=== PATIENT | female | born 1950 | race Caucasian/White ===

== ENCOUNTER 2019-02-16 17:50 | Inpatient (IN) | payer MEDICARE, OTHER, SELFPAY ==
[2019-02-16] VITALS (8 sets, daily range): BP systolic 108–154; BP diastolic 64–75; PULSE 72–105; RESP 12–18; TEMP 36.6–37.1; O2SAT 97–99; BMI 31.6; BMI 32.3; BMI 32.4
--- NOTE | 2019-02-16 18:13 | CT_ITS ---
STUDY: CT BRAIN WITHOUT CONTRAST REASON FOR EXAM: Female, 68 years old. Weakness. Fall. RADIATION DOSAGE (If Supplied By Facility): CTDIvol = ( 44.99 ) mGy, DLP = ( 745.49 ) mGycm TECHNIQUE: Transaxial CT imaging of the brain was performed without administration of intravenous contrast material. Individualized dose optimization techniques were used for this CT. COMPARISON: No relevant priors. FINDINGS: Normal soft tissue structures. There is hyperostosis frontalis internus. Normal size ventricles and extra-axial spaces for the patient''s age. Normal white matter tracts of the cerebral hemispheres. Normal basal ganglia and thalami. Normal brainstem. Normal cerebellum. There is no intracranial hemorrhage. There are no findings of an acute ischemic infarction. Normal visualized paranasal sinuses. CT/Brain/Head without Contrast IMPRESSION: Normal unenhanced CT scan of the brain. Electronically Signed: Víctor Hughes MD at 18:53 EST , Service support ,
--- NOTE | 2019-02-16 18:13 | EKG12_ITS ---
Test Reason : DYSRHYTHMIA Blood Pressure : / mmHG Vent. Rate : 097 BPM Atrial Rate : 097 BPM P-R Int : 152 ms QRS Dur : 076 ms QT Int : 338 ms P-R-T Axes : 037 029 009 degrees QTc Int : 429 ms Normal sinus rhythm Inferior-posterior infarct , age undetermined Abnormal ECG Confirmed by OSBALDO BENITEZ, JULIA ([id number]), newspaper managing editor JASWINDER ABRAHAM ([id number]) on 02/17/2019 11:05:42 AM Referred By: Jose Antonio Napier Confirmed By:JULIA ROBLERO MD
--- NOTE | 2019-02-16 18:18 | RAD_ITS ---
STUDY: X-RAY CHEST REASON FOR EXAM: Female, 68 years old. Weakness. TECHNIQUE: Single AP portable view of the chest. COMPARISON: None. FINDINGS: The lungs are clear and expanded. There is no demonstrated pleural abnormality. Normal size heart. Normal mediastinum and christian. Normal visualized pulmonary arteries. Normal visualized aortic arch and descending thoracic aorta. Normal visualized thoracic spine. Normal visualized ribs, clavicles, and shoulders. There is no demonstrated abnormality of the visualized soft tissue structures of the upper abdomen. RAD/Chest 1 View (Portable) IMPRESSION: Normal x-ray examination of the chest. Electronically Signed: Víctor Hughes MD at 18:34 EST , Service support ,
[2019-02-16 18:37] LABS: Absolute Lymphocyte Count 1.41 X10^3/uL (0.83-4.51); Absolute Neutrophil Count 7.3 X10^3/uL (2.0-7.7); Basophil# 0.02 X10^3/uL; Basophil% 0.2 % (0-1); Eosinophil# 0.02 X10^3/uL; Eosinophils% 0.2 % (0-5); Hematocrit 46.9 % (37-47); Hemoglobin 15.5 g/dL (12.0-15.0); Lymphocyte # 1.41 X10^3/ul (4.0); Lymphocyte % 15.2 % (19-41); Mean Corpuscular Hgb 29.3 pg (27.0-32.0); Mean Corpuscular Volume 88.7 fL (81-99); Mean Platelet Vol. 7.8 fl (6.2-12.0); Monocyte% 5.4 % (0-10); NRBC Flagged by Analyzer 0 % (0-5); Neutrophil # 7.28 X10^3/uL (2.7-7.7); Neutrophil % 78.7 % (47-70); Platelet Count 222 K/mm3 (150-450); RBC Distribution Width CV 12.7 % (11.6-14.6); RBC Distribution Width SD 41.2 fl (35.1-43.9); Red Blood Count 5.29 M/mm3 (4.2-5.4); White Blood Count 9.3 K/mm3 (4.4-11.0)
--- NOTE | 2019-02-16 18:47 | ED.DCSUM_ITS ---
History of Present Illness Chief Complaint: Fall Narrative: Patient presenting for evaluation secondary to generalized weakness. Patient reports that she felt fine yesterday, but today as she went throughout the course of the day she had some pain under her left axilla. She reports a progressively she felt as if she was having difficulty ambulating, and as she was walking to the mailbox this afternoon she suffered a fall. Patient states that her legs basically gave out from underneath her, and she was unable to ambulate. She reports that she fell on her bottom, did not hit her head or lose consciousness. Patient states that she had to crawl back up to the house, and her cat helped her. Patient denies illness recently such as fever, cough, nausea, vomiting. She reports that she intermittently has issues with constipation and diarrhea and that is not unusual for her. Patient states that her legs are generally weak, but left feels somewhat worse than right. Patient also states that they were dealing with things with her neighbors in terms of the rescue squad being there and the neighbor being put on hospice care. Patient denies any visual changes or upper extremity numbness or weakness. No speech difficulty. Past Medical History - Allergies and Home Meds Allergies/Adverse Reactions: Allergies No Known Allergies Allergy (Verified 02/16/19 18:00) Primary Care Physician: Imtiaz Lee DO [Primary Care Provider] - 3-5 Days Past Medical History: - - Depression Smoking Status: Never smoker Review of Systems All systems negative except as indicated General: Denies: Chills, Fever, Sweats Eyes: Denies: Visual changes - bilaterally, Diplopia ENT: Denies: Rhinorrhea, Sore throat Cardiovascular: Denies: Chest pain, Palpitations Respiratory: Denies: Dyspnea, Cough, Dyspnea on exertion Gastrointestinal: Reports: Diarrhea, Constipation Genitourinary: Denies: Dysuria, Hematuria, Frequency Musculoskeletal: Denies: Back pain, Extremity Pain Skin: Denies: Rash, Wounds Neurological: Reports: Weakness Psych: Reports: Depression Endocrine: Denies: Polydipsia Hematologic: Denies: Easy bleeding Allergy: Denies: Swelling of the mouth Physical Exam Vital Signs/Narrative: Vital Signs Temp Pulse Resp BP Pulse Ox 02/16/19 18:09 97 02/16/19 17:51 97.8 F 105 H 16 108/64 97 Inital Vital Signs reviewed: Yes General: Well nourished, Well developed, No Acute Distress Head: Normocephalic, Atraumatic Eyes: Perrl, EOMI ENT: Moist mucous membranes, No rhinorrhea Neck: Supple, Nontender Cardiovascular: Regular rate, Regular rhythm, No murmurs Respiratory: No distress, CTA bilaterally, Chest nontender Abdomen: Soft, Nontender, Nondistended, Normal bowel sounds Back: Nontender, Normal Inspection Extremities: Nontender, No edema Skin: Normal color, No rash Neurological: Alert, Oriented x3, Cranial nerves II-XII grossly intact, Normal Sensation, - - Lower extremity exam shows normal sensation over all dermatomes. Patient has 4 out of 5 strength on the left for hip flexion and knee flexion, 5 out of 5 strength knee extension dorsiflexion and plantar flexion. Normal strength on the right. No evidence of decreased reflexes. Psychological: Normal affect, Normal Mood Diagnostic/Tx/Re-eval - EKG Initial EKG Interpretation: - - Sinus rhythm [address] segments normal T waves inferior Q waves that are old and noted on a prior EKG in October 2013. - Medical Decision Making Patient presented secondary to generalized weakness. Patient did seem to have some mild weakness of knee flexion and hip flexion, but no other documentable weakness in has no back pain, and has no abnormal reflexes I do not believe that this is spinal cord pathology. Work-up was obtained. Chest x-ray by my personal interpretation as well as radiology is found to be negative. CT brain was found to be negative. CBC chemistry troponin and urinalysis were all found to be unremarkable, EKG demonstrates no signs of ischemia. Patient at this point has basically some generalized weakness and a fall with an otherwise negative work-up. I attempted to ambulate the patient in the emergency department, and she was unable to walk even with the assistance of a nurse and a walker. At this time she seems to be complaining more so of the left-sided weakness. Repeat evaluation of the patient shows her to have some left leg weakness that predominantly seems to be associated with hip flexion and knee flexion, but technically her NIH stroke scale measures as a 2. Due to her unilateral weakness and inability to ambulate the patient will be admitted at this point. ED Disposition - Plan for ED Patient: Disposition: Acute Care Hospital [facility] Diagnosis: Left leg weakness
[2019-02-16 19:02] LABS: Anion Gap 6 (5-15); BUN 17 mg/dL (7-18); BUN/Creat Ratio 12.7 RATIO (10-20); Calcium,Total 9.9 mg/dL (8.5-10.1); Chloride 111 mmol/L (98-107); Creatinine, Serum 1.34 mg/dL (0.55-1.02); EST Glomerular Filtration Rate 42 mL/min (>60); Est Glom Filt Rate - Afr Amer 51 mL/min (>60); Estimated Creatinine Clearance 37.16 ml/min; Glucose 109 mg/dL (74-106); Potassium 4.1 mmol/L (3.5-5.1); Sodium Level 142 mmol/L (136-145)
[2019-02-16 19:08] LABS: Bacteria 0 SEEN /hpf (None Seen); Red Blood Cells-Urine 0 SEEN /hpf (0-5); Squamous Epithelial Cells - UA 0 SEEN /hpf (5-10)
[2019-02-16 19:10] LABS: Color, Urine Yellow (Yellow); Glucose, Dipstick Normal (Normal); Ketone-Dipstick Negative (Negative); Leukocyte Esterase-Dipstick Negative /ul (Negative); Nitrite-Dipstick Negative (Negative); Occult Blood-Urine 10 /ul (Negative); Protein-Dipstick Negative (Negative); Urine Bilirubin Dipstick Negative (Negative); Urine Clarity Cloudy (Clear); Urine Urobilinogen Normal (Normal)
[2019-02-16 19:18] LABS: Mucous, Urine 2+ /hpf (<or=2+); White Blood Cells 0-5 SEEN /hpf (0-5)
--- NOTE | 2019-02-16 20:03 | ED.RN ---
PT did not pass ambulation protocol with walker. She had trouble putting underwear and pants on by herself. PT states she never had any problems with self care until today. Left leg seems weaker and she drags it behind. Also states this is new. PT admits to depression, she is in a depressed mood currently. PT did give very good effort in walking with walker but nearly pitched forward or backward 4 times. If RN was not at side, she would have surly fallen either backward or forward.
--- NOTE | 2019-02-16 20:06 | HP.PCM_ITS ---
Problem List (1) Stroke-like symptoms Status: Acute (2) Left leg weakness Status: Acute History of Present Illness Date of Admission: 02/16/19 Chief Complaint: left sided weakness The patient is a 68 year old F with a significant history of hypertension; rosacea; borderline diabetes; depression and anxiety who presented to emergency department with left-sided weakness that started several hours before presenta tion. She has weakness in the left upper extremity and in her left lower extremity. Because of the weakness she fell. She denies any speech changes. She reports a gradual vision changes which is not new. Past Medical History Medical History: Medical History (Last Reviewed 02/17/19 @ 04:59 by Jose Antonio Napier MD) HTN (hypertension) I10 Allergies No Known Allergies Allergy (Verified 02/16/19 18:00) Home Medications: Ambulatory Orders Medication Instructions Recorded Lorazepam [Ativan] 0.5 - 1 mg PO BID PRN PRN 10/16/13 Fluvoxamine Maleate 100 mg PO QHS 02/16/19 Metformin HCl 500 mg PO DAILY 02/16/19 Mirtazapine 30 mg PO QHS 02/16/19 Rosuvastatin Calcium [Crestor] 10 mg PO DAILY 02/16/19 Surgical History: - - Surgery to remove lesion in her armpit; ; surgery for ingrown toenail. Smoking Status: Never smoker Alcohol: None - *Family History Maternal History Items: Heart Disease Paternal History Items: Heart Disease, - - Arthritis Review of Systems Constitutional: Denies: Chills, Fever, Weight Change HEENT: Denies: Head Aches, Sinus Congestion, Sinus Drainage Cardiovascular: Denies: Chest Pain, Palpitations Respiratory: Denies: Cough, Shortness of breath at rest, Sputum production Gastrointestinal: Denies: Abdominal Pain, Nausea, Vomiting Genitourinary: Denies: Dysuria Musculoskeletal: Denies: Joint Pain, Joint Tenderness Skin: Denies: Rash, Wounds Neurological: Reports: Focal weakness. Denies: Numbness, Tingling Psychiatric: Reports: Anxiety, Depression. Denies: Homicidal Ideations, Suicidal Ideations Hematologic/ Lymphatic: Denies: Easy Bruising, Easy Bleeding VTE Information - Inpt Only VTE Present on Admission: No VTE Mechan Device Prophylaxis: None VTE Pharm Prophylaxis ordered?: Yes Patient Problems: Active and Suspected Problems (Last Updated 02/17/19 @ 00:41 by Jose Antonio Napier MD) Left leg weakness (Acute) Stroke-like symptoms (Acute) - Physical Exam Vitals/I&O's: Vital Signs Temp Pulse Resp BP Pulse Ox 97.8 F 72 18 149/69 H 99 02/16/19 17:51 02/16/19 20:03 02/16/19 20:03 02/16/19 20:03 02/16/19 20:03 Oxygen Delivery Method Room Air Weight: 86.183 kg Body Mass Index (BMI) 31.6 General: Alert, Oriented x3, Cooperative HEENT: Atraumatic, PERRLA, EOMI, Normocephalic Neck: Supple, No JVD, Negative Carotid Bruits Lungs: Clear to auscultation, Normal air movement Cardiovascular: Regular rate, Normal S1, Normal S2, No murmurs Abdomen: Bowel Sounds Present, Soft, Non Tender Extremities: No edema, Capillary Refill Less than 3 Seconds Skin: No rashes, No breakdown Musculoskeletal: No Tenderness to Palpation of Joints or Extremities Neurological: Cranial nerves II-XII grossly intact, Deep Tendon Reflexes 2+/4 and Symmetrical, Muscle tone normal, - - Left upper extremity strength 4 out of 5. Left lower extremity strength 2 out of 5. Right upper and right lower extremity strength 5 out of 5. Psych/Mental Status: Normal Affect, Appropriate Laboratory Results 02/16/19 18:29: WBC 9.3, RBC 5.29, Hgb 15.5 H, Hct 46.9, MCV 88.7, MCH 29.3, MCHC 33.0, RDW Std Deviation 41.2, RDW Coeff of Kristal 12.7, Plt Count 222, MPV 7.8, Immature Gran % (Auto) 0.300, Neut % (Auto) 78.7 H, Lymph % (Auto) 15.2 L, [place] % (Auto) 5.4, Eos % (Auto) 0.2, Baso % (Auto) 0.2, Absolute Neuts (auto) 7.3, Absolute Lymphs (auto) 1.41, Nucleated RBC % 0 02/16/19 18:29: Sodium 142, Potassium 4.1, Chloride 111 H, Carbon Dioxide 25.0, Anion Gap 6, BUN 17, Creatinine 1.34 H, Estim Creat Clear Calc 37.16, Est GFR (MDRD) Af Amer 51 L, Est GFR (MDRD) Non-Af 42 L, BUN/Creatinine Ratio 12.7, Glucose 109 H, Calcium 9.9, Troponin I < 0.015 02/16/19 19:05: Urine Color Yellow, Urine Clarity Cloudy, Urine pH 5.0, Ur Specific [place] 1.030, Urine Protein Negative, Urine Glucose (UA) Normal, Urine Ketones Negative, Urine Occult Blood 10 H, Urine Nitrite Negative, Urine Bilirubin Negative, Urine Urobilinogen Normal, Ur Leukocyte Esterase Negative, Urine RBC 0 SEEN, Urine WBC 0-5 SEEN, Ur Squamous Epith Cells 0 SEEN, Urine Bacteria 0 SEEN, Urine Mucus 2+ Assessment/Plan All Active Problems (Last Updated 02/17/19 @ 00:41 by Jose Antonio Napier MD) Left leg weakness (Acute) Stroke-like symptoms (Acute) The patient is a 68 year old F with a significant history of hypertension; rosacea; borderline diabetes; depression and anxiety who presented to emergency department with left-sided weakness that started several hours before presentation consistent with likely strokelike symptoms. Strokelike symptoms CT of the head was unremarkable -Check Hba1c, Lipid level Physical therapy, occupational therapy and speech therapy to work with patient. N.p.o. until bedside swallow eval. Daily aspirin ordered.. Patient is on home rosuvastatin 10 mg daily. Will escalate to high intensity statin Lipid profile and A1c ordered. Permissive hypertension. Control blood pressure with labetalol for systolic blood pressure of more than 220 or diastolic blood pressure of more than 120. -Permissive HTN for 24 hrs, fci goal BP < 120/80 mmHg and goal Hba1c < 7% MRI/MRA of head; brain; and neck. Echocardiogram ordered. Prediabetes On presentation her blood glucose was within goal. Hold home metformin. Accu-Chek q. ACH is. On high restriction of 1800 kcal/day. Depression and anxiety Remeron and fluvoxamine continued. Ativan as needed continued. DVT prophylaxis Subcutaneous Lovenox. Code Visit OBSV E&M: 04080 Initial observation care L3
--- NOTE | 2019-02-16 21:18 | ECHOCS_ITS ---
Reason For Study: TIA/CVA Procedure This was a 2D Doppler, Color Flow transthoracic echocardiogram. The study was technically difficult. Contrast injection was performed. Exam performed in department. Left Ventricle Normal LV size. Mild concentric left ventricular hypertrophy. The estimated ejection fraction is 65 %. Stage 1 diastolic dysfunction. No regional wall motion abnormalities noted. Right Ventricle Normal size and thickness. Normal systolic function. Atria Normal left atrium. Normal right atrium. Normal atrial septum. Mitral Valve The mitral valve is structurally normal. No prolapse or stenosis seen. Tricuspid Valve Normal tricuspid valve. Trivial tricuspid valve insufficiency. Right ventricular systolic pressure estimated to be 25 mmHg. Aortic Valve Normal aortic valve. Trisinus/trileaflet aortic valve. Pulmonic Valve Normal pulmonic valve. Great Vessels Normal aortic root. Normal arch. Normal inferior vena cava. Inferior vena cava collapse with sniff. Pericardium/Pleural No pericardial effusion. Medication Diluted definity 2.0ml given slow IV push to enhance endocardial definition. Performed a rapid injection of agitated mix of 9 cc saline and 1cc air to assess for atrial septal defect. MMode/2D Measurements & Calculations LVIDd: 3.4 cm IVSd: 1.2 cm Ao root diam: 2.8 cm LVIDs: 2.5 cm LVPWd: 0.93 cm RVDd: 3.2 cm FS: 27.8 % LAV(MOD-bp): 30.1 ml LA A4 area: 12.3 cm2 LA dimension(2D): 2.7 cm LAV(MOD-bp) Indexed: 15.4 ml/m2 LAV(MOD-sp2): 25.7 ml LAV(MOD-sp4): 30.4 ml RA A4 area: 12.0 cm2 Time Measurements MV dec time: 0.23 sec Doppler Measurements & Calculations MV E max wilmar: 54.7 cm/sec Ao V2 max: 100.4 cm/sec LV V1 max: 86.9 cm/sec MV A max wilmar: 63.6 cm/sec Ao max P.0 mmHg LV V1 max P.0 mmHg MV E/A: 0.86 PA V2 max: 87.3 cm/sec TR max wilmar: 223.2 cm/sec TR max P.9 mmHg Interpretation Summary Mild concentric left ventricular hypertrophy. The estimated ejection fraction is 65 %. Stage 1 diastolic dysfunction. Trivial tricuspid valve insufficiency. Right ventricular systolic pressure estimated to be 25 mmHg. The study was technically difficult. Contrast injection was performed. There is no comparison study available. Ordering Physician: Jose Antonio Napier Referring Physician: Imtiaz Weiss Performed By: Luiza Coyne RDCS, RVT
[2019-02-16] MEDS: 0.45% Normal Saline 1,000 ML 75 ML IV (21:37)
[2019-02-16] MEDS: 0.9% Saline Lock 10 ML Syringe IV (21:37)
[2019-02-16] MEDS: Mirtazapine 30 MG Tablet PO (22:23)
[2019-02-16] MEDS: Atorvastatin Calcium 40 MG Tablet PO (22:23)
[2019-02-17] VITALS (11 sets, daily range): BP systolic 123–151; BP diastolic 56–88; PULSE 74–96; RESP 12–20; TEMP 36.6–37; O2SAT 93–100; BMI 32.3
[2019-02-17 03:16] LABS: Bedside Glucose 91 mg/dL (70-110)
[2019-02-17] MEDS: Acetaminophen 325 MG Tablet 650 MG PO (05:10)
[2019-02-17 06:36] LABS: Bedside Glucose 113 mg/dL (70-110)
[2019-02-17 08:06] LABS: Anion Gap 8 (5-15); BUN 16 mg/dL (7-18); BUN/Creat Ratio 13.6 RATIO (10-20); Calcium,Total 8.7 mg/dL (8.5-10.1); Chloride 107 mmol/L (98-107); Cholesterol 113 mg/dL (200); Creatinine, Serum 1.18 mg/dL (0.55-1.02); EST Glomerular Filtration Rate 49 mL/min (>60); Est Glom Filt Rate - Afr Amer 59 mL/min (>60); Glucose 118 mg/dL (74-106); High Density Lipoprotein 41 mg/dL; Potassium 3.6 mmol/L (3.5-5.1); Sodium Level 142 mmol/L (136-145); Triglycerides 125 mg/dL; Very Low Density Lipoprotein 25 mg/dL (5-40)
[2019-02-17] MEDS: Enoxaparin 40 MG/0.4 ML Syringe SC (08:31)
[2019-02-17] MEDS: Aspirin 81 MG TAB.CHEW PO (08:38)
--- NOTE | 2019-02-17 09:00 | MRI_ITS ---
STUDY: MRI BRAIN WITHOUT CONTRAST REASON FOR EXAM: Female, 68 years old. Stroke, leg weakness, vision loss TECHNIQUE: Standardized multiplanar fat and water weighted pulse sequences were obtained. COMPARISON: CT 02/16/2019 FINDINGS: Normal size of the ventricles and extra-axial spaces for the patient''s age. Normal white matter tracts of the supratentorial brain. There is no evidence for recent intracranial ischemia or other cause of cytotoxic edema on diffusion weighted imaging (DWI). Normal T2* images of the brain without demonstrated susceptibility artifact. There is no demonstrated hemosiderin stain. Normal bilateral basal ganglia. Normal thalami. There is no extra-axial fluid accumulation. Normal flow voids within the major intracranial circulation suggesting patency by spin echo criteria. Normal sella turcica, pituitary gland, infundibular stalk, optic chiasm and hypothalamus. Normal tectal plate and pineal gland. Normal midbrain, wanda and medulla. Normal cerebellum. Normal basal cisterns. Normal bilateral temporal bones. Normal bilateral internal auditory canals. No demonstrated orbital abnormality, within the constraints of a routine brain study. Normal visualized paranasal sinuses. Hyperostosis frontalis interna. Normal visualized soft tissue structures. Normal visualized upper cervical spine. MRI/Brain without Contrast IMPRESSION: Normal unenhanced MRI of the brain. Electronically Signed: Terrell Chang MD at 14:35 EST Tel , Service support ,
--- NOTE | 2019-02-17 09:00 | MRI_ITS ---
STUDY: MRA NECK WITH AND WITHOUT CONTRAST REASON FOR EXAM: Female, 68 years old. Stroke, leg weakness, vision loss TECHNIQUE: 3-D [id number] (TOF) imaging was performed in an 1.5 T MRI scanner. dotarem 18ml iv was administered for the contrast enhanced images. COMPARISON: None. FINDINGS: RIGHT CAROTID ARTERIES: Normal right common carotid artery (CCA). Normal right common carotid bulb. Normal origin of the right internal carotid (ICA) artery without a hemodynamically significant stenosis. Normal visualized cervical portion of the right internal carotid artery. Normal origin of the right external carotid artery (ECA). LEFT CAROTID ARTERIES: Normal left common carotid artery (CCA). Normal left common carotid bulb. Normal origin of the left internal carotid (ICA) artery without a hemodynamically significant stenosis. Normal visualized cervical portion of the left internal carotid artery. Normal origin of the left external carotid artery (ECA). VERTEBRAL ARTERIES: Normal antegrade flow within the bilateral vertebral artery without a hemodynamically significant stenosis. MRI/MRA Neck WITH and W/O Contrast IMPRESSION: Normal bilateral cervical carotid and vertebral arteries. Electronically Signed: Terrell Chang MD at 14:38 EST Tel , Service support ,
--- NOTE | 2019-02-17 09:00 | MRI_ITS ---
STUDY: MRA OF THE HEAD WITHOUT CONTRAST REASON FOR EXAM: Female, 68 years old. Stroke, leg weakness, vision loss TECHNIQUE: 3-D dsvv-pv-wehufm (TOF) imaging was performed with MIPs. The study was performed unenhanced. COMPARISON: None. FINDINGS: Normal bilateral petrous carotid arteries. Normal right cavernous carotid artery with a normal supraclinoid bifurcation. Normal left cavernous carotid artery with a normal supraclinoid bifurcation. Normal right A1 segments of the anterior cerebral artery. Normal left A1 segments of the anterior cerebral artery. Normal intact anterior communicating artery (ACOM). Normal bilateral A2 segments of the anterior cerebral arteries. Normal right M1 and M2 segments of the middle cerebral arteries, with a normal M1 bifurcation. Normal left M1 and M2 segments of the middle cerebral arteries, with a normal M1 bifurcation. Normal right posterior communicating artery (PCOM). Normal left posterior communicating artery (PCOM). Normal bilateral vertebral arteries. Normal basilar artery with a normal basilar bifurcation. The visualized bilateral superior cerebellar (SCA) arteries are normal. Normal bilateral P1, P2 and visualized P3 segments of the posterior cerebral arteries. There is no demonstrated aneurysm of the [place]. There is no major vessel occlusion or hemodynamically significant stenosis. There is no demonstrated abnormality of the visualized brain. MRI/MRA Head ONLY without Contrast IMPRESSION: Normal MRA of the head Electronically Signed: Terrell Chang MD at 14:39 EST Tel , Service support ,
[2019-02-17] MEDS: LORazepam 0.5 MG Tablet PO ×2 (10:49→18:28)
[2019-02-17] MEDS: Insulin Lispro 100 UNIT/ML INSULN.PEN SC (10:56)
[2019-02-17 11:21] LABS: Bedside Glucose 163 mg/dL (70-110)
--- NOTE | 2019-02-17 13:24 | PCM.PROGNOTE ---
<Yris Rodriguez - Last Filed: 02/17/19 13:41> Patient Problems: Active and Suspected Problems (Last Reviewed 02/17/19 @ 04:59 by Jose Antonio Napier MD) Left leg weakness (Acute) Stroke-like symptoms (Acute) Subjective: Patient seen and examined. at bedside. frequently talking over patient. reports patient has had significant depression over the past 5 years, sleeps a lot during the day. continues with conversation unrelated to presenting symptoms. Patient reports fall while getting mail and upon getting up noticed left-sided weakness. She now states she has weakness in both lower extremities, left greater than right. No slurred speech, facial droop, upper extremity weakness or other focal deficits. Patient reports left eye vision changes which are not new, she has been following as outpatient for this. - Physical Exam Vitals/I&O's: Vital Signs Temp Pulse Resp BP Pulse Ox 98.2 F 74 16 140/82 H 95 02/17/19 08:30 02/17/19 08:30 02/17/19 08:30 02/17/19 08:30 02/17/19 08:50 Oxygen Delivery Method Room Air Weight: 194 lb 7.163 oz Body Mass Index (BMI) 32.3 Intake and Output for Last 24 Hours 02/15/19 02/16/19 02/17/19 23:59 23:59 23:59 Intake Total 369.5 / 369.5 1342.5 / 1342.5 Output Total 0 / 0 150 / 150 Balance 369.5 / 369.5 1192.5 / 1192.5 General: Alert, Oriented x3, Cooperative HEENT: Atraumatic, PERRLA, EOMI, Normocephalic Neck: Supple, No JVD, Negative Carotid Bruits Lungs: Clear to auscultation, Normal air movement Cardiovascular: Regular rate, Regular Rhythm, Normal S1, Normal S2, No murmurs Abdomen: Bowel Sounds Present, Soft, Non Tender, Non-Distended Extremities: No clubbing, No cyanosis, No edema, Capillary Refill Less than 3 Seconds Skin: No rashes, No breakdown Musculoskeletal: No Tenderness to Palpation of Joints or Extremities Neurological: Cranial nerves II-XII grossly intact, - - LLE 1/5, RLE 3/5 weakness. Psych/Mental Status: Flat Affect Laboratory Results 02/16/19 18:29: WBC 9.3, RBC 5.29, Hgb 15.5 H, Hct 46.9, MCV 88.7, MCH 29.3, MCHC 33.0, RDW Std Deviation 41.2, RDW Coeff of Kristal 12.7, Plt Count 222, MPV 7.8, Immature Gran % (Auto) 0.300, Neut % (Auto) 78.7 H, Lymph % (Auto) 15.2 L, [place] % (Auto) 5.4, Eos % (Auto) 0.2, Baso % (Auto) 0.2, Absolute Neuts (auto) 7.3, Absolute Lymphs (auto) 1.41, Nucleated RBC % 0 02/16/19 18:29: Sodium 142, Potassium 4.1, Chloride 111 H, Carbon Dioxide 25.0, Anion Gap 6, BUN 17, Creatinine 1.34 H, Estim Creat Clear Calc 37.16, Est GFR (MDRD) Af Amer 51 L, Est GFR (MDRD) Non-Af 42 L, BUN/Creatinine Ratio 12.7, Glucose 109 H, Calcium 9.9, Troponin I < 0.015 02/16/19 19:05: Urine Color Yellow, Urine Clarity Cloudy, Urine pH 5.0, Ur Specific [place] 1.030, Urine Protein Negative, Urine Glucose (UA) Normal, Urine Ketones Negative, Urine Occult Blood 10 H, Urine Nitrite Negative, Urine Bilirubin Negative, Urine Urobilinogen Normal, Ur Leukocyte Esterase Negative, Urine RBC 0 SEEN, Urine WBC 0-5 SEEN, Ur Squamous Epith Cells 0 SEEN, Urine Bacteria 0 SEEN, Urine Mucus 2+ 02/16/19 21:45: POC Glucose 91 02/17/19 06:29: POC Glucose 113 H 02/17/19 06:45: Sodium Cancelled, Potassium Cancelled, Chloride Cancelled, Carbon Dioxide Cancelled, Anion Gap Cancelled, BUN Cancelled, Creatinine Cancelled, Estim Creat Clear Calc Cancelled, Est GFR (MDRD) Af Amer Cancelled, Est GFR (MDRD) Non-Af Cancelled, BUN/Creatinine Ratio Cancelled, Glucose Cancelled, Calcium Cancelled, Triglycerides Cancelled, Cholesterol Cancelled, LDL Cholesterol Cancelled, VLDL Cholesterol Cancelled, HDL Cholesterol Cancelled 02/17/19 06:45: Hemoglobin A1c 6.0 02/17/19 07:26: Sodium 142, Potassium 3.6, Chloride 107, Carbon Dioxide 27.0, Anion Gap 8, BUN 16, Creatinine 1.18 H, Estim Creat Clear Calc 42.20, Est GFR (MDRD) Af Amer 59 L, Est GFR (MDRD) Non-Af 49 L, BUN/Creatinine Ratio 13.6, Glucose 118 H, Calcium 8.7, Triglycerides 125, Cholesterol 113, LDL Cholesterol 47, VLDL Cholesterol 25, HDL Cholesterol 41 02/17/19 10:53: POC Glucose 163 H Current Medications Acetaminophen (Tylenol) 650 mg PO Q6H PRN PRN PRN Reason: Pain Score 1-3/Temp > 100.7 F Last Admin: 02/17/19 05:10 Dose: 650 mg Documented by: Aspirin (Aspirin, Baby) 81 mg PO DAILY@0800 [facility] Last Admin: 02/17/19 08:38 Dose: 81 mg Documented by: Atorvastatin Calcium (Lipitor) 40 mg PO QHS [facility] Last Admin: 02/16/19 22:23 Dose: 40 mg Documented by: Enoxaparin Sodium (Lovenox) 40 mg SC DAILY [facility] Last Admin: 02/17/19 08:31 Dose: 40 mg Documented by: Fluvoxamine Maleate (Luvox) 100 mg PO QHS [facility] Glucagon () 1 mg IM .X1 PRN PRN Reason: Hypoglycemia Sodium Chloride () 250 mls @ 15 mls/hr IV .[id number] PRN PRN Reason: Saline Flush Dextrose (Dextrose 10%-Water) 250 mls @ 999 mls/hr IV X1 PRN; Protocol PRN Reason: HYPOGLYCEMIA Insulin Human Lispro (Humalog Kwikpen (Bkc)) [facility]; Protocol Last Admin: 02/17/19 10:56 Dose: 1 units Documented by: Labetalol HCl (Trandate) 10 mg IV Q10M PRN PRN Reason: MAINTAIN BP < 220/120 Stop: 02/17/19 21:19 Lorazepam (Ativan) 0.5 mg PO BID PRN PRN PRN Reason: ANXIETY Last Admin: 02/17/19 10:49 Dose: 0.5 mg Documented by: Mirtazapine (Remeron) 30 mg PO QHS [facility] Last Admin: 12/10/19 22:23 Dose: 30 mg Documented by: Ondansetron HCl (Zofran) 4 mg IV Q8H PRN PRN PRN Reason: NAUSEA/VOMITING Sodium Chloride () 10 - 40 ml IV UD PRN PRN Reason: SALINE FLUSH Last Admin: 02/16/19 21:37 Dose: 10 ml Documented by: Medical Necessity - Tobacco Use Smoking Status: Never smoker Assessment/Plan All Active Problems (Last Reviewed 02/17/19 @ 04:59 by Jose Antonio Napier MD) Left leg weakness (Acute) Stroke-like symptoms (Acute) 1. R/O stroke-BL lower extremity weakness, L>R. Brain CT on admission unremarkable. MRI of brain, MRA of head and neck pending. Continue aspirin, statin. PT/OT/ST. Possible neuro consult pending further imaging. 2. Type 2 diabetes mellitus-hold metformin. HA1C 6%. 3. Depression/Anxiety-continue fluvoxamine, PRN ativan, mirtazapine. reports depression poorly controlled. 4. Hyperlipidemia- continue statin. 5. Chronic kidney disease stage III- DVT prophylaxis- lovenox sc This patient was seen by ROD Mcnair under the supervision of Dr. Salvador. <Ez Salvador - Last Filed: 02/17/19 15:57> - Physical Exam Vitals/I&O's: Vital Signs Temp Pulse Resp BP Pulse Ox 36.6 C 81 14 139/88 H 97 02/17/19 13:30 02/17/19 15:00 02/17/19 13:30 02/17/19 13:30 02/17/19 13:30 Oxygen Delivery Method Room Air Weight: 88.2 kg Body Mass Index (BMI) 32.3 Intake and Output for Last 24 Hours 02/15/19 02/16/19 02/17/19 23:59 23:59 23:59 Intake Total 369.5 / 369.5 1342.5 / 1342.5 Output Total 0 / 0 150 / 150 Balance 369.5 / 369.5 1192.5 / 1192.5 General: Alert, Cooperative HEENT: Atraumatic, Normocephalic Neck: No Nodes, Trachea Midline Lungs: Clear to auscultation, Normal air movement Cardiovascular: Regular rate, Regular Rhythm, Normal S1, Normal S2 Abdomen: Bowel Sounds Present, Soft, Non Tender, Non-Distended Extremities: No edema, No Calf Tenderness Skin: No rashes, Ulcer/ Wound Musculoskeletal: No Tenderness to Palpation of Joints or Extremities, No Muscle Wasting Neurological: Cranial nerves II-XII grossly intact, - - LLE 1/5, RLE 3/5 weakness. Poor effort Psych/Mental Status: Flat Affect Laboratory Results 02/16/19 18:29: WBC 9.3, RBC 5.29, Hgb 15.5 H, Hct 46.9, MCV 88.7, MCH 29.3, MCHC 33.0, RDW Std Deviation 41.2, RDW Coeff of Kristal 12.7, Plt Count 222, MPV 7.8, Immature Gran % (Auto) 0.300, Neut % (Auto) 78.7 H, Lymph % (Auto) 15.2 L, [place] % (Auto) 5.4, Eos % (Auto) 0.2, Baso % (Auto) 0.2, Absolute Neuts (auto) 7.3, Absolute Lymphs (auto) 1.41, Nucleated RBC % 0 02/16/19 18:29: Sodium 142, Potassium 4.1, Chloride 111 H, Carbon Dioxide 25.0, Anion Gap 6, BUN 17, Creatinine 1.34 H, Estim Creat Clear Calc 37.16, Est GFR (MDRD) Af Amer 51 L, Est GFR (MDRD) Non-Af 42 L, BUN/Creatinine Ratio 12.7, Glucose 109 H, Calcium 9.9, Troponin I < 0.015 02/16/19 19:05: Urine Color Yellow, Urine Clarity Cloudy, Urine pH 5.0, Ur Specific [place] 1.030, Urine Protein Negative, Urine Glucose (UA) Normal, Urine Ketones Negative, Urine Occult Blood 10 H, Urine Nitrite Negative, Urine Bilirubin Negative, Urine Urobilinogen Normal, Ur Leukocyte Esterase Negative, Urine RBC 0 SEEN, Urine WBC 0-5 SEEN, Ur Squamous Epith Cells 0 SEEN, Urine Bacteria 0 SEEN, Urine Mucus 2+ 02/16/19 21:45: POC Glucose 91 02/17/19 06:29: POC Glucose 113 H 02/17/19 06:45: Sodium Cancelled, Potassium Cancelled, Chloride Cancelled, Carbon Dioxide Cancelled, Anion Gap Cancelled, BUN Cancelled, Creatinine Cancelled, Estim Creat Clear Calc Cancelled, Est GFR (MDRD) Af Amer Cancelled, Est GFR (MDRD) Non-Af Cancelled, BUN/Creatinine Ratio Cancelled, Glucose Cancelled, Calcium Cancelled, Triglycerides Cancelled, Cholesterol Cancelled, LDL Cholesterol Cancelled, VLDL Cholesterol Cancelled, HDL Cholesterol Cancelled 02/17/19 06:45: Hemoglobin A1c 6.0 02/17/19 07:26: Sodium 142, Potassium 3.6, Chloride 107, Carbon Dioxide 27.0, Anion Gap 8, BUN 16, Creatinine 1.18 H, Estim Creat Clear Calc 42.20, Est GFR (MDRD) Af Amer 59 L, Est GFR (MDRD) Non-Af 49 L, BUN/Creatinine Ratio 13.6, Glucose 118 H, Calcium 8.7, Triglycerides 125, Cholesterol 113, LDL Cholesterol 47, VLDL Cholesterol 25, HDL Cholesterol 41 02/17/19 10:53: POC Glucose 163 H Current Medications Acetaminophen (Tylenol) 650 mg PO Q6H PRN PRN PRN Reason: Pain Score 1-3/Temp > 100.7 F Last Admin: 02/17/19 05:10 Dose: 650 mg Documented by: Aspirin (Aspirin, Baby) 81 mg PO DAILY@0800 [facility] Last Admin: 02/17/19 08:38 Dose: 81 mg Documented by: Atorvastatin Calcium (Lipitor) 40 mg PO QHS [facility] Last Admin: 02/16/19 22:23 Dose: 40 mg Documented by: Enoxaparin Sodium (Lovenox) 40 mg SC DAILY [facility] Last Admin: 02/17/19 08:31 Dose: 40 mg Documented by: Fluvoxamine Maleate (Luvox) 100 mg PO QHS [facility] Glucagon () 1 mg IM .X1 PRN PRN Reason: Hypoglycemia Sodium Chloride () 250 mls @ 15 mls/hr IV .[id number] PRN PRN Reason: Saline Flush Dextrose (Dextrose 10%-Water) 250 mls @ 999 mls/hr IV X1 PRN; Protocol PRN Reason: HYPOGLYCEMIA Insulin Human Lispro (Humalog Kwikpen (Bkc)) 0 unit SC [facility]; Protocol Last Admin: 02/17/19 10:56 Dose: 1 units Documented by: Labetalol HCl (Trandate) 10 mg IV Q10M PRN PRN Reason: MAINTAIN BP < 220/120 Stop: 02/17/19 21:19 Lorazepam (Ativan) 0.5 mg PO BID PRN PRN PRN Reason: ANXIETY Last Admin: 02/17/19 10:49 Dose: 0.5 mg Documented by: Mirtazapine (Remeron) 30 mg PO QHS [facility] Last Admin: 02/16/19 22:23 Dose: 30 mg Documented by: Nystatin (Mycostatin Powder) 1 applic TOPICAL BID [facility]; Protocol Ondansetron HCl (Zofran) 4 mg IV Q8H PRN PRN PRN Reason: NAUSEA/VOMITING Sodium Chloride () 10 - 40 ml IV UD PRN PRN Reason: SALINE FLUSH Last Admin: 02/16/19 21:37 Dose: 10 ml Documented by: Assessment/Plan Patient seen and examined independently. Data reviewed. I agree with the above note by the nurse practitioner. Patient with left-sided weakness. MRI of the brain was unremarkable for stroke. Patient still has left-sided weakness. Concerned that this could be a lumbar lesion versus conversion disorder versus malingering. Patient will undergo an MRI of the lumbar spine. Therapy is recommended additional therapy if necessary. Concern, given the patient's depression, that there may be some conversion or that may be contributing to this but will need to rule out any kind of a lumbar pathology. Patient demonstrates some inconsistency with therapy. Patient patient's story in and of itself, is not consistent as patient just felt weak all over in her lower extremities but was able to walk through its to the point where she was unable to do so. Code Visit Inpatient E&M: 51717 Subs Hosp L3
--- NOTE | 2019-02-17 13:37 | NURSING ---
NIH and VS late d/t pt being at MRI
--- NOTE | 2019-02-17 14:42 | MRI_ITS ---
STUDY: MRI LUMBAR SPINE WITHOUT CONTRAST REASON FOR EXAM: Female, 68 years old. Left leg weakness TECHNIQUE: Standardized fat and water weighted pulse sequences were obtained in the sagittal and axial planes. COMPARISON: None FINDINGS: T12-L1: Normal endplates. Normal disc height, hydration and morphology. Normal bilateral facet joints. Normal central canal and bilateral lateral recesses. Normal bilateral intervertebral neural foramina. Normal lumbar lordosis. There is mild to moderate levo scoliosis. Normal conus medullaris that terminates at T12-L1 L1-2: Normal endplates. Normal disc height, hydration and morphology. Normal bilateral facet joints. Normal central canal and bilateral lateral recesses. Normal bilateral intervertebral neural foramina. L2-3: Normal endplates. Normal disc height, hydration and morphology. Normal bilateral facet joints. Normal central canal and bilateral lateral recesses. Normal bilateral intervertebral neural foramina. L3-4: Normal endplates. Normal disc height, desiccation and minimal annular bulge.. Facet arthropathy and thickening of ligamenta flava slightly greater on the right. Normal central canal and bilateral lateral recesses. Minor bilateral neural foraminal encroachment. L4-5: Grade 1 spondylolisthesis. Narrowed disc space with desiccation of the disc and mild bulging disc osteophyte complex. Bilateral facet arthropathy and thickening of ligamenta flava.. Mild narrowing of the central canal. Severe bilateral lateral recess and neural foraminal stenosis exaggerated by shortened pedicles. L5-S1: Normal endplates. Normal disc height, desiccation and tiny central disc protrusion. Bilateral facet arthropathy.. Normal central canal and bilateral lateral recesses. Mild bilateral neural foraminal encroachment. Normal visualized sacral ala. Normal visualized paraspinous soft tissue structures. MRI/Spine Lumbar (Routine) IMPRESSION: Scoliosis and degenerative change Minor spinal stenosis at L3-4 and L5-S1 secondary to disc disease and bony hypertrophy. Severe spinal stenosis at L4-5 secondary to disc disease and bony hypertrophy exaggerated by shortened pedicles Findings as above Electronically Signed: Osmany Sharpe MD at 20:10 EST , Service support ,
[2019-02-17 16:40] LABS: Bedside Glucose 101 mg/dL (70-110)
[2019-02-17] MEDS: Nystatin Powder 15gm Bottle 1 APPLIC TOPICAL ×2 (18:28→21:29)
[2019-02-17] MEDS: Atorvastatin Calcium 40 MG Tablet PO (21:29)
[2019-02-17] MEDS: fluvoxaMINE Maleate 50 MG Tablet 100 MG PO (21:29)
[2019-02-17] MEDS: Mirtazapine 30 MG Tablet PO (21:30)
[2019-02-17 21:40] LABS: Bedside Glucose 100 mg/dL (70-110)
[2019-02-18 02:54] VITALS: BP 126/62; PULSE 90; RESP 16; TEMP 36.9; O2SAT 98
[2019-02-18 02:59] VITALS: PULSE 87
[2019-02-18 06:55] LABS: Bedside Glucose 128 mg/dL (70-110)
[2019-02-18 07:00] VITALS: PULSE 88
[2019-02-18 08:14] VITALS: O2SAT 96
[2019-02-18] MEDS: Nystatin Powder 15gm Bottle 1 APPLIC TOPICAL (08:40)
[2019-02-18] MEDS: Aspirin 81 MG TAB.CHEW PO (08:40)
[2019-02-18] MEDS: Enoxaparin 40 MG/0.4 ML Syringe SC (08:40)
[2019-02-18] MEDS: LORazepam 0.5 MG Tablet PO (08:45)
[2019-02-18 09:04] VITALS: BP 134/92; PULSE 104; RESP 14; TEMP 36.8; O2SAT 97
--- NOTE | 2019-02-18 09:40 | CASEMGMT ---
SW met with patient, introduced self and role at [facility]. SW completed PHQ 9 with patient as she is very Depressed per chart. Patient scored a 15 which indicates moderately severe Depression. She indicates she has had depression for a couple years. SW asked if something had happened. She said she said something to someone and that person misunderstood. She feels bad and has apologized. She feels this person just tolerates her now. It was her daughter in law. Her son still supports patient and hasn't treated her differently. She is active with a counselor at [facility], July Paiz. She saw her about a month ago. She has another appointment since then, but just talked with her on the phone due to the weather. Patient denies suicidal thoughts and she has no plan. She has never attempted suicide in the past. She said, I just don't care anymore. She is frustrated that her legs don't work. SW provided active and supportive listening. SW asked patient if she feels she will need to go to a intermediate at d/c for rehab. She said she does not want to and she would be open to home health. SW asked how she would get in her house and she feels she could. SW told her we will see how she does with therapy today. Brianne NICHOLE
[2019-02-18 11:20] LABS: Bedside Glucose 107 mg/dL (70-110)
--- NOTE | 2019-02-18 11:50 | CASEMGMT ---
SW spoke with patient, her sister, and . Explained that physician does not feel it is medically necessary to keep her in the hospital to obtain the 3 midnights she would need to have Medicare cover her half-way stay. SW explained it has to be medically necessary to keep her in the hospital and she does not meet medical necessity. They asked for prices for four different facilities. SW obtained pricing and let family know. Patient was indecisive, but agreed to allow SW to make a referral to [facility] and [facility]. SW called [facility] and left a message as well as faxed referral. SW also called [facility] with referral and also faxed information. Brianne ALEXANDER [employer]
--- NOTE | 2019-02-18 14:22 | CASEMGMT ---
Addendum entered by Brianne Lynch 02/18/19 15:13: SW called Marly at [facility] and let her know patient is very depressed and this has a lot to do with her current condition. SW told her that patient is going to need some mental health support to help her work through this. She thanked SW for the information. Brianne NICHOLE Original Note: SW heard from both [facility] and [facility] and they both can accept patient. However, [facility] needs 2 weeks up front. [facility] does not need money up front. SW also heard from Marci in the rehab unit and patient's family was asking why TCU or inpatient rehab were not offered. SW spoke with patient, her , and sister. SW let them know about [facility] and [facility] accepting her and that [facility] wants 2 weeks up front. SW also told them that SW did not tell them about TCU as it is $660 per day. KODY explained the 4th floor rehab is looking at her therapy to see if she would be able to do 3 hours of therapy. KODY explained this would be covered by Medicare. KODY spoke with Marci in rehab and they do not feel patient would be able to do 3 hours of therapy so they are not going to accept her. SW let patient and her know this information. They are going to choose [facility]. KODY called [facility] and let Marly know this information. She was going to call patient's . SW called [facility] and canceled referral. Await orders to set up transport. Plan: [facility] under intermediate level of care. Brianne NICHOLE
[2019-02-18 15:00] VITALS: BP 120/63; PULSE 70; PULSE 98; RESP 14; TEMP 37.2; O2SAT 98
--- NOTE | 2019-02-18 15:07 | PCM.EXTCARCO ---
- Diet 02/16/19 21:19 Diet: Cardiac/Low Cholesterol Food consistency:: Regular Liquid Consistency:: Regular/Thin Is pt able to select menu?: Yes Diet Comments: 1800 kcal restriction - Routine Orders/Code Status Suppository Type: Dulcolax 10mg Suppository Frequency: Daily PRN Routine Lab Work: CBC - 1 week, BMP - 1 week - Wound(s) Face Wound Type: Scattered Abrasions Left Lower Arm Wound Type: Scab - Therapies Physical Therapy: Eval and Treat Occupational Therapy: Eval and Treat - Problem/Diagnosis (1) Debility, unspecified Status: Chronic Current Visit: Yes (2) Depression Status: Chronic Current Visit: Yes (3) Diabetes Status: Chronic Current Visit: Yes (4) HLD (hyperlipidemia) Status: Chronic Current Visit: Yes (5) Chronic kidney disease Status: Chronic Current Visit: Yes - Allergies/Procedures Done in Hospital Allergies/Adverse Reactions: Allergies No Known Allergies Allergy (Verified 02/16/19 18:00) - Type of Care/Length of Stay Estimated LOS: Convalescent Care Less Than 30 days Type of Care Needed: Skilled Rehab Potential: Fair Prognosis: Fair - Additional Orders/Day of Discharge Day of Discharge: 02/18/19 - Dietary and Speech Recommendations Dietitian Recommendations/Changes: Rec continue Cardiac/Low cholesterol: 1800 Calorie Controlled. - Follow Up Care Primary Care Physician: Imtiaz Lee DO [Primary Care Provider] - Please follow up with your Primary Care Physician in: 1-2 weeks Please Follow Up With: Psychiatry - Source 1 When: 1-2 weeks
--- NOTE | 2019-02-18 15:11 | PCM.DC.SUM ---
<Jose Elias Salinas - Last Filed: 02/18/19 15:11> Discharge Date and Diagnosis - Problem List Patient Problems: Active and Suspected Problems (Last Reviewed 02/17/19 @ 04:59 by Jose Antonio Napier MD) Left leg weakness (Acute) Stroke-like symptoms (Acute) Date of Admission: 02/16/19 Date of Discharge: 02/18/19 - Primary Discharge Diagnosis Active and Suspected Problems (Last Reviewed 02/17/19 @ 04:59 by Jose Antonio Napier MD) Generalized debility stroke ruled out Depression/Anxiety HLD Suspect CKDIII - Secondary Discharge Diagnosis Chronic Problems (Last Reviewed 02/17/19 @ 04:59 by Jose Antonio Napier MD) Debility, unspecified (Chronic) Depression (Chronic) Diabetes (Chronic) HLD (hyperlipidemia) (Chronic) Chronic kidney disease (Chronic) Hospital Course and Treatment Imaging Results: IMAGING: CT/Brain/Head without Contrast IMPRESSION: Normal unenhanced CT scan of the brain. RAD/Chest 1 View (Portable) IMPRESSION: Normal x-ray examination of the chest. Echo: Interpretation Summary Mild concentric left ventricular hypertrophy. The estimated ejection fraction is 65 %. Stage 1 diastolic dysfunction. Trivial tricuspid valve insufficiency. Right ventricular systolic pressure estimated to be 25 mmHg. The study was technically difficult. Contrast injection was performed. There is no comparison study available. MRI/Brain without Contrast IMPRESSION: Normal unenhanced MRI of the brain. MRI/MRA Head ONLY without Contrast IMPRESSION: Normal MRA of the head MRI/MRA Neck WITH and W/O Contrast IMPRESSION: Normal bilateral cervical carotid and vertebral arteries. MRI/Spine Lumbar (Routine) IMPRESSION: Scoliosis and degenerative change Minor spinal stenosis at L3-4 and L5-S1 secondary to disc disease and bony hypertrophy. Severe spinal stenosis at L4-5 secondary to disc disease and bony hypertrophy exaggerated by shortened pedicles Findings as above Operations: None Procedures: 2-D Echocardiogram Summary of Care Provided: Hospital Course: The patient is a 68 year old F with past medical history of depression and anxiety, retention, hyperlipidemia, diabetes, possible underlying CKD 3, who presented to the emergency room with complaints of left-sided weakness in the left upper and left lower extremity started several hours prior to presentation. She also had associated fall at home due to weakness. She had no speech changes. She had a CT of the brain that was negative. She was admitted to the PCU on telemetry for stroke work-up. She underwent an MRI of the brain, MRA of the head and neck, and echocardiogram which did not demonstrate any acute processes. Imaging results as above. She also underwent an MRI of the lumbar spine which showed scoliosis, degenerative changes, mild spinal stenosis L3-4, L5-S1, severe spinal stenosis L4-L5. Patient had inconsistent symptoms during her stay when working with PT and OT. She continued to have severe difficulty ambulating and PT and OT recommended senior care. Family was agreeable if she lives with a who is unable to lift her by himself. Debility was felt to be due to underlying deconditioning, generalized debility, also possibly related to her underlying depression and anxiety given a very flat and depressed affect throughout her stay. Recommended she follow-up with her PCP in 1 to 2 weeks, follow-up with her therapist and psychiatrist at [place] [id number] in 1 to 2 weeks. She was discharged to senior care in stable condition. This patient was seen by Jose Elias Salinas PA-C under the supervision of Doctor Madeleine. [] Patient Problems: Active and Suspected Problems (Last Reviewed 02/17/19 @ 04:59 by Jose Antonio Napier MD) Left leg weakness (Acute) Stroke-like symptoms (Acute) - Physical Exam Vitals/I&O's: Vital Signs Temp Pulse Resp BP Pulse Ox 98.9 F 70 14 120/63 98 02/18/19 15:00 02/18/19 15:00 02/18/19 15:00 02/18/19 15:00 02/18/19 15:00 Oxygen Delivery Method Room Air Weight: 194 lb 7.163 oz Body Mass Index (BMI) 32.3 Intake and Output for Last 24 Hours 02/16/19 02/17/19 02/18/19 23:59 23:59 23:59 Intake Total 369.5 / 369.5 1842.5 / 2082.5 830 / 830 Output Total 0 / 0 300 / 800 500 / 500 Balance 369.5 / 369.5 1542.5 / 1282.5 330 / 330 General: Alert, Oriented x3, Cooperative HEENT: Atraumatic, PERRLA, EOMI, Normocephalic Neck: Supple, No JVD, Negative Carotid Bruits Lungs: Clear to auscultation, Normal air movement Cardiovascular: Regular rate, No murmurs Abdomen: Bowel Sounds Present, Soft, Non Tender Extremities: No edema, Capillary Refill Less than 3 Seconds Skin: No rashes, No breakdown Musculoskeletal: No Tenderness to Palpation of Joints or Extremities Neurological: Cranial nerves II-XII grossly intact Psych/Mental Status: Normal Affect, Appropriate, Alert and oriented to time, place, person, mood and affect Laboratory Results 02/17/19 16:25: POC Glucose 101 02/17/19 21:27: POC Glucose 100 02/18/19 06:46: POC Glucose 128 H 02/18/19 11:04: POC Glucose 107 Current Medications Acetaminophen (Tylenol) 650 mg PO Q6H PRN PRN PRN Reason: Pain Score 1-3/Temp > 100.7 F Last Admin: 02/17/19 05:10 Dose: 650 mg Documented by: Aspirin (Aspirin, Baby) 81 mg PO DAILY@0800 [facility] Last Admin: 02/18/19 08:40 Dose: 81 mg Documented by: Atorvastatin Calcium (Lipitor) 40 mg PO QHS [facility] Last Admin: 02/17/19 21:29 Dose: 40 mg Documented by: Enoxaparin Sodium (Lovenox) 40 mg SC DAILY [facility] Last Admin: 02/18/19 08:40 Dose: 40 mg Documented by: Fluvoxamine Maleate (Luvox) 100 mg PO QHS [facility] Last Admin: 02/17/19 21:29 Dose: 100 mg Documented by: Glucagon () 1 mg IM .X1 PRN PRN Reason: Hypoglycemia Sodium Chloride () 250 mls @ 15 mls/hr IV .[id number] PRN PRN Reason: Saline Flush Dextrose (Dextrose 10%-Water) 250 mls @ 999 mls/hr IV X1 PRN; Protocol PRN Reason: HYPOGLYCEMIA Insulin Human Lispro (Humalog Kwikpen (Bkc)) 0 unit SC [facility]; Protocol Last Admin: 02/18/19 11:27 Dose: Not Given Documented by: Lorazepam (Ativan) 0.5 mg PO BID PRN PRN PRN Reason: ANXIETY Last Admin: 02/18/19 08:45 Dose: 0.5 mg Documented by: Mirtazapine (Remeron) 30 mg PO QHS [facility] Last Admin: 02/17/19 21:30 Dose: 30 mg Documented by: Nystatin (Mycostatin Powder) 1 applic TOPICAL BID [facility]; Protocol Last Admin: 02/18/19 08:40 Dose: 1 applicatio Documented by: Ondansetron HCl (Zofran) 4 mg IV Q8H PRN PRN PRN Reason: NAUSEA/VOMITING Sodium Chloride () 10 - 40 ml IV UD PRN PRN Reason: SALINE FLUSH Last Admin: 02/16/19 21:37 Dose: 10 ml Documented by: Discharge Diet: Low fat/ Low Cholesterol, 1800 Calorie Control Diet, 2000 mg Sodium Diet Discharge Activity: Return to Normal Activity Home Medications: Medications to take at Discharge Lorazepam [Ativan] 0.5 - 1 mg PO BID PRN PRN 10/16/13 Fluvoxamine Maleate 100 mg PO QHS 02/16/19 Metformin HCl 500 mg PO DAILY 02/16/19 Mirtazapine 30 mg PO QHS 02/16/19 Rosuvastatin Calcium [Crestor] 10 mg PO DAILY 02/16/19 Acetaminophen [Tylenol Tablet] 650 mg PO Q6H PRN PRN tab 02/18/19 Primary Care Physician: Imtiaz Lee DO [Primary Care Provider] - Please follow up with your Primary Care Physician in: 1-2 weeks Please Follow Up With: Psychiatry - Source 1 When: 1-2 weeks Disposition: Retirement facility Minutes spent on discharge:: 35 Patient Condition:: Stable Medical Necessity - Tobacco Use Smoking Status: Never smoker Meaningful Use Info Meaningful Use Diagnoses (Choose all that apply): None applicable <Ez Salvador - Last Filed: 02/18/19 16:03> Discharge Date and Diagnosis - Primary Discharge Diagnosis Active and Suspected Problems (Last Reviewed 02/17/19 @ 04:59 by Jose Antonio Napier MD) Left leg weakness (Acute) Stroke-like symptoms (Acute) - Secondary Discharge Diagnosis Chronic Problems (Last Reviewed 02/17/19 @ 04:59 by Jose Antonio Napier MD) Debility, unspecified (Chronic) Depression (Chronic) Diabetes (Chronic) HLD (hyperlipidemia) (Chronic) Chronic kidney disease (Chronic) Hospital Course and Treatment Operations: None Procedures: 2-D Echocardiogram Summary of Care Provided: Patient seen and examined independently. Data reviewed. I agree with the above note by the physician assistant sales manager. The patient is a 68 year old F presents with weakness. Patient underwent work-up including MRI of the brain, MRI of the lumbar spine all which was negative. Patient has severe underlying depression and is felt that this was a conversion disorder. Patient was seen by therapy and just very weak and unable to care for herself at home. Advised the patient go to a senior care facility for further therapy to increase her strength. Patient will need follow-up psychiatry as well for further management of her underlying psychiatric issues. Case discussed with the patient's sister and at bedside. [] - Physical Exam Vitals/I&O's: Vital Signs Temp Pulse Resp BP Pulse Ox 37.2 C 70 14 120/63 98 02/18/19 15:00 02/18/19 15:00 02/18/19 15:00 02/18/19 15:00 02/18/19 15:00 Oxygen Delivery Method Room Air Weight: 88.2 kg Body Mass Index (BMI) 32.3 Intake and Output for Last 24 Hours 02/16/19 02/17/19 02/18/19 23:59 23:59 23:59 Intake Total 369.5 / 369.5 1842.5 / 2082.5 830 / 830 Output Total 0 / 0 300 / 800 500 / 500 Balance 369.5 / 369.5 1542.5 / 1282.5 330 / 330 General: Alert, Cooperative HEENT: Atraumatic, Normocephalic Neurological: - - Muscle strength 5-5 in the right lower extremity and 0-5 in the left lower extremity but was able to get some muscle strength with distraction. Laboratory Results 02/17/19 16:25: POC Glucose 101 02/17/19 21:27: POC Glucose 100 02/18/19 06:46: POC Glucose 128 H 02/18/19 11:04: POC Glucose 107 Current Medications Acetaminophen (Tylenol) 650 mg PO Q6H PRN PRN PRN Reason: Pain Score 1-3/Temp > 100.7 F Last Admin: 02/17/19 05:10 Dose: 650 mg Documented by: Aspirin (Aspirin, Baby) 81 mg PO DAILY@0800 [facility] Last Admin: 02/18/19 08:40 Dose: 81 mg Documented by: Atorvastatin Calcium (Lipitor) 40 mg PO QHS [facility] Last Admin: 02/17/19 21:29 Dose: 40 mg Documented by: Enoxaparin Sodium (Lovenox) 40 mg SC DAILY [facility] Last Admin: 02/18/19 08:40 Dose: 40 mg Documented by: Fluvoxamine Maleate (Luvox) 100 mg PO QHS [facility] Last Admin: 02/17/19 21:29 Dose: 100 mg Documented by: Glucagon () 1 mg IM .X1 PRN PRN Reason: Hypoglycemia Sodium Chloride () 250 mls @ 15 mls/hr IV .[id number] PRN PRN Reason: Saline Flush Dextrose (Dextrose 10%-Water) 250 mls @ 999 mls/hr IV X1 PRN; Protocol PRN Reason: HYPOGLYCEMIA Insulin Human Lispro (Humalog Kwikpen (Bkc)) 0 unit SC [facility]; Protocol Last Admin: 02/18/19 11:27 Dose: Not Given Documented by: Lorazepam (Ativan) 0.5 mg PO BID PRN PRN PRN Reason: ANXIETY Last Admin: 02/18/19 08:45 Dose: 0.5 mg Documented by: Mirtazapine (Remeron) 30 mg PO QHS [facility] Last Admin: 02/17/19 21:30 Dose: 30 mg Documented by: Nystatin (Mycostatin Powder) 1 applic TOPICAL BID [facility]; Protocol Last Admin: 02/18/19 08:40 Dose: 1 applicatio Documented by: Ondansetron HCl (Zofran) 4 mg IV Q8H PRN PRN PRN Reason: NAUSEA/VOMITING Sodium Chloride () 10 - 40 ml IV UD PRN PRN Reason: SALINE FLUSH Last Admin: 02/16/19 21:37 Dose: 10 ml Documented by: Discharge Diet: Low fat/ Low Cholesterol, 1800 Calorie Control Diet, 2000 mg Sodium Diet Discharge Activity: Return to Normal Activity Disposition: Retirement facility Minutes spent on discharge:: 35 Patient Condition:: Stable Medical Necessity - Tobacco Use Smoking Status: Never smoker Meaningful Use Info Meaningful Use Diagnoses (Choose all that apply): None applicable Code Visit Inpatient E&M: 65989 Disch Hosp
[2019-02-18 16:10] LABS: Bedside Glucose 138 mg/dL (70-110)
--- NOTE | 2019-02-18 16:10 | NURSING ---
report called to Marck SCHMITT at [facility]
--- NOTE | 2019-03-09 13:47 | CASEMGMT ---
RECEIVED PHONE CALL FROM HEMALATHA NURSE AT [facility]. PER HEMALATHA, THE [facility] PHYSICIAN IS WANTING TO REVIEW MRI/CT RESULTS FROM ADMISSION. PT IDENTIFIED BY NAME AND . HEMALATHA REQUESTED THAT BRAIN CT, BRAIN MRI, AND MRI LUMBAR SPINE BE FAXED TO [phone]. SAME DONE, FAX CONFIRMATION RECEIVED.
== END 2019-02-18 16:52 | DRG 948 ==
LOC: ED 20:16 → PCU 21:26
PROVIDERS: Admitting Provider Hospitalist; Emergency Provider Emergency Medicine; Family Provider Student in an Organized Health Care Education/Training Program; PCP Student in an Organized Health Care Education/Training Program; Referring Provider Hospitalist
DX: R53.81 Other malaise (principal); N18.3 Chronic kidney disease, stage 3 (moderate); E11.22 Type 2 diabetes mellitus with diabetic chronic kidney disease; I12.9 Hypertensive chronic kidney disease with stage 1 through stage 4 chronic kidney disease, or unspecified chronic kidney disease; E78.5 Hyperlipidemia, unspecified; F32.9 Major depressive disorder, single episode, unspecified; Z79.84 Long term (current) use of oral hypoglycemic drugs; F41.9 Anxiety disorder, unspecified; W19.XXXA Unspecified fall, initial encounter; Y92.009 Unspecified place in unspecified non-institutional (private) residence as the place of occurrence of the external cause; R53.1 Weakness; M41.86 Other forms of scoliosis, lumbar region; M48.061 Spinal stenosis, lumbar region without neurogenic claudication
CPT/HCPCS: 36415; 70450; 70544; 70549; 70551; 71045; 72148; 80048; 80061; 81001; 82962; 83036; 84484; 85025; 92610; 93005; 93306; 97162; 97166; 97530; 99285; A9575; Q9957; A4216; C8929

== ENCOUNTER → 2019-02-25 05:00 | Outpatient (REF) | payer MEDICARE, OTHER, SELFPAY ==
[2019-02-17 00:37] VITALS: BMI 32.3
[2019-02-25 08:28] LABS: Hematocrit 40.7 % (37-47); Hemoglobin 13.4 g/dL (12.0-15.0); Mean Corp Hgb Conc 32.9 g/dL (32-36); Mean Corpuscular Hgb 29.3 pg (27.0-32.0); Mean Corpuscular Volume 89.1 fL (81-99); Mean Platelet Vol. 8.5 fl (6.2-12.0); Platelet Count 226 K/mm3 (150-450); RBC Distribution Width CV 12.9 % (11.6-14.6); RBC Distribution Width SD 41.7 fl (35.1-43.9); Red Blood Count 4.57 M/mm3 (4.2-5.4); White Blood Count 8.9 K/mm3 (4.4-11.0)
[2019-02-25 08:37] LABS: Anion Gap 7 (5-15); BUN 27 mg/dL (7-18); BUN/Creat Ratio 27.5 RATIO (10-20); Calcium,Total 8.5 mg/dL (8.5-10.1); Chloride 107 mmol/L (98-107); Creatinine, Serum 0.98 mg/dL (0.55-1.02); EST Glomerular Filtration Rate 60 mL/min (>60); Est Glom Filt Rate - Afr Amer 73 mL/min (>60); Glucose 113 mg/dL (74-106); Potassium 3.8 mmol/L (3.5-5.1); Sodium Level 139 mmol/L (136-145)
== END ==
LOC: OLS.WCC 05:00
PROVIDERS: Family Provider Student in an Organized Health Care Education/Training Program; PCP Student in an Organized Health Care Education/Training Program; Visit Provider Family Medicine
DX: E11.9 Type 2 diabetes mellitus without complications (principal); N18.9 Chronic kidney disease, unspecified; R53.81 Other malaise
CPT/HCPCS: 36415; 80048; 85027

== ENCOUNTER → 2019-03-16 06:24 | Outpatient (CLI) | payer MEDICARE, OTHER, SELFPAY ==
[2019-02-17 00:37] VITALS: BMI 32.3
--- NOTE | 2019-03-16 06:31 | MRI_ITS ---
We are attempting to reach an attending provider to discuss findings. An addendum with communication details will be sent when the communication is complete. STUDY: MRI CERVICAL SPINE WITHOUT CONTRAST REASON FOR EXAM: Female, 68 years old. lower extremity weakness, r/o cervical myelopathy TECHNIQUE: Standardized fat and water weighted pulse sequences were obtained in the sagittal and axial planes. COMPARISON: None FINDINGS: Normal foramen magnum and brainstem-cervical cord junction. Normal cervical lordosis. C2-3: There is minimal disc space narrowing and endplates spondylosis. Uncovertebral and facet arthropathy with moderate left foraminal stenosis. No significant central canal or right foraminal stenosis. C3-4: There is mild disc space narrowing and endplates spondylosis. Mild disc osteophyte complex with mild central canal stenosis. Uncovertebral and facet arthropathy with minimal right and moderate left foraminal stenosis. C4-5: Normal endplates. Normal disc height, signal and morphology. Normal central canal and intervertebral neural foramina. C5-6: There is severe disc space narrowing and endplates spondylosis. Disc osteophyte complex with moderate central canal stenosis. Uncovertebral arthropathy with moderate right and severe left foraminal stenosis. C6-7: There is moderate disc space narrowing and endplates spondylosis. Mild disc osteophyte complex with mild central canal stenosis. Uncovertebral and facet arthropathy with mild right and moderate left foraminal stenosis. C7-T1: There is mild disc space narrowing and endplates spondylosis. There is minimal anterolisthesis with mild central canal stenosis. There is moderate right and moderate left foraminal stenosis. T2/T3: There is facet arthropathy with anterolisthesis and disc bulging with severe central canal stenosis. There is increased cord signal MRI/Spine Cervical (Routine) IMPRESSION: T2/T3: Severe central canal stenosis with cord compression. Moderate/severe multilevel degenerative changes. Electronically Signed: Mark Mendoza MD at 10:10 EST Tel , Service support ,
== END ==
PROVIDERS: Family Provider Student in an Organized Health Care Education/Training Program; PCP Student in an Organized Health Care Education/Training Program; Referring Provider Family Medicine; Visit Provider Family Medicine
DX: R29.898 Other symptoms and signs involving the musculoskeletal system (principal)
CPT/HCPCS: 72141

== ENCOUNTER → 2019-03-29 05:00 | Outpatient (REF) | payer MEDICARE, OTHER, SELFPAY ==
[2019-02-17 00:37] VITALS: BMI 32.3
[2019-03-29 09:13] LABS: Hematocrit 37.2 % (37-47); Hemoglobin 11.5 g/dL (12.0-15.0); Mean Corp Hgb Conc 30.9 g/dL (32-36); Mean Corpuscular Hgb 28.3 pg (27.0-32.0); Mean Corpuscular Volume 91.6 fL (81-99); Mean Platelet Vol. 8.3 fl (6.2-12.0); Platelet Count 335 K/mm3 (150-450); Red Blood Count 4.06 M/mm3 (4.2-5.4); White Blood Count 8.6 K/mm3 (4.4-11.0)
[2019-03-29 09:28] LABS: Anion Gap 5 (5-15); BUN 12 mg/dL (7-18); BUN/Creat Ratio 14.4 RATIO (10-20); Calcium,Total 9.6 mg/dL (8.5-10.1); Chloride 107 mmol/L (98-107); Creatinine, Serum 0.84 mg/dL (0.55-1.02); EST Glomerular Filtration Rate 73 mL/min (>60); Est Glom Filt Rate - Afr Amer 88 mL/min (>60); Glucose 98 mg/dL (74-106); Potassium 4.3 mmol/L (3.5-5.1); Sodium Level 140 mmol/L (136-145)
== END ==
LOC: OLS.WCC 05:00
PROVIDERS: PCP Student in an Organized Health Care Education/Training Program; Visit Provider Family Medicine
DX: E11.9 Type 2 diabetes mellitus without complications (principal); I10 Essential (primary) hypertension
CPT/HCPCS: 36415; 80048; 85027

== ENCOUNTER → 2019-04-29 05:00 | Outpatient (REF) | payer MEDICARE, OTHER, SELFPAY ==
[2019-02-17 00:37] VITALS: BMI 32.3
[2019-04-29 07:52] LABS: Hematocrit 37.5 % (37-47); Hemoglobin 12.3 g/dL (12.0-15.0); Mean Corp Hgb Conc 32.8 g/dL (32-36); Mean Corpuscular Hgb 28.5 pg (27.0-32.0); Mean Platelet Vol. 8.3 fl (6.2-12.0); Platelet Count 239 K/mm3 (150-450); RBC Distribution Width CV 14.2 % (11.6-14.6); Red Blood Count 4.31 M/mm3 (4.2-5.4); White Blood Count 4.5 K/mm3 (4.4-11.0)
[2019-04-29 08:10] LABS: Anion Gap 8 (5-15); BUN 10 mg/dL (7-18); BUN/Creat Ratio 15.2 RATIO (10-20); Calcium,Total 9.2 mg/dL (8.5-10.1); Chloride 104 mmol/L (98-107); Creatinine, Serum 0.66 mg/dL (0.55-1.02); EST Glomerular Filtration Rate 95 mL/min (>60); Est Glom Filt Rate - Afr Amer 115 mL/min (>60); Glucose 95 mg/dL (74-106); Potassium 3.6 mmol/L (3.5-5.1); Sodium Level 137 mmol/L (136-145)
== END ==
LOC: OLS.WCC 05:00
PROVIDERS: PCP Student in an Organized Health Care Education/Training Program; Visit Provider Family Medicine
DX: E11.9 Type 2 diabetes mellitus without complications (principal); I10 Essential (primary) hypertension
CPT/HCPCS: 36415; 80048; 85027

== ENCOUNTER 2019-05-07 10:00 | Inpatient (IN) | payer MEDICARE, OTHER, SELFPAY ==
[2019-02-17 00:37] VITALS: BMI 32.3
[2019-05-07] VITALS (20 sets, daily range): BP systolic 95–149; BP diastolic 61–85; PULSE 89–116; RESP 20–33; TEMP 36.8–38.1; O2SAT 35–96; BMI 33.7; BMI 29.6
--- NOTE | 2019-05-07 10:05 | RAD_ITS ---
STUDY: X-RAY CHEST REASON FOR EXAM: Female, 68 years old. RALES BILAT, FEVER, COUGH, HYPOXIA TECHNIQUE: Single AP portable view of the chest. COMPARISON: 02/16/2019 FINDINGS: The lungs are clear and expanded. There is no demonstrated pleural abnormality. Normal size heart. Normal mediastinum and christian. Normal visualized pulmonary arteries. Normal visualized aortic arch and descending thoracic aorta. Normal visualized thoracic spine. Normal visualized ribs, clavicles, and shoulders. There is no demonstrated abnormality of the visualized soft tissue structures of the upper abdomen. RAD/Chest 1 View (Portable) IMPRESSION: Normal x-ray examination of the chest. Electronically Signed: Terrell Chang MD at 11:14 EST Tel , Service support ,
--- NOTE | 2019-05-07 10:05 | EKG12_ITS ---
Test Reason : SOB Blood Pressure : / mmHG Vent. Rate : 105 BPM Atrial Rate : 105 BPM P-R Int : 148 ms QRS Dur : 078 ms QT Int : 344 ms P-R-T Axes : 051 028 012 degrees QTc Int : 454 ms Sinus tachycardia Inferior-posterior infarct , age undetermined, cannot be excluded Abnormal ECG Confirmed by JOANNE BENITEZ, MELLISA ([id number]), image editor BELKYS SEWELL ([id number]) on 05/10/2019 9:59:11 AM Referred By: KELLY Confirmed By:MELLISA RUBIO MD
--- NOTE | 2019-05-07 10:08 | ED.VIS.GEN ---
History of Present Illness Chief Complaint: Shortness of Breath Detail of Chief Complaint: Fever, hypoxia and bilateral pneumonia Informant: Patient, [employer], SNF, PCP Onset: Days Context: Sudden Onset Timing: Continuous Quality: Dyspnea Location: Nursing facility Current Severity: Mild Maximum Severity: Moderate Worsened by: Activity Relieved by: Improved with oxygen Associated Symptoms: Subjective fever with chills and cough Narrative: Patient is a elderly woman who presents from nursing facility because of bilateral pneumonia noted on chest x-ray. Patient was noted to be hypoxic with a pulse ox of 85% on room air at the nursing facility. She was placed on oxygen. She complains of not feeling well. She denies ocular, visual auditory symptoms. She denies rhinorrhea, congestion or postnasal drainage. She does report shortness of breath and cough. She denies nausea, vomiting diarrhea. Denies black or maroon stool. She states she is had incontinence since fall over a month ago. She denies dysuria, frequency, urgency or hematuria. She is not a good informant. According [facility] she was started on Zosyn. Prior similar symptoms: No Recent Illness/Hospitalization: Yes - Past Medical History (1) Stroke-like symptoms Status: Acute (2) Chronic kidney disease Status: Chronic (3) Debility, unspecified Status: Chronic (4) Depression Status: Chronic (5) Diabetes Status: Chronic (6) HLD (hyperlipidemia) Status: Chronic Past Medical History - Allergies and Home Meds Allergies/Adverse Reactions: Allergies No Known Allergies Allergy (Verified 05/07/19 10:08) Primary Care Physician: Imtiaz Lee DO [Primary Care Provider] - Prior records reviewed: Yes Surgical History: - - Surgery to remove lesion in her armpit; ; surgery for ingrown toenail. Lives: Alone, [facility] Smoking Status: Never smoker Alcohol: None Drugs: None - Family History Maternal Family History: Reports: Heart Disease Paternal Family History: Reports: Heart Disease, - - Arthritis Review of Systems ROS: Unable to Obtain - Patient is not a good informant. She is disoriented to day of the week and day of the month. General: Reports: Chills, Fever, Malaise, Sweats. Denies: Subjective, Weight loss Eyes: Denies: Visual changes - bilaterally, Blurred Vision - bilaterally ENT: Denies: Bilateral ear pain, Rhinorrhea, Sore throat Cardiovascular: Denies: Chest pain, Palpitations, Heart racing Respiratory: Reports: Dyspnea, Cough, Dyspnea on exertion. Denies: Orthopnea, Paroxysmal nocturnal dyspnea Gastrointestinal: Reports: Abdominal pain. Denies: Nausea, Vomiting, Diarrhea, Melena, Hematochezia Genitourinary: Reports: - - Patient admits to incontinence. Denies: Dysuria, Hematuria, Frequency Musculoskeletal: Denies: Myalgias, Arthralgias, Neck pain, Back pain, Extremity Pain Skin: Denies: Rash, Wounds Neurological: Reports: Weakness. Denies: Headache Endocrine: Denies: Polyuria, Polydipsia Hematologic: Denies: Easy bruising, Easy bleeding Allergy: Denies: Uticaria, Swelling of the mouth Physical Exam Vital Signs/Narrative: Vital Signs Temp Pulse Resp BP Pulse Ox 05/07/19 10:04 99.7 F H 116 H 33 H 95/76 83 Inital Vital Signs reviewed: Yes General: Well nourished, Well developed, Obese, - - And appears ill. Head: Normocephalic, Atraumatic Eyes: Perrl, EOMI. Negative for: Pale conjunctiva, Scleral icterus ENT: No rhinorrhea, TM's clear, Dry mucous membranes Neck: Supple, Nontender, No lymphadenopathy, No JVD Cardiovascular: Regular rhythm, No murmurs, Normal S1, Normal S2, Tachycardia Respiratory: Rales - Rales bilaterally, Decreased Air Movement. Negative for: No distress, CTA bilaterally Abdomen: Soft, Nontender, Nondistended, Normal bowel sounds, No masses Back: Nontender, Normal Inspection. Negative for: CVA tenderness Extremities: Nontender, Edema Skin: No rash, No Trauma, Pallor. Negative for: Cyanosis, Diaphoresis, Jaundice Neurological: Cranial nerves II-XII grossly intact, Normal Sensation. Negative for: Alert, Oriented x3, Normal Strength - There is slight decreased strength on the left compared to the right Psychological: Depressed Diagnostic/Tx/Re-eval Chest X-Ray - ED: 1 View, Read by ED Physician, Normal, Heart, Bony Structures, - - Jameel view portable x-ray reveals bilateral interstitial fluffiness. There is suggestion of a right upper lobe infiltrate. There is also increased interstitial markings left side. X-ray was interpreted by me at 1057 BG reveals a significant AA gradient. pH of 7.458, PCO2 31.2 PaO2 74 base excess -2 bicarb 22.1 with a 96% saturation on a 50% Venturi mask. Urinalysis reveals bacteriuria without pyuria. The urine specimen was obtained when the temperature catheter was placed. Impressions Chest X-Ray 05/07/19 10:05 IMPRESSION: Normal x-ray examination of the chest. Electronically Signed: Terrell Chang MD at 11:14 EST Tel , Service support , 05/07/19 10:05 Chest 1 View (Portable) [RAD] Stat Laboratory Results 05/07/19 05/07/19 05/07/19 10:30 11:03 11:13 WBC 20.1 H RBC 3.88 L Hgb 11.3 L Hct 33.3 L MCV 85.8 MCH 29.1 MCHC 33.9 RDW Std Deviation 43.9 RDW Coeff of Kristal 14.0 Plt Count 407 MPV 8.8 Immature Gran % (Auto) 1.200 H Neut % (Auto) 92.0 H Lymph % (Auto) 3.7 L Pender % (Auto) 2.5 Eos % (Auto) 0.4 Baso % (Auto) 0.2 Absolute Neuts (auto) 18.5 H Absolute Lymphs (auto) 0.75 L Nucleated RBC % 0 Differential Comment SCANNED PT INR APTT Specimen Type ART Sample Site R Radial pH 7.46 H Bicarbonate Actual 22.1 POC Total CO2 23 Base Excess -2 O2 Saturation 96 O2 % 50 ABG pCO2 31.2 L ABG pO2 74 L Obdulio Test NA O2 Delivery Device Vent Mask Blood Gas Notified Whom ED Blood Gas Notified Time 1102 Sodium Potassium Chloride Carbon Dioxide Anion Gap BUN Creatinine Estim Creat Clear Calc Est GFR (MDRD) Af Amer Est GFR (MDRD) Non-Af BUN/Creatinine Ratio Glucose Lactic Acid Calcium Total Bilirubin AST ALT Alkaline Phosphatase Total Protein Albumin Globulin Albumin/Globulin Ratio Urine Color Yellow Urine Clarity Cloudy Urine pH 5.0 Ur Specific [place] 1.020 Urine Protein 100 H Urine Glucose (UA) Normal Urine Ketones 15 H Urine Occult Blood 250 H Urine Nitrite Negative Urine Bilirubin Negative Urine Urobilinogen 4 H Ur Leukocyte Esterase 25 H Urine RBC 10-25 SEEN Urine WBC 0 SEEN Ur Squamous Epith Cells 0-5 SEEN Calcium Oxalate Crystal RARE Urine Bacteria 2+ Urine Mucus RARE 05/07/19 05/07/19 05/07/19 11:13 11:13 11:13 WBC RBC Hgb Hct MCV MCH MCHC RDW Std Deviation RDW Coeff of Kristal Plt Count MPV Immature Gran % (Auto) Neut % (Auto) Lymph % (Auto) Pender % (Auto) Eos % (Auto) Baso % (Auto) Absolute Neuts (auto) Absolute Lymphs (auto) Nucleated RBC % Differential Comment PT Cancelled INR Cancelled APTT Cancelled Specimen Type Sample Site pH Bicarbonate Actual POC Total CO2 Base Excess O2 Saturation O2 % ABG pCO2 ABG pO2 Obdulio Test O2 Delivery Device Blood Gas Notified Whom Blood Gas Notified Time Sodium Cancelled Potassium Cancelled Chloride Cancelled Carbon Dioxide Cancelled Anion Gap Cancelled BUN Cancelled Creatinine Cancelled Estim Creat Clear Calc Cancelled Est GFR (MDRD) Af Amer Cancelled Est GFR (MDRD) Non-Af Cancelled BUN/Creatinine Ratio Cancelled Glucose Cancelled Lactic Acid 1.5 Calcium Cancelled Total Bilirubin Cancelled AST Cancelled ALT Cancelled Alkaline Phosphatase Cancelled Total Protein Cancelled Albumin Cancelled Globulin Cancelled Albumin/Globulin Ratio Cancelled Urine Color Urine Clarity Urine pH Ur Specific [place] Urine Protein Urine Glucose (UA) Urine Ketones Urine Occult Blood Urine Nitrite Urine Bilirubin Urine Urobilinogen Ur Leukocyte Esterase Urine RBC Urine WBC Ur Squamous Epith Cells Calcium Oxalate Crystal Urine Bacteria Urine Mucus 05/07/19 05/07/19 12:13 12:13 WBC RBC Hgb Hct MCV MCH MCHC RDW Std Deviation RDW Coeff of Kristal Plt Count MPV Immature Gran % (Auto) Neut % (Auto) Lymph % (Auto) Pender % (Auto) Eos % (Auto) Baso % (Auto) Absolute Neuts (auto) Absolute Lymphs (auto) Nucleated RBC % Differential Comment PT 23.1 H INR 2.1 APTT 26.4 Specimen Type Sample Site pH Bicarbonate Actual POC Total CO2 Base Excess O2 Saturation O2 % ABG pCO2 ABG pO2 Obdulio Test O2 Delivery Device Blood Gas Notified Whom Blood Gas Notified Time Sodium 139 Potassium 3.0 L Chloride 108 H Carbon Dioxide 22.0 Anion Gap 9 BUN 12 Creatinine 0.68 Estim Creat Clear Calc 43.77 Est GFR (MDRD) Af Amer 111 Est GFR (MDRD) Non-Af 92 BUN/Creatinine Ratio 17.7 Glucose 132 H Lactic Acid Calcium 8.3 L Total Bilirubin 0.30 AST 42 H ALT 23 Alkaline Phosphatase 96 Total Protein 5.9 L Albumin 1.8 L Globulin 4.1 Albumin/Globulin Ratio 0.4 L Urine Color Urine Clarity Urine pH Ur Specific [place] Urine Protein Urine Glucose (UA) Urine Ketones Urine Occult Blood Urine Nitrite Urine Bilirubin Urine Urobilinogen Ur Leukocyte Esterase Urine RBC Urine WBC Ur Squamous Epith Cells Calcium Oxalate Crystal Urine Bacteria Urine Mucus I am in disagreement with the radiology read. Lactate is normal. White count is elevated with shift. Patient was reassessed at 1240. She appears slightly somnolent. Pulse ox is 90% on 50% Venturi mask. Patient has sepsis. Will discuss placement of patient with hospitalist. Since patient is marginally oxygenating on 50% Venturi mask recommend PCU stepdown for intensity of nursing services. - Rhythm Strip Rhythm Strip: Sinus Rhythm Rate: 122 Ectopy: None - EKG Initial EKG Interpretation: Sinus Tachycardia - This tachycardia with a ventricular rate of 105. KS interval 148 ms. QRS duration 78 ms. QT duration 344 ms. There is motion artifact. There is also inferior ST-T wave changes noted. - Medical Decision Making With history of hypoxia, outpatient chest x-ray reveals infiltrate with tachycardia, tachypnea and hypoxia patient has sepsis. Will obtain appropriate blood work to determine severity. Since she is from a nursing facility she received dose of Zosyn. Patient is on Eliquis. This would make PE less likely. - Critical Care Time Critical care time (excluding procedures): 30-74 minutes - Peripheral care time 33 minutes, Discussing w/Patient &/or Family/[employer], Discussing w/Consultants, Arranging Admission or Transfer ED Disposition - Plan for ED Patient: Disposition: Acute Care Hospital [facility] Diagnosis: Respiratory failure with hypoxia, Bilateral pneumonia, Sepsis due to pneumonia, Infectious encephalopathy Referrals: Imtiaz Lee DO [Primary Care Provider] -
[2019-05-07 10:40] LABS: White Blood Cells 0 SEEN /hpf (0-5)
[2019-05-07 10:48] LABS: Color, Urine Yellow (Yellow); Glucose, Dipstick Normal (Normal); Ketone-Dipstick 15 mg/dl (Negative); Leukocyte Esterase-Dipstick 25 /ul (Negative); Nitrite-Dipstick Negative (Negative); Occult Blood-Urine 250 /ul (Negative); Protein-Dipstick 100 mg/dl (Negative); Urine Bilirubin Dipstick Negative (Negative); Urine Clarity Cloudy (Clear); Urine Urobilinogen 4 mg/dl (Normal)
[2019-05-07 10:55] LABS: Bacteria 2+ /hpf (None Seen); Calcium Oxalate Crystals Ur RARE /hpf (<or=2+); Mucous, Urine RARE /hpf (<or=2+); Red Blood Cells-Urine 10-25 SEEN /hpf (0-5); Squamous Epithelial Cells - UA 0-5 SEEN /hpf (5-10)
[2019-05-07 11:05] LABS: Base Excess -2 mmol/L (-2 to +2); Bicarbonate 22.1 mmol/L (22-26); Blood Gas Specimen Type ART; FI02 50; PO2 74 mmHG (75-100); SITE R Radial; SO2 96 % (95-99); Time Given 1102; Total Carbon Dioxide 23 mmol/L; pCO2 31.2 mmHg (35-45); pH 7.46 (7.35-7.45)
[2019-05-07 11:31] LABS: Absolute Lymphocyte Count 0.75 X10^3/uL (0.83-4.51); Absolute Neutrophil Count 18.5 X10^3/uL (2.0-7.7); Basophil# 0.05 X10^3/uL; Basophil% 0.2 % (0-1); Eosinophil# 0.08 X10^3/uL; Eosinophils% 0.4 % (0-5); Hematocrit 33.3 % (37-47); Hemoglobin 11.3 g/dL (12.0-15.0); Lymphocyte # 0.75 X10^3/ul (4.0); Lymphocyte % 3.7 % (19-41); Mean Corp Hgb Conc 33.9 g/dL (32-36); Mean Corpuscular Hgb 29.1 pg (27.0-32.0); Mean Corpuscular Volume 85.8 fL (81-99); Mean Platelet Vol. 8.8 fl (6.2-12.0); Monocyte% 2.5 % (0-10); NRBC Flagged by Analyzer 0 % (0-5); Neutrophil # 18.52 X10^3/uL (2.7-7.7); POSITIVE MORPHOLOGY YES; Platelet Count 407 K/mm3 (150-450); RBC Distribution Width SD 43.9 fl (35.1-43.9); Red Blood Count 3.88 M/mm3 (4.2-5.4); White Blood Count 20.1 K/mm3 (4.4-11.0)
[2019-05-07] MEDS: 0.9% Normal Saline 1,000 ML 999 ML IV (11:31)
[2019-05-07 11:35] LABS: Differential Indicated SCAN CRITERIA MET
[2019-05-07 11:55] LABS: Lactic Acid 1.5 mmol/L (0.4-1.9)
[2019-05-07 12:13] LABS: Differential Comment SCANNED
[2019-05-07 12:32] LABS: International Normalized Ratio 2.1; Prothrombin Time (Protime)PT. 23.1 SECONDS (11.7-14.9)
[2019-05-07 12:33] LABS: Partial Thromboplast Time 26.4 Seconds (24.1-36.2)
[2019-05-07 12:39] LABS: ALB/GLOB Ratio 0.4 RATIO (0.9-2.4); AST(SGOT) 42 U/L (15-37); Alanine Aminotransfer ALT/SGPT 23 U/L (13-56); Albumin, Serum 1.8 g/dL (3.2-5.0); Alkaline Phosphatase 96 U/L (45-117); Anion Gap 9 (5-15); BUN 12 mg/dL (7-18); BUN/Creat Ratio 17.7 RATIO (10-20); Calcium,Total 8.3 mg/dL (8.5-10.1); Chloride 108 mmol/L (98-107); Creatinine, Serum 0.68 mg/dL (0.55-1.02); EST Glomerular Filtration Rate 92 mL/min (>60); Est Glom Filt Rate - Afr Amer 111 mL/min (>60); Estimated Creatinine Clearance 43.77 ml/min; Globulin 4.1 g/dL (2.2-4.2); Glucose 132 mg/dL (74-106); Protein, Total 5.9 g/dL (6.4-8.2); Sodium Level 139 mmol/L (136-145)
--- NOTE | 2019-05-07 13:07 | PCM.HP.STD ---
Problem List (1) Bilateral pneumonia Status: Acute (2) Infectious encephalopathy Status: Acute (3) Sepsis due to pneumonia Status: Acute (4) Left leg weakness Status: Chronic (5) Stroke-like symptoms Status: Chronic (6) Debility, unspecified Status: Chronic (7) Depression Status: Chronic (8) Diabetes Status: Chronic (9) HLD (hyperlipidemia) Status: Chronic (10) Chronic kidney disease Status: Chronic (11) Respiratory failure with hypoxia Status: Acute History of Present Illness Date of Admission: 05/07/19 Chief Complaint: Shortness of breath and cough The patient is a 68 year old F currently residing at an extended care facility as a result of significant debility from 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 Patient has apparently been experiencing cough or shortness of breath for couple of days. Chest x-ray obtained in the emergency department was questionable for bilateral pneumonia. Patient was started on Zosyn. Patient condition however did not improve and was subsequently sent to the ED. Patient was found to be febrile in the ED with leukocytosis. An assessment of sepsis secondary to suspected pneumonia with multidrug-resistant organisms made admitted to a monitored bed for further management Past Medical History Past Medical History (Chronic Problems): Chronic Problems (Last Reviewed 02/17/19 @ 04:[address] Jose Antonio Napier MD) Left leg weakness (Chronic) Stroke-like symptoms (Chronic) Debility, unspecified (Chronic) Depression (Chronic) Diabetes (Chronic) HLD (hyperlipidemia) (Chronic) Chronic kidney disease (Chronic) Medical History: Medical History (Last Reviewed 05/07/19 @ 13:[address] Doni Mccray MD) HTN (hypertension) I10 Allergies No Known Allergies Allergy (Verified 05/07/19 10:08) Home Medications: Ambulatory Orders Medication Instructions Recorded Metformin HCl 500 mg PO DAILY 02/16/19 Acetaminophen [Tylenol Tablet] 650 mg PO Q6H PRN PRN tab 02/18/19 Albuterol Sulfate 2.5 mg IH TID 05/07/19 Apixaban [Eliquis] 5 mg PO BID 05/07/19 Ascorbic Acid [Vitamin C] 500 mg PO DAILY@0800 05/07/19 Aspirin 81 mg PO DAILY 05/07/19 Atorvastatin Calcium [Lipitor] 20 mg PO DAILY 05/07/19 Bisacodyl 10 mg RECTALLY PRN PRN 05/07/19 Bupropion HCl [Wellbutrin Xl] 150 mg PO DAILY 05/07/19 Lorazepam [Ativan] 0.5 mg PO BID PRN PRN 05/07/19 Piperacillin Sodium/Tazobactam 3.375 gm IV [id number] 05/07/19 [Piperacil-Tazobact 3.375 gm Vl] Sennosides/Docusate Sodium [Senna 2 ea PO DAILY 05/07/19 Plus 8.6-50 mg Tablet] Zinc Sulfate 220 mg PO DAILY 05/07/19 Surgical History: - - Surgery to remove lesion in her armpit; ; surgery for ingrown toenail. Lives: Alone, Alf Smoking Status: Never smoker Alcohol: None Drugs: None - *Family History Maternal History Items: Heart Disease Paternal History Items: Heart Disease, - - Arthritis Review of Systems Unable to obtain accurate/complete ROS d/t: With patient being encephalopathic VTE Information - Inpt Only VTE Present on Admission: No VTE Mechan Device Prophylaxis: None VTE Pharm Prophylaxis ordered?: Yes Patient Problems: Active and Suspected Problems (Last Reviewed 02/17/19 @ 04:[address] Jose Antonio Napier MD) Respiratory failure with hypoxia (Acute) Bilateral pneumonia (Acute) Sepsis due to pneumonia (Acute) Infectious encephalopathy (Acute) Objective: GENERAL: Somewhat lethargic HEENT: Atraumatic; EYES; Anicteric, Normal Conjunctiva NECK; supple, normal thyroid, RESPIRATORY: Diminished to auscultation CARDIOVASCULAR: Regular S1 S2, GI: soft, normoactive bowel sounds, : No Renal angle tenderness; EXTREMITIES: No edema, no clubbing, MUSCULOSKELETAL: no muscle waisting NEURO: Lethargic but arousable with bilateral lower extremity weakness SKIN: No Rash PSYCH; Flat affect - Physical Exam Vitals/I&O's: Vital Signs Temp Pulse Resp BP Pulse Ox 100.6 F H 108 H 29 H 136/74 H 90 05/07/19 12:03 05/07/19 12:03 05/07/19 12:03 05/07/19 12:03 05/07/19 12:23 Oxygen Flow Rate (L/min) 12 Oxygen Delivery Method Venturi Mask Weight: 83.6 kg Body Mass Index (BMI) 33.7 Intake and Output for Last 24 Hours 05/05/19 05/06/19 05/07/19 23:59 23:59 23:59 Intake Total 1100 / 1100 Balance 1100 / 1100 Laboratory Results 05/07/19 10:30: Urine Color Yellow, Urine Clarity Cloudy, Urine pH 5.0, Ur Specific [place] 1.020, Urine Protein 100 H, Urine Glucose (UA) Normal, Urine Ketones 15 H, Urine Occult Blood 250 H, Urine Nitrite Negative, Urine Bilirubin Negative, Urine Urobilinogen 4 H, Ur Leukocyte Esterase 25 H, Urine RBC 10-25 SEEN, Urine WBC 0 SEEN, Ur Squamous Epith Cells 0-5 SEEN, Calcium Oxalate Crystal RARE, Urine Bacteria 2+, Urine Mucus RARE 05/07/19 11:03: Specimen Type ART, Sample Site R Radial, pH 7.46 H, Bicarbonate Actual 22.1, POC Total CO2 23, Base Excess -2, O2 Saturation 96, O2 % 50, ABG pCO2 31.2 L, ABG pO2 74 L, Obdulio Test NA, O2 Delivery Device Vent Mask, Blood Gas Notified Whom ED MD, Blood Gas Notified Time 1102 05/07/19 11:13: WBC 20.1 H, RBC 3.88 L, Hgb 11.3 L, Hct 33.3 L, MCV 85.8, MCH 29.1, MCHC 33.9, RDW Std Deviation 43.9, RDW Coeff of Kristal 14.0, Plt Count 407, MPV 8.8, Immature Gran % (Auto) 1.200 H, Neut % (Auto) 92.0 H, Lymph % (Auto) 3.7 L, [place] % (Auto) 2.5, Eos % (Auto) 0.4, Baso % (Auto) 0.2, Absolute Neuts (auto) 18.5 H, Absolute Lymphs (auto) 0.75 L, Nucleated RBC % 0, Differential Comment SCANNED 05/07/19 11:13: PT Cancelled, INR Cancelled, APTT Cancelled 05/07/19 11:13: Sodium Cancelled, Potassium Cancelled, Chloride Cancelled, Carbon Dioxide Cancelled, Anion Gap Cancelled, BUN Cancelled, Creatinine Cancelled, Estim Creat Clear Calc Cancelled, Est GFR (MDRD) Af Amer Cancelled, Est GFR (MDRD) Non-Af Cancelled, BUN/Creatinine Ratio Cancelled, Glucose Cancelled, Calcium Cancelled, Total Bilirubin Cancelled, AST Cancelled, ALT Cancelled, Alkaline Phosphatase Cancelled, Total Protein Cancelled, Albumin Cancelled, Globulin Cancelled, Albumin/Globulin Ratio Cancelled 05/07/19 11:13: Lactic Acid 1.5 05/07/19 12:13: PT 23.1 H, INR 2.1, APTT 26.4 05/07/19 12:13: Sodium 139, Potassium 3.0 L, Chloride 108 H, Carbon Dioxide 22.0, Anion Gap 9, BUN 12, Creatinine 0.68, Estim Creat Clear Calc 43.77, Est GFR (MDRD) Af Amer 111, Est GFR (MDRD) Non-Af 92, BUN/Creatinine Ratio 17.7, Glucose 132 H, Calcium 8.3 L, Total Bilirubin 0.30, AST 42 H, ALT 23, Alkaline Phosphatase 96, Total Protein 5.9 L, Albumin 1.8 L, Globulin 4.1, Albumin/Globulin Ratio 0.4 L Current Medications Vancomycin HCl 2,000 mg/ (Sodium Chloride) 540 mls @ 250 mls/hr IV X1 ONE Stop: 05/07/19 13:09 Last Admin: 05/07/19 11:55 Dose: 250 mls/hr Documented by: Assessment/Plan All Active Problems (Last Reviewed 02/17/19 @ 04:[address] Jose Antonio Napier MD) Respiratory failure with hypoxia (Acute) Bilateral pneumonia (Acute) Sepsis due to pneumonia (Acute) Infectious encephalopathy (Acute) Patient is a 68-year-old lady residing at an extended care facility presenting with cough shortness of breath and fever 1. Sepsis ?Secondary to suspected pneumonia with multidrug-resistant organisms. Admitted to monitored bed patient started on broad-spectrum antibiotic therapy again (cefepime, Levaquin, and vancomycin) after cultures have been obtained. Also did obtain MRSA nasal screen with plans to discontinue vancomycin if cultures come back negative 2. Acute hypoxic respiratory failure ?Secondary to suspected pneumonia with multidrug-resistant organism. Patient was placed on supplemental oxygen via Ventimask treated to keep oxygen saturation greater than 90 3. Diabetes mellitus type II ~Uncontrolled with hyperglycemia patient's oral hypoglycemics held. Placed on long acting insulin, Accu-Cheks a.c. and at bedtime and covered with sliding scale insulin 4. Bilateral lower extremity weakness ?Secondary to DJD involving the lumbar spine patient was undergoing therapy at extended care facility 5. Systemic use of anticoagulation ?Patient is on therapeutic dose of Eliquis rationale was not clear from the chart however did continue do suspect this is being used for DVT prophylaxis or recent diagnosis of DVT 6. Dyslipidemia ~patient is on statin therapy, continued at home dose 7. Obesity with BMI of 33.7 ?Weight loss advised 8. DVT prophylaxis ?Patient is on Eliquis did continue Code Visit Inpatient E&M: 23470 Init Hosp L3
[2019-05-07] MEDS: 0.9% Saline Lock 10 ML Syringe IV ×2 (15:32→23:20)
--- NOTE | 2019-05-07 16:02 | PCM.RX.CS ---
Consult Pharmacy has been consulted to manage selected antiobiotic: Vancomycin Type of Consult: New start Suspected Infection: Pneumonia Prior Doses of Antibiotics Received/Current Regimen: VANCOMYCIN 2000MG IV X1 IN ED 05/07/19 @1155 Labs: Sodium 139 mmol/L (136-145) 05/07/19 12:13 Potassium 3.0 mmol/L (3.5-5.1) L 05/07/19 12:13 Chloride 108 mmol/L (98-107) H 05/07/19 12:13 Carbon Dioxide 22.0 mmol/L (21.0-32.0) 05/07/19 12:13 Anion Gap 9 (5-15) 05/07/19 12:13 BUN 12 mg/dL (7-18) 05/07/19 12:13 Creatinine 0.68 mg/dL (0.55-1.02) 05/07/19 12:13 Est GFR (MDRD) Af Amer 111 mL/min (>60) 05/07/19 12:13 Est GFR (MDRD) Non-Af 92 mL/min (>60) 05/07/19 12:13 BUN/Creatinine Ratio 17.7 RATIO (10-20) 05/07/19 12:13 Glucose 132 mg/dL (74-106) H 05/07/19 12:13 Microbiology: Microbiology 05/07/19 10:30 Urine Catheter - Yung Streptococcus pneumoniae Antigen (M - Final 05/07/19 10:30 Urine Catheter - Yung Legionella Antigen - Final Goal Trough: 15-20 mcg/mL Pharmacy Plan for Drug Dosing: PLAN/RECOMMENDATIONS 1. Vancomycin 500mg IV q12hrs to start 05/08/2019 @0000 2. Trough scheduled prior to 4th total dose per protocol 05/08/2019 @2330 3. Pharmacy Service will continue to monitor and adjust dosing as required.
[2019-05-07 16:55] LABS: Bedside Glucose 125 mg/dL (70-110)
[2019-05-07 17:02] LABS: M R Staph aureus DNA By PCR Negative (Negative); Probe Check PASS; Specimen Processing Control PASS
[2019-05-07] MEDS: Glucerna Shake 120 ML LIQUID PO (17:50)
[2019-05-07] MEDS: Atorvastatin Calcium 20 MG Tablet PO (21:09)
[2019-05-07] MEDS: APIXABAN 5 MG TABLET PO (21:09)
[2019-05-07] MEDS: LORazepam 0.5 MG Tablet PO (21:09)
[2019-05-07 21:26] LABS: Bedside Glucose 110 mg/dL (70-110)
[2019-05-07] MEDS: Vancomycin IV 500 MG/100 ML BAG 100 MG IV (23:20)
[2019-05-08] VITALS (35 sets, daily range): BP systolic 104–150; BP diastolic 48–92; PULSE 78–126; RESP 12–42; TEMP 36.4–38.5; O2SAT 82–100
[2019-05-08] MEDS: Albuterol 2.5 MG/3 ML VIAL.NEB. INHALATION (04:30)
--- NOTE | 2019-05-08 05:35 | RAD_ITS ---
HISTORY: PNEUMONIA ADDITIONAL HISTORY: None provided. COMPARISON: 05/07/2019 TECHNIQUE: Frontal and lateral chest radiographs. Number of images including paperwork: 2 FINDINGS: LUNGS AND PLEURA: Increase in bilateral interstitial infiltrates. No dense consolidation or sizable pleural effusion. CARDIAC SILHOUETTE: Stable. MEDIASTINUM AND JAD: Stable. UPPER ABDOMEN: Unremarkable. SKELETON AND SOFT TISSUES: No acute findings. Degenerative changes. OTHER DEVICES AND HARDWARE: None. RAD/Chest PA and Lateral IMPRESSION: Increase in bilateral interstitial infiltrates, possibly edema, infection or other cause of interstitial infiltrate. at 0610 Reported and signed by: Freida Pringle MD Electronically Signed: Freida Pringle MD at 6:10 EST Tel , Service support ,
[2019-05-08 06:43] LABS: Absolute Lymphocyte Count 0.81 X10^3/uL (0.83-4.51); Absolute Neutrophil Count 16.7 X10^3/uL (2.0-7.7); Basophil# 0.03 X10^3/uL; Basophil% 0.2 % (0-1); Eosinophil# 0.09 X10^3/uL; Eosinophils% 0.5 % (0-5); Hematocrit 32.9 % (37-47); Hemoglobin 10.6 g/dL (12.0-15.0); Lymphocyte # 0.81 X10^3/ul (4.0); Lymphocyte % 4.4 % (19-41); Mean Corp Hgb Conc 32.2 g/dL (32-36); Mean Corpuscular Hgb 28.3 pg (27.0-32.0); Mean Corpuscular Volume 87.7 fL (81-99); Monocyte# 0.41 X10^3/uL; Monocyte% 2.3 % (0-10); NRBC Flagged by Analyzer 0 % (0-5); Neutrophil # 16.65 X10^3/uL (2.7-7.7); Neutrophil % 91.3 % (47-70); POSITIVE MORPHOLOGY YES; Platelet Count 373 K/mm3 (150-450); RBC Distribution Width CV 14.4 % (11.6-14.6); RBC Distribution Width SD 46.5 fl (35.1-43.9); Red Blood Count 3.75 M/mm3 (4.2-5.4); White Blood Count 18.2 K/mm3 (4.4-11.0)
[2019-05-08 06:47] LABS: Differential Indicated SCAN CRITERIA MET
[2019-05-08 07:04] LABS: Differential Comment SCANNED
[2019-05-08 07:11] LABS: Bedside Glucose 86 mg/dL (70-110)
[2019-05-08 07:11] LABS: Anion Gap 10 (5-15); BUN 18 mg/dL (7-18); BUN/Creat Ratio 13.8 RATIO (10-20); Calcium,Total 8.7 mg/dL (8.5-10.1); Chloride 111 mmol/L (98-107); EST Glomerular Filtration Rate 44 mL/min (>60); Est Glom Filt Rate - Afr Amer 53 mL/min (>60); Glucose 95 mg/dL (74-106); Potassium 3.2 mmol/L (3.5-5.1); Sodium Level 140 mmol/L (136-145)
[2019-05-08] MEDS: Glucerna Shake 120 ML LIQUID PO (08:57)
[2019-05-08] MEDS: APIXABAN 5 MG TABLET PO (08:58)
[2019-05-08] MEDS: Aspirin 81 MG TAB.CHEW PO (08:58)
[2019-05-08] MEDS: Senna/Docusate Sodium 1 Tablet 2 TABLET PO (08:58)
[2019-05-08] MEDS: Ascorbic Acid 500 MG Tablet PO (08:58)
[2019-05-08] MEDS: buPROPion (XL) 150 MG TABLET.XL PO (08:58)
[2019-05-08] MEDS: Furosemide 40 MG/4 ML Vial IV (10:22)
[2019-05-08] MEDS: 0.9% Saline Lock 10 ML Syringe IV (10:24)
[2019-05-08] MEDS: Ipratropium/Albuterol Sulfate 3 ML AMPUL.NEB INHALATION ×4 (11:00→23:03)
[2019-05-08 12:11] LABS: Bedside Glucose 127 mg/dL (70-110)
--- NOTE | 2019-05-08 13:01 | PCM.PROGNOTE ---
<Yris Rodriguez - Last Filed: 05/08/19 13:26> Patient Problems: Active and Suspected Problems (Last Reviewed 05/07/19 @ 13:[address] Doni Mccray MD) Respiratory failure with hypoxia (Acute) Bilateral pneumonia (Acute) Sepsis due to pneumonia (Acute) Infectious encephalopathy (Acute) Subjective: Patient seen and examined. Reports worsening breathing overnight with increased oxygen requirements. Intermittent cough, nonproductive. Continues to have intermittent fever as well. - Physical Exam Vitals/I&O's: Vital Signs Temp Pulse Resp BP Pulse Ox 98.7 F 114 H 24 H 142/66 H 91 05/08/19 11:58 05/08/19 11:58 05/08/19 11:58 05/08/19 11:58 05/08/19 11:58 Oxygen Flow Rate (L/min) 40 Oxygen Delivery Method Nasal Cannula Weight: 178 lb 2.136 oz Body Mass Index (BMI) 29.6 Intake and Output for Last 24 Hours 05/06/19 05/07/19 05/08/19 23:59 23:59 23:59 Intake Total 3243.33 / 3303.33 1486.67 / 1486.67 Output Total 250 / 400 550 / 550 Balance 2993.33 / 2903.33 936.67 / 936.67 General: Alert, Oriented x3, - - Moderate respiratory distress HEENT: Atraumatic, PERRLA, EOMI, Normocephalic Oral: Dry Mucosa Neck: Supple, No JVD, Negative Carotid Bruits Lungs: Diminished, Rhonchi, Wheezes Cardiovascular: Regular Rhythm, Normal S1, Normal S2, No murmurs, Tachycardic Abdomen: Bowel Sounds Present, Soft, Non Tender Extremities: No clubbing, No cyanosis, No edema, Capillary Refill Less than 3 Seconds Skin: No rashes, No breakdown Musculoskeletal: No Tenderness to Palpation of Joints or Extremities Neurological: Cranial nerves II-XII grossly intact, Neuro grossly intact Psych/Mental Status: Normal Affect, Appropriate Microbiology Past 72 Hours 05/07/19 16:10 Mucosa - Nasopharyngeal Respiratory Panel (PCR) - Final 05/07/19 10:30 Urine Catheter - Yung Streptococcus pneumoniae Antigen (M - Final 05/07/19 10:30 Urine Catheter - Yung Legionella Antigen - Final Laboratory Results 05/07/19 15:10: MRSA (PCR) Negative 05/07/19 16:36: Lactic Acid 1.0 05/07/19 16:44: POC Glucose 125 H 05/07/19 21:07: POC Glucose 110 05/08/19 06:28: WBC 18.2 H, RBC 3.75 L, Hgb 10.6 L, Hct 32.9 L, MCV 87.7, MCH 28.3, MCHC 32.2 D, RDW Std Deviation 46.5 H, RDW Coeff of Kristal 14.4, Plt Count 373, MPV 8.0, Immature Gran % (Auto) 1.300 H, Neut % (Auto) 91.3 H, Lymph % (Auto) 4.4 L, [place] % (Auto) 2.3, Eos % (Auto) 0.5, Baso % (Auto) 0.2, Absolute Neuts (auto) 16.7 H, Absolute Lymphs (auto) 0.81 L, Nucleated RBC % 0, Differential Comment SCANNED 05/08/19 06:28: Sodium 140, Potassium 3.2 L, Chloride 111 H, Carbon Dioxide 19.0 L, Anion Gap 10, BUN 18, Creatinine 1.30 H, Estim Creat Clear Calc 38.30, Est GFR (MDRD) Af Amer 53 L, Est GFR (MDRD) Non-Af 44 L, BUN/Creatinine Ratio 13.8, Glucose 95, Calcium 8.7 05/08/19 06:28: B-Natriuretic Peptide 131.0 H 05/08/19 06:54: POC Glucose 86 05/08/19 11:58: POC Glucose 127 H Current Medications Acetaminophen (Tylenol) 650 mg PO Q6H PRN PRN PRN Reason: Pain Score 1-3/Temp > 100.7 F Al Hydroxide/Mg Hydroxide (Mylanta Ii) 30 ml PO Q6H PRN PRN PRN Reason: Gastric Burning Albuterol Sulfate (Ventolin Aerosols) 2.5 mg INHALATION Q2H PRN PRN PRN Reason: Shortness of Breath/Wheezing Last Admin: 05/08/19 04:30 Dose: 2.5 mg Documented by: Albuterol/Ipratropium (Duoneb) 3 ml INHALATION Q4HWA.RT [facility] Last Admin: 05/08/19 11:00 Dose: 3 ml Documented by: Apixaban (Eliquis) 5 mg PO BID [facility] Last Admin: 05/08/19 08:58 Dose: 5 mg Documented by: Ascorbic Acid (Vitamin C) 500 mg PO DAILY@0800 [facility] Last Admin: 05/08/19 08:58 Dose: 500 mg Documented by: Aspirin (Aspirin, Baby) 81 mg PO DAILYCM [facility] Last Admin: 05/08/19 08:58 Dose: 81 mg Documented by: Atorvastatin Calcium (Lipitor) 20 mg PO QHS [facility] Last Admin: 05/07/19 21:09 Dose: 20 mg Documented by: Bupropion HCl (Wellbutrin Xl) 150 mg PO DAILY [facility] Last Admin: 05/08/19 08:58 Dose: 150 mg Documented by: Glucagon () 1 mg IM .X1 PRN PRN Reason: Hypoglycemia Guaifenesin (Robitussin) 20 ml PO Q4H PRN PRN PRN Reason: COUGH Cefepime HCl 2 gm/ Sodium (Chloride) 100 mls @ 200 mls/hr IV Q12 [facility] Last Infusion: 05/08/19 10:59 Dose: Infused Documented by: Dextrose (Dextrose 10%-Water) 250 mls @ 999 mls/hr IV .Q16M PRN; Protocol PRN Reason: HYPOGLYCEMIA Insulin Human Lispro (Humalog Kwikpen (Bkc)) 0 unit SC [facility]; Protocol Last Admin: 05/08/19 12:08 Dose: Not Given Documented by: Lorazepam (Ativan) 0.5 mg PO BID PRN PRN PRN Reason: ANXIETY Last Admin: 05/07/19 21:09 Dose: 0.5 mg Documented by: Magnesium Hydroxide (Milk Of Magnesia) 30 ml PO DAILY PRN PRN PRN Reason: Constipation Melatonin (Melatonin) 3 mg PO QHS PRN PRN PRN Reason: INSOMNIA Nitroglycerin (Nitrostat) 0.4 mg SUBLINGUAL Q5M PRN PRN Reason: CARDIAC/CHEST PAIN Nutritional Formula (Lactose Free) (Glucerna Shake) 120 ml PO 4X/DAY [facility] Last Admin: 05/08/19 08:57 Dose: 120 ml Documented by: Ondansetron HCl (Zofran) 4 mg IV Q8H PRN PRN PRN Reason: NAUSEA/VOMITING Oxycodone HCl (Oxyir) 5 mg PO Q4H PRN PRN PRN Reason: Pain Score 4-10/10 Prochlorperazine Edisylate (Compazine Iv) 5 mg IV Q4H PRN PRN PRN Reason: Breakthrough nausea/vomiting Senna/Docusate Sodium (Senokot-S, Corrie-Colace) 2 tablet PO DAILY [facility] Last Admin: 05/08/19 08:58 Dose: 2 tablet Documented by: Sodium Chloride () 10 - 40 ml IV UD PRN PRN Reason: SALINE FLUSH Last Admin: 05/08/19 10:24 Dose: 10 ml Documented by: Zinc Sulfate (Zinc Sulfate) 220 mg PO DAILY [facility] Last Admin: 05/08/19 08:58 Dose: 220 mg Documented by: Medical Necessity - Tobacco Use Smoking Status: Never smoker Tobacco Use: Non-smoker Assessment/Plan All Active Problems (Last Reviewed 05/07/19 @ 13:[address] Doni Mccray MD) Respiratory failure with hypoxia (Acute) Bilateral pneumonia (Acute) Sepsis due to pneumonia (Acute) Infectious encephalopathy (Acute) 1. Sepsis secondary to pneumonia with suspected multidrug-resistant organism with associated acute hypoxic respiratory failure-chest x-ray on admission demonstrated bilateral infiltrates. MRSA PCR negative. Vancomycin discontinued. Urine for strep and Legionella negative. Respiratory panel negative. Blood and urine cultures pending. Obtain sputum culture. On IV cefepime. Albuterol and DuoNeb aerosols. Continue supplement oxygen to maintain O2 at or above 90%. If patient continues to worsen, will consider pulmonary consult. 2. Acute infectious/metabolic encephalopathy-secondary to #1. Treatment per above. 3. Recent diagnosis DVT-on anticoagulation with Eliquis. Patient is to undergo IVC filter as outpatient. 4. 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 Undergoing outpatient surgical evaluation. Currently at SNF for therapy. PT/OT. 5. Chronic diastolic dysfunction-echocardiogram February 2019 demonstrated an EF of 65%, stage I diastolic dysfunction. 6. Depression with anxiety-continue bupropion, lorazepam. 7. Type 2 diabetes [id number] with sliding scale insulin. 8. CKD stage III-stable, trend BMP. 9. Hyperlipidemia-continue statin. 10. Obesity-encouraged diet and lifestyle modifications. DVT prophylaxis-Eliquis This patient was seen by ROD Mcnair under the supervision of Dr. Mccray. <Doni Mccray - Last Filed: 05/08/19 14:26> - Physical Exam Vitals/I&O's: Vital Signs Temp Pulse Resp BP Pulse Ox 98.6 F 114 H 26 H 143/71 H 94 05/08/19 13:34 05/08/19 13:34 05/08/19 13:34 05/08/19 13:34 05/08/19 13:34 Oxygen Flow Rate (L/min) 55 Oxygen Delivery Method Nasal Cannula Weight: 80.8 kg Body Mass Index (BMI) 29.6 Intake and Output for Last 24 Hours 05/06/19 05/07/19 05/08/19 23:59 23:59 23:59 Intake Total 3243.33 / 3303.33 1486.67 / 1486.67 Output Total 250 / 400 550 / 550 Balance 2993.33 / 2903.33 936.67 / 936.67 Microbiology Past 72 Hours 05/07/19 10:30 Urine Catheter - Yung Urine Culture - Preliminary Culture exhibits no growth. 05/07/19 16:10 Mucosa - Nasopharyngeal Respiratory Panel (PCR) - Final 05/07/19 10:30 Urine Catheter - Yung Streptococcus pneumoniae Antigen (M - Final 05/07/19 10:30 Urine Catheter - Yung Legionella Antigen - Final Laboratory Results 05/07/19 15:10: MRSA (PCR) Negative 05/07/19 16:36: Lactic Acid 1.0 05/07/19 16:44: POC Glucose 125 H 05/07/19 21:07: POC Glucose 110 05/08/19 06:28: WBC 18.2 H, RBC 3.75 L, Hgb 10.6 L, Hct 32.9 L, MCV 87.7, MCH 28.3, MCHC 32.2 D, RDW Std Deviation 46.5 H, RDW Coeff of Kristal 14.4, Plt Count 373, MPV 8.0, Immature Gran % (Auto) 1.300 H, Neut % (Auto) 91.3 H, Lymph % (Auto) 4.4 L, [place] % (Auto) 2.3, Eos % (Auto) 0.5, Baso % (Auto) 0.2, Absolute Neuts (auto) 16.7 H, Absolute Lymphs (auto) 0.81 L, Nucleated RBC % 0, Differential Comment SCANNED 05/08/19 06:28: Sodium 140, Potassium 3.2 L, Chloride 111 H, Carbon Dioxide 19.0 L, Anion Gap 10, BUN 18, Creatinine 1.30 H, Estim Creat Clear Calc 38.30, Est GFR (MDRD) Af Amer 53 L, Est GFR (MDRD) Non-Af 44 L, BUN/Creatinine Ratio 13.8, Glucose 95, Calcium 8.7 05/08/19 06:28: B-Natriuretic Peptide 131.0 H 05/08/19 06:54: POC Glucose 86 05/08/19 11:58: POC Glucose 127 H 05/08/19 14:12: Specimen Type ART, Sample Site R Radial, pH 7.46 H, Bicarbonate Actual 17.7 L, POC Total CO2 18, Base Excess -6 L, O2 Saturation 94 L, O2 % 70, ABG pCO2 24.9 L, ABG pO2 63 L, Obdulio Test POS, O2 Delivery Device Bi / C PAP, Blood Gas Notified Whom HOSP MD, Blood Gas Notified Time 1430 Current Medications Acetaminophen (Tylenol) 650 mg PO Q6H PRN PRN PRN Reason: Pain Score 1-3/Temp > 100.7 F Al Hydroxide/Mg Hydroxide (Mylanta Ii) 30 ml PO Q6H PRN PRN PRN Reason: Gastric Burning Albuterol Sulfate (Ventolin Aerosols) 2.5 mg INHALATION Q2H PRN PRN PRN Reason: Shortness of Breath/Wheezing Last Admin: 05/08/19 04:30 Dose: 2.5 mg Documented by: Albuterol/Ipratropium (Duoneb) 3 ml INHALATION Q4HWA.RT [facility] Last Admin: 05/08/19 11:00 Dose: 3 ml Documented by: Apixaban (Eliquis) 5 mg PO BID [facility] Last Admin: 05/08/19 08:58 Dose: 5 mg Documented by: Ascorbic Acid (Vitamin C) 500 mg PO DAILY@0800 [facility] Last Admin: 05/08/19 08:58 Dose: 500 mg Documented by: Aspirin (Aspirin, Baby) 81 mg PO DAILYCM [facility] Last Admin: 05/08/19 08:58 Dose: 81 mg Documented by: Atorvastatin Calcium (Lipitor) 20 mg PO QHS [facility] Last Admin: 05/07/19 21:09 Dose: 20 mg Documented by: Bupropion HCl (Wellbutrin Xl) 150 mg PO DAILY [facility] Last Admin: 05/08/19 08:58 Dose: 150 mg Documented by: Glucagon () 1 mg IM .X1 PRN PRN Reason: Hypoglycemia Guaifenesin (Robitussin) 20 ml PO Q4H PRN PRN PRN Reason: COUGH Cefepime HCl 2 gm/ Sodium (Chloride) 100 mls @ 200 mls/hr IV Q12 [facility] Last Infusion: 05/08/19 10:59 Dose: Infused Documented by: Dextrose (Dextrose 10%-Water) 250 mls @ 999 mls/hr IV .Q16M PRN; Protocol PRN Reason: HYPOGLYCEMIA Insulin Human Lispro (Humalog Kwikpen (Bkc)) 0 unit SC ACHS [facility]; Protocol Last Admin: 05/08/19 12:08 Dose: Not Given Documented by: Lorazepam (Ativan) 0.5 mg PO BID PRN PRN PRN Reason: ANXIETY Last Admin: 05/07/19 21:09 Dose: 0.5 mg Documented by: Magnesium Hydroxide (Milk Of Magnesia) 30 ml PO DAILY PRN PRN PRN Reason: Constipation Melatonin (Melatonin) 3 mg PO QHS PRN PRN PRN Reason: INSOMNIA Nitroglycerin (Nitrostat) 0.4 mg SUBLINGUAL Q5M PRN PRN Reason: CARDIAC/CHEST PAIN Nutritional Formula (Lactose Free) (Glucerna Shake) 120 ml PO 4X/DAY [facility] Last Admin: 05/08/19 08:57 Dose: 120 ml Documented by: Ondansetron HCl (Zofran) 4 mg IV Q8H PRN PRN PRN Reason: NAUSEA/VOMITING Oxycodone HCl (Oxyir) 5 mg PO Q4H PRN PRN PRN Reason: Pain Score 4-10/10 Prochlorperazine Edisylate (Compazine Iv) 5 mg IV Q4H PRN PRN PRN Reason: Breakthrough nausea/vomiting Senna/Docusate Sodium (Senokot-S, Corrie-Colace) 2 tablet PO DAILY [facility] Last Admin: 05/08/19 08:58 Dose: 2 tablet Documented by: Sodium Chloride () 10 - 40 ml IV UD PRN PRN Reason: SALINE FLUSH Last Admin: 05/08/19 10:24 Dose: 10 ml Documented by: Zinc Sulfate (Zinc Sulfate) 220 mg PO DAILY [facility] Last Admin: 05/08/19 08:58 Dose: 220 mg Documented by: Assessment/Plan This patient was seen in conjunction with ROD Mcnair . I have independently interviewed and examined the patient and reviewed pertinent historical, laboratory, and other data. Please refer to ROD Mcnair note for details of this patient's presentation, findings, and recommendations. I have reviewed ROD Mcnair note and concur with documented findings. In brief, Patient is a 68-year-old lady residing at an extended care facility presenting with cough shortness of breath and fever Physical Examination: GENERAL: Somewhat lethargic HEENT: Atraumatic; EYES; Anicteric, Normal Conjunctiva NECK; supple, normal thyroid, RESPIRATORY: Diminished to auscultation CARDIOVASCULAR: Regular S1 S2, GI: soft, normoactive bowel sounds, : No Renal angle tenderness; EXTREMITIES: No edema, no clubbing, MUSCULOSKELETAL: no muscle waisting NEURO: Lethargic SKIN: No Rash PSYCH; Flat affect Assessment: 1. Sepsis?Secondary to suspected pneumonia with multidrug-resistant organisms. 2. Acute hypoxic respiratory failure 3. Diabetes mellitus type II 4. Bilateral lower extremity weakness 5. Systemic use of anticoagulation 6. Dyslipidemia 7. Obesity with BMI of 33.7 8. DVT prophylaxis Recommendations: 1. I have discussed the results of my overview and impressions with the patient 2. Options for management were reviewed Code Visit Inpatient E&M: 97790 Subs Hosp L3
[2019-05-08 14:16] LABS: Allen Test POS; Base Excess -6 mmol/L (-2 to +2); Bicarbonate 17.7 mmol/L (22-26); Blood Gas Specimen Type ART; FI02 70; PO2 63 mmHG (75-100); SITE R Radial; SO2 94 % (95-99); Time Given 1430; Total Carbon Dioxide 18 mmol/L; pCO2 24.9 mmHg (35-45); pH 7.46 (7.35-7.45)
--- NOTE | 2019-05-08 15:57 | CCHN_ITS ---
Hospitalist Note Discussed patient with Yris Rodriguez, her Hospitalist TEMPLATE INSPECTOR secondary to respiratory ongoing concerns, evaluation of patient with ongoing AVAPS, increased work of breathing and tachycardia, pulmonary examination diminished, coarse, mild rales bases. Will attempt lasix 40 mg x 1 again, although weight decreased since admission but resuscitation >3.5L since admission, no longer febrile, WBC still elevated but trending down, respiratory panel negative, on cefepime. Will transition to the ICU for more close care, consult Dr. Russell and update him on her presentation. CODE status: Given worsening status, discussed care options again. Previously had intimated nervously of possible intubation amenability. Patient does not have HCPOA nor living will. Discussed plan of care with planned ICU transition and concerns with patient. She notes currently that she does not want to intubated. She status she understands risks but would prefer less invasive methods. Discussed CODE status at length including difference between FULL code, DNR-CCA and DNR-CC status. Following discussions about the differences in these status. Per patient preference will transition from DNR-CCA, intubation to DNR- CCA, no intubation status. Advanced Care Planning Face to Face Time: 16 minutes. Code Visit Procedures: 11406 Advncd Care Plan 30 Min
[2019-05-08 17:45] LABS: Bedside Glucose 134 mg/dL (70-110)
[2019-05-08] MEDS: Acetaminophen 325 MG Tablet 650 MG PO (17:46)
[2019-05-08 17:59] LABS: Lactic Acid 1.1 mmol/L (0.4-1.9)
[2019-05-08] MEDS: 0.9% Normal Saline 1,000 ML 125 ML IV (18:01)
--- NOTE | 2019-05-08 20:05 | NURSING ---
Pt's spouse, Fidencio Joseph, called in for updates; educated on ICU rounds; provided emotional support.
[2019-05-08 21:56] LABS: Bedside Glucose 130 mg/dL (70-110)
[2019-05-09] VITALS (40 sets, daily range): BP systolic 105–148; BP diastolic 47–72; PULSE 79–120; RESP 12–44; TEMP 36.3–37.5; O2SAT 92–107
[2019-05-09] MEDS: Ipratropium/Albuterol Sulfate 3 ML AMPUL.NEB INHALATION ×6 (03:03→22:16)
--- NOTE | 2019-05-09 06:24 | PCM.CON.CC ---
Reason for Consult Date of Consultation: 05/09/19 Reason for Consultation: Severe sepsis/respiratory failure History of Present Illness: The patient is a 68-year-old female, with a history as outlined below, who initially presented to the emergency department on May 07 with complaints of shortness of breath and fever. The patient does currently reside at a long term facility. The patient was also recently diagnosed with a DVT and is currently anticoagulated on Eliquis. She has a great deal of baseline generalized weakness due to degenerative disease involving the lumbar spine. On presentation to the emergency department, the patient was noted to be febrile, tachycardic and tachypneic. She was also noted to be hypoxemic, saturating 83% on room air. Initial laboratory evaluation revealed an elevated white blood cell count to 20,000. Chemistry profile was notable for a potassium of 3.0. Albumin was low at 1.8. MRSA screen was negative. Initial plain film chest x-ray revealed no focal infiltrate or consolidation. The patient was started on antimicrobials and supplemental fluids. She was then admitted to the progressive care unit for further management. During the patient's course in the progressive care unit, she was noted to have increasing oxygen requirements. A repeat chest x-ray obtained on April revealed bilateral interstitial infiltrates. The patient eventually required BiPAP therapy due to persistent hypoxemia and increased work of breathing. CODE STATUS was discussed with the patient prior to her transfer to the ICU, at which time, she reported a desire to be DNR CCA without plans for intubation. Overnight, the patient has remained on BiPAP therapy, but still remains significantly tachypneic this morning. Past Medical History Past Medical History (Chronic Problems): Chronic Problems (Last Reviewed 05/07/19 @ 13:[address] Doni Mccray MD) Left leg weakness (Chronic) Stroke-like symptoms (Chronic) Debility, unspecified (Chronic) Depression (Chronic) Diabetes (Chronic) HLD (hyperlipidemia) (Chronic) Chronic kidney disease (Chronic) Medical History: Medical History (Last Reviewed 05/07/19 @ 13:[address] Doni Mccray MD) HTN (hypertension) I10 Allergies No Known Allergies Allergy (Verified 05/07/19 10:08) Home Medications: Ambulatory Orders Medication Instructions Recorded Metformin HCl 500 mg PO DAILY 02/16/19 Acetaminophen [Tylenol Tablet] 650 mg PO Q6H PRN PRN tab 02/18/19 Albuterol Sulfate 2.5 mg IH TID 05/07/19 Apixaban [Eliquis] 5 mg PO BID 05/07/19 Ascorbic Acid [Vitamin C] 500 mg PO DAILY@0800 05/07/19 Aspirin 81 mg PO DAILY 05/07/19 Atorvastatin Calcium [Lipitor] 20 mg PO DAILY 05/07/19 Bupropion HCl [Wellbutrin Xl] 150 mg PO DAILY 05/07/19 Fluvoxamine Maleate [Luvox] 100 mg PO QHS 05/07/19 Lactobacillus Acidophilus 1 cap PO BID 05/07/19 [Acidophilus] Lorazepam [Ativan] 0.5 mg PO BID PRN PRN 05/07/19 Piperacillin Sodium/Tazobactam 3.375 gm IV [id number] 05/07/19 [Piperacil-Tazobact 3.375 gm Vl] Sennosides/Docusate Sodium [Senna 2 ea PO DAILY 05/07/19 Plus 8.6-50 mg Tablet] Zinc Sulfate 220 mg PO DAILY 05/07/19 Surgical History: - - Surgery to remove lesion in her armpit; ; surgery for ingrown toenail. Lives: Alone, Custodial Smoking Status: Never smoker Tobacco Use: Non-smoker Alcohol: None Drugs: None - *Family History Maternal History Items: Heart Disease Paternal History Items: Heart Disease, - - Arthritis Review of Systems Constitutional: Reports: Chills, Fever, Weakness, Fatigue Eyes: Denies: Blurred vision, Double vision HEENT: Denies: Head Aches, Sinus Congestion, Sinus Drainage Cardiovascular: Denies: Chest Pain, Palpitations Respiratory: Reports: Shortness of Breath Gastrointestinal: Denies: Abdominal Pain, Nausea, Vomiting Genitourinary: Denies: Dysuria Musculoskeletal: Denies: Joint Pain, Joint Tenderness Skin: Denies: Rash, Wounds Neurological: Denies: Numbness, Tingling, Focal weakness Psychiatric: Denies: Anxiety, Depression, Homicidal Ideations, Suicidal Ideations Hematologic/ Lymphatic: Reports: Anemia Patient Problems: Active and Suspected Problems (Last Reviewed 05/07/19 @ 13:[address] Doni Mccray MD) Respiratory failure with hypoxia (Acute) Bilateral pneumonia (Acute) Sepsis due to pneumonia (Acute) Infectious encephalopathy (Acute) Objective: The patient's most recent lab work, culture data and imaging studies have all been personally reviewed. Strep and urine Legionella antigens were negative. Respiratory viral panel was negative. Blood and urine cultures have shown no growth to date. - Physical Exam Vitals/I&O's: Vital Signs Temp Pulse Resp BP Pulse Ox 98.2 F 90 34 H 121/55 H 94 05/09/19 05:00 05/09/19 05:19 05/09/19 05:19 05/09/19 05:00 05/09/19 05:19 Oxygen Flow Rate (L/min) 55 Oxygen Delivery Method Bi-pap Weight: 178 lb 2.136 oz Body Mass Index (BMI) 29.6 Intake and Output for Last 24 Hours 05/07/19 05/08/19 05/09/19 23:59 23:59 23:59 Intake Total 3243.33 / 3303.33 2527.09 / 2527.09 75 / 75 Output Total 250 / 400 2300 / 2300 Balance 2993.33 / 2903.33 227.09 / 227.09 75 / 75 General: Alert, - - Appears uncomfortable and restless with BiPAP in place. HEENT: Atraumatic, PERRLA, Normocephalic Oral: Dry Mucosa Neck: Supple, No Nodes, Trachea Midline Lungs: - - The patient is still quite tachypneic on BiPAP with preserved air movement across the anterior lung miles and diminished air movement in the posterior lung bases. Cardiovascular: Regular rate, Regular Rhythm, Normal S1, Normal S2, No murmurs Abdomen: Bowel Sounds Present, Soft, Non Tender, Obese Extremities: No clubbing, No cyanosis, Edema Skin: No breakdown Musculoskeletal: No Tenderness to Palpation of Joints or Extremities Lymphatic: No Cervical, Supraclavicular, or Inguinal Adenopathy Neurological: Neuro grossly intact Psych/Mental Status: Anxious Labs (Last 48 Hours) 05/07/19 05/07/19 05/07/19 10:30 11:03 11:13 WBC 20.1 H RBC 3.88 L Hgb 11.3 L Hct 33.3 L MCV 85.8 MCH 29.1 MCHC 33.9 RDW Std Deviation 43.9 RDW Coeff of Kristal 14.0 Plt Count 407 MPV 8.8 Immature Gran % (Auto) 1.200 H Neut % (Auto) 92.0 H Lymph % (Auto) 3.7 L [place] % (Auto) 2.5 Eos % (Auto) 0.4 Baso % (Auto) 0.2 Absolute Neuts (auto) 18.5 H Absolute Lymphs (auto) 0.75 L Nucleated RBC % 0 Differential Comment SCANNED PT INR APTT Specimen Type ART Sample Site R Radial pH 7.46 H Bicarbonate Actual 22.1 POC Total CO2 23 Base Excess -2 O2 Saturation 96 O2 % 50 ABG pCO2 31.2 L ABG pO2 74 L Obdulio Test NA O2 Delivery Device Vent Mask Blood Gas Notified Whom ED Blood Gas Notified Time 1102 Sodium Potassium Chloride Carbon Dioxide Anion Gap BUN Creatinine Estim Creat Clear Calc Est GFR (MDRD) Af Amer Est GFR (MDRD) Non-Af BUN/Creatinine Ratio Glucose Lactic Acid Calcium Total Bilirubin AST ALT Alkaline Phosphatase B-Natriuretic Peptide Total Protein Albumin Globulin Albumin/Globulin Ratio Urine Color Yellow Urine Clarity Cloudy Urine pH 5.0 Ur Specific [place] 1.020 Urine Protein 100 H Urine Glucose (UA) Normal Urine Ketones 15 H Urine Occult Blood 250 H Urine Nitrite Negative Urine Bilirubin Negative Urine Urobilinogen 4 H Ur Leukocyte Esterase 25 H Urine RBC 10-25 SEEN Urine WBC 0 SEEN Ur Squamous Epith Cells 0-5 SEEN Calcium Oxalate Crystal RARE Urine Bacteria 2+ Urine Mucus RARE MRSA (PCR) POC Glucose 05/07/19 05/07/19 05/07/19 11:13 11:13 11:13 WBC RBC Hgb Hct MCV MCH MCHC RDW Std Deviation RDW Coeff of Kristal Plt Count MPV Immature Gran % (Auto) Neut % (Auto) Lymph % (Auto) [place] % (Auto) Eos % (Auto) Baso % (Auto) Absolute Neuts (auto) Absolute Lymphs (auto) Nucleated RBC % Differential Comment PT Cancelled INR Cancelled APTT Cancelled Specimen Type Sample Site pH Bicarbonate Actual POC Total CO2 Base Excess O2 Saturation O2 % ABG pCO2 ABG pO2 Obdulio Test O2 Delivery Device Blood Gas Notified Whom Blood Gas Notified Time Sodium Cancelled Potassium Cancelled Chloride Cancelled Carbon Dioxide Cancelled Anion Gap Cancelled BUN Cancelled Creatinine Cancelled Estim Creat Clear Calc Cancelled Est GFR (MDRD) Af Amer Cancelled Est GFR (MDRD) Non-Af Cancelled BUN/Creatinine Ratio Cancelled Glucose Cancelled Lactic Acid 1.5 Calcium Cancelled Total Bilirubin Cancelled AST Cancelled ALT Cancelled Alkaline Phosphatase Cancelled B-Natriuretic Peptide Total Protein Cancelled Albumin Cancelled Globulin Cancelled Albumin/Globulin Ratio Cancelled Urine Color Urine Clarity Urine pH Ur Specific [place] Urine Protein Urine Glucose (UA) Urine Ketones Urine Occult Blood Urine Nitrite Urine Bilirubin Urine Urobilinogen Ur Leukocyte Esterase Urine RBC Urine WBC Ur Squamous Epith Cells Calcium Oxalate Crystal Urine Bacteria Urine Mucus MRSA (PCR) POC Glucose 05/07/19 05/07/19 05/07/19 12:13 12:13 15:10 WBC RBC Hgb Hct MCV MCH MCHC RDW Std Deviation RDW Coeff of Kristal Plt Count MPV Immature Gran % (Auto) Neut % (Auto) Lymph % (Auto) [place] % (Auto) Eos % (Auto) Baso % (Auto) Absolute Neuts (auto) Absolute Lymphs (auto) Nucleated RBC % Differential Comment PT 23.1 H INR 2.1 APTT 26.4 Specimen Type Sample Site pH Bicarbonate Actual POC Total CO2 Base Excess O2 Saturation O2 % ABG pCO2 ABG pO2 Obdulio Test O2 Delivery Device Blood Gas Notified Whom Blood Gas Notified Time Sodium 139 Potassium 3.0 L Chloride 108 H Carbon Dioxide 22.0 Anion Gap 9 BUN 12 Creatinine 0.68 Estim Creat Clear Calc 43.77 Est GFR (MDRD) Af Amer 111 Est GFR (MDRD) Non-Af 92 BUN/Creatinine Ratio 17.7 Glucose 132 H Lactic Acid Calcium 8.3 L Total Bilirubin 0.30 AST 42 H ALT 23 Alkaline Phosphatase 96 B-Natriuretic Peptide Total Protein 5.9 L Albumin 1.8 L Globulin 4.1 Albumin/Globulin Ratio 0.4 L Urine Color Urine Clarity Urine pH Ur Specific [place] Urine Protein Urine Glucose (UA) Urine Ketones Urine Occult Blood Urine Nitrite Urine Bilirubin Urine Urobilinogen Ur Leukocyte Esterase Urine RBC Urine WBC Ur Squamous Epith Cells Calcium Oxalate Crystal Urine Bacteria Urine Mucus MRSA (PCR) Negative POC Glucose 05/07/19 05/07/19 05/07/19 16:36 16:44 21:07 WBC RBC Hgb Hct MCV MCH MCHC RDW Std Deviation RDW Coeff of Kristal Plt Count MPV Immature Gran % (Auto) Neut % (Auto) Lymph % (Auto) [place] % (Auto) Eos % (Auto) Baso % (Auto) Absolute Neuts (auto) Absolute Lymphs (auto) Nucleated RBC % Differential Comment PT INR APTT Specimen Type Sample Site pH Bicarbonate Actual POC Total CO2 Base Excess O2 Saturation O2 % ABG pCO2 ABG pO2 Obdulio Test O2 Delivery Device Blood Gas Notified Whom Blood Gas Notified Time Sodium Potassium Chloride Carbon Dioxide Anion Gap BUN Creatinine Estim Creat Clear Calc Est GFR (MDRD) Af Amer Est GFR (MDRD) Non-Af BUN/Creatinine Ratio Glucose Lactic Acid 1.0 Calcium Total Bilirubin AST ALT Alkaline Phosphatase B-Natriuretic Peptide Total Protein Albumin Globulin Albumin/Globulin Ratio Urine Color Urine Clarity Urine pH Ur Specific [place] Urine Protein Urine Glucose (UA) Urine Ketones Urine Occult Blood Urine Nitrite Urine Bilirubin Urine Urobilinogen Ur Leukocyte Esterase Urine RBC Urine WBC Ur Squamous Epith Cells Calcium Oxalate Crystal Urine Bacteria Urine Mucus MRSA (PCR) POC Glucose 125 H 110 05/08/19 05/08/19 05/08/19 06:28 06:28 06:28 WBC 18.2 H RBC 3.75 L Hgb 10.6 L Hct 32.9 L MCV 87.7 MCH 28.3 MCHC 32.2 D RDW Std Deviation 46.5 H RDW Coeff of Kristal 14.4 Plt Count 373 MPV 8.0 Immature Gran % (Auto) 1.300 H Neut % (Auto) 91.3 H Lymph % (Auto) 4.4 L [place] % (Auto) 2.3 Eos % (Auto) 0.5 Baso % (Auto) 0.2 Absolute Neuts (auto) 16.7 H Absolute Lymphs (auto) 0.81 L Nucleated RBC % 0 Differential Comment SCANNED PT INR APTT Specimen Type Sample Site pH Bicarbonate Actual POC Total CO2 Base Excess O2 Saturation O2 % ABG pCO2 ABG pO2 Obdulio Test O2 Delivery Device Blood Gas Notified Whom Blood Gas Notified Time Sodium 140 Potassium 3.2 L Chloride 111 H Carbon Dioxide 19.0 L Anion Gap 10 BUN 18 Creatinine 1.30 H Estim Creat Clear Calc 38.30 Est GFR (MDRD) Af Amer 53 L Est GFR (MDRD) Non-Af 44 L BUN/Creatinine Ratio 13.8 Glucose 95 Lactic Acid Calcium 8.7 Total Bilirubin AST ALT Alkaline Phosphatase B-Natriuretic Peptide 131.0 H Total Protein Albumin Globulin Albumin/Globulin Ratio Urine Color Urine Clarity Urine pH Ur Specific [place] Urine Protein Urine Glucose (UA) Urine Ketones Urine Occult Blood Urine Nitrite Urine Bilirubin Urine Urobilinogen Ur Leukocyte Esterase Urine RBC Urine WBC Ur Squamous Epith Cells Calcium Oxalate Crystal Urine Bacteria Urine Mucus MRSA (PCR) POC Glucose 05/08/19 05/08/19 05/08/19 06:54 11:58 14:12 WBC RBC Hgb Hct MCV MCH MCHC RDW Std Deviation RDW Coeff of Kristal Plt Count MPV Immature Gran % (Auto) Neut % (Auto) Lymph % (Auto) [place] % (Auto) Eos % (Auto) Baso % (Auto) Absolute Neuts (auto) Absolute Lymphs (auto) Nucleated RBC % Differential Comment PT INR APTT Specimen Type ART Sample Site R Radial pH 7.46 H Bicarbonate Actual 17.7 L POC Total CO2 18 Base Excess -6 L O2 Saturation 94 L O2 % 70 ABG pCO2 24.9 L ABG pO2 63 L Obdulio Test POS O2 Delivery Device Bi / C PAP Blood Gas Notified Whom [facility] Blood Gas Notified Time 1430 Sodium Potassium Chloride Carbon Dioxide Anion Gap BUN Creatinine Estim Creat Clear Calc Est GFR (MDRD) Af Amer Est GFR (MDRD) Non-Af BUN/Creatinine Ratio Glucose Lactic Acid Calcium Total Bilirubin AST ALT Alkaline Phosphatase B-Natriuretic Peptide Total Protein Albumin Globulin Albumin/Globulin Ratio Urine Color Urine Clarity Urine pH Ur Specific [place] Urine Protein Urine Glucose (UA) Urine Ketones Urine Occult Blood Urine Nitrite Urine Bilirubin Urine Urobilinogen Ur Leukocyte Esterase Urine RBC Urine WBC Ur Squamous Epith Cells Calcium Oxalate Crystal Urine Bacteria Urine Mucus MRSA (PCR) POC Glucose 86 127 H 05/08/19 05/08/19 05/08/19 17:20 17:41 21:48 WBC RBC Hgb Hct MCV MCH MCHC RDW Std Deviation RDW Coeff of Kristal Plt Count MPV Immature Gran % (Auto) Neut % (Auto) Lymph % (Auto) [place] % (Auto) Eos % (Auto) Baso % (Auto) Absolute Neuts (auto) Absolute Lymphs (auto) Nucleated RBC % Differential Comment PT INR APTT Specimen Type Sample Site pH Bicarbonate Actual POC Total CO2 Base Excess O2 Saturation O2 % ABG pCO2 ABG pO2 Obdulio Test O2 Delivery Device Blood Gas Notified Whom Blood Gas Notified Time Sodium Potassium Chloride Carbon Dioxide Anion Gap BUN Creatinine Estim Creat Clear Calc Est GFR (MDRD) Af Amer Est GFR (MDRD) Non-Af BUN/Creatinine Ratio Glucose Lactic Acid 1.1 Calcium Total Bilirubin AST ALT Alkaline Phosphatase B-Natriuretic Peptide Total Protein Albumin Globulin Albumin/Globulin Ratio Urine Color Urine Clarity Urine pH Ur Specific [place] Urine Protein Urine Glucose (UA) Urine Ketones Urine Occult Blood Urine Nitrite Urine Bilirubin Urine Urobilinogen Ur Leukocyte Esterase Urine RBC Urine WBC Ur Squamous Epith Cells Calcium Oxalate Crystal Urine Bacteria Urine Mucus MRSA (PCR) POC Glucose 134 H 130 H 05/09/19 05:38 WBC RBC Hgb Hct MCV MCH MCHC RDW Std Deviation RDW Coeff of Kristal Plt Count MPV Immature Gran % (Auto) Neut % (Auto) Lymph % (Auto) [place] % (Auto) Eos % (Auto) Baso % (Auto) Absolute Neuts (auto) Absolute Lymphs (auto) Nucleated RBC % Differential Comment PT INR APTT Specimen Type Sample Site pH Bicarbonate Actual POC Total CO2 Base Excess O2 Saturation O2 % ABG pCO2 ABG pO2 Obdulio Test O2 Delivery Device Blood Gas Notified Whom Blood Gas Notified Time Sodium Pending Potassium Pending Chloride Pending Carbon Dioxide Pending Anion Gap Pending BUN Pending Creatinine Pending Estim Creat Clear Calc Est GFR (MDRD) Af Amer Pending Est GFR (MDRD) Non-Af Pending BUN/Creatinine Ratio Pending Glucose Pending Lactic Acid Calcium Pending Total Bilirubin AST ALT Alkaline Phosphatase B-Natriuretic Peptide Total Protein Albumin Globulin Albumin/Globulin Ratio Urine Color Urine Clarity Urine pH Ur Specific [place] Urine Protein Urine Glucose (UA) Urine Ketones Urine Occult Blood Urine Nitrite Urine Bilirubin Urine Urobilinogen Ur Leukocyte Esterase Urine RBC Urine WBC Ur Squamous Epith Cells Calcium Oxalate Crystal Urine Bacteria Urine Mucus MRSA (PCR) POC Glucose Microbiology 05/07/19 10:30 Urine Catheter - Yung Urine Culture - Preliminary Culture exhibits no growth. 05/07/19 16:10 Mucosa - Nasopharyngeal Respiratory Panel (PCR) - Final 05/07/19 10:30 Urine Catheter - Yung Streptococcus pneumoniae Antigen (M - Final 05/07/19 10:30 Urine Catheter - Yung Legionella Antigen - Final Clinical Impression(s) from Imaging Studies Chest X-Ray 05/07/19 10:05 IMPRESSION: Normal x-ray examination of the chest. Electronically Signed: Terrell Chang MD at 11:14 EST Tel , Service support , Chest X-Ray 05/08/19 05:35 IMPRESSION: Increase in bilateral interstitial infiltrates, possibly edema, infection or other cause of interstitial infiltrate. at 0610 Reported and signed by: Freida Pringle MD Electronically Signed: Freida Pringle MD at 6:10 EST Tel , Service support , Current Medications Acetaminophen (Tylenol) 650 mg PO Q6H PRN PRN PRN Reason: Pain Score 1-3/Temp > 100.7 F Last Admin: 05/08/19 17:46 Dose: 650 mg Documented by: Al Hydroxide/Mg Hydroxide (Mylanta Ii) 30 ml PO Q6H PRN PRN PRN Reason: Gastric Burning Albuterol Sulfate (Ventolin Aerosols) 2.5 mg INHALATION Q2H PRN PRN PRN Reason: Shortness of Breath/Wheezing Last Admin: 05/08/19 04:30 Dose: 2.5 mg Documented by: Albuterol/Ipratropium (Duoneb) 3 ml INHALATION Q4HWA.RT [facility] Last Admin: 05/09/19 03:03 Dose: 3 ml Documented by: Apixaban (Eliquis) 5 mg PO BID [facility] Last Admin: 05/08/19 21:43 Dose: Not Given Documented by: Ascorbic Acid (Vitamin C) 500 mg PO DAILY@0800 [facility] Last Admin: 05/08/19 08:58 Dose: 500 mg Documented by: Aspirin (Aspirin, Baby) 81 mg PO DAILYCM [facility] Last Admin: 05/08/19 08:58 Dose: 81 mg Documented by: Atorvastatin Calcium (Lipitor) 20 mg PO QHS [facility] Last Admin: 05/08/19 21:43 Dose: Not Given Documented by: Bupropion HCl (Wellbutrin Xl) 150 mg PO DAILY [facility] Last Admin: 05/08/19 08:58 Dose: 150 mg Documented by: Glucagon () 1 mg IM .X1 PRN PRN Reason: Hypoglycemia Guaifenesin (Robitussin) 20 ml PO Q4H PRN PRN PRN Reason: COUGH Cefepime HCl 2 gm/ Sodium (Chloride) 100 mls @ 200 mls/hr IV Q12 [facility] Last Infusion: 05/08/19 22:15 Dose: Infused Documented by: Dextrose (Dextrose 10%-Water) 250 mls @ 999 mls/hr IV .Q16M PRN; Protocol PRN Reason: HYPOGLYCEMIA Sodium Chloride () 1,000 mls @ 125 mls/hr IV .Q8H [facility] Last Infusion: 05/08/19 22:15 Dose: 125 mls/hr Documented by: Insulin Human Lispro (Humalog Kwikpen (Bkc)) 0 unit SC ACHS [facility]; Protocol Last Admin: 05/08/19 21:49 Dose: Not Given Documented by: Lorazepam (Ativan) 0.5 mg PO BID PRN PRN PRN Reason: ANXIETY Last Admin: 05/07/19 21:09 Dose: 0.5 mg Documented by: Magnesium Hydroxide (Milk Of Magnesia) 30 ml PO DAILY PRN PRN PRN Reason: Constipation Melatonin (Melatonin) 3 mg PO QHS PRN PRN PRN Reason: INSOMNIA Nitroglycerin (Nitrostat) 0.4 mg SUBLINGUAL Q5M PRN PRN Reason: CARDIAC/CHEST PAIN Nutritional Formula (Lactose Free) (Glucerna Shake) 120 ml PO 4X/DAY [facility] Last Admin: 05/08/19 21:43 Dose: Not Given Documented by: Ondansetron HCl (Zofran) 4 mg IV Q8H PRN PRN PRN Reason: NAUSEA/VOMITING Oxycodone HCl (Oxyir) 5 mg PO Q4H PRN PRN PRN Reason: Pain Score 4-10/10 Prochlorperazine Edisylate (Compazine Iv) 5 mg IV Q4H PRN PRN PRN Reason: Breakthrough nausea/vomiting Senna/Docusate Sodium (Senokot-S, Corrie-Colace) 2 tablet PO DAILY [facility] Last Admin: 05/08/19 08:58 Dose: 2 tablet Documented by: Sodium Chloride () 10 - 40 ml IV UD PRN PRN Reason: SALINE FLUSH Last Admin: 05/08/19 10:24 Dose: 10 ml Documented by: Zinc Sulfate (Zinc Sulfate) 220 mg PO DAILY [facility] Last Admin: 05/08/19 08:58 Dose: 220 mg Documented by: Assessment/Plan Active and Suspected Problems (Last Reviewed 05/07/19 @ 13:[address] Doni Mccray MD) Respiratory failure with hypoxia (Acute) Bilateral pneumonia (Acute) Sepsis due to pneumonia (Acute) Infectious encephalopathy (Acute) RECOMMENDATIONS: 1. Continue BiPAP support and wean as tolerated. 2. Wean FiO2 to maintain oxygen saturations at or above 90%. 3. Continue empiric antimicrobials, pending finalized infectious work-up. 4. Discontinue Eliquis and start weight based heparin drip, given NPO status. 5. Continue appropriate ICU prophylaxis. IMPRESSIONS: 1. Acute hypoxemic respiratory failure Differential would include healthcare associated pneumonia versus pulmonary edema. The patient's creatinine has increased after having been given Lasix yesterday. Agree with continuing current supportive measures, including noninvasive positive pressure ventilatory support and broad-spectrum antimicrobial coverage. CODE STATUS was discussed and the patient is currently a DNR CCA without intubation. Continue to wean FiO2 to maintain oxygen saturations at or above 90%. Breaks from BiPAP can be given as tolerated by the patient. 2. Severe sepsis Appears to be secondary to underlying pulmonary infectious process. MRSA screen was negative. The patient remains on empiric antimicrobials, pending finalized infectious work-up. She remains hemodynamically stable. 3. Chronic heart failure with preserved ejection fraction Appears euvolemic at this time. The patient's elevated creatinine would preclude the use of Lasix at the present time. 4. Acute kidney injury Potentially prerenal in etiology. Agree with holding Lasix for now. Avoid nephrotoxic medications. 5. Hypokalemia Electrolyte repletion as needed. Recheck levels in the morning. 6. History of DVT on Eliquis/diabetes mellitus/hyperlipidemia/obesity Complicates care, management, recovery and prognosis. Hold Eliquis and start weight based heparin drip. This note was generated with [employer] dictation software. It may contain incorrect words, spelling, and punctuation that were not noted in checking the note before signing. Code Visit Inpatient E&M: 44639 Init Hosp L3
[2019-05-09 07:07] LABS: Anion Gap 8 (5-15); BUN 24 mg/dL (7-18); BUN/Creat Ratio 12.7 RATIO (10-20); Chloride 114 mmol/L (98-107); Creatinine, Serum 1.89 mg/dL (0.55-1.02); EST Glomerular Filtration Rate 28 mL/min (>60); Est Glom Filt Rate - Afr Amer 34 mL/min (>60); Estimated Creatinine Clearance 26.35 ml/min; Glucose 106 mg/dL (74-106); Potassium 3.3 mmol/L (3.5-5.1); Sodium Level 141 mmol/L (136-145)
--- NOTE | 2019-05-09 07:11 | PCM.PN.HOSP ---
Patient Problems: Active and Suspected Problems (Last Reviewed 05/07/19 @ 13:[address] Doni Mccray MD) Respiratory failure with hypoxia (Acute) Bilateral pneumonia (Acute) Sepsis due to pneumonia (Acute) Infectious encephalopathy (Acute) Reason for Visit: Follow-up sepsis Subjective: Patient is a 68-year-old lady residing at an extended care facility presenting with cough shortness of breath and fever. An assessment of Sepsis Secondary to suspected pneumonia with multidrug-resistant organisms. She was started on broad-spectrum antibiotic therapy admitted to monitored bed patient was transferred to the intensive care unit in view of worsening clinical condition placed on noninvasive ventilation. Patient changed her CODE STATUS from DNR CCA with intubation to DNR CCA no intubation Objective: GENERAL: Appears ill looking on BiPAP HEENT: Atraumatic; EYES; Anicteric, Normal Conjunctiva NECK; supple, normal thyroid, RESPIRATORY: Diminished to auscultation CARDIOVASCULAR: Regular S1 S2, GI: soft, normoactive bowel sounds, : No Renal angle tenderness; EXTREMITIES: No edema, no clubbing, MUSCULOSKELETAL: no muscle waisting NEURO: Lethargic but arousable SKIN: No Rash PSYCH; Flat affect Vitals/I&O's: Vital Signs Temp Pulse Resp BP Pulse Ox 98.7 F 93 35 H 128/62 H 96 05/09/19 06:00 05/09/19 06:00 05/09/19 06:00 05/09/19 06:00 05/09/19 06:00 Oxygen Flow Rate (L/min) 55 Oxygen Delivery Method Bi-pap Weight: 82.8 kg Body Mass Index (BMI) 29.6 Intake and Output for Last 24 Hours 05/07/19 05/08/19 05/09/19 23:59 23:59 23:59 Intake Total 3243.33 / 3303.33 2527.09 / 2527.09 75 / 75 Output Total 250 / 400 2300 / 2300 190 / 190 Balance 2993.33 / 2903.33 227.09 / 227.09 -115 / -115 Microbiology Past 72 Hours 05/07/19 10:30 Urine Catheter - Yung Urine Culture - Preliminary Culture exhibits no growth. 05/07/19 16:10 Mucosa - Nasopharyngeal Respiratory Panel (PCR) - Final 05/07/19 10:30 Urine Catheter - Yung Streptococcus pneumoniae Antigen (M - Final 05/07/19 10:30 Urine Catheter - Yung Legionella Antigen - Final Laboratory Results 05/08/19 06:28: Sodium 140, Potassium 3.2 L, Chloride 111 H, Carbon Dioxide 19.0 L, Anion Gap 10, BUN 18, Creatinine 1.30 H, Estim Creat Clear Calc 38.30, Est GFR (MDRD) Af Amer 53 L, Est GFR (MDRD) Non-Af 44 L, BUN/Creatinine Ratio 13.8, Glucose 95, Calcium 8.7 05/08/19 06:28: B-Natriuretic Peptide 131.0 H 05/08/19 06:54: POC Glucose 86 05/08/19 11:58: POC Glucose 127 H 05/08/19 14:12: Specimen Type ART, Sample Site R Radial, pH 7.46 H, Bicarbonate Actual 17.7 L, POC Total CO2 18, Base Excess -6 L, O2 Saturation 94 L, O2 % 70, ABG pCO2 24.9 L, ABG pO2 63 L, Obdulio Test POS, O2 Delivery Device Bi / C PAP, Blood Gas Notified Whom [facility] , Blood Gas Notified Time 1430 05/08/19 17:20: Lactic Acid 1.1 05/08/19 17:41: POC Glucose 134 H 05/08/19 21:48: POC Glucose 130 H 05/09/19 05:38: Sodium 141, Potassium 3.3 L, Chloride 114 H, Carbon Dioxide 19.0 L, Anion Gap 8, BUN 24 H, Creatinine 1.89 H, Estim Creat Clear Calc 26.35, Est GFR (MDRD) Af Amer 34 L, Est GFR (MDRD) Non-Af 28 L, BUN/Creatinine Ratio 12.7, Glucose 106, Calcium 9.0 Current Medications Acetaminophen (Tylenol) 650 mg PO Q6H PRN PRN PRN Reason: Pain Score 1-3/Temp > 100.7 F Last Admin: 05/08/19 17:46 Dose: 650 mg Documented by: Al Hydroxide/Mg Hydroxide (Mylanta Ii) 30 ml PO Q6H PRN PRN PRN Reason: Gastric Burning Albuterol Sulfate (Ventolin Aerosols) 2.5 mg INHALATION Q2H PRN PRN PRN Reason: Shortness of Breath/Wheezing Last Admin: 05/08/19 04:30 Dose: 2.5 mg Documented by: Albuterol/Ipratropium (Duoneb) 3 ml INHALATION Q4HWA.RT [facility] Last Admin: 05/09/19 03:03 Dose: 3 ml Documented by: Apixaban (Eliquis) 5 mg PO BID [facility] Last Admin: 05/08/19 21:43 Dose: Not Given Documented by: Ascorbic Acid (Vitamin C) 500 mg PO DAILY@0800 [facility] Last Admin: 05/08/19 08:58 Dose: 500 mg Documented by: Aspirin (Aspirin, Baby) 81 mg PO DAILYCM [facility] Last Admin: 05/08/19 08:58 Dose: 81 mg Documented by: Atorvastatin Calcium (Lipitor) 20 mg PO QHS [facility] Last Admin: 05/08/19 21:43 Dose: Not Given Documented by: Bupropion HCl (Wellbutrin Xl) 150 mg PO DAILY [facility] Last Admin: 05/08/19 08:58 Dose: 150 mg Documented by: Glucagon () 1 mg IM .X1 PRN PRN Reason: Hypoglycemia Guaifenesin (Robitussin) 20 ml PO Q4H PRN PRN PRN Reason: COUGH Cefepime HCl 2 gm/ Sodium (Chloride) 100 mls @ 200 mls/hr IV Q12 [facility] Last Infusion: 05/08/19 22:15 Dose: Infused Documented by: Dextrose (Dextrose 10%-Water) 250 mls @ 999 mls/hr IV .Q16M PRN; Protocol PRN Reason: HYPOGLYCEMIA Sodium Chloride () 1,000 mls @ 125 mls/hr IV .Q8H [facility] Last Infusion: 05/08/19 22:15 Dose: 125 mls/hr Documented by: Insulin Human Lispro (Humalog Kwikpen (Bkc)) 0 unit SC ACHS [facility]; Protocol Last Admin: 05/08/19 21:49 Dose: Not Given Documented by: Lorazepam (Ativan) 0.5 mg PO BID PRN PRN PRN Reason: ANXIETY Last Admin: 05/07/19 21:09 Dose: 0.5 mg Documented by: Magnesium Hydroxide (Milk Of Magnesia) 30 ml PO DAILY PRN PRN PRN Reason: Constipation Melatonin (Melatonin) 3 mg PO QHS PRN PRN PRN Reason: INSOMNIA Nitroglycerin (Nitrostat) 0.4 mg SUBLINGUAL Q5M PRN PRN Reason: CARDIAC/CHEST PAIN Nutritional Formula (Lactose Free) (Glucerna Shake) 120 ml PO 4X/DAY [facility] Last Admin: 05/08/19 21:43 Dose: Not Given Documented by: Ondansetron HCl (Zofran) 4 mg IV Q8H PRN PRN PRN Reason: NAUSEA/VOMITING Oxycodone HCl (Oxyir) 5 mg PO Q4H PRN PRN PRN Reason: Pain Score 4-10/10 Prochlorperazine Edisylate (Compazine Iv) 5 mg IV Q4H PRN PRN PRN Reason: Breakthrough nausea/vomiting Senna/Docusate Sodium (Senokot-S, Corrie-Colace) 2 tablet PO DAILY [facility] Last Admin: 05/08/19 08:58 Dose: 2 tablet Documented by: Sodium Chloride () 10 - 40 ml IV UD PRN PRN Reason: SALINE FLUSH Last Admin: 05/08/19 10:24 Dose: 10 ml Documented by: Zinc Sulfate (Zinc Sulfate) 220 mg PO DAILY [facility] Last Admin: 05/08/19 08:58 Dose: 220 mg Documented by: STROKE Vital Signs/Narrative: Vital Signs Temp Pulse Resp BP Pulse Ox 05/09/19 06:00 98.7 F 93 35 H 128/62 H 96 05/09/19 05:19 90 34 H 94 05/09/19 05:00 98.2 F 97 38 H 121/55 H 99 05/09/19 04:00 97.9 F 88 36 H 121/55 H 100 Medical Necessity - Tobacco Use Smoking Status: Never smoker Tobacco Use: Non-smoker Assessment/Plan All Active Problems (Last Reviewed 05/07/19 @ 13:[address] Doni Mccray MD) Respiratory failure with hypoxia (Acute) Bilateral pneumonia (Acute) Sepsis due to pneumonia (Acute) Infectious encephalopathy (Acute) Patient is a 68-year-old lady residing at an extended care facility presenting with cough shortness of breath and fever 1. Sepsis ?Secondary to suspected pneumonia with multidrug-resistant organisms. Admitted to monitored bed patient started on broad-spectrum antibiotic therapy again (cefepime, Levaquin, and vancomycin) after cultures have been obtained. Also did obtain MRSA nasal screen with plans to discontinue vancomycin if cultures come back negative -05/09/2019; patient was transferred to the intensive care unit in view of worsening clinical condition placed on noninvasive ventilation. Patient changed her CODE STATUS from DNR CCA with intubation to DNR CCA no intubation 2. Acute hypoxic respiratory failure ?Secondary to suspected pneumonia with multidrug-resistant organism. Patient was placed on supplemental oxygen via Ventimask treated to keep oxygen saturation greater than 90 -05/09/2019: Patient was transferred to the intensive care unit started on noninvasive ventilation BiPAP. She still maintains that she does not want to be intubated. 3. Diabetes mellitus type II ~Uncontrolled with hyperglycemia patient's oral hypoglycemics held. Placed on long acting insulin, Accu-Cheks a.c. and at bedtime and covered with sliding scale insulin 4. Bilateral lower extremity weakness ?Secondary to DJD involving the lumbar spine patient was undergoing therapy at extended care facility 5. Systemic use of anticoagulation ?Patient is on therapeutic dose of Eliquis rationale was not clear from the chart however did continue do suspect this is being used for DVT prophylaxis or recent diagnosis of DVT 6. Dyslipidemia ~patient is on statin therapy, continued at home dose 7. Obesity with BMI of 33.7 ?Weight loss advised 8. DVT prophylaxis ?Patient is on Eliquis did continue Code Visit Inpatient E&M: 02011 Subs Hosp L3
[2019-05-09 07:43] LABS: Absolute Lymphocyte Count 0.76 X10^3/uL (0.83-4.51); Absolute Neutrophil Count 14.9 X10^3/uL (2.0-7.7); Basophil# 0.03 X10^3/uL; Basophil% 0.2 % (0-1); Eosinophil# 0.07 X10^3/uL; Eosinophils% 0.4 % (0-5); Hematocrit 31.6 % (37-47); Hemoglobin 10.2 g/dL (12.0-15.0); Lymphocyte # 0.76 X10^3/ul (4.0); Lymphocyte % 4.7 % (19-41); Mean Corp Hgb Conc 32.3 g/dL (32-36); Mean Corpuscular Hgb 28.7 pg (27.0-32.0); Mean Platelet Vol. 8.5 fl (6.2-12.0); Monocyte# 0.28 X10^3/uL; Monocyte% 1.7 % (0-10); NRBC Flagged by Analyzer 0 % (0-5); Neutrophil # 14.88 X10^3/uL (2.7-7.7); Neutrophil % 91.5 % (47-70); Platelet Count 319 K/mm3 (150-450); RBC Distribution Width CV 14.7 % (11.6-14.6); Red Blood Count 3.55 M/mm3 (4.2-5.4); White Blood Count 16.3 K/mm3 (4.4-11.0)
[2019-05-09] MEDS: 0.9% Normal Saline 1,000 ML 125 ML IV ×2 (10:33→18:06)
[2019-05-09 12:00] LABS: Bedside Glucose 100 mg/dL (70-110)
[2019-05-09 13:11] LABS: BNP,B-Type NATRIURETIC PEPTIDE 45.6 pg/mL (0-100)
[2019-05-09] MEDS: Enoxaparin 30 MG/0.3 ML Syringe SC (15:35)
[2019-05-09] MEDS: Potassium Chloride 10mEq/100mL 10 MEQ/100 ML IV.SOLN. 100 MEQ IV BOLUS ×4 (15:35→19:20)
[2019-05-09 17:21] LABS: Bedside Glucose 107 mg/dL (70-110)
[2019-05-09] MEDS: Menthol/Lanolin/Calamine/Znox 113 GM Tube 1 APPLIC TOPICAL (21:16)
[2019-05-09] MEDS: Atorvastatin Calcium 20 MG Tablet PO (21:18)
[2019-05-09] MEDS: Glucerna Shake 120 ML LIQUID PO (21:24)
[2019-05-09 21:31] LABS: Bedside Glucose 72 mg/dL (70-110)
[2019-05-09] MEDS: HEPARIN/D5w 25,000 UNITS 25,000 UNITS/250 ML IV.SOLN. 10 UNITS IV (21:46)
[2019-05-09 22:28] LABS: Absolute Lymphocyte Count 0.69 X10^3/uL (0.83-4.51); Absolute Neutrophil Count 11.2 X10^3/uL (2.0-7.7); Basophil# 0.01 X10^3/uL; Basophil% 0.1 % (0-1); Hematocrit 24.1 % (37-47); Hemoglobin 7.6 g/dL (12.0-15.0); Lymphocyte # 0.69 X10^3/ul (4.0); Lymphocyte % 5.6 % (19-41); Mean Corp Hgb Conc 31.5 g/dL (32-36); Mean Corpuscular Hgb 28.6 pg (27.0-32.0); Mean Corpuscular Volume 90.6 fL (81-99); Mean Platelet Vol. 8.5 fl (6.2-12.0); Monocyte% 1.6 % (0-10); NRBC Flagged by Analyzer 0 % (0-5); Neutrophil # 11.21 X10^3/uL (2.7-7.7); Neutrophil % 91.5 % (47-70); POSITIVE MORPHOLOGY YES; Platelet Count 258 K/mm3 (150-450); RBC Distribution Width CV 15.1 % (11.6-14.6); Red Blood Count 2.66 M/mm3 (4.2-5.4); White Blood Count 12.3 K/mm3 (4.4-11.0)
[2019-05-09 22:31] LABS: Differential Indicated SCAN CRITERIA MET
[2019-05-09 22:32] LABS: International Normalized Ratio 2.5; Partial Thromboplast Time 31.1 Seconds (24.1-36.2); Prothrombin Time (Protime)PT. 27.3 SECONDS (11.7-14.9)
[2019-05-09 23:00] LABS: Anisocytosis RARE; Macrocytosis RARE; Platelet Estimate ADEQUATE (ADEQ); Red Cell Morphology N CHROM NORMAL (NORM C&C)
[2019-05-10] VITALS (40 sets, daily range): BP systolic 105–145; BP diastolic 48–89; PULSE 72–105; RESP 12–52; TEMP 36.1–36.9; O2SAT 90–100
[2019-05-10] MEDS: guaiFENesin 10 ML UDC (200MG/10ML) 20 ML PO (00:11)
[2019-05-10] MEDS: 0.9% Normal Saline 1,000 ML 125 ML IV (02:40)
[2019-05-10 04:30] LABS: Absolute Lymphocyte Count 0.91 X10^3/uL (0.83-4.51); Absolute Neutrophil Count 12.9 X10^3/uL (2.0-7.7); Basophil# 0.03 X10^3/uL; Basophil% 0.2 % (0-1); Eosinophil# 0.02 X10^3/uL; Eosinophils% 0.1 % (0-5); Hematocrit 32.9 % (37-47); Hemoglobin 10.5 g/dL (12.0-15.0); Lymphocyte # 0.91 X10^3/ul (4.0); Lymphocyte % 6.4 % (19-41); Mean Corp Hgb Conc 31.9 g/dL (32-36); Mean Corpuscular Hgb 28.5 pg (27.0-32.0); Mean Corpuscular Volume 89.4 fL (81-99); Mean Platelet Vol. 8.3 fl (6.2-12.0); Monocyte# 0.24 X10^3/uL; Monocyte% 1.7 % (0-10); NRBC Flagged by Analyzer 0 % (0-5); Neutrophil # 12.87 X10^3/uL (2.7-7.7); Neutrophil % 90.3 % (47-70); Platelet Count 364 K/mm3 (150-450); RBC Distribution Width CV 15.1 % (11.6-14.6); RBC Distribution Width SD 49.2 fl (35.1-43.9); Red Blood Count 3.68 M/mm3 (4.2-5.4); White Blood Count 14.3 K/mm3 (4.4-11.0)
[2019-05-10 04:35] LABS: Partial Thromboplast Time 46.7 Seconds (24.1-36.2)
[2019-05-10 04:37] LABS: Anion Gap 10 (5-15); BUN 25 mg/dL (7-18); BUN/Creat Ratio 13.7 RATIO (10-20); Chloride 117 mmol/L (98-107); Creatinine, Serum 1.83 mg/dL (0.55-1.02); EST Glomerular Filtration Rate 29 mL/min (>60); Est Glom Filt Rate - Afr Amer 35 mL/min (>60); Estimated Creatinine Clearance 27.21 ml/min; Glucose 86 mg/dL (74-106); Potassium 3.7 mmol/L (3.5-5.1); Sodium Level 143 mmol/L (136-145)
[2019-05-10] MEDS: Ipratropium/Albuterol Sulfate 3 ML AMPUL.NEB INHALATION ×4 (06:43→18:53)
[2019-05-10 07:31] LABS: Allen Test POS; Base Excess -11 mmol/L (-2 to +2); Bicarbonate 14.6 mmol/L (22-26); Blood Gas Specimen Type ART; EPAP 8; FI02 30; IPAP 14; PO2 79 mmHG (75-100); RR 12; SITE L Radial; SO2 95 % (95-99); Time Given 724; Total Carbon Dioxide 15 mmol/L; pCO2 28.4 mmHg (35-45); pH 7.32 (7.35-7.45)
[2019-05-10] MEDS: Glucerna Shake 120 ML LIQUID PO ×3 (08:59→19:50)
[2019-05-10] MEDS: Aspirin 81 MG TAB.CHEW PO (09:00)
[2019-05-10] MEDS: Ascorbic Acid 500 MG Tablet PO (09:00)
[2019-05-10] MEDS: buPROPion (XL) 150 MG TABLET.XL PO (09:00)
[2019-05-10 09:06] LABS: Bedside Glucose 80 mg/dL (70-110)
[2019-05-10] MEDS: Menthol/Lanolin/Calamine/Znox 113 GM Tube 1 APPLIC TOPICAL ×2 (09:47→21:15)
--- NOTE | 2019-05-10 10:10 | PN_ITS ---
Subjective: Patient did okay overnight. Patient has remained tachypneic despite BiPAP or Airvo. Patient reports little subjective change in overall condition this morning. No hemodynamic instability was reported overnight. Patient was initiated on a heparin drip secondary to n.p.o. status. Objective: Chest x-ray was personally reviewed and does show some worsening infiltrates. General: Alert, Cooperative, - - Moderate respiratory distress, but no paradoxical respiratory muscle movement noted HEENT: Atraumatic, PERRLA, EOMI, Normocephalic, - - Slight scleral injection without icterus Oral: No Gingival or Mucosal Lesions/ Ulcerations, Dry Mucosa Neck: Supple, No JVD, No Nodes, Trachea Midline Lungs: No rhonchi, No wheeze, No rales, Diminished Cardiovascular: Regular rate, Regular Rhythm, Normal S1, Normal S2, No murmurs, No rub noted, No Gallop Abdomen: Bowel Sounds Present, Soft, Non Tender, Non-Distended, Obese Extremities: No clubbing, No cyanosis, Edema Skin: No rashes, No breakdown Musculoskeletal: No Tenderness to Palpation of Joints or Extremities Lymphatic: No Cervical, Supraclavicular, or Inguinal Adenopathy Neurological: Cranial nerves II-XII grossly intact, Neuro grossly intact, Motor Exam 5/5 strength throughout Psych/Mental Status: Anxious Vital Signs Temp Pulse Resp BP Pulse Ox 36.5 C L 99 30 H 132/67 H 96 05/10/19 08:00 05/10/19 08:00 05/10/19 08:00 05/10/19 08:00 05/10/19 08:00 Oxygen Flow Rate (L/min) 55 Oxygen Delivery Method Bi-pap Weight: 82.6 kg Body Mass Index (BMI) 29.6 Intake and Output for Last 24 Hours 05/08/19 05/09/19 05/10/19 23:59 23:59 23:59 Intake Total 2527.09 / 2527.09 2222.08 / 2252.08 2396.91 / 2396.91 Output Total 2300 / 2300 1615 / 1615 800 / 800 Balance 227.09 / 227.09 607.08 / 637.08 1596.91 / 1596.91 Labs (Last 48 Hours) 05/08/19 05/08/19 05/08/19 11:58 14:12 17:20 WBC RBC Hgb Hct MCV MCH MCHC RDW Std Deviation RDW Coeff of Kristal Plt Count MPV Immature Gran % (Auto) Neut % (Auto) Lymph % (Auto) [place] % (Auto) Eos % (Auto) Baso % (Auto) Absolute Neuts (auto) Absolute Lymphs (auto) Nucleated RBC % Platelet Estimate RBC Morphology Anisocytosis Macrocytosis PT INR APTT Specimen Type ART Sample Site R Radial pH 7.46 H Bicarbonate Actual 17.7 L POC Total CO2 18 Base Excess -6 L O2 Saturation 94 L O2 % 70 ABG pCO2 24.9 L ABG pO2 63 L Obdulio Test POS Respiration Rate O2 Delivery Device Bi / C PAP EPAP IPAP Blood Gas Notified Whom [facility] Blood Gas Notified Time 1430 Sodium Potassium Chloride Carbon Dioxide Anion Gap BUN Creatinine Estim Creat Clear Calc Est GFR (MDRD) Af Amer Est GFR (MDRD) Non-Af BUN/Creatinine Ratio Glucose Lactic Acid 1.1 Calcium Troponin I B-Natriuretic Peptide POC Glucose 127 H 05/08/19 05/08/19 05/09/19 17:41 21:48 05:38 WBC RBC Hgb Hct MCV MCH MCHC RDW Std Deviation RDW Coeff of Kristal Plt Count MPV Immature Gran % (Auto) Neut % (Auto) Lymph % (Auto) [place] % (Auto) Eos % (Auto) Baso % (Auto) Absolute Neuts (auto) Absolute Lymphs (auto) Nucleated RBC % Platelet Estimate RBC Morphology Anisocytosis Macrocytosis PT INR APTT Specimen Type Sample Site pH Bicarbonate Actual POC Total CO2 Base Excess O2 Saturation O2 % ABG pCO2 ABG pO2 Obdulio Test Respiration Rate O2 Delivery Device EPAP IPAP Blood Gas Notified Whom Blood Gas Notified Time Sodium 141 Potassium 3.3 L Chloride 114 H Carbon Dioxide 19.0 L Anion Gap 8 BUN 24 H Creatinine 1.89 H Estim Creat Clear Calc 26.35 Est GFR (MDRD) Af Amer 34 L Est GFR (MDRD) Non-Af 28 L BUN/Creatinine Ratio 12.7 Glucose 106 Lactic Acid Calcium 9.0 Troponin I B-Natriuretic Peptide POC Glucose 134 H 130 H 05/09/19 05/09/19 05/09/19 05:38 07:18 07:18 WBC 16.3 H RBC 3.55 L Hgb 10.2 L Hct 31.6 L MCV 89.0 MCH 28.7 MCHC 32.3 RDW Std Deviation 48.0 H RDW Coeff of Kristal 14.7 H Plt Count 319 MPV 8.5 Immature Gran % (Auto) 1.500 H Neut % (Auto) 91.5 H Lymph % (Auto) 4.7 L [place] % (Auto) 1.7 Eos % (Auto) 0.4 Baso % (Auto) 0.2 Absolute Neuts (auto) 14.9 H Absolute Lymphs (auto) 0.76 L Nucleated RBC % 0 Platelet Estimate RBC Morphology Anisocytosis Macrocytosis PT INR APTT Specimen Type Sample Site pH Bicarbonate Actual POC Total CO2 Base Excess O2 Saturation O2 % ABG pCO2 ABG pO2 Obdulio Test Respiration Rate O2 Delivery Device EPAP IPAP Blood Gas Notified Whom Blood Gas Notified Time Sodium Potassium Chloride Carbon Dioxide Anion Gap BUN Creatinine Estim Creat Clear Calc Est GFR (MDRD) Af Amer Est GFR (MDRD) Non-Af BUN/Creatinine Ratio Glucose Lactic Acid Calcium Troponin I < 0.015 B-Natriuretic Peptide 45.6 POC Glucose 05/09/19 05/09/19 05/09/19 11:58 16:58 21:23 WBC RBC Hgb Hct MCV MCH MCHC RDW Std Deviation RDW Coeff of Kristal Plt Count MPV Immature Gran % (Auto) Neut % (Auto) Lymph % (Auto) [place] % (Auto) Eos % (Auto) Baso % (Auto) Absolute Neuts (auto) Absolute Lymphs (auto) Nucleated RBC % Platelet Estimate RBC Morphology Anisocytosis Macrocytosis PT INR APTT Specimen Type Sample Site pH Bicarbonate Actual POC Total CO2 Base Excess O2 Saturation O2 % ABG pCO2 ABG pO2 Obdulio Test Respiration Rate O2 Delivery Device EPAP IPAP Blood Gas Notified Whom Blood Gas Notified Time Sodium Potassium Chloride Carbon Dioxide Anion Gap BUN Creatinine Estim Creat Clear Calc Est GFR (MDRD) Af Amer Est GFR (MDRD) Non-Af BUN/Creatinine Ratio Glucose Lactic Acid Calcium Troponin I B-Natriuretic Peptide POC Glucose 100 107 72 05/09/19 05/09/19 05/10/19 21:45 21:45 04:00 WBC 12.3 H 14.3 H RBC 2.66 L 3.68 L Hgb 7.6 L 10.5 L Hct 24.1 L 32.9 L MCV 90.6 89.4 MCH 28.6 28.5 MCHC 31.5 L 31.9 L RDW Std Deviation 50.0 H 49.2 H RDW Coeff of Kristal 15.1 H 15.1 H Plt Count 258 364 MPV 8.5 8.3 Immature Gran % (Auto) 1.200 H 1.300 H Neut % (Auto) 91.5 H 90.3 H Lymph % (Auto) 5.6 L 6.4 L [place] % (Auto) 1.6 1.7 Eos % (Auto) 0.0 0.1 Baso % (Auto) 0.1 0.2 Absolute Neuts (auto) 11.2 H 12.9 H Absolute Lymphs (auto) 0.69 L 0.91 Nucleated RBC % 0 0 Platelet Estimate ADEQUATE RBC Morphology N CHROM Anisocytosis RARE Macrocytosis RARE PT 27.3 H INR 2.5 APTT 31.1 Specimen Type Sample Site pH Bicarbonate Actual POC Total CO2 Base Excess O2 Saturation O2 % ABG pCO2 ABG pO2 Obdulio Test Respiration Rate O2 Delivery Device EPAP IPAP Blood Gas Notified Whom Blood Gas Notified Time Sodium Potassium Chloride Carbon Dioxide Anion Gap BUN Creatinine Estim Creat Clear Calc Est GFR (MDRD) Af Amer Est GFR (MDRD) Non-Af BUN/Creatinine Ratio Glucose Lactic Acid Calcium Troponin I B-Natriuretic Peptide POC Glucose 05/10/19 05/10/19 05/10/19 04:00 04:00 07:25 WBC RBC Hgb Hct MCV MCH MCHC RDW Std Deviation RDW Coeff of Kristal Plt Count MPV Immature Gran % (Auto) Neut % (Auto) Lymph % (Auto) [place] % (Auto) Eos % (Auto) Baso % (Auto) Absolute Neuts (auto) Absolute Lymphs (auto) Nucleated RBC % Platelet Estimate RBC Morphology Anisocytosis Macrocytosis PT INR APTT 46.7 H Specimen Type ART Sample Site L Radial pH 7.32 L Bicarbonate Actual 14.6 L POC Total CO2 15 Base Excess -11 L O2 Saturation 95 O2 % 30 ABG pCO2 28.4 L ABG pO2 79 Obdulio Test POS Respiration Rate 12 O2 Delivery Device Bi / C PAP EPAP 8 IPAP 14 Blood Gas Notified Whom ICU MD Blood Gas Notified Time 724 Sodium 143 Potassium 3.7 Chloride 117 H Carbon Dioxide 16.0 L Anion Gap 10 BUN 25 H Creatinine 1.83 H Estim Creat Clear Calc 27.21 Est GFR (MDRD) Af Amer 35 L Est GFR (MDRD) Non-Af 29 L BUN/Creatinine Ratio 13.7 Glucose 86 Lactic Acid Calcium 9.0 Troponin I B-Natriuretic Peptide POC Glucose 05/10/19 08:57 WBC RBC Hgb Hct MCV MCH MCHC RDW Std Deviation RDW Coeff of Kristal Plt Count MPV Immature Gran % (Auto) Neut % (Auto) Lymph % (Auto) [place] % (Auto) Eos % (Auto) Baso % (Auto) Absolute Neuts (auto) Absolute Lymphs (auto) Nucleated RBC % Platelet Estimate RBC Morphology Anisocytosis Macrocytosis PT INR APTT Specimen Type Sample Site pH Bicarbonate Actual POC Total CO2 Base Excess O2 Saturation O2 % ABG pCO2 ABG pO2 Obdulio Test Respiration Rate O2 Delivery Device EPAP IPAP Blood Gas Notified Whom Blood Gas Notified Time Sodium Potassium Chloride Carbon Dioxide Anion Gap BUN Creatinine Estim Creat Clear Calc Est GFR (MDRD) Af Amer Est GFR (MDRD) Non-Af BUN/Creatinine Ratio Glucose Lactic Acid Calcium Troponin I B-Natriuretic Peptide POC Glucose 80 Microbiology 05/07/19 11:13 Blood Culture (Wb) - Right Hand Blood Culture - Preliminary No growth in 48 hours. 05/07/19 11:15 Blood Culture (Wb) - Left Wrist Blood Culture - Preliminary No growth in 48 hours. 05/07/19 10:30 Urine Catheter - Yung Urine Culture - Final Culture exhibits no growth. 05/07/19 16:10 Mucosa - Nasopharyngeal Respiratory Panel (PCR) - Final Medical Necessity - Tobacco Use Smoking Status: Never smoker Tobacco Use: Non-smoker Assessment/Plan All Active Problems (Last Reviewed 05/07/19 @ 13:[address] Doni Mccray MD) Respiratory failure with hypoxia (Acute) Bilateral pneumonia (Acute) Sepsis due to pneumonia (Acute) Infectious encephalopathy (Acute) RECOMMENDATIONS: 1. Continue BiPAP support and wean as tolerated. 2. Wean FiO2 to maintain oxygen saturations at or above 90%. 3. Continue empiric antimicrobials, pending finalized infectious work-up. 4. Continue weight based heparin drip, given NPO status. 5. Initiate bicarb drip x1 L. IMPRESSIONS: 1. Acute hypoxemic respiratory failure Differential would include healthcare associated pneumonia versus pulmonary edema. The patient's creatinine has increased after having been given Lasix. Agree with continuing current supportive measures, including noninvasive positive pressure ventilatory support and broad-spectrum antimicrobial coverage. CODE STATUS was discussed and the patient is currently a DNR CCA without intubation. Continue to wean FiO2 to maintain oxygen saturations at or above 90%. Breaks from BiPAP can be given as tolerated by the patient. ABG is suggestive of partial compensation of metabolic acidosis. Patient does not have a gap, so renal dysfunction versus bicarbonate losses from the kidney would be suspected. Will attempt to replace bicarbonate to see if respiratory status improves. Patient is not showing any signs or symptoms of paradoxical movement at this time. 2. Severe sepsis Appears to be secondary to underlying pulmonary infectious process. MRSA screen was negative. The patient remains on empiric antimicrobials, pending finalized infectious work-up. She remains hemodynamically stable. 3. Chronic heart failure with preserved ejection fraction Appears euvolemic at this time. We will hold on additional doses of Lasix therapy given patient's renal function. 4. Acute kidney injury Potentially prerenal in etiology. Agree with holding Lasix for now. Avoid nephrotoxic medications. 5. Hypokalemia Electrolyte repletion as needed. Recheck levels in the morning. 6. History of DVT on Eliquis/diabetes mellitus/hyperlipidemia/obesity Complicates care, management, recovery and prognosis. Hold Eliquis and continue weight based heparin drip. Code Visit Inpatient E&M: [id number] [place] [id number]
--- NOTE | 2019-05-10 10:14 | CASEMGMT ---
Social Work SW met with pt in room and introduced self and role to SW. Pt is currently residing at [facility] and SW inquired if pt plans to return there and pt states she would prefer to go home but thinks she will need to go back to the SNF. Pt requested SW call pt to confirm. Phone call to pt Fidencio, who confirms pt will return to [facility] at time of d/c. Per pt , pt fell in February and has not been able to ambulate since that time. Pt was scheduled for surgery with [facility] this week but will now be rescheduled after she has recovered from present illness. Fidencio brought in copy of [employer] POA which names Fidencio but did not bring in Living Will. Fidencio states he will try to find the living will and bring it in as well. Phone call to Marly at [facility] and they confirm pt is able to return when medically ready. Clinical update faxed to [facility]. Plan: Return to [facility] when medically ready NIEVES Cox
--- NOTE | 2019-05-10 10:40 | NURSING ---
SPO2 dropped into 60's, pt extremely sob and tachypnic at rest, bipap reapplied.
--- NOTE | 2019-05-10 10:41 | CASEMGMT ---
Pt spouse brought HCPOA to [facility] and placed on chart. Phone call to spouse and requested Living will be brought in as well. Spouse agreeable. NIEVES Cox
[2019-05-10 11:31] LABS: Bedside Glucose 160 mg/dL (70-110)
[2019-05-10] MEDS: Insulin Lispro 100 UNIT/ML INSULN.PEN SC ×2 (11:34→21:15)
[2019-05-10 11:48] LABS: Partial Thromboplast Time 115.8 Seconds (24.1-36.2)
--- NOTE | 2019-05-10 13:12 | CPS ---
Patient unable to tolerate Airvo 60L 95%. SpO2 <85%. Pt placed back on bipap.
--- NOTE | 2019-05-10 15:15 | PN_ITS ---
Patient Problems: Active and Suspected Problems (Last Reviewed 05/07/19 @ 13:[address] Doni Mccray MD) Respiratory failure with hypoxia (Acute) Bilateral pneumonia (Acute) Sepsis due to pneumonia (Acute) Infectious encephalopathy (Acute) Reason for Visit: sepsis Subjective: On BipAP. Still short of breath. Vitals/I&O's: Vital Signs Temp Pulse Resp BP Pulse Ox 36.1 C L 96 48 H 133/64 H 97 05/10/19 12:00 05/10/19 14:31 05/10/19 14:31 05/10/19 12:00 05/10/19 14:31 Oxygen Flow Rate (L/min) 55 Oxygen Delivery Method Bi-pap Weight: 82.6 kg Body Mass Index (BMI) 29.6 Intake and Output for Last 24 Hours 05/08/19 05/09/19 05/10/19 23:59 23:59 23:59 Intake Total 2527.09 / 2527.09 2222.08 / 2252.08 2736.08 / 2736.08 Output Total 2300 / 2300 1615 / 1615 1100 / 1100 Balance 227.09 / 227.09 607.08 / 637.08 1636.08 / 1636.08 General: Alert, - - on BiPAP. still tachypneic. HEENT: Atraumatic, Normocephalic Oral: Moist Mucosa, No Gingival or Mucosal Lesions/ Ulcerations Neck: No Nodes, Trachea Midline Lungs: Diminished, - - coarse breath sounds Cardiovascular: Tachycardic Abdomen: Bowel Sounds Present, Soft, Non Tender, Non-Distended Extremities: No Calf Tenderness, Edema - trace Skin: No rashes, No breakdown Psych/Mental Status: Appropriate, Anxious Microbiology Past 72 Hours 05/10/19 01:25 Sputum, Expectorated/Coughed Gram Stain - Final 05/07/19 11:13 Blood Culture (Wb) - Right Hand Blood Culture - Preliminary No growth in 48 hours. 05/07/19 11:15 Blood Culture (Wb) - Left Wrist Blood Culture - Preliminary No growth in 48 hours. 05/07/19 10:30 Urine Catheter - Yung Urine Culture - Final Culture exhibits no growth. 05/07/19 16:10 Mucosa - Nasopharyngeal Respiratory Panel (PCR) - Final 05/07/19 10:30 Urine Catheter - Yung Streptococcus pneumoniae Antigen (M - Final 05/07/19 10:30 Urine Catheter - Yung Legionella Antigen - Final Laboratory Results 05/09/19 16:58: POC Glucose 107 05/09/19 21:23: POC Glucose 72 05/09/19 21:45: WBC 12.3 H, RBC 2.66 L, Hgb 7.6 L, Hct 24.1 L, MCV 90.6, MCH 28.6, MCHC 31.5 L, RDW Std Deviation 50.0 H, RDW Coeff of Kristal 15.1 H, Plt Count 258, MPV 8.5, Immature Gran % (Auto) 1.200 H, Neut % (Auto) 91.5 H, Lymph % (Auto) 5.6 L, [place] % (Auto) 1.6, Eos % (Auto) 0.0, Baso % (Auto) 0.1, Absolute Neuts (auto) 11.2 H, Absolute Lymphs (auto) 0.69 L, Nucleated RBC % 0, Platelet Estimate ADEQUATE, RBC Morphology N CHROM, Anisocytosis RARE, Macrocytosis RARE 05/09/19 21:45: PT 27.3 H, INR 2.5, APTT 31.1 05/10/19 04:00: WBC 14.3 H, RBC 3.68 L, Hgb 10.5 L, Hct 32.9 L, MCV 89.4, MCH 28.5, MCHC 31.9 L, RDW Std Deviation 49.2 H, RDW Coeff of Kristal 15.1 H, Plt Count 364, MPV 8.3, Immature Gran % (Auto) 1.300 H, Neut % (Auto) 90.3 H, Lymph % (Auto) 6.4 L, [place] % (Auto) 1.7, Eos % (Auto) 0.1, Baso % (Auto) 0.2, Absolute Neuts (auto) 12.9 H, Absolute Lymphs (auto) 0.91, Nucleated RBC % 0 05/10/19 04:00: Sodium 143, Potassium 3.7, Chloride 117 H, Carbon Dioxide 16.0 L , Anion Gap 10, BUN 25 H, Creatinine 1.83 H, Estim Creat Clear Calc 27.21, Est GFR (MDRD) Af Amer 35 L, Est GFR (MDRD) Non-Af 29 L, BUN/Creatinine Ratio 13.7, Glucose 86, Calcium 9.0 05/10/19 04:00: APTT 46.7 H 05/10/19 07:25: Specimen Type ART, Sample Site L Radial, pH 7.32 L, Bicarbonate Actual 14.6 L, POC Total CO2 15, Base Excess -11 L, O2 Saturation 95, O2 % 30, ABG pCO2 28.4 L, ABG pO2 79, Obdulio Test POS, Respiration Rate 12, O2 Delivery Device Bi / C PAP, EPAP 8, IPAP 14, Blood Gas Notified Whom ICU MD, Blood Gas Notified Time 724 05/10/19 08:57: POC Glucose 80 05/10/19 11:24: POC Glucose 160 H 05/10/19 11:25: APTT 115.8 H* Current Medications Acetaminophen (Tylenol) 650 mg PO Q6H PRN PRN PRN Reason: Pain Score 1-3/Temp > 100.7 F Last Admin: 05/08/19 17:46 Dose: 650 mg Documented by: Al Hydroxide/Mg Hydroxide (Mylanta Ii) 30 ml PO Q6H PRN PRN PRN Reason: Gastric Burning Albuterol Sulfate (Ventolin Aerosols) 2.5 mg INHALATION Q2H PRN PRN PRN Reason: Shortness of Breath/Wheezing Last Admin: 05/08/19 04:30 Dose: 2.5 mg Documented by: Albuterol/Ipratropium (Duoneb) 3 ml INHALATION Q4HWA.RT [facility] Last Admin: 05/10/19 14:32 Dose: 3 ml Documented by: Ascorbic Acid (Vitamin C) 500 mg PO DAILY@0800 [facility] Last Admin: 05/10/19 09:00 Dose: 500 mg Documented by: Aspirin (Aspirin, Baby) 81 mg PO DAILYCM [facility] Last Admin: 05/10/19 09:00 Dose: 81 mg Documented by: Atorvastatin Calcium (Lipitor) 20 mg PO QHS [facility] Last Admin: 05/09/19 21:18 Dose: 20 mg Documented by: Bupropion HCl (Wellbutrin Xl) 150 mg PO DAILY [facility] Last Admin: 05/10/19 09:00 Dose: 150 mg Documented by: Calamine/Phenol (Calmoseptine Ointment) 1 applic TOPICAL BID [facility]; Protocol Last Admin: 05/10/19 09:47 Dose: 1 applicatio Documented by: Glucagon () 1 mg IM .X1 PRN PRN Reason: Hypoglycemia Guaifenesin (Robitussin) 20 ml PO Q4H PRN PRN PRN Reason: COUGH Last Admin: 05/10/19 00:11 Dose: 20 ml Documented by: Heparin Sodium (Porcine) (Heparin Na) 0 unit IV UD PRN; Protocol Cefepime HCl 2 gm/ Sodium (Chloride) 100 mls @ 200 mls/hr IV Q12 [facility] Last Infusion: 05/10/19 10:15 Dose: Infused Documented by: Dextrose (Dextrose 10%-Water) 250 mls @ 999 mls/hr IV .Q16M PRN; Protocol PRN Reason: HYPOGLYCEMIA Sodium Chloride () 1,000 mls @ 125 mls/hr IV .Q8H [facility] Last Infusion: 05/10/19 11:09 Dose: Infused Documented by: Heparin Sodium/Dextrose () 25,000 units in 250 mls @ 10 mls/hr IV .Q25H [facility]; Protocol Last Titration: 05/10/19 13:15 Dose: 800 units/hr, 8 mls/hr Documented by: Sodium Bicarbonate 150 meq/ (Dextrose) 1,150 mls @ 75 mls/hr IV .[id number] [facility] Stop: 05/11/19 00:19 Last Admin: 05/10/19 11:17 Dose: 75 mls/hr Documented by: Insulin Human Lispro (Humalog Kwikpen (Bkc)) 0 unit SC ACHS [facility]; Protocol Last Admin: 05/10/19 11:34 Dose: 2 u Documented by: Lorazepam (Ativan) 0.5 mg PO BID PRN PRN PRN Reason: ANXIETY Last Admin: 05/07/19 21:09 Dose: 0.5 mg Documented by: Magnesium Hydroxide (Milk Of Magnesia) 30 ml PO DAILY PRN PRN PRN Reason: Constipation Melatonin (Melatonin) 3 mg PO QHS PRN PRN PRN Reason: INSOMNIA Nitroglycerin (Nitrostat) 0.4 mg SUBLINGUAL Q5M PRN PRN Reason: CARDIAC/CHEST PAIN Nutritional Formula (Lactose Free) (Glucerna Shake) 120 ml PO 4X/DAY [facility] Last Admin: 05/10/19 12:30 Dose: 120 ml Documented by: Ondansetron HCl (Zofran) 4 mg IV Q8H PRN PRN PRN Reason: NAUSEA/VOMITING Oxycodone HCl (Oxyir) 5 mg PO Q4H PRN PRN PRN Reason: Pain Score 4-10/10 Prochlorperazine Edisylate (Compazine Iv) 5 mg IV Q4H PRN PRN PRN Reason: Breakthrough nausea/vomiting Senna/Docusate Sodium (Senokot-S, Corrie-Colace) 2 tablet PO DAILY [facility] Last Admin: 05/10/19 09:00 Dose: Not Given Documented by: Sodium Chloride () 10 - 40 ml IV UD PRN PRN Reason: SALINE FLUSH Last Admin: 05/08/19 10:24 Dose: 10 ml Documented by: Zinc Sulfate (Zinc Sulfate) 220 mg PO DAILY [facility] Last Admin: 05/10/19 09:00 Dose: 220 mg Documented by: STROKE Vital Signs/Narrative: Vital Signs Temp Pulse Resp BP Pulse Ox 05/10/19 14:31 96 48 H 97 05/10/19 13:41 95 35 H 99 05/10/19 13:15 100 42 H 94 05/10/19 12:00 36.1 C L 104 H 40 H 133/64 H 97 Medical Necessity - Tobacco Use Smoking Status: Never smoker Tobacco Use: Non-smoker Assessment/Plan All Active Problems (Last Reviewed 05/07/19 @ 13:[address] Doni Mccray MD) Respiratory failure with hypoxia (Acute) Bilateral pneumonia (Acute) Sepsis due to pneumonia (Acute) Infectious encephalopathy (Acute) 1. acute hypoxic respiratory failure * pneumonia v CHF * treat underlying process * wean BiPAP and oxygen as tolerated. 2. Severe sepsis * POA * due to presumptive pneumonia * supportive mgmt 3. presumed gram negative pneumonia * UCx, Strep Ag, legionella Ag, BCx, resp panel negative * Sputum culture pending * on cefepime from the 4. HFpEF * EF 65% from echo on 02/17/19 * off furosemide given RYAN 5. RYAN * prerenal v ATN * check urine studies * avoid IVF given CHF 6. VTE on heparin gtt. resume apixaban when able to take PO. Greater than 35 minutes of which greater than 3% of time was discussing with the patient's , patient and her sister about the patient's respiratory status, pneumonia, CHF. Code Visit Inpatient E&M: 56093 Subs Hosp L3
--- NOTE | 2019-05-10 16:00 | CHAPLAIN ---
Type of Pastoral Visit _x__ Initial Visit ___ Follow-up Visit ___ On-call Visit ___ General Patient Visit ___ Spiritual Assessment ___ Family Conference ___ Bereavement ___ Rapid Response ___ Code Blue ___ Other (describe below) Pastoral Care Referral From _x__ Patient ___ Family ___ Nurse ___ Physician ___ It Director ___ Spout Worker ___ Other (describe below) Sacrament/Intervention ___ Active listening ___ Anointing ___ Mandaen ___ Bereavement ___ Communion ___ Farzaneh exploration ___ ___ Life review _x__ Prayer ___ Reconciliation ___ Sacrament of Sick _x__ Supportive presence ___ Wedding ___ Other (describe below) Pastoral Comments
[2019-05-10 17:30] LABS: Bedside Glucose 140 mg/dL (70-110)
[2019-05-10 17:55] LABS: Partial Thromboplast Time 61.1 Seconds (24.1-36.2)
[2019-05-10 21:40] LABS: Bedside Glucose 164 mg/dL (70-110)
[2019-05-10 23:28] LABS: Partial Thromboplast Time 42.4 Seconds (24.1-36.2)
[2019-05-11] VITALS (56 sets, daily range): BP systolic 56–148; BP diastolic 37–116; PULSE 58–121; RESP 13–45; TEMP 36.2–36.8; O2SAT 89–100; BMI 31.8
[2019-05-11] MEDS: HEPARIN/D5w 25,000 UNITS 25,000 UNITS/250 ML IV.SOLN. 9 UNITS IV (01:22)
[2019-05-11] MEDS: 0.9% Normal Saline 1,000 ML 125 ML IV (02:55)
[2019-05-11 05:51] LABS: Basophil# 0.02 X10^3/uL; Basophil% 0.1 % (0-1); Eosinophils% 0.7 % (0-5); Hematocrit 28.8 % (37-47); Hemoglobin 9.4 g/dL (12.0-15.0); Lymphocyte % 7.3 % (19-41); Mean Corp Hgb Conc 32.6 g/dL (32-36); Mean Corpuscular Hgb 28.2 pg (27.0-32.0); Mean Corpuscular Volume 86.5 fL (81-99); Mean Platelet Vol. 8.5 fl (6.2-12.0); Monocyte# 0.23 X10^3/uL; Monocyte% 1.7 % (0-10); NRBC Flagged by Analyzer 0 % (0-5); Neutrophil # 12.04 X10^3/uL (2.7-7.7); Neutrophil % 88.5 % (47-70); Platelet Count 389 K/mm3 (150-450); RBC Distribution Width CV 15.3 % (11.6-14.6); RBC Distribution Width SD 48.9 fl (35.1-43.9); Red Blood Count 3.33 M/mm3 (4.2-5.4); White Blood Count 13.6 K/mm3 (4.4-11.0)
[2019-05-11 06:07] LABS: Anion Gap 6 (5-15); BUN 25 mg/dL (7-18); BUN/Creat Ratio 14.4 RATIO (10-20); Calcium,Total 8.9 mg/dL (8.5-10.1); Chloride 114 mmol/L (98-107); Creatinine, Serum 1.74 mg/dL (0.55-1.02); EST Glomerular Filtration Rate 31 mL/min (>60); Est Glom Filt Rate - Afr Amer 38 mL/min (>60); Estimated Creatinine Clearance 28.62 ml/min; Glucose 132 mg/dL (74-106); Potassium 2.9 mmol/L (3.5-5.1); Sodium Level 143 mmol/L (136-145)
--- NOTE | 2019-05-11 06:21 | RAD_ITS ---
STUDY: X-RAY CHEST REASON FOR EXAM: Female, 68 years old. INCREASED SOB TECHNIQUE: Single AP portable view of the chest. COMPARISON: May 07 and 2018. FINDINGS: There are superimposed monitor leads. Bilateral airspace disease not significantly changed since 05/08/2019, worsened since 05/07/2019. There is no demonstrated pleural abnormality. Normal size heart. Normal mediastinum and christian. Normal visualized pulmonary arteries. There is atherosclerotic calcification of the aortic arch with tortuosity. There are diffuse degenerative changes of the visualized thoracic spine. Normal visualized ribs, clavicles, and shoulders. There is no demonstrated abnormality of the visualized soft tissue structures of the upper abdomen. RAD/Chest 1 View (Portable) IMPRESSION: Bilateral airspace disease/infiltrates, unchanged since 05/08/2019. Electronically Signed: Amanda Vasquez MD at 6:55 EST , Service support ,
[2019-05-11 06:37] LABS: Magnesium 1.9 mg/dL (1.6-2.6); Phosphorus 1.9 mg/dL (2.5-4.9)
[2019-05-11] MEDS: Potassium Chloride 10mEq/100mL 10 MEQ/100 ML IV.SOLN. 100 MEQ IV BOLUS ×4 (06:37→10:31)
[2019-05-11] MEDS: Ipratropium/Albuterol Sulfate 3 ML AMPUL.NEB INHALATION ×5 (06:40→22:05)
[2019-05-11 06:56] LABS: Bedside Glucose 129 mg/dL (70-110)
[2019-05-11] MEDS: Etomidate 20 MG/10 ML Vial 10 MG IV ×2 (07:24→07:26)
--- NOTE | 2019-05-11 07:24 | NURSING ---
0724 - 10mg IV Etomidate given by Dr. Suman Cervantes MD 0725 - BVM performed by respiratory therapy 0726 - 10mg IV Etomidate given by Dr. Suman Cervantes MD 0727 - 7.5# ETT inserted per Dr. Cervantes, positive color change noted, b/l breath sounds noted, Tube length; 22 @ teeth 0728 - IV Propofol and Fentanyl cont infusions initiated by Baron Andrew RN 0728 - 50mg IV Propofol given per Dr. Billy MD 0729 - 100mg IV fentanyl given by Baron Andrew RN 0729 - ETT tube secured 0732 - Orogastric 18Fr tube inserted per Mignon Montez RN 0735 - STAT portable chest xray ordered
[2019-05-11] MEDS: Propofol 10MG/Ml 1,000 MG/100 ML Bottle 5.2 MG CONT INF (07:28)
[2019-05-11] MEDS: fentaNYL drip 100 ML 5 MCG IV (07:28)
--- NOTE | 2019-05-11 07:41 | RAD_ITS ---
STUDY: X-RAY CHEST REASON FOR EXAM: Female, 68 years old. ETT PLACEMENT, OG PLACEMENT; -- PLACEMENT OK PER ORDERING ONESIMO KUNZ TECHNIQUE: Single AP portable view of the chest. COMPARISON: Comparison is made with prior examination dated May 11, 2019 at 6:26 AM. FINDINGS: An endotracheal tube is in situ. The tip is at 4.3 cm proximal to the caesar. An orogastric tube is seen with the tip in the body of the stomach. Stable appearance of the lungs with the bilateral airspace disease. There is no demonstrated pleural abnormality. Normal size heart. Normal mediastinum and christian. Normal visualized pulmonary arteries. There is atherosclerotic calcification of the aortic arch with tortuosity. There are diffuse degenerative changes of the visualized thoracic spine. Normal visualized ribs, clavicles, and shoulders. There is no demonstrated abnormality of the visualized soft tissue structures of the upper abdomen. RAD/Chest 1 View (Portable) IMPRESSION: An endotracheal tube has been placed. The tip is at 4.3 cm proximal to the caesar. An orogastric tube is seen with the tip in the body of the stomach. The remainder of the examination is unchanged. Electronically Signed: Jaun Daly, at 12:09 EST , Service support ,
--- NOTE | 2019-05-11 07:43 | PCM.PN.INT ---
Subjective: Patient was significant respiratory distress this morning and still breathing 40 times a minute. Did discuss with the patient about her CODE STATUS. Patient reportedly had discussed with her yesterday evening, but CODE STATUS was not addressed by a physician. After review of patient's situation, she is open to intubation. Patient does not want to receive any CPR. Objective: After confirmation of changing CODE STATUS, patient was prepped for a semiurgent intubation. At approximately 730, patient was given 10 mg of etomidate and vocal cords were visualized using a MAC 4 blade. Unable to attempt cannulation secondary to coughing. Patient was given an additional 10 mg of etomidate. On repeat evaluation, patient was able to be intubated with a 7.5 endotracheal tube with positive color change, bilateral breath sounds and positive chest rise. Patient did sustain a small laceration in the right posterior soft palate, but bleeding was minimal. Chest x-ray has been ordered. General: - - Currently intubated and sedated. Anxious with paradoxical respiratory movement prior to intubation HEENT: Atraumatic, PERRLA, EOMI, - - Scleral injection without icterus. Some rash noted on the face with mild ulceration in the right cheek Oral: No Gingival or Mucosal Lesions/ Ulcerations, Dry Mucosa Neck: Supple, No JVD, No Nodes, Trachea Midline Lungs: Diminished, Rhonchi, Wheezes, - - Symmetric expansion Cardiovascular: Normal S1, Normal S2, No murmurs, No rub noted, No Gallop, Tachycardic Abdomen: Bowel Sounds Present, Soft, Non Tender, Non-Distended, Obese Extremities: No clubbing, No cyanosis, Edema Skin: Rash Present Musculoskeletal: No Tenderness to Palpation of Joints or Extremities Lymphatic: No Cervical, Supraclavicular, or Inguinal Adenopathy Neurological: Cranial nerves II-XII grossly intact, Neuro grossly intact, Motor Exam 5/5 strength throughout Psych/Mental Status: Anxious, Restless Vital Signs Temp Pulse Resp BP Pulse Ox 36.6 C 89 40 H 138/73 H 95 05/11/19 05:00 05/11/19 06:00 05/11/19 06:00 05/11/19 06:00 05/11/19 06:00 Oxygen Flow Rate (L/min) 55 Oxygen Delivery Method Bi-pap Weight: 86.7 kg Body Mass Index (BMI) 29.6 Intake and Output for Last 24 Hours 05/09/19 05/10/19 05/11/19 23:59 23:59 23:59 Intake Total 2222.08 / 2252.08 3860.71 / 3860.71 778.42 / 778.42 Output Total 1615 / 1615 1100 / 1100 400 / 400 Balance 607.08 / 637.08 2760.71 / 2760.71 378.42 / 378.42 Labs (Last 48 Hours) 05/09/19 05/09/19 05/09/19 05:38 07:18 07:18 WBC 16.3 H RBC 3.55 L Hgb 10.2 L Hct 31.6 L MCV 89.0 MCH 28.7 MCHC 32.3 RDW Std Deviation 48.0 H RDW Coeff of Kristal 14.7 H Plt Count 319 MPV 8.5 Immature Gran % (Auto) 1.500 H Neut % (Auto) 91.5 H Lymph % (Auto) 4.7 L [place] % (Auto) 1.7 Eos % (Auto) 0.4 Baso % (Auto) 0.2 Absolute Neuts (auto) 14.9 H Absolute Lymphs (auto) 0.76 L Nucleated RBC % 0 Platelet Estimate RBC Morphology Anisocytosis Macrocytosis PT INR APTT Specimen Type Sample Site pH Bicarbonate Actual POC Total CO2 Base Excess O2 Saturation O2 % ABG pCO2 ABG pO2 Obdulio Test Respiration Rate O2 Delivery Device EPAP IPAP Blood Gas Notified Whom Blood Gas Notified Time Sodium Potassium Chloride Carbon Dioxide Anion Gap BUN Creatinine Estim Creat Clear Calc Est GFR (MDRD) Af Amer Est GFR (MDRD) Non-Af BUN/Creatinine Ratio Glucose Calcium Phosphorus Magnesium Troponin I < 0.015 B-Natriuretic Peptide 45.6 POC Glucose 05/09/19 05/09/19 05/09/19 11:58 16:58 21:23 WBC RBC Hgb Hct MCV MCH MCHC RDW Std Deviation RDW Coeff of Kristal Plt Count MPV Immature Gran % (Auto) Neut % (Auto) Lymph % (Auto) [place] % (Auto) Eos % (Auto) Baso % (Auto) Absolute Neuts (auto) Absolute Lymphs (auto) Nucleated RBC % Platelet Estimate RBC Morphology Anisocytosis Macrocytosis PT INR APTT Specimen Type Sample Site pH Bicarbonate Actual POC Total CO2 Base Excess O2 Saturation O2 % ABG pCO2 ABG pO2 Obdulio Test Respiration Rate O2 Delivery Device EPAP IPAP Blood Gas Notified Whom Blood Gas Notified Time Sodium Potassium Chloride Carbon Dioxide Anion Gap BUN Creatinine Estim Creat Clear Calc Est GFR (MDRD) Af Amer Est GFR (MDRD) Non-Af BUN/Creatinine Ratio Glucose Calcium Phosphorus Magnesium Troponin I B-Natriuretic Peptide POC Glucose 100 107 72 05/09/19 05/09/19 05/10/19 21:45 21:45 04:00 WBC 12.3 H 14.3 H RBC 2.66 L 3.68 L Hgb 7.6 L 10.5 L Hct 24.1 L 32.9 L MCV 90.6 89.4 MCH 28.6 28.5 MCHC 31.5 L 31.9 L RDW Std Deviation 50.0 H 49.2 H RDW Coeff of Kristal 15.1 H 15.1 H Plt Count 258 364 MPV 8.5 8.3 Immature Gran % (Auto) 1.200 H 1.300 H Neut % (Auto) 91.5 H 90.3 H Lymph % (Auto) 5.6 L 6.4 L [place] % (Auto) 1.6 1.7 Eos % (Auto) 0.0 0.1 Baso % (Auto) 0.1 0.2 Absolute Neuts (auto) 11.2 H 12.9 H Absolute Lymphs (auto) 0.69 L 0.91 Nucleated RBC % 0 0 Platelet Estimate ADEQUATE RBC Morphology N CHROM Anisocytosis RARE Macrocytosis RARE PT 27.3 H INR 2.5 APTT 31.1 Specimen Type Sample Site pH Bicarbonate Actual POC Total CO2 Base Excess O2 Saturation O2 % ABG pCO2 ABG pO2 Obdulio Test Respiration Rate O2 Delivery Device EPA IPAP Blood Gas Notified Whom Blood Gas Notified Time Sodium Potassium Chloride Carbon Dioxide Anion Gap BUN Creatinine Estim Creat Clear Calc Est GFR (MDRD) Af Amer Est GFR (MDRD) Non-Af BUN/Creatinine Ratio Glucose Calcium Phosphorus Magnesium Troponin I B-Natriuretic Peptide POC Glucose 05/10/19 05/10/19 05/10/19 04:00 04:00 07:25 WBC RBC Hgb Hct MCV MCH MCHC RDW Std Deviation RDW Coeff of Kristal Plt Count MPV Immature Gran % (Auto) Neut % (Auto) Lymph % (Auto) [place] % (Auto) Eos % (Auto) Baso % (Auto) Absolute Neuts (auto) Absolute Lymphs (auto) Nucleated RBC % Platelet Estimate RBC Morphology Anisocytosis Macrocytosis PT INR APTT 46.7 H Specimen Type ART Sample Site L Radial pH 7.32 L Bicarbonate Actual 14.6 L POC Total CO2 15 Base Excess -11 L O2 Saturation 95 O2 % 30 ABG pCO2 28.4 L ABG pO2 79 Obdulio Test POS Respiration Rate 12 O2 Delivery Device Bi / C PAP EPAP 8 IPAP 14 Blood Gas Notified Whom ICU MD Blood Gas Notified Time 724 Sodium 143 Potassium 3.7 Chloride 117 H Carbon Dioxide 16.0 L Anion Gap 10 BUN 25 H Creatinine 1.83 H Estim Creat Clear Calc 27.21 Est GFR (MDRD) Af Amer 35 L Est GFR (MDRD) Non-Af 29 L BUN/Creatinine Ratio 13.7 Glucose 86 Calcium 9.0 Phosphorus Magnesium Troponin I B-Natriuretic Peptide POC Glucose 05/10/19 05/10/19 05/10/19 08:57 11:24 11:25 WBC RBC Hgb Hct MCV MCH MCHC RDW Std Deviation RDW Coeff of Kristal Plt Count MPV Immature Gran % (Auto) Neut % (Auto) Lymph % (Auto) [place] % (Auto) Eos % (Auto) Baso % (Auto) Absolute Neuts (auto) Absolute Lymphs (auto) Nucleated RBC % Platelet Estimate RBC Morphology Anisocytosis Macrocytosis PT INR APTT 115.8 H* Specimen Type Sample Site pH Bicarbonate Actual POC Total CO2 Base Excess O2 Saturation O2 % ABG pCO2 ABG pO2 Obdulio Test Respiration Rate O2 Delivery Device EPAP IPAP Blood Gas Notified Whom Blood Gas Notified Time Sodium Potassium Chloride Carbon Dioxide Anion Gap BUN Creatinine Estim Creat Clear Calc Est GFR (MDRD) Af Amer Est GFR (MDRD) Non-Af BUN/Creatinine Ratio Glucose Calcium Phosphorus Magnesium Troponin I B-Natriuretic Peptide POC Glucose 80 160 H 05/10/19 05/10/19 05/10/19 17:20 17:23 21:12 WBC RBC Hgb Hct MCV MCH MCHC RDW Std Deviation RDW Coeff of Kristal Plt Count MPV Immature Gran % (Auto) Neut % (Auto) Lymph % (Auto) [place] % (Auto) Eos % (Auto) Baso % (Auto) Absolute Neuts (auto) Absolute Lymphs (auto) Nucleated RBC % Platelet Estimate RBC Morphology Anisocytosis Macrocytosis PT INR APTT 61.1 H Specimen Type Sample Site pH Bicarbonate Actual POC Total CO2 Base Excess O2 Saturation O2 % ABG pCO2 ABG pO2 Obdulio Test Respiration Rate O2 Delivery Device EPAP IPAP Blood Gas Notified Whom Blood Gas Notified Time Sodium Potassium Chloride Carbon Dioxide Anion Gap BUN Creatinine Estim Creat Clear Calc Est GFR (MDRD) Af Amer Est GFR (MDRD) Non-Af BUN/Creatinine Ratio Glucose Calcium Phosphorus Magnesium Troponin I B-Natriuretic Peptide POC Glucose 140 H 164 H 05/10/19 05/11/19 05/11/19 23:07 05:35 05:35 WBC 13.6 H RBC 3.33 L Hgb 9.4 L Hct 28.8 L MCV 86.5 MCH 28.2 MCHC 32.6 RDW Std Deviation 48.9 H RDW Coeff of Kristal 15.3 H Plt Count 389 MPV 8.5 Immature Gran % (Auto) 1.700 H Neut % (Auto) 88.5 H Lymph % (Auto) 7.3 L [place] % (Auto) 1.7 Eos % (Auto) 0.7 Baso % (Auto) 0.1 Absolute Neuts (auto) 12.0 H Absolute Lymphs (auto) 1.00 Nucleated RBC % 0 Platelet Estimate RBC Morphology Anisocytosis Macrocytosis PT INR APTT 42.4 H Specimen Type Sample Site pH Bicarbonate Actual POC Total CO2 Base Excess O2 Saturation O2 % ABG pCO2 ABG pO2 Obdulio Test Respiration Rate O2 Delivery Device EPAP IPAP Blood Gas Notified Whom Blood Gas Notified Time Sodium 143 Potassium 2.9 L Chloride 114 H Carbon Dioxide 23.0 Anion Gap 6 BUN 25 H Creatinine 1.74 H Estim Creat Clear Calc 28.62 Est GFR (MDRD) Af Amer 38 L Est GFR (MDRD) Non-Af 31 L BUN/Creatinine Ratio 14.4 Glucose 132 H Calcium 8.9 Phosphorus Magnesium Troponin I B-Natriuretic Peptide POC Glucose 05/11/19 05/11/19 05/11/19 05:35 05:35 06:49 WBC RBC Hgb Hct MCV MCH MCHC RDW Std Deviation RDW Coeff of Kristal Plt Count MPV Immature Gran % (Auto) Neut % (Auto) Lymph % (Auto) [place] % (Auto) Eos % (Auto) Baso % (Auto) Absolute Neuts (auto) Absolute Lymphs (auto) Nucleated RBC % Platelet Estimate RBC Morphology Anisocytosis Macrocytosis PT INR APTT 46.0 H Specimen Type Sample Site pH Bicarbonate Actual POC Total CO2 Base Excess O2 Saturation O2 % ABG pCO2 ABG pO2 Obdulio Test Respiration Rate O2 Delivery Device EPAP IPAP Blood Gas Notified Whom Blood Gas Notified Time Sodium Potassium Chloride Carbon Dioxide Anion Gap BUN Creatinine Estim Creat Clear Calc Est GFR (MDRD) Af Amer Est GFR (MDRD) Non-Af BUN/Creatinine Ratio Glucose Calcium Phosphorus 1.9 L Magnesium 1.9 Troponin I B-Natriuretic Peptide POC Glucose 129 H Microbiology 05/10/19 01:25 Sputum, Expectorated/Coughed Gram Stain - Final 05/07/19 11:13 Blood Culture (Wb) - Right Hand Blood Culture - Preliminary No growth in 48 hours. 05/07/19 11:15 Blood Culture (Wb) - Left Wrist Blood Culture - Preliminary No growth in 48 hours. 05/07/19 10:30 Urine Catheter - Yung Urine Culture - Final Culture exhibits no growth. Medical Necessity - Tobacco Use Smoking Status: Never smoker Tobacco Use: Non-smoker Assessment/Plan All Active Problems (Last Reviewed 05/07/19 @ 13:[address] Doni Mccray MD) Respiratory failure with hypoxia (Acute) Bilateral pneumonia (Acute) Sepsis due to pneumonia (Acute) Infectious encephalopathy (Acute) RECOMMENDATIONS: 1. ABG 1 hour after intubation 2. Increase PEEP if necessary. Wean FiO2 to maintain oxygen saturations at or above 90%. 3. Continue empiric antimicrobials, pending finalized infectious work-up. 4. Continue weight based heparin drip, given NPO status. 5. Initiate empiric steroid therapy 6. Hold IV fluids, likely start tube feeds later today IMPRESSIONS: 1. Acute hypoxemic respiratory failure Differential would include healthcare associated pneumonia versus pulmonary edema. The patient's creatinine has increased after having been given Lasix. Agree with continuing current supportive measures, including noninvasive positive pressure ventilatory support and broad-spectrum antimicrobial coverage. Patient changed her CODE STATUS this morning to DNR Comfort Care arrest with intubation. Patient was successfully intubated. Will repeat ABG after an hour of mechanical ventilation. Patient will be placed on empiric steroids given increased peak airway pressures. Diuresis was not responsive previously, so will hold off for now. 2. Severe sepsis Appears to be secondary to underlying pulmonary infectious process. MRSA screen was negative. The patient remains on empiric antimicrobials, pending finalized infectious work-up. She remains hemodynamically stable. 3. Chronic heart failure with preserved ejection fraction Appears euvolemic at this time. We will hold on additional doses of Lasix therapy given patient's renal function. 4. Acute kidney injury Potentially prerenal in etiology. Agree with holding Lasix for now. Avoid nephrotoxic medications. 5. Hypokalemia Electrolyte repletion as needed. Recheck levels in the morning. Will recheck labs later this afternoon. 6. History of DVT on Eliquis/diabetes mellitus/hyperlipidemia/obesity Complicates care, management, recovery and prognosis. Hold Eliquis and continue weight based heparin drip. TIME: 45 minutes critical care time spent addressing patient's acute hypoxic respiratory failure, severe sepsis, electrolyte abnormalities, review of all data and collaboration with care team. (5:45 AM to 7:45 AM) Code Visit [id number]: [id number] Critical care first hour
[2019-05-11 08:42] LABS: CPK Total, Creatine Kinase 18 U/L (26-192); Triglycerides 122 mg/dL
[2019-05-11] MEDS: CHLORHEXIDINE GLUC 2% CLOTH 1 EACH TOWELETTE TOPICAL (10:06)
[2019-05-11] MEDS: Chlorhexidine 15 ML PO ×2 (10:06→21:47)
[2019-05-11] MEDS: Menthol/Lanolin/Calamine/Znox 113 GM Tube 1 APPLIC TOPICAL ×2 (10:06→21:47)
[2019-05-11] MEDS: Senna/Docusate Sodium 1 Tablet 2 TABLET GT (10:24)
[2019-05-11] MEDS: buPROPion 75 MG Tablet GT ×2 (10:24→21:47)
[2019-05-11] MEDS: 0.9% Saline Lock 10 ML Syringe IV ×2 (10:27→11:55)
--- NOTE | 2019-05-11 10:32 | PCM.PN.HOSP ---
Patient Problems: Active and Suspected Problems (Last Reviewed 05/07/19 @ 13:[address] Doni Mccray MD) Respiratory failure with hypoxia (Acute) Bilateral pneumonia (Acute) Sepsis due to pneumonia (Acute) Infectious encephalopathy (Acute) Reason for Visit: resp failure Subjective: Events reviewed. Intubated today. Vitals/I&O's: Vital Signs Temp Pulse Resp BP Pulse Ox 36.3 C L 96 22 H 73/42 L 97 05/11/19 08:00 05/11/19 09:30 05/11/19 09:30 05/11/19 10:15 05/11/19 09:30 Oxygen Flow Rate (L/min) 55 Oxygen Delivery Method Mechanical Ventilator Weight: 86.7 kg Body Mass Index (BMI) 29.6 Intake and Output for Last 24 Hours 05/09/19 05/10/19 05/11/19 23:59 23:59 23:59 Intake Total 2222.08 / 2252.08 3860.71 / 3860.71 1137.26 / 1137.26 Output Total 1615 / 1615 1100 / 1100 650 / 650 Balance 607.08 / 637.08 2760.71 / 2760.71 487.26 / 487.26 General: - - intubated and sedated. afebrile. HEENT: Atraumatic, Normocephalic, - - ETT in place. Oral: Moist Mucosa, No Gingival or Mucosal Lesions/ Ulcerations Neck: No Nodes, Thyroid Normal Size and Texture Lungs: No rhonchi, No wheeze, - - coarse breath sounds bilaterally. Cardiovascular: Regular rate, Regular Rhythm, Normal S1, Normal S2, No murmurs Abdomen: Bowel Sounds Present, Soft, Non Tender, Non-Distended, No Hepato-splenomegaly Extremities: No Calf Tenderness, Edema Skin: No rashes, No breakdown Musculoskeletal: No Tenderness to Palpation of Joints or Extremities, No Muscle Wasting Microbiology Past 72 Hours 05/10/19 01:25 Sputum, Expectorated/Coughed Gram Stain - Final 05/10/19 01:25 Sputum, Expectorated/Coughed Respiratory Culture - Preliminary Yeast 05/08/19 17:45 Blood Culture (Wb) - Venous Blood Culture - Preliminary No growth in 48 hours. 05/08/19 17:20 Blood Culture (Wb) - Left Hand Blood Culture - Preliminary No growth in 48 hours. 05/07/19 11:13 Blood Culture (Wb) - Right Hand Blood Culture - Preliminary No growth in 48 hours. 05/07/19 11:15 Blood Culture (Wb) - Left Wrist Blood Culture - Preliminary No growth in 48 hours. 05/07/19 10:30 Urine Catheter - Yung Urine Culture - Final Culture exhibits no growth. 05/07/19 16:10 Mucosa - Nasopharyngeal Respiratory Panel (PCR) - Final Laboratory Results 05/10/19 11:24: POC Glucose 160 H 05/10/19 11:25: APTT 115.8 H* 05/10/19 17:20: APTT 61.1 H 05/10/19 17:23: POC Glucose 140 H 05/10/19 21:12: POC Glucose 164 H 05/10/19 23:07: APTT 42.4 H 05/11/19 05:35: WBC 13.6 H, RBC 3.33 L, Hgb 9.4 L, Hct 28.8 L, MCV 86.5, MCH 28.2, MCHC 32.6, RDW Std Deviation 48.9 H, RDW Coeff of Kristal 15.3 H, Plt Count 389, MPV 8.5, Immature Gran % (Auto) 1.700 H, Neut % (Auto) 88.5 H, Lymph % (Auto) 7.3 L, [place] % (Auto) 1.7, Eos % (Auto) 0.7, Baso % (Auto) 0.1, Absolute Neuts (auto) 12.0 H, Absolute Lymphs (auto) 1.00, Nucleated RBC % 0 05/11/19 05:35: Sodium 143, Potassium 2.9 L, Chloride 114 H, Carbon Dioxide 23.0, Anion Gap 6, BUN 25 H, Creatinine 1.74 H, Estim Creat Clear Calc 28.62, Est GFR (MDRD) Af Amer 38 L, Est GFR (MDRD) Non-Af 31 L, BUN/Creatinine Ratio 14.4, Glucose 132 H, Calcium 8.9 05/11/19 05:35: APTT 46.0 H 05/11/19 05:35: Phosphorus 1.9 L, Magnesium 1.9 05/11/19 05:35: Total Creatine Kinase 18 L, Triglycerides 122 05/11/19 06:49: POC Glucose 129 H Current Medications Acetaminophen (Tylenol Liquid) 650 mg GT Q6H PRN PRN PRN Reason: Pain Score 1-3/Temp > 100.7 F Al Hydroxide/Mg Hydroxide (Mylanta Ii) 30 ml GT Q6H PRN PRN PRN Reason: Gastric Burning Albuterol Sulfate (Ventolin Aerosols) 2.5 mg INHALATION Q2H PRN PRN PRN Reason: Shortness of Breath/Wheezing Last Admin: 05/08/19 04:30 Dose: 2.5 mg Documented by: Albuterol/Ipratropium (Duoneb) 3 ml INHALATION Q4HWA.RT [facility] Last Admin: 05/11/19 06:40 Dose: 3 ml Documented by: Ascorbic Acid (Vitamin C) 500 mg GT DAILY@0800 [facility] Aspirin (Aspirin, Baby) 81 mg GT DAILYCM [facility] Atorvastatin Calcium (Lipitor) 20 mg GT QHS [facility] Bupropion HCl (Wellbutrin Tablets) 75 mg GT BID [facility] Last Admin: 05/11/19 10:24 Dose: 75 mg Documented by: Calamine/Phenol (Calmoseptine Ointment) 1 applic TOPICAL BID [facility]; Protocol Last Admin: 05/11/19 10:06 Dose: 1 applicatio Documented by: Chlorhexidine Gluconate () 15 ml PO BID [facility] Last Admin: 05/11/19 10:06 Dose: 15 ml Documented by: Chlorhexidine Gluconate () 1 each TOPICAL DAILY [facility] Last Admin: 05/11/19 10:06 Dose: 1 each Documented by: Glucagon () 1 mg IM .X1 PRN PRN Reason: Hypoglycemia Guaifenesin (Robitussin) 20 ml GT Q4H PRN PRN PRN Reason: COUGH Heparin Sodium (Porcine) (Heparin Na) 0 unit IV UD PRN; Protocol Cefepime HCl 2 gm/ Sodium (Chloride) 100 mls @ 200 mls/hr IV Q12 [facility] Last Admin: 05/11/19 10:01 Dose: 200 mls/hr Documented by: Dextrose (Dextrose 10%-Water) 250 mls @ 999 mls/hr IV .Q16M PRN; Protocol PRN Reason: HYPOGLYCEMIA Heparin Sodium/Dextrose () 25,000 units in 250 mls @ 10 mls/hr IV .Q25H [facility]; Protocol Last Titration: 05/11/19 06:06 Dose: 1,000 units/hr, 10 mls/hr Documented by: Potassium Phosphate 30 mm/ (Sodium Chloride) 260 mls @ 42 mls/hr IV X1 ONE Stop: 05/11/19 13:41 Last Admin: 05/11/19 07:51 Dose: 42 mls/hr Documented by: Propofol (Diprivan) 1,000 mg in 100 mls @ 5.202 mls/hr CONT INF .Q12H [facility]; Protocol Last Titration: 05/11/19 10:15 Dose: 15 mcg/kg/min, 7.8 mls/hr Documented by: Fentanyl () 100 mls @ 5 mls/hr IV UD [facility]; Protocol Last Titration: 05/11/19 09:58 Dose: 175 mcg/hr, 17.5 mls/hr Documented by: Insulin Human Lispro (Humalog Kwikpen (Bkc)) 0 unit SC Q6 [facility]; Protocol Magnesium Hydroxide (Milk Of Magnesia) 30 ml GT DAILY PRN PRN PRN Reason: Constipation Melatonin (Melatonin) 3 mg GT QHS PRN PRN PRN Reason: INSOMNIA Methylprednisolone (Solu-Medrol) 40 mg IV Q6 [facility] Nitroglycerin (Nitrostat) 0.4 mg SUBLINGUAL Q5M PRN PRN Reason: CARDIAC/CHEST PAIN Ondansetron HCl (Zofran) 4 mg IV Q8H PRN PRN PRN Reason: NAUSEA/VOMITING Prochlorperazine Edisylate (Compazine Iv) 5 mg IV Q4H PRN PRN PRN Reason: Breakthrough nausea/vomiting Senna/Docusate Sodium (Senokot-S, Corrie-Colace) 2 tablet GT DAILY [facility] Last Admin: 05/11/19 10:24 Dose: 2 tablet Documented by: Sodium Chloride () 10 - 40 ml IV UD PRN PRN Reason: SALINE FLUSH Last Admin: 05/11/19 10:27 Dose: 40 ml Documented by: STROKE Vital Signs/Narrative: Vital Signs Temp Pulse Resp BP BP Pulse Ox 05/11/19 10:15 73/42 L 05/11/19 09:30 96 22 H 74/54 L 97 05/11/19 09:15 94 22 H 97/76 97 05/11/19 09:03 97 22 H 98 05/11/19 09:00 96 23 H 97/70 97 03/03/20 08:45 100 23 H 93/44 L 98 05/11/19 08:30 115 H 20 H 78/37 L 95 05/11/19 08:15 100 21 H 56/43 L 97 05/11/19 08:00 36.3 C L 104 H 18 77/50 L 95 05/11/19 07:45 121 H 24 H 130/116 H 89 05/11/19 07:30 120 H 28 H 147/83 H 95 05/11/19 07:24 96 18 91 05/11/19 07:00 97 39 H 148/67 H 94 05/11/19 06:40 96 37 H 91 Medical Necessity - Tobacco Use Smoking Status: Never smoker Tobacco Use: Non-smoker Assessment/Plan All Active Problems (Last Reviewed 05/07/19 @ 13:[address] Doni Mccray MD) Respiratory failure with hypoxia (Acute) Bilateral pneumonia (Acute) Sepsis due to pneumonia (Acute) Infectious encephalopathy (Acute) 1. acute hypoxic respiratory failure worse, now intubated CXR reviewed and shows bilateral patchy infiltrates pneumonia v CHF v ALI on methylpred, BDs 2. Severe sepsis POA due to presumptive pneumonia supportive mgmt 3. presumed gram negative pneumonia UCx, Strep Ag, legionella Ag, BCx, resp panel negative Sputum culture pending on cefepime from the 4. HFpEF EF 65% from echo on 02/17/19 off furosemide given RYAN 5. RYAN prerenal v ATN avoid IVF given CHF 6. VTE on heparin gtt. resume apixaban when able to take PO. Code Visit Inpatient E&M: 25342 Subs Hosp L2
--- NOTE | 2019-05-11 11:03 | PCM.NTREPORT ---
Nutrition Therapy Report - History Nutrition Services has been consulted to:: Manage enteral nutrition Current diet / nutrition support order:: cardiac/CHO controlled - Anthropometric Measurements Height:: 5 ft 5 in Weight:: 86.7 kg - admit wt 80.8 Body Mass Index (BMI):: 31.8 - Relevant Labs Relevant Labs:: WBC 13.6 K/mm3 (4.4-11.0) H 05/11/19 05:35 RBC 3.33 M/mm3 (4.2-5.4) L 05/11/19 05:35 Hgb 9.4 g/dL (12.0-15.0) L 05/11/19 05:35 Hct 28.8 % (37-47) L 05/11/19 05:35 MCHC 31.9 g/dL (32-36) L 05/10/19 04:00 RDW Std Deviation 48.9 fl (35.1-43.9) H 05/11/19 05:35 RDW Coeff of Kristal 15.3 % (11.6-14.6) H 05/11/19 05:35 Immature Gran % (Auto) 1.700 % (0.0-0.9) H 05/11/19 05:35 Neut % (Auto) 88.5 % (47-70) H 05/11/19 05:35 Lymph % (Auto) 7.3 % (19-41) L 05/11/19 05:35 Absolute Neuts (auto) 12.0 X10^3/uL (2.0-7.7) H 05/11/19 05:35 Absolute Lymphs (auto) 0.69 X10^3/uL (0.83-4.51) L 05/09/19 21:45 PT 27.3 SECONDS (11.7-14.9) H 05/09/19 21:45 APTT 46.0 Seconds (24.1-36.2) H 05/11/19 05:35 Potassium 2.9 mmol/L (3.5-5.1) L 05/11/19 05:35 Chloride 114 mmol/L (98-107) H 05/11/19 05:35 Carbon Dioxide 16.0 mmol/L (21.0-32.0) L 05/10/19 04:00 BUN 25 mg/dL (7-18) H 05/11/19 05:35 Creatinine 1.74 mg/dL (0.55-1.02) H 05/11/19 05:35 Est GFR (MDRD) Af Amer 38 mL/min (>60) L 05/11/19 05:35 Est GFR (MDRD) Non-Af 31 mL/min (>60) L 05/11/19 05:35 Glucose 132 mg/dL (74-106) H 05/11/19 05:35 Calcium 8.3 mg/dL (8.5-10.1) L 05/07/19 12:13 Phosphorus 1.9 mg/dL (2.5-4.9) L 05/11/19 05:35 AST 42 U/L (15-37) H 05/07/19 12:13 Total Creatine Kinase 18 U/L (26-192) L 05/11/19 05:35 B-Natriuretic Peptide 131.0 pg/mL (0-100) H 05/08/19 06:28 Total Protein 5.9 g/dL (6.4-8.2) L 05/07/19 12:13 Albumin 1.8 g/dL (3.2-5.0) L 05/07/19 12:13 Albumin/Globulin Ratio 0.4 RATIO (0.9-2.4) L 05/07/19 12:13 - Assessment Food / Nutrition-Related History:: Currently w/ PO diet ordered, however pt is intubated w/ OG in place. Discussed in ICU rounds. Prior to intubation, pt continued w/ poor PO intake d/t need for bipap. Wt gain of 4.1 kg since yesterday. Has R pedal non-pitting and L pedal 2+ pitting edema per nursing documentation. Anticipate wt loss as fluid status improves. Per khushi Bolaños for enteral nutrition support this date. Will need to monitor blood glucose closely- currently on IV steroid. - Nutrition Diagnosis Problem / Etiology / Signs & Symptoms (PES):: Acute moderate malnutrition related to onset of acute illness, chronic debility as evidenced by poor PO intake over the past 2-3 months & pt reports of ~10-20# wt loss with (calculated~6-8% wt loss) x past 2-3 months. Evidence of Malnutrition Exists:: Yes Moderate PCM:: Acute Illness - Nutrition Intervention Nutrition Prescription:: 96-106 g protein/day (using 1.2g/kg admission wt) and 4613-7618 calories/day (using 22-25 calories/kg IBW of 56 kg). - Food / Nutrient Delivery Interventions Summary of nutrition intervention:: will provide enteral nutrition support; NPO while intubated. Nutrition support ordered as / adjusted to:: Vital AF 1.2 via OG at goal rate of 50mL/hour w/ 100mL H2O flush every 4 hours to provide 1440 calories, 90 g protein, and 1573mL total fluid/day. Start at 20mL/hour and advance by 10mL every 8 hours as pt tolerates until goal rate achieved. Nutrition education provided?: No - MNT Monitoring Further MNT monitoring and evaluation required?: Yes MNT Follow-up in:: 1-2 days
[2019-05-11] MEDS: Famotidine 20 MG Tablet GT ×2 (11:54→21:44)
[2019-05-11 12:05] LABS: Bedside Glucose 118 mg/dL (70-110)
[2019-05-11 12:28] LABS: Partial Thromboplast Time 45.9 Seconds (24.1-36.2)
[2019-05-11] MEDS: Vital AF 1.2 Cal Liquid 1,000 ML 20 ML GT (12:35)
[2019-05-11] MEDS: Propofol 10MG/Ml 1,000 MG/100 ML Bottle 15.6 MG CONT INF (12:54)
[2019-05-11] MEDS: fentaNYL drip 100 ML 20 MCG IV (12:54)
[2019-05-11 15:21] LABS: Anion Gap 5 (5-15); BUN 27 mg/dL (7-18); BUN/Creat Ratio 14.9 RATIO (10-20); Calcium,Total 9.2 mg/dL (8.5-10.1); Chloride 115 mmol/L (98-107); Creatinine, Serum 1.81 mg/dL (0.55-1.02); EST Glomerular Filtration Rate 30 mL/min (>60); Est Glom Filt Rate - Afr Amer 36 mL/min (>60); Estimated Creatinine Clearance 27.51 ml/min; Glucose 151 mg/dL (74-106); Phosphorus 5.1 mg/dL (2.5-4.9); Potassium 4.7 mmol/L (3.5-5.1); Sodium Level 142 mmol/L (136-145)
[2019-05-11] MEDS: Insulin Lispro 100 UNIT/ML INSULN.PEN SC (18:29)
[2019-05-11 18:35] LABS: Bedside Glucose 190 mg/dL (70-110)
[2019-05-11 19:05] LABS: Partial Thromboplast Time 57.1 Seconds (24.1-36.2)
[2019-05-11] MEDS: fentaNYL drip 100 ML 15 MCG IV (19:15)
[2019-05-11] MEDS: Propofol 10MG/Ml 1,000 MG/100 ML Bottle 10.4 MG CONT INF (20:00)
[2019-05-11] MEDS: Atorvastatin Calcium 20 MG Tablet GT (21:47)
[2019-05-12] VITALS (34 sets, daily range): BP systolic 80–143; BP diastolic 46–71; PULSE 55–109; RESP 13–26; TEMP 36.7–37.2; O2SAT 94–99
[2019-05-12] MEDS: Insulin Lispro 100 UNIT/ML INSULN.PEN SC ×5 (00:50→23:18)
--- NOTE | 2019-05-12 01:00 | NURSING ---
Lab notified this RN that ptt in [employer] may not reflect true value d/t control issues. Lab will calibrate and call back when results are ready.
[2019-05-12] MEDS: HEPARIN/D5w 25,000 UNITS 25,000 UNITS/250 ML IV.SOLN. 11 UNITS IV (01:05)
[2019-05-12] MEDS: fentaNYL drip 100 ML 15 MCG IV ×4 (01:05→22:15)
[2019-05-12 01:11] LABS: Bedside Glucose 185 mg/dL (70-110)
[2019-05-12 03:10] LABS: Partial Thromboplast Time 46.8 Seconds (24.1-36.2)
[2019-05-12] MEDS: Ipratropium/Albuterol Sulfate 3 ML AMPUL.NEB INHALATION ×5 (03:15→19:45)
[2019-05-12] MEDS: Propofol 10MG/Ml 1,000 MG/100 ML Bottle 10.4 MG CONT INF (03:59)
[2019-05-12 05:31] LABS: Absolute Lymphocyte Count 0.96 X10^3/uL (0.83-4.51); Absolute Neutrophil Count 14.8 X10^3/uL (2.0-7.7); Basophil# 0.02 X10^3/uL; Basophil% 0.1 % (0-1); Hematocrit 30.1 % (37-47); Hemoglobin 9.4 g/dL (12.0-15.0); Lymphocyte # 0.96 X10^3/ul (4.0); Lymphocyte % 5.8 % (19-41); Mean Corp Hgb Conc 31.2 g/dL (32-36); Mean Corpuscular Hgb 28.1 pg (27.0-32.0); Mean Corpuscular Volume 89.9 fL (81-99); Mean Platelet Vol. 8.6 fl (6.2-12.0); Monocyte# 0.21 X10^3/uL; Monocyte% 1.3 % (0-10); NRBC Flagged by Analyzer 0 % (0-5); Neutrophil # 14.75 X10^3/uL (2.7-7.7); Neutrophil % 89.5 % (47-70); Platelet Count 459 K/mm3 (150-450); RBC Distribution Width CV 16.4 % (11.6-14.6); RBC Distribution Width SD 53.7 fl (35.1-43.9); Red Blood Count 3.35 M/mm3 (4.2-5.4); White Blood Count 16.5 K/mm3 (4.4-11.0)
[2019-05-12 05:46] LABS: Anion Gap 8 (5-15); BUN 32 mg/dL (7-18); BUN/Creat Ratio 17.6 RATIO (10-20); Calcium,Total 8.4 mg/dL (8.5-10.1); Chloride 111 mmol/L (98-107); Creatinine, Serum 1.82 mg/dL (0.55-1.02); EST Glomerular Filtration Rate 30 mL/min (>60); Est Glom Filt Rate - Afr Amer 36 mL/min (>60); Estimated Creatinine Clearance 27.36 ml/min; Glucose 205 mg/dL (74-106); Potassium 4.5 mmol/L (3.5-5.1); Sodium Level 140 mmol/L (136-145)
[2019-05-12 05:51] LABS: Phosphorus 4.7 mg/dL (2.5-4.9)
[2019-05-12 06:20] LABS: Bedside Glucose 206 mg/dL (70-110)
--- NOTE | 2019-05-12 07:23 | PN_ITS ---
Subjective: Patient did okay overnight. Patient continues to be relatively difficult to sedate and has required Levophed to support blood pressure. Patient was unable to pass a spontaneous awakening trial this morning, so no spontaneous breathing trial was attempted. Patient does appear to have better synchrony with the ventilator today compared to yesterday. Patient has been tolerating tube feeds. General: - - Intubated and sedated. RASS -2. HEENT: Atraumatic, PERRLA, EOMI, Normocephalic, - - No scleral icterus or injection noted Oral: Moist Mucosa, No Gingival or Mucosal Lesions/ Ulcerations, - - No bleeding noted. Crowded posterior pharynx. Neck: Supple, No JVD, No Nodes, Trachea Midline Lungs: No rales, Diminished, Rhonchi, Wheezes, - - Symmetric expansion. Cardiovascular: Regular rate, Regular Rhythm, Normal S1, Normal S2, No murmurs, No rub noted, No Gallop Abdomen: Bowel Sounds Present, Soft, Non Tender, Non-Distended, Obese Extremities: No clubbing, No cyanosis, Edema Skin: No rashes, No breakdown Musculoskeletal: No Tenderness to Palpation of Joints or Extremities Lymphatic: No Cervical, Supraclavicular, or Inguinal Adenopathy Neurological: Cranial nerves II-XII grossly intact, Neuro grossly intact, Motor Exam 5/5 strength throughout Psych/Mental Status: Flat Affect Vital Signs Temp Pulse Resp BP Pulse Ox 36.8 C 62 14 127/54 H 97 05/12/19 04:00 05/12/19 06:00 05/12/19 06:00 05/12/19 06:00 05/12/19 06:00 Oxygen Flow Rate (L/min) 55 Oxygen Delivery Method Mechanical Ventilator Weight: 88.1 kg Body Mass Index (BMI) 31.8 Intake and Output for Last 24 Hours 05/10/19 05/11/19 05/12/19 23:59 23:59 23:59 Intake Total 3860.71 / 3860.71 2692.44 / 2959.64 878.35 / 878.35 Output Total 1100 / 1100 1150 / 1275 250 / 250 Balance 2760.71 / 2760.71 1542.44 / 1684.64 628.35 / 628.35 Labs (Last 48 Hours) 05/10/19 05/10/19 05/10/19 07:25 08:57 11:24 WBC RBC Hgb Hct MCV MCH MCHC RDW Std Deviation RDW Coeff of Kristal Plt Count MPV Immature Gran % (Auto) Neut % (Auto) Lymph % (Auto) [place] % (Auto) Eos % (Auto) Baso % (Auto) Absolute Neuts (auto) Absolute Lymphs (auto) Nucleated RBC % APTT Specimen Type ART Sample Site L Radial pH 7.32 L Bicarbonate Actual 14.6 L POC Total CO2 15 Base Excess -11 L O2 Saturation 95 O2 % 30 ABG pCO2 28.4 L ABG pO2 79 Obdulio Test POS Respiration Rate 12 O2 Delivery Device Bi / C PAP EPAP 8 IPAP 14 Blood Gas Notified Whom ICU MD Blood Gas Notified Time 724 Sodium Potassium Chloride Carbon Dioxide Anion Gap BUN Creatinine Estim Creat Clear Calc Est GFR (MDRD) Af Amer Est GFR (MDRD) Non-Af BUN/Creatinine Ratio Glucose Calcium Phosphorus Magnesium Total Creatine Kinase Triglycerides POC Glucose 80 160 H 05/10/19 05/10/19 05/10/19 11:25 17:20 17:23 WBC RBC Hgb Hct MCV MCH MCHC RDW Std Deviation RDW Coeff of Kristal Plt Count MPV Immature Gran % (Auto) Neut % (Auto) Lymph % (Auto) [place] % (Auto) Eos % (Auto) Baso % (Auto) Absolute Neuts (auto) Absolute Lymphs (auto) Nucleated RBC % APTT 115.8 H* 61.1 H Specimen Type Sample Site pH Bicarbonate Actual POC Total CO2 Base Excess O2 Saturation O2 % ABG pCO2 ABG pO2 Obdulio Test Respiration Rate O2 Delivery Device EPAP IPAP Blood Gas Notified Whom Blood Gas Notified Time Sodium Potassium Chloride Carbon Dioxide Anion Gap BUN Creatinine Estim Creat Clear Calc Est GFR (MDRD) Af Amer Est GFR (MDRD) Non-Af BUN/Creatinine Ratio Glucose Calcium Phosphorus Magnesium Total Creatine Kinase Triglycerides POC Glucose 140 H 05/10/19 05/10/19 05/11/19 21:12 23:07 05:35 WBC 13.6 H RBC 3.33 L Hgb 9.4 L Hct 28.8 L MCV 86.5 MCH 28.2 MCHC 32.6 RDW Std Deviation 48.9 H RDW Coeff of Kristal 15.3 H Plt Count 389 MPV 8.5 Immature Gran % (Auto) 1.700 H Neut % (Auto) 88.5 H Lymph % (Auto) 7.3 L [place] % (Auto) 1.7 Eos % (Auto) 0.7 Baso % (Auto) 0.1 Absolute Neuts (auto) 12.0 H Absolute Lymphs (auto) 1.00 Nucleated RBC % 0 APTT 42.4 H Specimen Type Sample Site pH Bicarbonate Actual POC Total CO2 Base Excess O2 Saturation O2 % ABG pCO2 ABG pO2 Obdulio Test Respiration Rate O2 Delivery Device EPA IPAP Blood Gas Notified Whom Blood Gas Notified Time Sodium Potassium Chloride Carbon Dioxide Anion Gap BUN Creatinine Estim Creat Clear Calc Est GFR (MDRD) Af Amer Est GFR (MDRD) Non-Af BUN/Creatinine Ratio Glucose Calcium Phosphorus Magnesium Total Creatine Kinase Triglycerides POC Glucose 164 H 05/11/19 05/11/19 05/11/19 05:35 05:35 05:35 WBC RBC Hgb Hct MCV MCH MCHC RDW Std Deviation RDW Coeff of Kristal Plt Count MPV Immature Gran % (Auto) Neut % (Auto) Lymph % (Auto) [place] % (Auto) Eos % (Auto) Baso % (Auto) Absolute Neuts (auto) Absolute Lymphs (auto) Nucleated RBC % APTT 46.0 H Specimen Type Sample Site pH Bicarbonate Actual POC Total CO2 Base Excess O2 Saturation O2 % ABG pCO2 ABG pO2 Obdulio Test Respiration Rate O2 Delivery Device EPA IPAP Blood Gas Notified Whom Blood Gas Notified Time Sodium 143 Potassium 2.9 L Chloride 114 H Carbon Dioxide 23.0 Anion Gap 6 BUN 25 H Creatinine 1.74 H Estim Creat Clear Calc 28.62 Est GFR (MDRD) Af Amer 38 L Est GFR (MDRD) Non-Af 31 L BUN/Creatinine Ratio 14.4 Glucose 132 H Calcium 8.9 Phosphorus 1.9 L Magnesium 1.9 Total Creatine Kinase Triglycerides POC Glucose 05/11/19 05/11/19 05/11/19 05:35 06:49 11:59 WBC RBC Hgb Hct MCV MCH MCHC RDW Std Deviation RDW Coeff of Kristal Plt Count MPV Immature Gran % (Auto) Neut % (Auto) Lymph % (Auto) [place] % (Auto) Eos % (Auto) Baso % (Auto) Absolute Neuts (auto) Absolute Lymphs (auto) Nucleated RBC % APTT Specimen Type Sample Site pH Bicarbonate Actual POC Total CO2 Base Excess O2 Saturation O2 % ABG pCO2 ABG pO2 Obdluio Test Respiration Rate O2 Delivery Device EPAP IPAP Blood Gas Notified Whom Blood Gas Notified Time Sodium Potassium Chloride Carbon Dioxide Anion Gap BUN Creatinine Estim Creat Clear Calc Est GFR (MDRD) Af Amer Est GFR (MDRD) Non-Af BUN/Creatinine Ratio Glucose Calcium Phosphorus Magnesium Total Creatine Kinase 18 L Triglycerides 122 POC Glucose 129 H 118 H 05/11/19 05/11/19 05/11/19 12:00 14:55 18:27 WBC RBC Hgb Hct MCV MCH MCHC RDW Std Deviation RDW Coeff of Kristal Plt Count MPV Immature Gran % (Auto) Neut % (Auto) Lymph % (Auto) [place] % (Auto) Eos % (Auto) Baso % (Auto) Absolute Neuts (auto) Absolute Lymphs (auto) Nucleated RBC % APTT 45.9 H Specimen Type Sample Site pH Bicarbonate Actual POC Total CO2 Base Excess O2 Saturation O2 % ABG pCO2 ABG pO2 Obdulio Test Respiration Rate O2 Delivery Device EPAP IPAP Blood Gas Notified Whom Blood Gas Notified Time Sodium 142 Potassium 4.7 Chloride 115 H Carbon Dioxide 22.0 Anion Gap 5 BUN 27 H Creatinine 1.81 H Estim Creat Clear Calc 27.51 Est GFR (MDRD) Af Amer 36 L Est GFR (MDRD) Non-Af 30 L BUN/Creatinine Ratio 14.9 Glucose 151 H Calcium 9.2 Phosphorus 5.1 H Magnesium 2.0 Total Creatine Kinase Triglycerides POC Glucose 190 H 05/11/19 05/12/19 05/12/19 18:30 00:05 00:48 WBC RBC Hgb Hct MCV MCH MCHC RDW Std Deviation RDW Coeff of Kristal Plt Count MPV Immature Gran % (Auto) Neut % (Auto) Lymph % (Auto) [place] % (Auto) Eos % (Auto) Baso % (Auto) Absolute Neuts (auto) Absolute Lymphs (auto) Nucleated RBC % APTT 57.1 H 46.8 H Specimen Type Sample Site pH Bicarbonate Actual POC Total CO2 Base Excess O2 Saturation O2 % ABG pCO2 ABG pO2 Obdulio Test Respiration Rate O2 Delivery Device EPAP IPAP Blood Gas Notified Whom Blood Gas Notified Time Sodium Potassium Chloride Carbon Dioxide Anion Gap BUN Creatinine Estim Creat Clear Calc Est GFR (MDRD) Af Amer Est GFR (MDRD) Non-Af BUN/Creatinine Ratio Glucose Calcium Phosphorus Magnesium Total Creatine Kinase Triglycerides POC Glucose 185 H 05/12/19 05/12/19 05/12/19 05:15 05:15 05:15 WBC 16.5 H RBC 3.35 L Hgb 9.4 L Hct 30.1 L MCV 89.9 MCH 28.1 MCHC 31.2 L RDW Std Deviation 53.7 H RDW Coeff of Kristal 16.4 H Plt Count 459 H MPV 8.6 Immature Gran % (Auto) 3.300 H Neut % (Auto) 89.5 H Lymph % (Auto) 5.8 L [place] % (Auto) 1.3 Eos % (Auto) 0.0 Baso % (Auto) 0.1 Absolute Neuts (auto) 14.8 H Absolute Lymphs (auto) 0.96 Nucleated RBC % 0 APTT Specimen Type Sample Site pH Bicarbonate Actual POC Total CO2 Base Excess O2 Saturation O2 % ABG pCO2 ABG pO2 Obdulio Test Respiration Rate O2 Delivery Device EPAP IPAP Blood Gas Notified Whom Blood Gas Notified Time Sodium 140 Potassium 4.5 Chloride 111 H Carbon Dioxide 21.0 Anion Gap 8 BUN 32 H Creatinine 1.82 H Estim Creat Clear Calc 27.36 Est GFR (MDRD) Af Amer 36 L Est GFR (MDRD) Non-Af 30 L BUN/Creatinine Ratio 17.6 Glucose 205 H Calcium 8.4 L Phosphorus 4.7 Magnesium 2.0 Total Creatine Kinase Triglycerides POC Glucose 05/12/19 06:10 WBC RBC Hgb Hct MCV MCH MCHC RDW Std Deviation RDW Coeff of Kristal Plt Count MPV Immature Gran % (Auto) Neut % (Auto) Lymph % (Auto) [place] % (Auto) Eos % (Auto) Baso % (Auto) Absolute Neuts (auto) Absolute Lymphs (auto) Nucleated RBC % APTT Specimen Type Sample Site pH Bicarbonate Actual POC Total CO2 Base Excess O2 Saturation O2 % ABG pCO2 ABG pO2 Obdulio Test Respiration Rate O2 Delivery Device EPAP IPAP Blood Gas Notified Whom Blood Gas Notified Time Sodium Potassium Chloride Carbon Dioxide Anion Gap BUN Creatinine Estim Creat Clear Calc Est GFR (MDRD) Af Amer Est GFR (MDRD) Non-Af BUN/Creatinine Ratio Glucose Calcium Phosphorus Magnesium Total Creatine Kinase Triglycerides POC Glucose 206 H Microbiology 05/10/19 01:25 Sputum, Expectorated/Coughed Gram Stain - Final 05/10/19 01:25 Sputum, Expectorated/Coughed Respiratory Culture - Preliminary Presumptive C albicans 05/11/19 07:50 Sputum, Induced/Lukens Gram Stain - Final 05/08/19 17:45 Blood Culture (Wb) - Venous Blood Culture - Preliminary No growth in 48 hours. 05/08/19 17:20 Blood Culture (Wb) - Left Hand Blood Culture - Preliminary No growth in 48 hours. Clinical Impression(s) from Imaging Studies Chest X-Ray 05/11/19 07:41 IMPRESSION: An endotracheal tube has been placed. The tip is at 4.3 cm proximal to the caesar. An orogastric tube is seen with the tip in the body of the stomach. The remainder of the examination is unchanged. Electronically Signed: Jaun Malika, at 12:09 EST , Service support , Medical Necessity - Tobacco Use Smoking Status: Never smoker Tobacco Use: Non-smoker Assessment/Plan All Active Problems (Last Reviewed 05/07/19 @ 13:[address] Doni Mccray MD) Respiratory failure with hypoxia (Acute) Bilateral pneumonia (Acute) Sepsis due to pneumonia (Acute) Infectious encephalopathy (Acute) RECOMMENDATIONS: 1. Continue mechanical ventilation. Spontaneous awakening and breathing trials per protocol 2. Wean FiO2 to maintain oxygen saturations at or above 90%. 3. Continue empiric antimicrobials, pending finalized infectious work-up. Will DC if negative at 48 hours 4. Continue weight based heparin drip 5. Continue empiric steroid and bronchodilator therapy 6. Continue tube feeds IMPRESSIONS: 1. Acute hypoxemic respiratory failure Differential would include healthcare associated pneumonia versus pulmonary edema. The patient's creatinine has increased after having been given Lasix. Agree with continuing current supportive measures, including noninvasive positive pressure ventilatory support and broad-spectrum antimicrobial coverage. Patient appears to have much better response to mechanical ventilation than BiPAP. Empiric steroids were started yesterday. If repeat sputum cultures are negative at 48 hours, will likely discontinue antibiotics. Repeat chest x-ray in the morning. Possible transition to Precedex in the next 24 to 48 hours to facilitate liberation from the ventilator. 2. Severe sepsis Appears to be secondary to underlying pulmonary infectious process. MRSA screen was negative. The patient remains on empiric antimicrobials, pending finalized infectious work-up. She is requiring pressor therapy, but this is likely secondary to sedation medications. 3. Chronic heart failure with preserved ejection fraction Appears euvolemic at this time. We will hold on additional doses of Lasix therapy given patient's renal function. 4. Acute kidney injury Potentially prerenal in etiology. Agree with holding Lasix for now. Avoid nephrotoxic medications. 5. Hypokalemia Electrolyte repletion as needed. Recheck levels in the morning. Will recheck labs later this afternoon. 6. History of DVT on Eliquis/diabetes mellitus/hyperlipidemia/obesity Complicates care, management, recovery and prognosis. Hold Eliquis and continue weight based heparin drip. TIME: 36 minutes critical care time spent addressing patient's acute hypoxic respiratory failure, severe sepsis, electrolyte abnormalities, review of all data and collaboration with care team. (5:50 AM to 6:45 AM) Code Visit [id number]: [id number] Critical care first hour
--- NOTE | 2019-05-12 09:23 | PCM.PN.HOSP ---
Patient Problems: Active and Suspected Problems (Last Reviewed 05/07/19 @ 13:[address] Doni Mccray MD) Respiratory failure with hypoxia (Acute) Bilateral pneumonia (Acute) Sepsis due to pneumonia (Acute) Infectious encephalopathy (Acute) Reason for Visit: resp failure Subjective: Still on vent. Agitated with wean of sedation. Vitals/I&O's: Vital Signs Temp Pulse Resp BP Pulse Ox 36.8 C 60 18 127/54 H 96 05/12/19 04:00 05/12/19 06:40 05/12/19 06:40 05/12/19 06:00 05/12/19 06:40 Oxygen Flow Rate (L/min) 55 Oxygen Delivery Method Mechanical Ventilator Weight: 88.1 kg Body Mass Index (BMI) 31.8 Intake and Output for Last 24 Hours 05/10/19 05/11/19 05/12/19 23:59 23:59 23:59 Intake Total 3860.71 / 3860.71 2692.44 / 2959.64 904.60 / 904.60 Output Total 1100 / 1100 1150 / 1275 250 / 250 Balance 2760.71 / 2760.71 1542.44 / 1684.64 654.60 / 654.60 General: - - intubated and sedated. HEENT: Atraumatic, Normocephalic Oral: - - ETT, OG in place Neck: No Nodes, Trachea Midline Lungs: Normal air movement, - - coarse breath sounds bilaterally. Cardiovascular: Regular rate, Regular Rhythm, Normal S1, Normal S2, No murmurs Abdomen: Bowel Sounds Present, Soft, Non Tender, Non-Distended Extremities: No edema, No Calf Tenderness Microbiology Past 72 Hours 05/11/19 07:50 Sputum, Induced/Lukens Gram Stain - Final 05/11/19 07:50 Sputum, Induced/Lukens Respiratory Culture - Preliminary Yeast 05/10/19 01:25 Sputum, Expectorated/Coughed Gram Stain - Final 05/10/19 01:25 Sputum, Expectorated/Coughed Respiratory Culture - Final Presumptive C albicans 05/08/19 17:45 Blood Culture (Wb) - Venous Blood Culture - Preliminary No growth in 48 hours. 05/08/19 17:20 Blood Culture (Wb) - Left Hand Blood Culture - Preliminary No growth in 48 hours. 05/07/19 11:13 Blood Culture (Wb) - Right Hand Blood Culture - Preliminary No growth in 48 hours. 05/07/19 11:15 Blood Culture (Wb) - Left Wrist Blood Culture - Preliminary No growth in 48 hours. 05/07/19 10:30 Urine Catheter - Yung Urine Culture - Final Culture exhibits no growth. Laboratory Results 05/11/19 11:59: POC Glucose 118 H 05/11/19 12:00: APTT 45.9 H 05/11/19 14:55: Sodium 142, Potassium 4.7, Chloride 115 H, Carbon Dioxide 22.0, Anion Gap 5, BUN 27 H, Creatinine 1.81 H, Estim Creat Clear Calc 27.51, Est GFR (MDRD) Af Amer 36 L, Est GFR (MDRD) Non-Af 30 L, BUN/Creatinine Ratio 14.9, Glucose 151 H, Calcium 9.2, Phosphorus 5.1 H, Magnesium 2.0 05/11/19 18:27: POC Glucose 190 H 05/11/19 18:30: APTT 57.1 H 05/12/19 00:05: APTT 46.8 H 05/12/19 00:48: POC Glucose 185 H 05/12/19 05:15: WBC 16.5 H, RBC 3.35 L, Hgb 9.4 L, Hct 30.1 L, MCV 89.9, MCH 28.1, MCHC 31.2 L, RDW Std Deviation 53.7 H, RDW Coeff of Kristal 16.4 H, Plt Count 459 H, MPV 8.6, Immature Gran % (Auto) 3.300 H, Neut % (Auto) 89.5 H, Lymph % (Auto) 5.8 L, [place] % (Auto) 1.3, Eos % (Auto) 0.0, Baso % (Auto) 0.1, Absolute Neuts (auto) 14.8 H, Absolute Lymphs (auto) 0.96, Nucleated RBC % 0 05/12/19 05:15: Sodium 140, Potassium 4.5, Chloride 111 H, Carbon Dioxide 21.0, Anion Gap 8, BUN 32 H, Creatinine 1.82 H, Estim Creat Clear Calc 27.36, Est GFR (MDRD) Af Amer 36 L, Est GFR (MDRD) Non-Af 30 L, BUN/Creatinine Ratio 17.6, Glucose 205 H, Calcium 8.4 L, Magnesium 2.0 05/12/19 05:15: Phosphorus 4.7 05/12/19 06:10: POC Glucose 206 H Current Medications Acetaminophen (Tylenol Liquid) 650 mg GT Q6H PRN PRN PRN Reason: Pain Score 1-3/Temp > 100.7 F Al Hydroxide/Mg Hydroxide (Mylanta Ii) 30 ml GT Q6H PRN PRN PRN Reason: Gastric Burning Albuterol Sulfate (Ventolin Aerosols) 2.5 mg INHALATION Q2H PRN PRN PRN Reason: Shortness of Breath/Wheezing Last Admin: 05/08/19 04:30 Dose: 2.5 mg Documented by: Albuterol/Ipratropium (Duoneb) 3 ml INHALATION Q4HWA.RT [facility] Last Admin: 05/12/19 06:40 Dose: 3 ml Documented by: Ascorbic Acid (Vitamin C) 500 mg GT DAILY@0800 [facility] Aspirin (Aspirin, Baby) 81 mg GT DAILYCM [facility] Atorvastatin Calcium (Lipitor) 20 mg GT QHS [facility] Last Admin: 05/11/19 21:47 Dose: 20 mg Documented by: Bupropion HCl (Wellbutrin Tablets) 75 mg GT BID [facility] Last Admin: 05/11/19 21:47 Dose: 75 mg Documented by: Calamine/Phenol (Calmoseptine Ointment) 1 applic TOPICAL BID [facility]; Protocol Last Admin: 05/11/19 21:47 Dose: 1 applicatio Documented by: Chlorhexidine Gluconate () 15 ml PO BID [facility] Last Admin: 05/11/19 21:47 Dose: 15 ml Documented by: Chlorhexidine Gluconate () 1 each TOPICAL DAILY [facility] Last Admin: 05/11/19 10:06 Dose: 1 each Documented by: Famotidine (Pepcid) 20 mg GT BID [facility] Last Admin: 05/11/19 21:44 Dose: 20 mg Documented by: Glucagon () 1 mg IM .X1 PRN PRN Reason: Hypoglycemia Guaifenesin (Robitussin) 20 ml GT Q4H PRN PRN PRN Reason: COUGH Heparin Sodium (Porcine) (Heparin Na) 0 unit IV UD PRN; Protocol Cefepime HCl 2 gm/ Sodium (Chloride) 100 mls @ 200 mls/hr IV Q12 [facility] Last Infusion: 03/03/20 23:54 Dose: Infused Documented by: Dextrose (Dextrose 10%-Water) 250 mls @ 999 mls/hr IV .Q16M PRN; Protocol PRN Reason: HYPOGLYCEMIA Heparin Sodium/Dextrose () 25,000 units in 250 mls @ 10 mls/hr IV .Q25H [facility]; Protocol Last Titration: 05/12/19 03:09 Dose: 1,200 units/hr, 12 mls/hr Documented by: Propofol (Diprivan) 1,000 mg in 100 mls @ 5.286 mls/hr CONT INF .Q12H [facility]; Protocol Last Titration: 05/12/19 06:00 Dose: 25 mcg/kg/min, 13.2 mls/hr Documented by: Fentanyl () 100 mls @ 5 mls/hr IV UD [facility]; Protocol Last Admin: 05/12/19 07:45 Dose: 150 mcg/hr, 15 mls/hr Documented by: Sodium Chloride () 250 mls @ 15 mls/hr IV .[id number] PRN PRN Reason: Saline Flush Last Infusion: 05/11/19 16:21 Dose: 0 mls/hr Documented by: Sodium Chloride () 250 mls @ 15 mls/hr IV .[id number] PRN PRN Reason: Additional IVPB Infusion Enteral Nutritional Formula (Vital Af 1.2 Jose Liquid) 1,000 mls @ 50 mls/hr GT .Q20H [facility] Last Admin: 05/12/19 08:11 Dose: Not Given Documented by: Norepinephrine Bitartrate 8 mg (/ Sodium Chloride) 250 mls @ 9.375 mls/hr CONT INF .[id number] [facility]; Protocol Last Titration: 05/12/19 06:00 Dose: 5 mcg/min, 9.4 mls/hr Documented by: Insulin Human Lispro (Humalog Kwikpen (Bkc)) 0 unit SC Q6 [facility]; Protocol Last Admin: 05/12/19 06:12 Dose: 4 u Documented by: Magnesium Hydroxide (Milk Of Magnesia) 30 ml GT DAILY PRN PRN PRN Reason: Constipation Melatonin (Melatonin) 3 mg GT QHS PRN PRN PRN Reason: INSOMNIA Methylprednisolone (Solu-Medrol) 40 mg IV Q6 [facility] Last Admin: 05/12/19 06:12 Dose: 40 mg Documented by: Nitroglycerin (Nitrostat) 0.4 mg SUBLINGUAL Q5M PRN PRN Reason: CARDIAC/CHEST PAIN Ondansetron HCl (Zofran) 4 mg IV Q8H PRN PRN PRN Reason: NAUSEA/VOMITING Prochlorperazine Edisylate (Compazine Iv) 5 mg IV Q4H PRN PRN PRN Reason: Breakthrough nausea/vomiting Senna/Docusate Sodium (Senokot-S, Corrie-Colace) 2 tablet GT DAILY [facility] Last Admin: 05/11/19 10:24 Dose: 2 tablet Documented by: Sodium Chloride () 10 - 40 ml IV UD PRN PRN Reason: SALINE FLUSH Last Admin: 05/11/19 11:55 Dose: 20 ml Documented by: STROKE Vital Signs/Narrative: Vital Signs Pulse Resp BP Pulse Ox 05/12/19 06:40 59 L 17 96 05/12/19 06:00 62 14 127/54 H 97 Medical Necessity - Tobacco Use Smoking Status: Never smoker Tobacco Use: Non-smoker Assessment/Plan All Active Problems (Last Reviewed 05/07/19 @ 13:[address] Doni Mccray MD) Respiratory failure with hypoxia (Acute) Bilateral pneumonia (Acute) Sepsis due to pneumonia (Acute) Infectious encephalopathy (Acute) 1. acute hypoxic respiratory failure ongoing intubated 05/11/2019 CXR reviewed and shows bilateral patchy infiltrates pneumonia v CHF v ALI on methylpred, BDs CCM mgmt appreciated 2. Severe sepsis POA due to presumptive pneumonia supportive mgmt 3. presumed gram negative pneumonia UCx, Strep Ag, legionella Ag, BCx, resp panel negative Sputum culture showing presumptive C. albicans, suspect contaminant on cefepime from the 4. HFpEF EF 65% from echo on 02/17/19 off furosemide given RYAN 5. RYAN prerenal v ATN avoid IVF given CHF 6. VTE on heparin gtt. resume apixaban when able to take PO. DAXA RN Code Visit Inpatient E&M: 04183 Subs Hosp L2
[2019-05-12] MEDS: buPROPion 75 MG Tablet GT ×2 (10:41→23:18)
[2019-05-12] MEDS: Ascorbic Acid 500 MG Tablet GT (10:41)
[2019-05-12] MEDS: Senna/Docusate Sodium 1 Tablet 2 TABLET GT (10:41)
[2019-05-12] MEDS: APIXABAN 5 MG TABLET PO ×2 (10:41→23:17)
[2019-05-12] MEDS: Aspirin 81 MG TAB.CHEW GT (10:41)
[2019-05-12] MEDS: Menthol/Lanolin/Calamine/Znox 113 GM Tube 1 APPLIC TOPICAL ×2 (10:42→23:16)
[2019-05-12] MEDS: CHLORHEXIDINE GLUC 2% CLOTH 1 EACH TOWELETTE TOPICAL (10:43)
[2019-05-12] MEDS: Chlorhexidine 15 ML PO ×2 (11:04→23:17)
[2019-05-12] MEDS: 0.9% Saline Lock 10 ML Syringe IV ×4 (11:05→18:41)
[2019-05-12] MEDS: Propofol 10MG/Ml 1,000 MG/100 ML Bottle 13.2 MG CONT INF ×3 (11:27→23:16)
[2019-05-12 11:50] LABS: Bedside Glucose 209 mg/dL (70-110)
[2019-05-12] MEDS: Famotidine 20 MG Tablet GT (18:41)
[2019-05-12] MEDS: Vital AF 1.2 Cal Liquid 1,000 ML 50 ML GT (18:41)
[2019-05-12 19:11] LABS: Bedside Glucose 199 mg/dL (70-110)
[2019-05-12] MEDS: Atorvastatin Calcium 20 MG Tablet GT (23:18)
[2019-05-12 23:31] LABS: Bedside Glucose 266 mg/dL (70-110)
[2019-05-13] VITALS (51 sets, daily range): BP systolic 99–147; BP diastolic 44–76; PULSE 56–126; RESP 11–18; TEMP 36.8–37.4; O2SAT 93–100
[2019-05-13] MEDS: Propofol 10MG/Ml 1,000 MG/100 ML Bottle 13.2 MG CONT INF (03:42)
[2019-05-13] MEDS: fentaNYL drip 100 ML 15 MCG IV ×2 (04:56→11:17)
--- NOTE | 2019-05-13 05:55 | RAD_ITS ---
STUDY: X-RAY CHEST REASON FOR EXAM: Female, 68 years old. SOB -- INTUBATED -- BEST IMAGES POSSIBLE, PATIENT VERY AGITATED TECHNIQUE: 2 AP portable views of the chest were obtained. COMPARISON: 05/11/2019. FINDINGS: Endotracheal tube tip is 3.9 cm above the caesar. Nasogastric tube extends at least as far as the body the stomach. There is a left-sided PICC line with its tip in the proximal superior vena cava. There is no demonstrated pneumothorax. There are bilateral pulmonary infiltrates, similar in appearance to previous exam. There is no demonstrated pleural abnormality. Normal size heart. Normal mediastinum and christian. Normal visualized pulmonary arteries. There is atherosclerotic calcification of the aortic arch. There are diffuse degenerative changes of the visualized thoracic spine. Normal visualized ribs, clavicles, and shoulders. There is no demonstrated abnormality of the visualized soft tissue structures of the upper abdomen. RAD/Chest 1 View (Portable) IMPRESSION: Tubes are in adequate position. Bilateral pulmonary infiltrates, not significantly changed. Electronically Signed: Bigg Henderson MD at 5:50 EST , Service support ,
[2019-05-13] MEDS: Insulin Lispro 100 UNIT/ML INSULN.PEN SC ×3 (06:34→17:36)
[2019-05-13] MEDS: Ipratropium/Albuterol Sulfate 3 ML AMPUL.NEB INHALATION ×4 (06:40→19:18)
[2019-05-13 06:42] LABS: Absolute Lymphocyte Count 0.92 X10^3/uL (0.83-4.51); Absolute Neutrophil Count 17.9 X10^3/uL (2.0-7.7); Basophil# 0.03 X10^3/uL; Basophil% 0.1 % (0-1); Hematocrit 29.3 % (37-47); Hemoglobin 9.2 g/dL (12.0-15.0); Lymphocyte # 0.92 X10^3/ul (4.0); Lymphocyte % 4.5 % (19-41); Mean Corp Hgb Conc 31.4 g/dL (32-36); Mean Corpuscular Hgb 28.6 pg (27.0-32.0); Mean Platelet Vol. 8.7 fl (6.2-12.0); Monocyte% 3.9 % (0-10); NRBC Flagged by Analyzer 0 % (0-5); Neutrophil % 87.5 % (47-70); Platelet Count 479 K/mm3 (150-450); RBC Distribution Width CV 16.4 % (11.6-14.6); RBC Distribution Width SD 55.4 fl (35.1-43.9); Red Blood Count 3.22 M/mm3 (4.2-5.4); White Blood Count 20.5 K/mm3 (4.4-11.0)
[2019-05-13 06:56] LABS: Anion Gap 6 (5-15); BUN 44 mg/dL (7-18); BUN/Creat Ratio 20.4 RATIO (10-20); Calcium,Total 8.6 mg/dL (8.5-10.1); Chloride 114 mmol/L (98-107); Creatinine, Serum 2.16 mg/dL (0.55-1.02); EST Glomerular Filtration Rate 24 mL/min (>60); Est Glom Filt Rate - Afr Amer 29 mL/min (>60); Estimated Creatinine Clearance 23.05 ml/min; Glucose 249 mg/dL (74-106); Potassium 4.5 mmol/L (3.5-5.1); Sodium Level 140 mmol/L (136-145)
[2019-05-13 07:30] LABS: Bedside Glucose 236 mg/dL (70-110)
[2019-05-13] MEDS: TITRATION PARAMETER CHANGE 1 EACH IV (08:02)
--- NOTE | 2019-05-13 08:54 | PCM.PN.HOSP ---
Patient Problems: Active and Suspected Problems (Last Reviewed 05/07/19 @ 13:[address] Doni Mccray MD) Respiratory failure with hypoxia (Acute) Bilateral pneumonia (Acute) Sepsis due to pneumonia (Acute) Infectious encephalopathy (Acute) Reason for Visit: resp failure Subjective: still on vent. Vitals/I&O's: Vital Signs Temp Pulse Resp BP Pulse Ox 37.2 C 64 14 131/55 H 97 05/13/19 08:00 05/13/19 08:00 05/13/19 08:00 05/13/19 08:00 05/13/19 08:00 Oxygen Flow Rate (L/min) 55 Oxygen Delivery Method Mechanical Ventilator Weight: 88.9 kg Body Mass Index (BMI) 31.8 Intake and Output for Last 24 Hours 05/11/19 05/12/19 05/13/19 23:59 23:59 23:59 Intake Total 2692.44 / 2959.64 3072.77 / 3106.85 1098.28 / 1098.28 Output Total 1150 / 1275 725 / 725 250 / 250 Balance 1542.44 / 1684.64 2347.77 / 2381.85 848.28 / 848.28 General: No apparent distress, - - intubated and sedated HEENT: Atraumatic, Normocephalic Oral: Moist Mucosa, No Gingival or Mucosal Lesions/ Ulcerations Neck: No Nodes, Trachea Midline Lungs: Normal air movement, - - coarse breath sounds bilaterally. Cardiovascular: Regular rate, Regular Rhythm, Normal S1, Normal S2, No murmurs Abdomen: Bowel Sounds Present, Soft, Non Tender, Non-Distended Extremities: No edema, No Calf Tenderness Skin: No rashes Musculoskeletal: No Tenderness to Palpation of Joints or Extremities, No Muscle Wasting Microbiology Past 72 Hours 05/07/19 11:13 Blood Culture (Wb) - Right Hand Blood Culture - Final No growth in 5 days. 05/07/19 11:15 Blood Culture (Wb) - Left Wrist Blood Culture - Final No growth in 5 days. 05/11/19 07:50 Sputum, Induced/Lukens Gram Stain - Final 05/11/19 07:50 Sputum, Induced/Lukens Respiratory Culture - Preliminary Yeast 05/10/19 01:25 Sputum, Expectorated/Coughed Gram Stain - Final 05/10/19 01:25 Sputum, Expectorated/Coughed Respiratory Culture - Final Presumptive C albicans 05/08/19 17:45 Blood Culture (Wb) - Venous Blood Culture - Preliminary No growth in 48 hours. 05/08/19 17:20 Blood Culture (Wb) - Left Hand Blood Culture - Preliminary No growth in 48 hours. Laboratory Results 05/12/19 11:37: POC Glucose 209 H 05/12/19 18:56: POC Glucose 199 H 05/12/19 23:07: POC Glucose 266 H 05/13/19 06:30: WBC 20.5 H, RBC 3.22 L, Hgb 9.2 L, Hct 29.3 L, MCV 91.0, MCH 28.6, MCHC 31.4 L, RDW Std Deviation 55.4 H, RDW Coeff of Kristal 16.4 H, Plt Count 479 H, MPV 8.7, Immature Gran % (Auto) 4.000 H, Neut % (Auto) 87.5 H, Lymph % (Auto) 4.5 L, [place] % (Auto) 3.9, Eos % (Auto) 0.0, Baso % (Auto) 0.1, Absolute Neuts (auto) 17.9 H, Absolute Lymphs (auto) 0.92, Nucleated RBC % 0 05/13/19 06:30: Sodium 140, Potassium 4.5, Chloride 114 H, Carbon Dioxide 20.0 L, Anion Gap 6, BUN 44 H, Creatinine 2.16 H, Estim Creat Clear Calc 23.05, Est GFR (MDRD) Af Amer 29 L, Est GFR (MDRD) Non-Af 24 L, BUN/Creatinine Ratio 20.4 H, Glucose 249 H, Calcium 8.6 05/13/19 06:30: POC Glucose 236 H Current Medications Acetaminophen (Tylenol Liquid) 650 mg GT Q6H PRN PRN PRN Reason: Pain Score 1-3/Temp > 100.7 F Al Hydroxide/Mg Hydroxide (Mylanta Ii) 30 ml GT Q6H PRN PRN PRN Reason: Gastric Burning Albuterol Sulfate (Ventolin Aerosols) 2.5 mg INHALATION Q2H PRN PRN PRN Reason: Shortness of Breath/Wheezing Last Admin: 05/08/19 04:30 Dose: 2.5 mg Documented by: Albuterol/Ipratropium (Duoneb) 3 ml INHALATION Q4HWA.RT [facility] Last Admin: 05/13/19 06:40 Dose: 3 ml Documented by: Apixaban (Eliquis) 5 mg PO BID [facility] Last Admin: 05/12/19 23:17 Dose: 5 mg Documented by: Ascorbic Acid (Vitamin C) 500 mg GT DAILY@0800 [facility] Last Admin: 05/12/19 10:41 Dose: 500 mg Documented by: Aspirin (Aspirin, Baby) 81 mg GT DAILYCM [facility] Last Admin: 05/12/19 10:41 Dose: 81 mg Documented by: Atorvastatin Calcium (Lipitor) 20 mg GT QHS [facility] Last Admin: 05/12/19 23:18 Dose: 20 mg Documented by: Bupropion HCl (Wellbutrin Tablets) 75 mg GT BID [facility] Last Admin: 05/12/19 23:18 Dose: 75 mg Documented by: Calamine/Phenol (Calmoseptine Ointment) 1 applic TOPICAL BID [facility]; Protocol Last Admin: 05/12/19 23:16 Dose: 1 applicatio Documented by: Chlorhexidine Gluconate () 15 ml PO BID [facility] Last Admin: 05/12/19 23:17 Dose: 15 ml Documented by: Chlorhexidine Gluconate () 1 each TOPICAL DAILY [facility] Last Admin: 05/12/19 10:43 Dose: 1 each Documented by: Famotidine (Pepcid) 20 mg GT DAILY [facility] Last Admin: 05/12/19 18:41 Dose: 20 mg Documented by: Glucagon () 1 mg IM .X1 PRN PRN Reason: Hypoglycemia Guaifenesin (Robitussin) 20 ml GT Q4H PRN PRN PRN Reason: COUGH Cefepime HCl 2 gm/ Sodium (Chloride) 100 mls @ 200 mls/hr IV Q12 [facility] Last Infusion: 05/13/19 00:51 Dose: Infused Documented by: Dextrose (Dextrose 10%-Water) 250 mls @ 999 mls/hr IV .Q16M PRN; Protocol PRN Reason: HYPOGLYCEMIA Propofol (Diprivan) 1,000 mg in 100 mls @ 5.286 mls/hr CONT INF .Q12H [facility]; Protocol Last Titration: 05/13/19 08:00 Dose: 25 mcg/kg/min, 13.2 mls/hr Documented by: Fentanyl () 100 mls @ 5 mls/hr IV UD [facility]; Protocol Last Titration: 05/13/19 08:00 Dose: 150 mcg/hr, 15 mls/hr Documented by: Sodium Chloride () 250 mls @ 15 mls/hr IV .[id number] PRN PRN Reason: Saline Flush Last Infusion: 05/11/19 16:21 Dose: 0 mls/hr Documented by: Sodium Chloride () 250 mls @ 15 mls/hr IV .[id number] PRN PRN Reason: Additional IVPB Infusion Enteral Nutritional Formula (Vital Af 1.2 Jose Liquid) 1,000 mls @ 50 mls/hr GT .Q20H [facility] Last Admin: 05/13/19 03:17 Dose: Not Given Documented by: Norepinephrine Bitartrate 8 mg (/ Sodium Chloride) 250 mls @ 9.375 mls/hr CONT INF .[id number] [facility]; Protocol Last Titration: 05/13/19 08:00 Dose: 4 mcg/min, 7.5 mls/hr Documented by: Insulin Human Lispro (Humalog Kwikpen (Bkc)) 0 unit SC Q6 [facility]; Protocol Last Admin: 05/13/19 06:34 Dose: 4 u Documented by: Magnesium Hydroxide (Milk Of Magnesia) 30 ml GT DAILY PRN PRN PRN Reason: Constipation Melatonin (Melatonin) 3 mg GT QHS PRN PRN PRN Reason: INSOMNIA Methylprednisolone (Solu-Medrol) 40 mg IV Q6 [facility] Last Admin: 05/13/19 06:34 Dose: 40 mg Documented by: Nitroglycerin (Nitrostat) 0.4 mg SUBLINGUAL Q5M PRN PRN Reason: CARDIAC/CHEST PAIN Ondansetron HCl (Zofran) 4 mg IV Q8H PRN PRN PRN Reason: NAUSEA/VOMITING Polyethylene Glycol (Miralax) 17 gm PO BID [facility] Prochlorperazine Edisylate (Compazine Iv) 5 mg IV Q4H PRN PRN PRN Reason: Breakthrough nausea/vomiting Quetiapine Fumarate (Seroquel) 50 mg GT BID [facility] Senna/Docusate Sodium (Senokot-S, Corrie-Colace) 2 tablet GT DAILY [facility] Last Admin: 05/12/19 10:41 Dose: 2 tablet Documented by: Sodium Chloride () 10 - 40 ml IV UD PRN PRN Reason: SALINE FLUSH Last Admin: 05/12/19 18:41 Dose: 20 ml Documented by: STROKE Vital Signs/Narrative: Vital Signs Temp Pulse Resp BP Pulse Ox 05/13/19 08:00 37.2 C 64 14 131/55 H 97 05/13/19 07:18 64 05/13/19 07:00 65 14 134/61 H 96 05/13/19 06:41 56 L 17 05/13/19 06:39 57 L 14 96 05/13/19 06:00 58 L 14 126/51 H 98 05/13/19 05:00 64 14 136/50 H 96 Medical Necessity - Tobacco Use Smoking Status: Never smoker Tobacco Use: Non-smoker Assessment/Plan All Active Problems (Last Reviewed 05/07/19 @ 13:[address] Doni Mccray MD) Respiratory failure with hypoxia (Acute) Bilateral pneumonia (Acute) Sepsis due to pneumonia (Acute) Infectious encephalopathy (Acute) 1. acute hypoxic respiratory failure ongoing intubated 05/11/2019 pneumonia v CHF v ALI on methylpred, BDs CCM mgmt appreciated 2. Severe sepsis POA due to presumptive pneumonia supportive mgmt 3. presumed gram negative pneumonia UCx, Strep Ag, legionella Ag, BCx, resp panel negative Sputum culture showing presumptive C. albicans, suspect contaminant on cefepime from the 4. HFpEF EF 65% from echo on 02/17/19 off furosemide given RYAN 5. RYAN worsening, 0.68 on admission, now up to 2.16 prerenal v ATN check urine studies avoid nephrotoxic agents. 6. VTE back on apixaban Code Visit Inpatient E&M: 26259 Subs Hosp L2
[2019-05-13] MEDS: Senna/Docusate Sodium 1 Tablet 2 TABLET GT (09:16)
[2019-05-13] MEDS: buPROPion 75 MG Tablet GT ×2 (09:16→21:29)
[2019-05-13] MEDS: QUEtiapine 25 MG Tablet 50 MG GT ×2 (09:16→21:28)
[2019-05-13] MEDS: Polyethylene Glycol 3350 17 GM PACKET PO ×2 (09:16→21:29)
[2019-05-13] MEDS: Famotidine 20 MG Tablet GT (09:16)
[2019-05-13] MEDS: Ascorbic Acid 500 MG Tablet GT (09:16)
[2019-05-13] MEDS: APIXABAN 5 MG TABLET PO ×2 (09:16→21:29)
[2019-05-13] MEDS: Aspirin 81 MG TAB.CHEW GT (09:16)
[2019-05-13] MEDS: CHLORHEXIDINE GLUC 2% CLOTH 1 EACH TOWELETTE TOPICAL (09:17)
[2019-05-13] MEDS: Menthol/Lanolin/Calamine/Znox 113 GM Tube 1 APPLIC TOPICAL ×2 (09:17→21:27)
[2019-05-13] MEDS: Chlorhexidine 15 ML PO ×2 (09:17→21:28)
--- NOTE | 2019-05-13 09:58 | PN_ITS ---
Subjective: Patient did okay overnight from a hemodynamic standpoint. Patient remains on low-dose pressors without significant ectopy. Patient became very agitated during spontaneous awakening trials, so a spontaneous breathing trial was not attempted. General: - - Mild anasarca. Intubated and sedated. RASS -2. Good ventilatory synchrony HEENT: Atraumatic, PERRLA, EOMI, Normocephalic Oral: Moist Mucosa, No Gingival or Mucosal Lesions/ Ulcerations Neck: Supple, No JVD, No Nodes, Trachea Midline Lungs: No rhonchi, No wheeze, No rales, Diminished Cardiovascular: Regular rate, Regular Rhythm, Normal S1, Normal S2, No murmurs, No rub noted, No Gallop Abdomen: Bowel Sounds Present, Soft, Non Tender, Non-Distended, Obese, - - Tolerating tube feeds Extremities: No clubbing, No cyanosis, Edema Skin: No rashes, No breakdown Musculoskeletal: No Tenderness to Palpation of Joints or Extremities Lymphatic: No Cervical, Supraclavicular, or Inguinal Adenopathy Neurological: Cranial nerves II-XII grossly intact, Neuro grossly intact Psych/Mental Status: Flat Affect Vital Signs Temp Pulse Resp BP Pulse Ox 37.2 C 71 14 130/52 H 96 05/13/19 08:00 05/13/19 09:00 05/13/19 09:00 05/13/19 09:00 05/13/19 09:00 Oxygen Flow Rate (L/min) 55 Oxygen Delivery Method Mechanical Ventilator Weight: 88.9 kg Body Mass Index (BMI) 31.8 Intake and Output for Last 24 Hours 05/11/19 05/12/19 05/13/19 23:59 23:59 23:59 Intake Total 2692.44 / 2959.64 3072.77 / 3106.85 1234.00 / 1234.00 Output Total 1150 / 1275 725 / 725 250 / 250 Balance 1542.44 / 1684.64 2347.77 / 2381.85 984.00 / 984.00 Labs (Last 48 Hours) 05/11/19 05/11/19 05/11/19 11:59 12:00 14:55 WBC RBC Hgb Hct MCV MCH MCHC RDW Std Deviation RDW Coeff of Kristal Plt Count MPV Immature Gran % (Auto) Neut % (Auto) Lymph % (Auto) [place] % (Auto) Eos % (Auto) Baso % (Auto) Absolute Neuts (auto) Absolute Lymphs (auto) Nucleated RBC % Eos Smear Total Cells APTT 45.9 H Sodium 142 Potassium 4.7 Chloride 115 H Carbon Dioxide 22.0 Anion Gap 5 BUN 27 H Creatinine 1.81 H Estim Creat Clear Calc 27.51 Est GFR (MDRD) Af Amer 36 L Est GFR (MDRD) Non-Af 30 L BUN/Creatinine Ratio 14.9 Glucose 151 H Calcium 9.2 Phosphorus 5.1 H Magnesium 2.0 Ur Random Sodium Urine Creatinine Urine Urea Nitrogen POC Glucose 118 H 05/11/19 05/11/19 05/12/19 18:27 18:30 00:05 WBC RBC Hgb Hct MCV MCH MCHC RDW Std Deviation RDW Coeff of Kristal Plt Count MPV Immature Gran % (Auto) Neut % (Auto) Lymph % (Auto) [place] % (Auto) Eos % (Auto) Baso % (Auto) Absolute Neuts (auto) Absolute Lymphs (auto) Nucleated RBC % Eos Smear Total Cells APTT 57.1 H 46.8 H Sodium Potassium Chloride Carbon Dioxide Anion Gap BUN Creatinine Estim Creat Clear Calc Est GFR (MDRD) Af Amer Est GFR (MDRD) Non-Af BUN/Creatinine Ratio Glucose Calcium Phosphorus Magnesium Ur Random Sodium Urine Creatinine Urine Urea Nitrogen POC Glucose 190 H 05/12/19 05/12/19 05/12/19 00:48 05:15 05:15 WBC 16.5 H RBC 3.35 L Hgb 9.4 L Hct 30.1 L MCV 89.9 MCH 28.1 MCHC 31.2 L RDW Std Deviation 53.7 H RDW Coeff of Kristal 16.4 H Plt Count 459 H MPV 8.6 Immature Gran % (Auto) 3.300 H Neut % (Auto) 89.5 H Lymph % (Auto) 5.8 L [place] % (Auto) 1.3 Eos % (Auto) 0.0 Baso % (Auto) 0.1 Absolute Neuts (auto) 14.8 H Absolute Lymphs (auto) 0.96 Nucleated RBC % 0 Eos Smear Total Cells APTT Sodium 140 Potassium 4.5 Chloride 111 H Carbon Dioxide 21.0 Anion Gap 8 BUN 32 H Creatinine 1.82 H Estim Creat Clear Calc 27.36 Est GFR (MDRD) Af Amer 36 L Est GFR (MDRD) Non-Af 30 L BUN/Creatinine Ratio 17.6 Glucose 205 H Calcium 8.4 L Phosphorus Magnesium 2.0 Ur Random Sodium Urine Creatinine Urine Urea Nitrogen POC Glucose 185 H 05/12/19 05/12/19 05/12/19 05:15 06:10 11:37 WBC RBC Hgb Hct MCV MCH MCHC RDW Std Deviation RDW Coeff of Kristal Plt Count MPV Immature Gran % (Auto) Neut % (Auto) Lymph % (Auto) [place] % (Auto) Eos % (Auto) Baso % (Auto) Absolute Neuts (auto) Absolute Lymphs (auto) Nucleated RBC % Eos Smear Total Cells APTT Sodium Potassium Chloride Carbon Dioxide Anion Gap BUN Creatinine Estim Creat Clear Calc Est GFR (MDRD) Af Amer Est GFR (MDRD) Non-Af BUN/Creatinine Ratio Glucose Calcium Phosphorus 4.7 Magnesium Ur Random Sodium Urine Creatinine Urine Urea Nitrogen POC Glucose 206 H 209 H 05/12/19 05/12/19 05/13/19 18:56 23:07 06:30 WBC 20.5 H RBC 3.22 L Hgb 9.2 L Hct 29.3 L MCV 91.0 MCH 28.6 MCHC 31.4 L RDW Std Deviation 55.4 H RDW Coeff of Kristal 16.4 H Plt Count 479 H MPV 8.7 Immature Gran % (Auto) 4.000 H Neut % (Auto) 87.5 H Lymph % (Auto) 4.5 L [place] % (Auto) 3.9 Eos % (Auto) 0.0 Baso % (Auto) 0.1 Absolute Neuts (auto) 17.9 H Absolute Lymphs (auto) 0.92 Nucleated RBC % 0 Eos Smear Total Cells APTT Sodium Potassium Chloride Carbon Dioxide Anion Gap BUN Creatinine Estim Creat Clear Calc Est GFR (MDRD) Af Amer Est GFR (MDRD) Non-Af BUN/Creatinine Ratio Glucose Calcium Phosphorus Magnesium Ur Random Sodium Urine Creatinine Urine Urea Nitrogen POC Glucose 199 H 266 H 05/13/19 05/13/19 05/13/19 06:30 06:30 09:45 WBC RBC Hgb Hct MCV MCH MCHC RDW Std Deviation RDW Coeff of Kristal Plt Count MPV Immature Gran % (Auto) Neut % (Auto) Lymph % (Auto) [place] % (Auto) Eos % (Auto) Baso % (Auto) Absolute Neuts (auto) Absolute Lymphs (auto) Nucleated RBC % Eos Smear Total Cells Pending APTT Sodium 140 Potassium 4.5 Chloride 114 H Carbon Dioxide 20.0 L Anion Gap 6 BUN 44 H Creatinine 2.16 H Estim Creat Clear Calc 23.05 Est GFR (MDRD) Af Amer 29 L Est GFR (MDRD) Non-Af 24 L BUN/Creatinine Ratio 20.4 H Glucose 249 H Calcium 8.6 Phosphorus Magnesium Ur Random Sodium Urine Creatinine Urine Urea Nitrogen POC Glucose 236 H 05/13/19 05/13/19 05/13/19 09:45 09:45 09:45 WBC RBC Hgb Hct MCV MCH MCHC RDW Std Deviation RDW Coeff of Kristal Plt Count MPV Immature Gran % (Auto) Neut % (Auto) Lymph % (Auto) [place] % (Auto) Eos % (Auto) Baso % (Auto) Absolute Neuts (auto) Absolute Lymphs (auto) Nucleated RBC % Eos Smear Total Cells APTT Sodium Potassium Chloride Carbon Dioxide Anion Gap BUN Creatinine Estim Creat Clear Calc Est GFR (MDRD) Af Amer Est GFR (MDRD) Non-Af BUN/Creatinine Ratio Glucose Calcium Phosphorus Magnesium Ur Random Sodium Pending Urine Creatinine Pending Urine Urea Nitrogen Pending POC Glucose Microbiology 05/11/19 07:50 Sputum, Induced/Lukens Gram Stain - Final 05/11/19 07:50 Sputum, Induced/Lukens Respiratory Culture - Final Presumptive C albicans 05/07/19 11:13 Blood Culture (Wb) - Right Hand Blood Culture - Final No growth in 5 days. 05/07/19 11:15 Blood Culture (Wb) - Left Wrist Blood Culture - Final No growth in 5 days. 05/10/19 01:25 Sputum, Expectorated/Coughed Gram Stain - Final 05/10/19 01:25 Sputum, Expectorated/Coughed Respiratory Culture - Final Presumptive C albicans 05/08/19 17:45 Blood Culture (Wb) - Venous Blood Culture - Preliminary No growth in 48 hours. 05/08/19 17:20 Blood Culture (Wb) - Left Hand Blood Culture - Preliminary No growth in 48 hours. Clinical Impression(s) from Imaging Studies Chest X-Ray 05/13/19 05:55 IMPRESSION: Tubes are in adequate position. Bilateral pulmonary infiltrates, not significantly changed. Electronically Signed: Bigg Henderson MD at 5:50 EST , Service support , Medical Necessity - Tobacco Use Smoking Status: Never smoker Tobacco Use: Non-smoker Assessment/Plan All Active Problems (Last Reviewed 05/07/19 @ 13:[address] Doni Mccray MD) Respiratory failure with hypoxia (Acute) Bilateral pneumonia (Acute) Sepsis due to pneumonia (Acute) Infectious encephalopathy (Acute) RECOMMENDATIONS: 1. Continue mechanical ventilation. Spontaneous awakening and breathing trials per protocol 2. Wean FiO2 to maintain oxygen saturations at or above 90%. 3. Discontinue antibiotics 4. Continue Eliquis, empiric steroids and bronchodilator therapy 5. Add Seroquel 6. Continue tube feeds IMPRESSIONS: 1. Acute hypoxemic respiratory failure Differential would include healthcare associated pneumonia versus pulmonary edema. The patient's creatinine has increased after having been given Lasix. Agree with continuing current supportive measures, including noninvasive positive pressure ventilatory support and broad-spectrum antimicrobial coverage. Patient appears to have much better response to mechanical ventilation than BiPAP. Empiric steroids have been started. Patient is not able to have a spontaneous breathing trial secondary to an inability to tolerate spontaneous awakening trial. However, given relative bradycardia, Precedex may not be the best option. Will initiate Seroquel therapy and titrate up as necessary. 2. Severe sepsis Appears to be secondary to underlying pulmonary infectious process. MRSA screen was negative. Patient has completed a full course of antibiotics, so will discontinue. She is requiring pressor therapy, but this is likely seco ndary to sedation medications. 3. Chronic heart failure with preserved ejection fraction Appears euvolemic at this time. We will hold on additional doses of Lasix therapy given patient's renal function. 4. Acute kidney injury Potentially prerenal in etiology. We will continue to hold Lasix. Agree with work-up per hospitalist orders. 5. Hypokalemia Electrolyte repletion as needed. Recheck levels in the morning. 6. History of DVT on Eliquis/diabetes mellitus/hyperlipidemia/obesity Complicates care, management, recovery and prognosis. Hold Eliquis and continue weight based heparin drip. TIME: 32 minutes critical care time spent addressing patient's acute hypoxic respiratory failure, severe sepsis, electrolyte abnormalities, review of all data and collaboration with care team. (5:40 AM to 6:45 AM) Code Visit [id number]: [id number] Critical care first hour
--- NOTE | 2019-05-13 09:58 | CASEMGMT ---
Social Work SW participated in interdisciplinary rounds. Pt, pt spouse and pt sister present. Pt is current resident at [facility] and plans to return there upon d/c. Clinical update faxed to [facility]. SW will continue to follow. NIEVES Cox
[2019-05-13 10:01] LABS: Urine Sodium 31 mmol/L (Not Establ.)
[2019-05-13] MEDS: Propofol 10MG/Ml 1,000 MG/100 ML Bottle 10.6 MG CONT INF (10:09)
[2019-05-13 10:30] LABS: Urea Nitrogen, Urine 650 mg/dL (NO RANGE EST.)
[2019-05-13] MEDS: 0.9% Saline Lock 10 ML Syringe IV ×3 (11:17→20:51)
[2019-05-13 11:25] LABS: Bedside Glucose 237 mg/dL (70-110)
[2019-05-13] MEDS: Vital AF 1.2 Cal Liquid 1,000 ML 50 ML GT (15:18)
[2019-05-13 17:30] LABS: Bedside Glucose 265 mg/dL (70-110)
[2019-05-13] MEDS: fentaNYL drip 100 ML 12.5 MCG IV (18:57)
[2019-05-13] MEDS: Propofol 10MG/Ml 1,000 MG/100 ML Bottle 7.9 MG CONT INF (19:30)
--- NOTE | 2019-05-13 20:45 | NURSING ---
Pt is restless in the bed, tossing and turning. Spoke with Dr Cervantes at this time he would like to increase her Seroquel from 25mg to 50mg at BID and give a one time dose of Haldol to try and control the agitation. Okay to leave the propofol at 20mcg/kg/min.
[2019-05-13] MEDS: Haloperidol Lactate 5 MG/ML Vial 3 MG IV (20:51)
[2019-05-13] MEDS: Atorvastatin Calcium 20 MG Tablet GT (21:29)
[2019-05-14] VITALS (48 sets, daily range): BP systolic 107–155; BP diastolic 40–90; PULSE 52–132; RESP 11–20; TEMP 36.2–36.8; O2SAT 97–100
[2019-05-14] MEDS: Insulin Lispro 100 UNIT/ML INSULN.PEN SC ×5 (00:19→23:29)
[2019-05-14 00:31] LABS: Bedside Glucose 282 mg/dL (70-110)
[2019-05-14] MEDS: fentaNYL drip 100 ML 15 MCG IV ×2 (01:27→08:15)
[2019-05-14 04:08] LABS: Absolute Lymphocyte Count 0.79 X10^3/uL (0.83-4.51); Absolute Neutrophil Count 10.9 X10^3/uL (2.0-7.7); Basophil# 0.01 X10^3/uL; Basophil% 0.1 % (0-1); Hemoglobin 8.6 g/dL (12.0-15.0); Lymphocyte # 0.79 X10^3/ul (4.0); Lymphocyte % 6.3 % (19-41); Mean Corp Hgb Conc 30.7 g/dL (32-36); Mean Corpuscular Hgb 28.4 pg (27.0-32.0); Mean Corpuscular Volume 92.4 fL (81-99); Mean Platelet Vol. 8.8 fl (6.2-12.0); Monocyte# 0.53 X10^3/uL; Monocyte% 4.2 % (0-10); NRBC Flagged by Analyzer 0 % (0-5); Neutrophil # 10.92 X10^3/uL (2.7-7.7); Neutrophil % 86.4 % (47-70); Platelet Count 351 K/mm3 (150-450); RBC Distribution Width CV 16.3 % (11.6-14.6); RBC Distribution Width SD 55.2 fl (35.1-43.9); Red Blood Count 3.03 M/mm3 (4.2-5.4); White Blood Count 12.6 K/mm3 (4.4-11.0)
[2019-05-14] MEDS: Propofol 10MG/Ml 1,000 MG/100 ML Bottle 10.6 MG CONT INF (04:15)
[2019-05-14] MEDS: 0.9% Saline Lock 10 ML Syringe IV ×3 (04:21→17:33)
[2019-05-14 04:25] LABS: BUN 56 mg/dL (7-18); Creatinine, Serum 2.32 mg/dL (0.55-1.02); Estimated Creatinine Clearance 21.46 ml/min; Glucose 322 mg/dL (74-106)
[2019-05-14 04:26] LABS: ALB/GLOB Ratio 0.4 RATIO (0.9-2.4); AST(SGOT) 19 U/L (15-37); Alanine Aminotransfer ALT/SGPT 30 U/L (13-56); Albumin, Serum 1.4 g/dL (3.2-5.0); Alkaline Phosphatase 108 U/L (45-117); Anion Gap 6 (5-15); BUN/Creat Ratio 24.1 RATIO (10-20); Calcium,Total 8.4 mg/dL (8.5-10.1); Chloride 113 mmol/L (98-107); EST Glomerular Filtration Rate 22 mL/min (>60); Est Glom Filt Rate - Afr Amer 27 mL/min (>60); Globulin 3.9 g/dL (2.2-4.2); Potassium 4.5 mmol/L (3.5-5.1); Protein, Total 5.3 g/dL (6.4-8.2); Sodium Level 140 mmol/L (136-145)
[2019-05-14 05:56] LABS: Bedside Glucose 273 mg/dL (70-110)
[2019-05-14] MEDS: TITRATION PARAMETER CHANGE 1 EACH IV (06:14)
[2019-05-14] MEDS: Ipratropium/Albuterol Sulfate 3 ML AMPUL.NEB INHALATION ×4 (06:39→18:50)
--- NOTE | 2019-05-14 07:14 | PN_ITS ---
Subjective: Patient did okay overnight. Patient still requires minimal Levophed to maintain appropriate blood pressure. Nursing did report increased residuals overnight. Patient was unable to tolerate a spontaneous awakening trial this morning despite increased Seroquel therapy overnight. General: - - Intubated and sedated. RASS -2. Obese. Good ventilator synchrony at this time. HEENT: Atraumatic, PERRLA, EOMI, Normocephalic, - - No scleral icterus or injection noted Oral: Moist Mucosa, No Gingival or Mucosal Lesions/ Ulcerations Neck: Supple, No JVD, No Nodes, Trachea Midline Lungs: Normal air movement, No rhonchi, No wheeze, No rales, - - Symmetric expansion Cardiovascular: Regular rate, Regular Rhythm, Normal S1, Normal S2, No murmurs, No rub noted, No Gallop Abdomen: Bowel Sounds Present, Soft, Non Tender, Non-Distended, Obese Extremities: No clubbing, No cyanosis, Capillary Refill Less than 3 Seconds, Edema - Mild anasarca Skin: No rashes, No breakdown Musculoskeletal: No Tenderness to Palpation of Joints or Extremities Lymphatic: No Cervical, Supraclavicular, or Inguinal Adenopathy Neurological: Cranial nerves II-XII grossly intact, Neuro grossly intact Psych/Mental Status: Flat Affect Vital Signs Temp Pulse Resp BP Pulse Ox 36.2 C L 79 15 132/59 H 98 05/14/19 06:00 05/14/19 06:00 05/14/19 06:00 05/14/19 06:00 05/14/19 06:00 Oxygen Flow Rate (L/min) 35 Oxygen Delivery Method Mechanical Ventilator Weight: 91.1 kg Body Mass Index (BMI) 31.8 Intake and Output for Last 24 Hours 05/12/19 05/13/19 05/14/19 23:59 23:59 23:59 Intake Total 3072.77 / 3106.85 3000.04 / 3031.24 645.60 / 645.60 Output Total 725 / 725 950 / 950 250 / 250 Balance 2347.77 / 2381.85 2050.04 / 2081.24 395.60 / 395.60 Labs (Last 48 Hours) 05/12/19 05/12/19 05/12/19 11:37 18:56 23:07 WBC RBC Hgb Hct MCV MCH MCHC RDW Std Deviation RDW Coeff of Kristal Plt Count MPV Immature Gran % (Auto) Neut % (Auto) Lymph % (Auto) [place] % (Auto) Eos % (Auto) Baso % (Auto) Absolute Neuts (auto) Absolute Lymphs (auto) Nucleated RBC % Eos Smear Total Cells Sodium Potassium Chloride Carbon Dioxide Anion Gap BUN Creatinine Estim Creat Clear Calc Est GFR (MDRD) Af Amer Est GFR (MDRD) Non-Af BUN/Creatinine Ratio Glucose Calcium Total Bilirubin AST ALT Alkaline Phosphatase Total Protein Albumin Globulin Albumin/Globulin Ratio Ur Random Sodium Urine Creatinine Urine Urea Nitrogen POC Glucose 209 H 199 H 266 H 05/13/19 05/13/19 05/13/19 06:30 06:30 06:30 WBC 20.5 H RBC 3.22 L Hgb 9.2 L Hct 29.3 L MCV 91.0 MCH 28.6 MCHC 31.4 L RDW Std Deviation 55.4 H RDW Coeff of Kristal 16.4 H Plt Count 479 H MPV 8.7 Immature Gran % (Auto) 4.000 H Neut % (Auto) 87.5 H Lymph % (Auto) 4.5 L [place] % (Auto) 3.9 Eos % (Auto) 0.0 Baso % (Auto) 0.1 Absolute Neuts (auto) 17.9 H Absolute Lymphs (auto) 0.92 Nucleated RBC % 0 Eos Smear Total Cells Sodium 140 Potassium 4.5 Chloride 114 H Carbon Dioxide 20.0 L Anion Gap 6 BUN 44 H Creatinine 2.16 H Estim Creat Clear Calc 23.05 Est GFR (MDRD) Af Amer 29 L Est GFR (MDRD) Non-Af 24 L BUN/Creatinine Ratio 20.4 H Glucose 249 H Calcium 8.6 Total Bilirubin AST ALT Alkaline Phosphatase Total Protein Albumin Globulin Albumin/Globulin Ratio Ur Random Sodium Urine Creatinine Urine Urea Nitrogen POC Glucose 236 H 05/13/19 05/13/19 05/13/19 09:45 09:45 09:45 WBC RBC Hgb Hct MCV MCH MCHC RDW Std Deviation RDW Coeff of Kristal Plt Count MPV Immature Gran % (Auto) Neut % (Auto) Lymph % (Auto) [place] % (Auto) Eos % (Auto) Baso % (Auto) Absolute Neuts (auto) Absolute Lymphs (auto) Nucleated RBC % Eos Smear Total Cells Pending Sodium Potassium Chloride Carbon Dioxide Anion Gap BUN Creatinine Estim Creat Clear Calc Est GFR (MDRD) Af Amer Est GFR (MDRD) Non-Af BUN/Creatinine Ratio Glucose Calcium Total Bilirubin AST ALT Alkaline Phosphatase Total Protein Albumin Globulin Albumin/Globulin Ratio Ur Random Sodium Urine Creatinine 53.70 Urine Urea Nitrogen 650 POC Glucose 05/13/19 05/13/19 05/13/19 09:45 11:16 17:28 WBC RBC Hgb Hct MCV MCH MCHC RDW Std Deviation RDW Coeff of Kristal Plt Count MPV Immature Gran % (Auto) Neut % (Auto) Lymph % (Auto) [place] % (Auto) Eos % (Auto) Baso % (Auto) Absolute Neuts (auto) Absolute Lymphs (auto) Nucleated RBC % Eos Smear Total Cells Sodium Potassium Chloride Carbon Dioxide Anion Gap BUN Creatinine Estim Creat Clear Calc Est GFR (MDRD) Af Amer Est GFR (MDRD) Non-Af BUN/Creatinine Ratio Glucose Calcium Total Bilirubin AST ALT Alkaline Phosphatase Total Protein Albumin Globulin Albumin/Globulin Ratio Ur Random Sodium 31 Urine Creatinine Urine Urea Nitrogen POC Glucose 237 H 265 H 05/14/19 05/14/19 05/14/19 00:18 04:00 04:00 WBC 12.6 H RBC 3.03 L Hgb 8.6 L Hct 28.0 L MCV 92.4 MCH 28.4 MCHC 30.7 L RDW Std Deviation 55.2 H RDW Coeff of Kristal 16.3 H Plt Count 351 MPV 8.8 Immature Gran % (Auto) 3.000 H Neut % (Auto) 86.4 H Lymph % (Auto) 6.3 L [place] % (Auto) 4.2 Eos % (Auto) 0.0 Baso % (Auto) 0.1 Absolute Neuts (auto) 10.9 H Absolute Lymphs (auto) 0.79 L Nucleated RBC % 0 Eos Smear Total Cells Sodium 140 Potassium 4.5 Chloride 113 H Carbon Dioxide 21.0 Anion Gap 6 BUN 56 H Creatinine 2.32 H Estim Creat Clear Calc 21.46 Est GFR (MDRD) Af Amer 27 L Est GFR (MDRD) Non-Af 22 L BUN/Creatinine Ratio 24.1 H Glucose 322 H Calcium 8.4 L Total Bilirubin 0.10 L AST 19 ALT 30 Alkaline Phosphatase 108 Total Protein 5.3 L Albumin 1.4 L Globulin 3.9 Albumin/Globulin Ratio 0.4 L Ur Random Sodium Urine Creatinine Urine Urea Nitrogen POC Glucose 282 H 05/14/19 05:47 WBC RBC Hgb Hct MCV MCH MCHC RDW Std Deviation RDW Coeff of Kristal Plt Count MPV Immature Gran % (Auto) Neut % (Auto) Lymph % (Auto) [place] % (Auto) Eos % (Auto) Baso % (Auto) Absolute Neuts (auto) Absolute Lymphs (auto) Nucleated RBC % Eos Smear Total Cells Sodium Potassium Chloride Carbon Dioxide Anion Gap BUN Creatinine Estim Creat Clear Calc Est GFR (MDRD) Af Amer Est GFR (MDRD) Non-Af BUN/Creatinine Ratio Glucose Calcium Total Bilirubin AST ALT Alkaline Phosphatase Total Protein Albumin Globulin Albumin/Globulin Ratio Ur Random Sodium Urine Creatinine Urine Urea Nitrogen POC Glucose 273 H Microbiology 05/11/19 07:50 Sputum, Induced/Lukens Gram Stain - Final 05/11/19 07:50 Sputum, Induced/Lukens Respiratory Culture - Final Presumptive C albicans 05/07/19 11:13 Blood Culture (Wb) - Right Hand Blood Culture - Final No growth in 5 days. 05/07/19 11:15 Blood Culture (Wb) - Left Wrist Blood Culture - Final No growth in 5 days. 05/10/19 01:25 Sputum, Expectorated/Coughed Gram Stain - Final 05/10/19 01:25 Sputum, Expectorated/Coughed Respiratory Culture - Final Presumptive C albicans Medical Necessity - Tobacco Use Smoking Status: Never smoker Tobacco Use: Non-smoker Assessment/Plan All Active Problems (Last Reviewed 05/07/19 @ 13:[address] Doni Mccray MD) Respiratory failure with hypoxia (Acute) Bilateral pneumonia (Acute) Sepsis due to pneumonia (Acute) Infectious encephalopathy (Acute) RECOMMENDATIONS: 1. Continue mechanical ventilation. Spontaneous awakening and breathing trials per protocol 2. Wean FiO2 to maintain oxygen saturations at or above 90%. 3. Transition to Precedex 4. Continue Eliquis, empiric steroids and bronchodilator therapy 5. Continue Seroquel 6. Continue tube feeds with bowel regimen IMPRESSIONS: 1. Acute hypoxemic respiratory failure Unclear etiology at this time. Patient has not responded well to diuretic therapy in the past and has completed an antibiotic course. Kristin in sputum is likely a contaminant. Unable to have a spontaneous breathing trial secondary to agitation. Will attempt to transition to Precedex therapy in addition to the Seroquel. Clinical suspicion for pressors secondary to propofol dosing. If patient continues to fail spontaneous awakening trials, CT of the chest may be pursued for alternative etiologies. 2. Severe sepsis Appears to be secondary to underlying pulmonary infectious process. MRSA screen was negative. Patient has completed a full course of antibiotics, so will discontinue. She is requiring pressor therapy, but this is likely secondary to sedation medications. 3. Chronic heart failure with preserved ejection fraction Appears euvolemic at this time. We will hold on additional doses of Lasix therapy given patient's renal function. 4. Acute kidney injury Potentially prerenal in etiology. We will continue to hold Lasix. Agree with work-up per hospitalist orders. Renal function slightly worse today despite adequate urine output. We will see if there is improvement following discontinuation of propofol with better blood pressures. 5. Hypokalemia Electrolyte repletion as needed. Recheck levels in the morning. 6. History of DVT on Eliquis/diabetes mellitus/hyperlipidemia/obesity Complicates care, management, recovery and prognosis. Hold Eliquis and continue weight based heparin drip. TIME: 35 minutes critical care time spent addressing patient's acute hypoxic respi ratory failure, severe sepsis, electrolyte abnormalities, review of all data and collaboration with care team. (6 AM to 7 AM) [id number]: [id number] Critical care first hour
[2019-05-14] MEDS: Senna/Docusate Sodium 1 Tablet 2 TABLET GT (08:48)
[2019-05-14] MEDS: Aspirin 81 MG TAB.CHEW GT (08:49)
[2019-05-14] MEDS: QUEtiapine 25 MG Tablet 50 MG GT ×2 (08:49→21:13)
[2019-05-14] MEDS: Famotidine 20 MG Tablet GT (08:49)
[2019-05-14] MEDS: Ascorbic Acid 500 MG Tablet GT (08:49)
[2019-05-14] MEDS: APIXABAN 5 MG TABLET PO ×2 (08:49→21:14)
[2019-05-14] MEDS: Menthol/Lanolin/Calamine/Znox 113 GM Tube 1 APPLIC TOPICAL ×2 (08:50→21:12)
[2019-05-14] MEDS: CHLORHEXIDINE GLUC 2% CLOTH 1 EACH TOWELETTE TOPICAL (08:50)
[2019-05-14] MEDS: buPROPion 75 MG Tablet GT ×2 (08:50→21:15)
[2019-05-14] MEDS: Chlorhexidine 15 ML PO ×2 (08:54→21:12)
[2019-05-14 11:40] LABS: Bedside Glucose 282 mg/dL (70-110)
--- NOTE | 2019-05-14 12:16 | PN_ITS ---
Patient Problems: Active and Suspected Problems (Last Reviewed 05/07/19 @ 13:[address] Doni Mccray MD) Respiratory failure with hypoxia (Acute) Bilateral pneumonia (Acute) Sepsis due to pneumonia (Acute) Infectious encephalopathy (Acute) Reason for Visit: resp failure Subjective: started on dexmedetomidine for sedation. FiO2 decreased 30%. Vitals/I&O's: Vital Signs Temp Pulse Resp BP Pulse Ox 36.3 C L 62 14 117/46 L 98 05/14/19 12:00 05/14/19 12:00 05/14/19 12:00 05/14/19 12:00 05/14/19 12:00 Oxygen Flow Rate (L/min) 35 Oxygen Delivery Method Mechanical Ventilator Weight: 91.1 kg Body Mass Index (BMI) 31.8 Intake and Output for Last 24 Hours 05/12/19 05/13/19 05/14/19 23:59 23:59 23:59 Intake Total 3072.77 / 3106.85 3000.04 / 3031.24 1253.63 / 1253.63 Output Total 725 / 725 950 / 950 450 / 450 Balance 2347.77 / 2381.85 2050.04 / 2081.24 803.63 / 803.63 General: - - intubated and sedated HEENT: Atraumatic, Normocephalic Oral: Moist Mucosa, No Gingival or Mucosal Lesions/ Ulcerations Neck: No Nodes, Trachea Midline Lungs: Normal air movement, - - coarse breath sounds bilaterally. Cardiovascular: Regular rate, Regular Rhythm, Normal S1, Normal S2, No murmurs Abdomen: Bowel Sounds Present, Soft, Non Tender, Non-Distended, No Hepato- splenomegaly Extremities: No Calf Tenderness, Edema - 2+ Musculoskeletal: No Tenderness to Palpation of Joints or Extremities, No Muscle Wasting Microbiology Past 72 Hours 05/08/19 17:45 Blood Culture (Wb) - Venous Blood Culture - Final No growth in 5 days. 05/08/19 17:20 Blood Culture (Wb) - Left Hand Blood Culture - Final No growth in 5 days. 05/11/19 07:50 Sputum, Induced/Lukens Gram Stain - Final 05/11/19 07:50 Sputum, Induced/Lukens Respiratory Culture - Final Presumptive C albicans 05/07/19 11:13 Blood Culture (Wb) - Right Hand Blood Culture - Final No growth in 5 days. 05/07/19 11:15 Blood Culture (Wb) - Left Wrist Blood Culture - Final No growth in 5 days. 05/10/19 01:25 Sputum, Expectorated/Coughed Gram Stain - Final 05/10/19 01:25 Sputum, Expectorated/Coughed Respiratory Culture - Final Presumptive C albicans Laboratory Results 05/13/19 17:28: POC Glucose 265 H 05/14/19 00:18: POC Glucose 282 H 05/14/19 04:00: WBC 12.6 H, RBC 3.03 L, Hgb 8.6 L, Hct 28.0 L, MCV 92.4, MCH 28.4, MCHC 30.7 L, RDW Std Deviation 55.2 H, RDW Coeff of Kristal 16.3 H, Plt Count 351, MPV 8.8, Immature Gran % (Auto) 3.000 H, Neut % (Auto) 86.4 H, Lymph % (Auto) 6.3 L, [place] % (Auto) 4.2, Eos % (Auto) 0.0, Baso % (Auto) 0.1, Absolute Neuts (auto) 10.9 H, Absolute Lymphs (auto) 0.79 L, Nucleated RBC % 0 05/14/19 04:00: Sodium 140, Potassium 4.5, Chloride 113 H, Carbon Dioxide 21.0, Anion Gap 6, BUN 56 H, Creatinine 2.32 H, Estim Creat Clear Calc 21.46, Est GFR (MDRD) Af Amer 27 L, Est GFR (MDRD) Non-Af 22 L, BUN/Creatinine Ratio 24.1 H, Glucose 322 H, Calcium 8.4 L, Total Bilirubin 0.10 L, AST 19, ALT 30, Alkaline Phosphatase 108, Total Protein 5.3 L, Albumin 1.4 L, Globulin 3.9, Albumin/Globulin Ratio 0.4 L 05/14/19 05:47: POC Glucose 273 H 05/14/19 11:26: POC Glucose 282 H Current Medications Acetaminophen (Tylenol Liquid) 650 mg GT Q6H PRN PRN PRN Reason: Pain Score 1-3/Temp > 100.7 F Al Hydroxide/Mg Hydroxide (Mylanta Ii) 30 ml GT Q6H PRN PRN PRN Reason: Gastric Burning Albuterol Sulfate (Ventolin Aerosols) 2.5 mg INHALATION Q2H PRN PRN PRN Reason: Shortness of Breath/Wheezing Last Admin: 05/08/19 04:30 Dose: 2.5 mg Documented by: Albuterol/Ipratropium (Duoneb) 3 ml INHALATION Q4HWA.RT [facility] Last Admin: 05/14/19 10:08 Dose: 3 ml Documented by: Apixaban (Eliquis) 5 mg PO BID [facility] Last Admin: 05/14/19 08:49 Dose: 5 mg Documented by: Ascorbic Acid (Vitamin C) 500 mg GT DAILY@0800 [facility] Last Admin: 05/14/19 08:49 Dose: 500 mg Documented by: Aspirin (Aspirin, Baby) 81 mg GT DAILYCM [facility] Last Admin: 05/14/19 08:49 Dose: 81 mg Documented by: Atorvastatin Calcium (Lipitor) 20 mg GT QHS [facility] Last Admin: 05/13/19 21:29 Dose: 20 mg Documented by: Bupropion HCl (Wellbutrin Tablets) 75 mg GT BID [facility] Last Admin: 05/14/19 08:50 Dose: 75 mg Documented by: Calamine/Phenol (Calmoseptine Ointment) 1 applic TOPICAL BID [facility]; Protocol Last Admin: 05/14/19 08:50 Dose: 1 applicatio Documented by: Chlorhexidine Gluconate () 15 ml PO BID [facility] Last Admin: 05/14/19 08:54 Dose: 15 ml Documented by: Chlorhexidine Gluconate () 1 each TOPICAL DAILY [facility] Last Admin: 05/14/19 08:50 Dose: 1 each Documented by: Famotidine (Pepcid) 20 mg GT DAILY [facility] Last Admin: 05/14/19 08:49 Dose: 20 mg Documented by: Glucagon () 1 mg IM .X1 PRN PRN Reason: Hypoglycemia Guaifenesin (Robitussin) 20 ml GT Q4H PRN PRN PRN Reason: COUGH Dextrose (Dextrose 10%-Water) 250 mls @ 999 mls/hr IV .Q16M PRN; Protocol PRN Reason: HYPOGLYCEMIA Fentanyl () 100 mls @ 5 mls/hr IV UD [facility]; Protocol Last Titration: 05/14/19 12:00 Dose: 125 mcg/hr, 12.5 mls/hr Documented by: Sodium Chloride () 250 mls @ 15 mls/hr IV .[id number] PRN PRN Reason: Saline Flush Last Infusion: 05/11/19 16:21 Dose: 0 mls/hr Documented by: Sodium Chloride () 250 mls @ 15 mls/hr IV .[id number] PRN PRN Reason: Additional IVPB Infusion Enteral Nutritional Formula (Vital Af 1.2 Jose Liquid) 1,000 mls @ 50 mls/hr GT .Q20H [facility] Last Admin: 05/13/19 15:18 Dose: 50 mls/hr Documented by: Norepinephrine Bitartrate 8 mg (/ Sodium Chloride) 250 mls @ 9.375 mls/hr CONT INF .[id number] [facility]; Protocol Last Titration: 05/14/19 12:00 Dose: 0 mcg/min, 0 mls/hr Documented by: Dexmedetomidine HCl 400 mcg/ (Sodium Chloride) 100 mls @ 11.388 mls/hr CONT INF .Q8H47M [facility]; Protocol Last Titration: 05/14/19 12:00 Dose: 0.7 mcg/kg/hr, 15.9 mls/hr Documented by: Insulin Glargine (Lantus (Bk)) 10 units SC DAILY [facility] Last Admin: 05/14/19 11:19 Dose: 10 u Documented by: Insulin Human Lispro (Humalog Kwikpen ([facility])) 0 unit SC Q6 [facility]; Protocol Last Admin: 05/14/19 11:27 Dose: 6 u Documented by: Magnesium Hydroxide (Milk Of Magnesia) 30 ml GT DAILY PRN PRN PRN Reason: Constipation Melatonin (Melatonin) 3 mg GT QHS PRN PRN PRN Reason: INSOMNIA Methylprednisolone (Solu-Medrol) 40 mg IV Q6 [facility] Last Admin: 05/14/19 11:27 Dose: 40 mg Documented by: Nitroglycerin (Nitrostat) 0.4 mg SUBLINGUAL Q5M PRN PRN Reason: CARDIAC/CHEST PAIN Ondansetron HCl (Zofran) 4 mg IV Q8H PRN PRN PRN Reason: NAUSEA/VOMITING Polyethylene Glycol (Miralax) 17 gm PO BID [facility] Last Admin: 05/14/19 10:11 Dose: Not Given Documented by: Prochlorperazine Edisylate (Compazine Iv) 5 mg IV Q4H PRN PRN PRN Reason: Breakthrough nausea/vomiting Quetiapine Fumarate (Seroquel) 50 mg GT BID [facility] Last Admin: 05/14/19 08:49 Dose: 50 mg Documented by: Senna/Docusate Sodium (Senokot-S, Corrie-Colace) 2 tablet GT DAILY [facility] Last Admin: 05/14/19 08:48 Dose: 2 tablet Documented by: Sodium Chloride () 10 - 40 ml IV UD PRN PRN Reason: SALINE FLUSH Last Admin: 05/14/19 11:27 Dose: 20 ml Documented by: STROKE Vital Signs/Narrative: Vital Signs Temp Pulse Resp BP Pulse Ox 05/14/19 12:00 36.3 C L 62 14 117/46 L 98 05/14/19 11:53 60 05/14/19 11:45 127/50 H 05/14/19 11:00 36.3 C L 56 L 14 124/49 H 98 05/14/19 10:17 124/42 H 05/14/19 10:08 69 17 98 05/14/19 10:00 36.5 C L 75 18 120/40 L 98 05/14/19 09:00 36.4 C L 62 12 115/50 L 98 Medical Necessity - Tobacco Use Smoking Status: Never smoker Tobacco Use: Non-smoker Assessment/Plan All Active Problems (Last Reviewed 05/07/19 @ 13:[address] Doni Mccray MD) Respiratory failure with hypoxia (Acute) Bilateral pneumonia (Acute) Sepsis due to pneumonia (Acute) Infectious encephalopathy (Acute) 1. acute hypoxic respiratory failure * ongoing * intubated 05/11/2019 * pneumonia v CHF v ALI * on methylpred, BDs * CCM mgmt appreciated 2. Severe sepsis * POA * due to presumptive pneumonia * supportive mgmt 3. presumed gram negative pneumonia * UCx, Strep Ag, legionella Ag, BCx, resp panel negative * Sputum culture showing presumptive C. albicans, suspect contaminant * on cefepime from the 4. HFpEF * EF 65% from echo on 02/17/19 * off furosemide given RYAN 5. RYAN * worsening, 0.68 on admission, now up to 2.32 * ATN, FE urea 59% * avoid nephrotoxic agents. 6. DM2 * elevated and uncontrolled * started on glargine 7. VTE back on apixaban Inpatient E&M: 83496 Subs Hosp L2
[2019-05-14] MEDS: Polyethylene Glycol 3350 17 GM PACKET PO ×2 (12:43→21:13)
--- NOTE | 2019-05-14 14:37 | CHAPLAIN ---
Type of Pastoral Visit ___ Initial Visit _x__ Follow-up Visit ___ On-call Visit ___ General Patient Visit ___ Spiritual Assessment ___ Family Conference ___ Bereavement ___ Rapid Response ___ Code Blue ___ Other (describe below) Pastoral Care Referral From ___ Patient _x__ Family ___ Nurse ___ Physician ___ Safety Supervisor ___ Communications Maintainer ___ Other (describe below) Sacrament/Intervention _x__ Active listening ___ Anointing ___ Anabaptism ___ Bereavement ___ Communion ___ Farzaneh exploration ___ ___ Life review _x__ Prayer ___ Reconciliation ___ Sacrament of Sick _x__ Supportive presence ___ Wedding ___ Other (describe below) Pastoral Comments met with sister who was in room with patient; pt is intubated but sister gives update on her life and background; pt does have good family and friend support according to sister; pt is member of local jew as well; sister welcomes prayer and presence for her sister in this time
[2019-05-14] MEDS: Bisacodyl 10 MG Suppository RECTAL (15:13)
[2019-05-14] MEDS: fentaNYL drip 100 ML 12.5 MCG IV ×2 (15:38→23:49)
[2019-05-14 17:30] LABS: Bedside Glucose 255 mg/dL (70-110)
[2019-05-14] MEDS: Atorvastatin Calcium 20 MG Tablet GT (21:14)
[2019-05-14 23:36] LABS: Bedside Glucose 200 mg/dL (70-110)
[2019-05-14 23:51] LABS: Eosinophil Ct. Urine No Eosinophils Seen % (.)
[2019-05-15] VITALS (37 sets, daily range): BP systolic 108–148; BP diastolic 50–108; PULSE 51–120; RESP 11–26; TEMP 36.5–37.3; O2SAT 97–100
[2019-05-15 04:04] LABS: Absolute Lymphocyte Count 1.05 X10^3/uL (0.83-4.51); Absolute Neutrophil Count 12.8 X10^3/uL (2.0-7.7); Basophil# 0.02 X10^3/uL; Basophil% 0.1 % (0-1); Hematocrit 31.6 % (37-47); Lymphocyte # 1.05 X10^3/ul (4.0); Mean Corp Hgb Conc 31.6 g/dL (32-36); Mean Corpuscular Hgb 28.4 pg (27.0-32.0); Mean Corpuscular Volume 89.8 fL (81-99); Mean Platelet Vol. 8.8 fl (6.2-12.0); Monocyte# 0.74 X10^3/uL; Monocyte% 4.9 % (0-10); NRBC Flagged by Analyzer 0 % (0-5); Neutrophil # 12.79 X10^3/uL (2.7-7.7); Neutrophil % 85.3 % (47-70); Platelet Count 350 K/mm3 (150-450); RBC Distribution Width SD 53.1 fl (35.1-43.9); Red Blood Count 3.52 M/mm3 (4.2-5.4)
[2019-05-15 04:17] LABS: Anion Gap 8 (5-15); BUN 64 mg/dL (7-18); BUN/Creat Ratio 28.6 RATIO (10-20); Chloride 116 mmol/L (98-107); Creatinine, Serum 2.24 mg/dL (0.55-1.02); EST Glomerular Filtration Rate 23 mL/min (>60); Est Glom Filt Rate - Afr Amer 28 mL/min (>60); Estimated Creatinine Clearance 22.23 ml/min; Glucose 201 mg/dL (74-106); Potassium 4.6 mmol/L (3.5-5.1); Sodium Level 143 mmol/L (136-145)
[2019-05-15] MEDS: Insulin Lispro 100 UNIT/ML INSULN.PEN SC ×4 (05:35→23:03)
[2019-05-15 05:45] LABS: Bedside Glucose 185 mg/dL (70-110)
[2019-05-15] MEDS: Ipratropium/Albuterol Sulfate 3 ML AMPUL.NEB INHALATION ×3 (06:57→19:05)
--- NOTE | 2019-05-15 07:44 | PN_ITS ---
Subjective: Patient did okay overnight. Patient did have increased residuals leading to discontinuation of tube feeds. Patient was able to undergo a spontaneous breathing trial this morning and after approximately an hour started to have tachypnea. Patient was placed back on settings. Patient would open eyes, but not follow commands during my evaluation. General: Alert, Non-Cooperative, - - Obese. Good vent synchrony. HEENT: Atraumatic, PERRLA, EOMI, Normocephalic, - - Scleral edema noted. Oral: Moist Mucosa, No Gingival or Mucosal Lesions/ Ulcerations Neck: Supple, No Nodes, Trachea Midline, JVD, Right Lungs: No rhonchi, No wheeze, No rales, Diminished Cardiovascular: Regular rate, Regular Rhythm, Normal S1, Normal S2, No murmurs, No rub noted, No Gallop Abdomen: Soft, Non Tender, Hypoactive Bowel Sounds, Distended, Obese Extremities: No clubbing, No cyanosis, Capillary Refill Less than 3 Seconds, Edema Skin: No breakdown Musculoskeletal: No Tenderness to Palpation of Joints or Extremities Lymphatic: No Cervical, Supraclavicular, or Inguinal Adenopathy Neurological: Cranial nerves II-XII grossly intact, Neuro grossly intact Psych/Mental Status: Flat Affect, Impulsive Vital Signs Temp Pulse Resp BP Pulse Ox 36.6 C 60 14 141/100 H 100 05/15/19 05:00 05/15/19 07:00 05/15/19 07:00 05/15/19 07:00 05/15/19 07:00 Oxygen Flow Rate (L/min) 35 Oxygen Delivery Method Mechanical Ventilator Weight: 90.7 kg Body Mass Index (BMI) 31.8 Intake and Output for Last 24 Hours 05/13/19 05/14/19 05/15/19 23:59 23:59 23:59 Intake Total 3000.04 / 3031.24 2064.48 / 2089.57 281.22 / 281.22 Output Total 950 / 950 1000 / 1000 275 / 275 Balance 2049. / 2080.24 1064.48 / 1089.57 6.22 / 6.22 Labs (Last 48 Hours) 05/13/19 05/13/19 05/13/19 09:45 09:45 09:45 WBC RBC Hgb Hct MCV MCH MCHC RDW Std Deviation RDW Coeff of Kristal Plt Count MPV Immature Gran % (Auto) Neut % (Auto) Lymph % (Auto) [place] % (Auto) Eos % (Auto) Baso % (Auto) Absolute Neuts (auto) Absolute Lymphs (auto) Nucleated RBC % Eos Smear Total Cells No Eosinophils Seen Sodium Potassium Chloride Carbon Dioxide Anion Gap BUN Creatinine Estim Creat Clear Calc Est GFR (MDRD) Af Amer Est GFR (MDRD) Non-Af BUN/Creatinine Ratio Glucose Calcium Total Bilirubin AST ALT Alkaline Phosphatase Total Protein Albumin Globulin Albumin/Globulin Ratio Ur Random Sodium Urine Creatinine 53.70 Urine Urea Nitrogen 650 POC Glucose 05/13/19 05/13/19 05/13/19 09:45 11:16 17:28 WBC RBC Hgb Hct MCV MCH MCHC RDW Std Deviation RDW Coeff of Kristal Plt Count MPV Immature Gran % (Auto) Neut % (Auto) Lymph % (Auto) [place] % (Auto) Eos % (Auto) Baso % (Auto) Absolute Neuts (auto) Absolute Lymphs (auto) Nucleated RBC % Eos Smear Total Cells Sodium Potassium Chloride Carbon Dioxide Anion Gap BUN Creatinine Estim Creat Clear Calc Est GFR (MDRD) Af Amer Est GFR (MDRD) Non-Af BUN/Creatinine Ratio Glucose Calcium Total Bilirubin AST ALT Alkaline Phosphatase Total Protein Albumin Globulin Albumin/Globulin Ratio Ur Random Sodium 31 Urine Creatinine Urine Urea Nitrogen POC Glucose 237 H 265 H 05/14/19 05/14/19 05/14/19 00:18 04:00 04:00 WBC 12.6 H RBC 3.03 L Hgb 8.6 L Hct 28.0 L MCV 92.4 MCH 28.4 MCHC 30.7 L RDW Std Deviation 55.2 H RDW Coeff of Kristal 16.3 H Plt Count 351 MPV 8.8 Immature Gran % (Auto) 3.000 H Neut % (Auto) 86.4 H Lymph % (Auto) 6.3 L [place] % (Auto) 4.2 Eos % (Auto) 0.0 Baso % (Auto) 0.1 Absolute Neuts (auto) 10.9 H Absolute Lymphs (auto) 0.79 L Nucleated RBC % 0 Eos Smear Total Cells Sodium 140 Potassium 4.5 Chloride 113 H Carbon Dioxide 21.0 Anion Gap 6 BUN 56 H Creatinine 2.32 H Estim Creat Clear Calc 21.46 Est GFR (MDRD) Af Amer 27 L Est GFR (MDRD) Non-Af 22 L BUN/Creatinine Ratio 24.1 H Glucose 322 H Calcium 8.4 L Total Bilirubin 0.10 L AST 19 ALT 30 Alkaline Phosphatase 108 Total Protein 5.3 L Albumin 1.4 L Globulin 3.9 Albumin/Globulin Ratio 0.4 L Ur Random Sodium Urine Creatinine Urine Urea Nitrogen POC Glucose 282 H 05/14/19 05/14/19 05/14/19 05:47 11:26 17:28 WBC RBC Hgb Hct MCV MCH MCHC RDW Std Deviation RDW Coeff of Kristal Plt Count MPV Immature Gran % (Auto) Neut % (Auto) Lymph % (Auto) [place] % (Auto) Eos % (Auto) Baso % (Auto) Absolute Neuts (auto) Absolute Lymphs (auto) Nucleated RBC % Eos Smear Total Cells Sodium Potassium Chloride Carbon Dioxide Anion Gap BUN Creatinine Estim Creat Clear Calc Est GFR (MDRD) Af Amer Est GFR (MDRD) Non-Af BUN/Creatinine Ratio Glucose Calcium Total Bilirubin AST ALT Alkaline Phosphatase Total Protein Albumin Globulin Albumin/Globulin Ratio Ur Random Sodium Urine Creatinine Urine Urea Nitrogen POC Glucose 273 H 282 H 255 H 05/14/19 05/15/19 05/15/19 23:28 03:57 03:57 WBC 15.0 H RBC 3.52 L Hgb 10.0 L Hct 31.6 L MCV 89.8 MCH 28.4 MCHC 31.6 L RDW Std Deviation 53.1 H RDW Coeff of Kristal 16.0 H Plt Count 350 MPV 8.8 Immature Gran % (Auto) 2.700 H Neut % (Auto) 85.3 H Lymph % (Auto) 7.0 L [place] % (Auto) 4.9 Eos % (Auto) 0.0 Baso % (Auto) 0.1 Absolute Neuts (auto) 12.8 H Absolute Lymphs (auto) 1.05 Nucleated RBC % 0 Eos Smear Total Cells Sodium 143 Potassium 4.6 Chloride 116 H Carbon Dioxide 19.0 L Anion Gap 8 BUN 64 H Creatinine 2.24 H Estim Creat Clear Calc 22.23 Est GFR (MDRD) Af Amer 28 L Est GFR (MDRD) Non-Af 23 L BUN/Creatinine Ratio 28.6 H Glucose 201 H Calcium 9.0 Total Bilirubin AST ALT Alkaline Phosphatase Total Protein Albumin Globulin Albumin/Globulin Ratio Ur Random Sodium Urine Creatinine Urine Urea Nitrogen POC Glucose 200 H 05/15/19 05:35 WBC RBC Hgb Hct MCV MCH MCHC RDW Std Deviation RDW Coeff of Kristal Plt Count MPV Immature Gran % (Auto) Neut % (Auto) Lymph % (Auto) [place] % (Auto) Eos % (Auto) Baso % (Auto) Absolute Neuts (auto) Absolute Lymphs (auto) Nucleated RBC % Eos Smear Total Cells Sodium Potassium Chloride Carbon Dioxide Anion Gap BUN Creatinine Estim Creat Clear Calc Est GFR (MDRD) Af Amer Est GFR (MDRD) Non-Af BUN/Creatinine Ratio Glucose Calcium Total Bilirubin AST ALT Alkaline Phosphatase Total Protein Albumin Globulin Albumin/Globulin Ratio Ur Random Sodium Urine Creatinine Urine Urea Nitrogen POC Glucose 185 H Microbiology 05/08/19 17:45 Blood Culture (Wb) - Venous Blood Culture - Final No growth in 5 days. 05/08/19 17:20 Blood Culture (Wb) - Left Hand Blood Culture - Final No growth in 5 days. 05/11/19 07:50 Sputum, Induced/Lukens Gram Stain - Final 05/11/19 07:50 Sputum, Induced/Lukens Respiratory Culture - Final Presumptive C albicans Medical Necessity - Tobacco Use Smoking Status: Never smoker Tobacco Use: Non-smoker Assessment/Plan All Active Problems (Last Reviewed 05/07/19 @ 13:[address] Doni Mccray MD) Respiratory failure with hypoxia (Acute) Bilateral pneumonia (Acute) Sepsis due to pneumonia (Acute) Infectious encephalopathy (Acute) RECOMMENDATIONS: 1. Continue mechanical ventilation. Spontaneous awakening and breathing trials per protocol 2. Wean FiO2 to maintain oxygen saturations at or above 90%. 3. Attempt diuresis 4. Continue Eliquis, empiric steroids and bronchodilator therapy 5. Continue Seroquel 6. OG to low intermittent suction. Aggressive bowel regimen. IMPRESSIONS: 1. Acute hypoxemic respiratory failure Unclear etiology at this time. Patient has not responded well to diuretic therapy in the past and has completed an antibiotic course. Kristin in sputum is likely a contaminant. Patient was able to pass a spontaneous awakening trial on current sedation. Spontaneous breathing trial did go better today, but patient became tachypneic. Clinical suspicion for an element of ileus with gastric distention adding to respiratory issues. Will attempt to address the ileus prior to extubation. 2. Severe sepsis Appears to be secondary to underlying pulmonary infectious process. MRSA screen was negative. Patient has completed a full course of antibiotics, so will discontinue. She is no longer requiring pressor therapy, but this is likely secondary to sedation medications. 3. Chronic heart failure with preserved ejection fraction Appears euvolemic at this time. Will attempt gentle diuresis during the day as patient is starting to have a significant amount of fluid retention throughout the hospitalization and this may be adding to respiratory difficulty. 4. Acute kidney injury Potentially prerenal in etiology. Unclear if patient is off of her Starling curve leading to decreased renal perfusion. Will rechallenge with Lasix therapy. Agree with work-up per hospitalist orders. Renal function sl ightly worse today despite adequate urine output. Blood pressures have normalized with discontinuation of propofol therapy 5. Hypokalemia Electrolyte repletion as needed. Recheck levels in the morning. 6. History of DVT on Eliquis/diabetes mellitus/hyperlipidemia/obesity Complicates care, management, recovery and prognosis. Hold Eliquis and continue weight based heparin drip. TIME: 45 minutes critical care time spent addressing patient's acute hypoxic respiratory failure, severe sepsis, electrolyte abnormalities, review of all data and collaboration with care team. (6 AM to 7:50 AM) [id number]: [id number] Critical care first hour
--- NOTE | 2019-05-15 09:32 | CM.UR ---
Participated in interdisciplinary rounds this am. Sister, Darian, present and participated in rounds. Failed SBT this morning due to tachypnea. Having lose stools therefore holding tube feeds and on suction. BSPx [address] Cervantes believes her to have constipation and that leading to this symptoms. Case mgmt will continue to follow. Current plan is [facility]. Guilherme Finn RN, CCM.
[2019-05-15] MEDS: Furosemide 20 MG/2 ML VIAL IV (10:26)
[2019-05-15] MEDS: 0.9% Saline Lock 10 ML Syringe IV ×4 (10:36→23:03)
[2019-05-15] MEDS: fentaNYL drip 100 ML 15 MCG IV ×2 (10:38→17:18)
[2019-05-15] MEDS: Polyethylene Glycol 3350 17 GM PACKET PO ×2 (10:51→21:00)
[2019-05-15] MEDS: APIXABAN 5 MG TABLET PO ×2 (10:51→21:00)
[2019-05-15] MEDS: Aspirin 81 MG TAB.CHEW GT (10:51)
[2019-05-15] MEDS: Senna/Docusate Sodium 1 Tablet 2 TABLET GT (10:51)
[2019-05-15] MEDS: Ascorbic Acid 500 MG Tablet GT (10:51)
[2019-05-15] MEDS: QUEtiapine 25 MG Tablet 50 MG GT ×2 (10:51→21:00)
[2019-05-15] MEDS: Famotidine 20 MG Tablet GT (10:51)
[2019-05-15] MEDS: buPROPion 75 MG Tablet GT ×2 (10:51→21:00)
[2019-05-15] MEDS: Petrolatum,White 3.75GM OPTH.TUBE OPHTHALMIC ×2 (11:03→21:00)
[2019-05-15] MEDS: Menthol/Lanolin/Calamine/Znox 113 GM Tube 1 APPLIC TOPICAL ×2 (11:04→21:01)
[2019-05-15] MEDS: Chlorhexidine 15 ML PO ×2 (11:09→21:00)
[2019-05-15] MEDS: CHLORHEXIDINE GLUC 2% CLOTH 1 EACH TOWELETTE TOPICAL (11:32)
--- NOTE | 2019-05-15 11:42 | PN_ITS ---
Patient Problems: Active and Suspected Problems (Last Reviewed 05/07/19 @ 13:[address] Doni Mccray MD) Respiratory failure with hypoxia (Acute) Bilateral pneumonia (Acute) Sepsis due to pneumonia (Acute) Infectious encephalopathy (Acute) Reason for Visit: respiratory failure Subjective: Still agitated and confused with decrease in sedation. Vitals/I&O's: Vital Signs Temp Pulse Resp BP Pulse Ox 36.6 C 57 L 12 141/100 H 98 05/15/19 05:00 05/15/19 09:00 05/15/19 09:00 05/15/19 07:00 05/15/19 09:00 Oxygen Flow Rate (L/min) 35 Oxygen Delivery Method Mechanical Ventilator Weight: 90.7 kg Body Mass Index (BMI) 31.8 Intake and Output for Last 24 Hours 05/13/19 05/14/19 05/15/19 23:59 23:59 23:59 Intake Total 3000.04 / 3031.24 2064.48 / 2089.57 395.16 / 395.16 Output Total 950 / 950 1000 / 1000 275 / 275 Balance 2050.04 / 2081.24 1064.48 / 1089.57 120.16 / 120.16 General: Alert, No apparent distress HEENT: Atraumatic, Normocephalic Oral: Moist Mucosa, No Gingival or Mucosal Lesions/ Ulcerations Neck: No Nodes, Trachea Midline Lungs: Normal air movement, - - coarse breath sounds bilaterally. Cardiovascular: Regular rate, Regular Rhythm, Normal S1, Normal S2, No murmurs Abdomen: Bowel Sounds Present, Soft, Non Tender, Non-Distended, No Hepato- splenomegaly Extremities: No Calf Tenderness, Edema Skin: No rashes, No breakdown Musculoskeletal: No Tenderness to Palpation of Joints or Extremities, No Muscle Wasting Microbiology Past 72 Hours 05/08/19 17:45 Blood Culture (Wb) - Venous Blood Culture - Final No growth in 5 days. 05/08/19 17:20 Blood Culture (Wb) - Left Hand Blood Culture - Final No growth in 5 days. 05/11/19 07:50 Sputum, Induced/Lukens Gram Stain - Final 05/11/19 07:50 Sputum, Induced/Lukens Respiratory Culture - Final Presumptive C albicans 05/07/19 11:13 Blood Culture (Wb) - Right Hand Blood Culture - Final No growth in 5 days. 05/07/19 11:15 Blood Culture (Wb) - Left Wrist Blood Culture - Final No growth in 5 days. 05/10/19 01:25 Sputum, Expectorated/Coughed Gram Stain - Final 05/10/19 01:25 Sputum, Expectorated/Coughed Respiratory Culture - Final Presumptive C albicans Laboratory Results 05/13/19 09:45: Eos Smear Total Cells No Eosinophils Seen 05/14/19 17:28: POC Glucose 255 H 05/14/19 23:28: POC Glucose 200 H 05/15/19 03:57: WBC 15.0 H, RBC 3.52 L, Hgb 10.0 L, Hct 31.6 L, MCV 89.8, MCH 28.4, MCHC 31.6 L, RDW Std Deviation 53.1 H, RDW Coeff of Kristal 16.0 H, Plt Count 350, MPV 8.8, Immature Gran % (Auto) 2.700 H, Neut % (Auto) 85.3 H, Lymph % (Auto) 7.0 L, [place] % (Auto) 4.9, Eos % (Auto) 0.0, Baso % (Auto) 0.1, Absolute Neuts (auto) 12.8 H, Absolute Lymphs (auto) 1.05, Nucleated RBC % 0 05/15/19 03:57: Sodium 143, Potassium 4.6, Chloride 116 H, Carbon Dioxide 19.0 L , Anion Gap 8, BUN 64 H, Creatinine 2.24 H, Estim Creat Clear Calc 22.23, Est GFR (MDRD) Af Amer 28 L, Est GFR (MDRD) Non-Af 23 L, BUN/Creatinine Ratio 28.6 H , Glucose 201 H, Calcium 9.0 05/15/19 05:35: POC Glucose 185 H Current Medications Acetaminophen (Tylenol Liquid) 650 mg GT Q6H PRN PRN PRN Reason: Pain Score 1-3/Temp > 100.7 F Al Hydroxide/Mg Hydroxide (Mylanta Ii) 30 ml GT Q6H PRN PRN PRN Reason: Gastric Burning Albuterol Sulfate (Ventolin Aerosols) 2.5 mg INHALATION Q2H PRN PRN PRN Reason: Shortness of Breath/Wheezing Last Admin: 05/08/19 04:30 Dose: 2.5 mg Documented by: Albuterol/Ipratropium (Duoneb) 3 ml INHALATION Q4HWA.RT [facility] Last Admin: 05/15/19 06:57 Dose: 3 ml Documented by: Apixaban (Eliquis) 5 mg PO BID [facility] Last Admin: 05/15/19 10:51 Dose: 5 mg Documented by: Ascorbic Acid (Vitamin C) 500 mg GT DAILY@0800 [facility] Last Admin: 05/15/19 10:51 Dose: 500 mg Documented by: Aspirin (Aspirin, Baby) 81 mg GT DAILYCM [facility] Last Admin: 05/15/19 10:51 Dose: 81 mg Documented by: Atorvastatin Calcium (Lipitor) 20 mg GT QHS [facility] Last Admin: 05/14/19 21:14 Dose: 20 mg Documented by: Bupropion HCl (Wellbutrin Tablets) 75 mg GT BID [facility] Last Admin: 05/15/19 10:51 Dose: 75 mg Documented by: Calamine/Phenol (Calmoseptine Ointment) 1 applic TOPICAL BID [facility]; Protocol Last Admin: 05/15/19 11:04 Dose: 1 applicatio Documented by: Chlorhexidine Gluconate () 15 ml PO BID [facility] Last Admin: 05/15/19 11:09 Dose: 15 ml Documented by: Chlorhexidine Gluconate () 1 each TOPICAL DAILY [facility] Last Admin: 05/15/19 11:32 Dose: 1 each Documented by: Famotidine (Pepcid) 20 mg GT DAILY [facility] Last Admin: 05/15/19 10:51 Dose: 20 mg Documented by: Glucagon () 1 mg IM .X1 PRN PRN Reason: Hypoglycemia Guaifenesin (Robitussin) 20 ml GT Q4H PRN PRN PRN Reason: COUGH Dextrose (Dextrose 10%-Water) 250 mls @ 999 mls/hr IV .Q16M PRN; Protocol PRN Reason: HYPOGLYCEMIA Fentanyl () 100 mls @ 5 mls/hr IV UD [facility]; Protocol Last Admin: 05/15/19 10:38 Dose: 150 mcg/hr, 15 mls/hr Documented by: Sodium Chloride () 250 mls @ 15 mls/hr IV .[id number] PRN PRN Reason: Saline Flush Last Infusion: 05/14/19 15:46 Dose: Infused Documented by: Sodium Chloride () 250 mls @ 15 mls/hr IV .[id number] PRN PRN Reason: Additional IVPB Infusion Enteral Nutritional Formula (Vital Af 1.2 Jose Liquid) 1,000 mls @ 50 mls/hr GT .Q20H [facility] Last Admin: 05/14/19 18:08 Dose: Not Given Documented by: Dexmedetomidine HCl 400 mcg/ (Sodium Chloride) 100 mls @ 11.388 mls/hr CONT INF .Q8H47M [facility]; Protocol Last Admin: 05/15/19 10:20 Dose: 1 mcg/kg/hr, 22.8 mls/hr Documented by: Insulin Glargine (Lantus ([facility])) 10 units SC DAILY [facility] Last Admin: 05/15/19 11:33 Dose: 10 u Documented by: Insulin Human Lispro (Humalog Kwikpen ([facility])) 0 unit SC Q6 [facility]; Protocol Last Admin: 05/15/19 11:34 Dose: 2 u Documented by: Magnesium Hydroxide (Milk Of Magnesia) 30 ml GT DAILY PRN PRN PRN Reason: Constipation Melatonin (Melatonin) 3 mg GT QHS PRN PRN PRN Reason: INSOMNIA Methylprednisolone (Solu-Medrol) 40 mg IV Q6 [facility] Last Admin: 05/15/19 11:37 Dose: 40 mg Documented by: Multi-Ingredient Cream (Lacrilube) 0 applic OPHTHALMIC BID [facility] Last Admin: 05/15/19 11:03 Dose: 1 applicatio Documented by: Nitroglycerin (Nitrostat) 0.4 mg SUBLINGUAL Q5M PRN PRN Reason: CARDIAC/CHEST PAIN Ondansetron HCl (Zofran) 4 mg IV Q8H PRN PRN PRN Reason: NAUSEA/VOMITING Polyethylene Glycol (Miralax) 17 gm PO BID [facility] Last Admin: 05/15/19 10:51 Dose: 17 gm Documented by: Prochlorperazine Edisylate (Compazine Iv) 5 mg IV Q4H PRN PRN PRN Reason: Breakthrough nausea/vomiting Quetiapine Fumarate (Seroquel) 50 mg GT BID [facility] Last Admin: 05/15/19 10:51 Dose: 50 mg Documented by: Senna/Docusate Sodium (Senokot-S, Corrie-Colace) 2 tablet GT DAILY [facility] Last Admin: 05/15/19 10:51 Dose: 2 tablet Documented by: Sodium Chloride () 10 - 40 ml IV UD PRN PRN Reason: SALINE FLUSH Last Admin: 05/15/19 10:36 Dose: 30 ml Documented by: STROKE Vital Signs/Narrative: Vital Signs Pulse Resp Pulse Ox 05/15/19 09:00 57 L 12 98 Medical Necessity - Tobacco Use Smoking Status: Never smoker Tobacco Use: Non-smoker Assessment/Plan All Active Problems (Last Reviewed 05/07/19 @ 13:[address] Doni Mccray MD) Respiratory failure with hypoxia (Acute) Bilateral pneumonia (Acute) Sepsis due to pneumonia (Acute) Infectious encephalopathy (Acute) 1. acute hypoxic respiratory failure * ongoing * intubated 05/11/2019 * pneumonia v CHF v ALI * on methylpred, BDs * CCM mgmt appreciated 2. Severe sepsis * POA * due to presumptive pneumonia * supportive mgmt 3. presumed gram negative pneumonia * UCx, Strep Ag, legionella Ag, BCx, resp panel negative * Sputum culture showing presumptive C. albicans, suspect contaminant * on cefepime from the 4. HFpEF * EF 65% from echo on 02/17/19 * received low-dose furosemide intermittent 5. RYAN * worsening, 0.68 on admission, now up to 2.24 * ATN, FE urea 59% * avoid nephrotoxic agents. 6. DM2 * elevated and uncontrolled * started on glargine 7. VTE back on apixaban Inpatient E&M: 62503 Subs Hosp L2
[2019-05-15 11:55] LABS: Bedside Glucose 175 mg/dL (70-110)
[2019-05-15 18:05] LABS: Bedside Glucose 184 mg/dL (70-110)
[2019-05-15] MEDS: Atorvastatin Calcium 20 MG Tablet GT (21:00)
[2019-05-15] MEDS: Nystatin Powder 15gm Bottle 1 APPLIC TOPICAL (21:03)
[2019-05-15 23:10] LABS: Bedside Glucose 172 mg/dL (70-110)
[2019-05-16] VITALS (36 sets, daily range): BP systolic 106–152; BP diastolic 43–91; PULSE 57–97; RESP 13–38; TEMP 37.3–37.8; O2SAT 98–100
[2019-05-16] MEDS: fentaNYL drip 100 ML 15 MCG IV (00:52)
[2019-05-16 04:34] LABS: Absolute Lymphocyte Count 0.93 X10^3/uL (0.83-4.51); Basophil# 0.03 X10^3/uL; Basophil% 0.2 % (0-1); Hemoglobin 9.7 g/dL (12.0-15.0); Lymphocyte # 0.93 X10^3/ul (4.0); Lymphocyte % 4.7 % (19-41); Mean Corp Hgb Conc 31.3 g/dL (32-36); Mean Corpuscular Volume 89.3 fL (81-99); Mean Platelet Vol. 8.9 fl (6.2-12.0); Monocyte# 0.71 X10^3/uL; Monocyte% 3.6 % (0-10); NRBC Flagged by Analyzer 0 % (0-5); Neutrophil # 17.99 X10^3/uL (2.7-7.7); Neutrophil % 90.1 % (47-70); Platelet Count 392 K/mm3 (150-450); RBC Distribution Width CV 16.1 % (11.6-14.6); RBC Distribution Width SD 51.9 fl (35.1-43.9); Red Blood Count 3.47 M/mm3 (4.2-5.4); White Blood Count 19.9 K/mm3 (4.4-11.0)
[2019-05-16 04:45] LABS: Anion Gap 9 (5-15); BUN 65 mg/dL (7-18); BUN/Creat Ratio 29.4 RATIO (10-20); Calcium,Total 8.5 mg/dL (8.5-10.1); Chloride 115 mmol/L (98-107); Creatinine, Serum 2.21 mg/dL (0.55-1.02); EST Glomerular Filtration Rate 24 mL/min (>60); Est Glom Filt Rate - Afr Amer 29 mL/min (>60); Estimated Creatinine Clearance 22.53 ml/min; Glucose 191 mg/dL (74-106); Potassium 4.6 mmol/L (3.5-5.1); Sodium Level 144 mmol/L (136-145)
[2019-05-16] MEDS: Insulin Lispro 100 UNIT/ML INSULN.PEN SC ×4 (05:01→23:23)
[2019-05-16 05:11] LABS: Bedside Glucose 178 mg/dL (70-110)
[2019-05-16] MEDS: TITRATION PARAMETER CHANGE 1 EACH IV (05:29)
[2019-05-16] MEDS: Ipratropium/Albuterol Sulfate 3 ML AMPUL.NEB INHALATION ×4 (07:05→18:45)
--- NOTE | 2019-05-16 07:24 | RAD_ITS ---
STUDY: X-RAY - ABDOMEN/PELVIS REASON FOR EXAM: Female, 68 years old. Ileus TECHNIQUE: Single AP view of the abdomen / pelvis. COMPARISON: None. FINDINGS: There is a nasogastric tube distally in the region of the stomach. There are nonspecific gaseous bowel loops. Rectal line is seen. Normal soft tissue structures. There are degenerative changes in the lower lumbar spine. RAD/Abdomen Single View (Portable) IMPRESSION: Nonspecific gas pattern. Electronically Signed: Jimenez Villegas MD at 14:01 EDT Tel , Service support ,
--- NOTE | 2019-05-16 07:25 | PN_ITS ---
Subjective: Patient did okay overnight. Patient continues to have OG to lower intermittent suction. Nursing reports thicker secretions that appear like stool. Patient became significantly tachypneic with spontaneous breathing trial this morning, so was not liberated from the ventilator. Patient continues to open her eyes, but not really following commands. General: - - Intubated and sedated. RASS -1. Obese. Good ventilator synchrony HEENT: Atraumatic, PERRLA, EOMI, Normocephalic, - - Scleral edema improving Oral: Moist Mucosa, No Gingival or Mucosal Lesions/ Ulcerations Neck: Supple, No Nodes, Trachea Midline, JVD, Right Lungs: No rales, Diminished, Rhonchi - Scattered, Wheezes, - - Symmetric expansion. Cardiovascular: Regular rate, Regular Rhythm, Normal S1, Normal S2, No murmurs, No rub noted, No Gallop Abdomen: Bowel Sounds Present, Soft, Non Tender, Non-Distended, Obese Extremities: No clubbing, No cyanosis, Edema Skin: No rashes, No breakdown Musculoskeletal: No Tenderness to Palpation of Joints or Extremities Lymphatic: No Cervical, Supraclavicular, or Inguinal Adenopathy Neurological: Cranial nerves II-XII grossly intact, Neuro grossly intact Psych/Mental Status: Flat Affect Vital Signs Temp Pulse Resp BP Pulse Ox 37.3 C 58 L 14 152/59 H 99 05/16/19 07:00 05/16/19 07:00 05/16/19 07:00 05/16/19 07:00 05/16/19 07:00 Oxygen Flow Rate (L/min) 35 Oxygen Delivery Method Mechanical Ventilator Weight: 89.7 kg Body Mass Index (BMI) 31.8 Intake and Output for Last 24 Hours 05/14/19 05/15/19 05/17/19 23:59 23:59 00:59 Intake Total 2064.48 / 2089.57 985.16 / 1046.29 270.89 / 270.89 Output Total 1000 / 1000 1500 / 1900 675 / 675 Balance 1064.48 / 1089.57 -514.84 / -853.71 -404.11 / -404.11 Labs (Last 48 Hours) 05/13/19 05/14/19 05/14/19 09:45 11:26 17:28 WBC RBC Hgb Hct MCV MCH MCHC RDW Std Deviation RDW Coeff of Kristal Plt Count MPV Immature Gran % (Auto) Neut % (Auto) Lymph % (Auto) [place] % (Auto) Eos % (Auto) Baso % (Auto) Absolute Neuts (auto) Absolute Lymphs (auto) Nucleated RBC % Eos Smear Total Cells No Eosinophils Seen Sodium Potassium Chloride Carbon Dioxide Anion Gap BUN Creatinine Estim Creat Clear Calc Est GFR (MDRD) Af Amer Est GFR (MDRD) Non-Af BUN/Creatinine Ratio Glucose Calcium POC Glucose 282 H 255 H 05/14/19 05/15/19 05/15/19 23:28 03:57 03:57 WBC 15.0 H RBC 3.52 L Hgb 10.0 L Hct 31.6 L MCV 89.8 MCH 28.4 MCHC 31.6 L RDW Std Deviation 53.1 H RDW Coeff of Kristal 16.0 H Plt Count 350 MPV 8.8 Immature Gran % (Auto) 2.700 H Neut % (Auto) 85.3 H Lymph % (Auto) 7.0 L [place] % (Auto) 4.9 Eos % (Auto) 0.0 Baso % (Auto) 0.1 Absolute Neuts (auto) 12.8 H Absolute Lymphs (auto) 1.05 Nucleated RBC % 0 Eos Smear Total Cells Sodium 143 Potassium 4.6 Chloride 116 H Carbon Dioxide 19.0 L Anion Gap 8 BUN 64 H Creatinine 2.24 H Estim Creat Clear Calc 22.23 Est GFR (MDRD) Af Amer 28 L Est GFR (MDRD) Non-Af 23 L BUN/Creatinine Ratio 28.6 H Glucose 201 H Calcium 9.0 POC Glucose 200 H 05/15/19 05/15/19 05/15/19 05:35 11:09 17:53 WBC RBC Hgb Hct MCV MCH MCHC RDW Std Deviation RDW Coeff of Kristal Plt Count MPV Immature Gran % (Auto) Neut % (Auto) Lymph % (Auto) [place] % (Auto) Eos % (Auto) Baso % (Auto) Absolute Neuts (auto) Absolute Lymphs (auto) Nucleated RBC % Eos Smear Total Cells Sodium Potassium Chloride Carbon Dioxide Anion Gap BUN Creatinine Estim Creat Clear Calc Est GFR (MDRD) Af Amer Est GFR (MDRD) Non-Af BUN/Creatinine Ratio Glucose Calcium POC Glucose 185 H 175 H 184 H 05/15/19 05/16/19 05/16/19 23:01 04:00 04:00 WBC 19.9 H RBC 3.47 L Hgb 9.7 L Hct 31.0 L MCV 89.3 MCH 28.0 MCHC 31.3 L RDW Std Deviation 51.9 H RDW Coeff of Kristal 16.1 H Plt Count 392 MPV 8.9 Immature Gran % (Auto) 1.400 H Neut % (Auto) 90.1 H Lymph % (Auto) 4.7 L [place] % (Auto) 3.6 Eos % (Auto) 0.0 Baso % (Auto) 0.2 Absolute Neuts (auto) 18.0 H Absolute Lymphs (auto) 0.93 Nucleated RBC % 0 Eos Smear Total Cells Sodium 144 Potassium 4.6 Chloride 115 H Carbon Dioxide 20.0 L Anion Gap 9 BUN 65 H Creatinine 2.21 H Estim Creat Clear Calc 22.53 Est GFR (MDRD) Af Amer 29 L Est GFR (MDRD) Non-Af 24 L BUN/Creatinine Ratio 29.4 H Glucose 191 H Calcium 8.5 POC Glucose 172 H 05/16/19 05:01 WBC RBC Hgb Hct MCV MCH MCHC RDW Std Deviation RDW Coeff of Kristal Plt Count MPV Immature Gran % (Auto) Neut % (Auto) Lymph % (Auto) [place] % (Auto) Eos % (Auto) Baso % (Auto) Absolute Neuts (auto) Absolute Lymphs (auto) Nucleated RBC % Eos Smear Total Cells Sodium Potassium Chloride Carbon Dioxide Anion Gap BUN Creatinine Estim Creat Clear Calc Est GFR (MDRD) Af Amer Est GFR (MDRD) Non-Af BUN/Creatinine Ratio Glucose Calcium POC Glucose 178 H Microbiology 05/08/19 17:45 Blood Culture (Wb) - Venous Blood Culture - Final No growth in 5 days. 05/08/19 17:20 Blood Culture (Wb) - Left Hand Blood Culture - Final No growth in 5 days. Medical Necessity - Tobacco Use Smoking Status: Never smoker Tobacco Use: Non-smoker Assessment/Plan All Active Problems (Last Reviewed 05/07/19 @ 13:[address] Doni Mccray MD) Respiratory failure with hypoxia (Acute) Bilateral pneumonia (Acute) Sepsis due to pneumonia (Acute) Infectious encephalopathy (Acute) RECOMMENDATIONS: 1. Continue mechanical ventilation. Spontaneous awakening and breathing trials per protocol 2. Wean FiO2 to maintain oxygen saturations at or above 90%. 3. Schedule diuresis. 4. Continue Eliquis, empiric steroids and bronchodilator therapy 5. Continue Seroquel 6. OG to low intermittent suction. Aggressive bowel regimen. Obtain KUB IMPRESSIONS: 1. Acute hypoxemic respiratory failure Unclear etiology at this time. Patient has completed antibiotic course. Patient is developing anasarca. Sedation is much improved on Precedex therapy to allow for spontaneous awakening and breathing trials. Clinical suspicion for an element of overload leading to tachypnea as patient is significantly positive over the course of her hospitalization and up approximately 6 kg. Diuretics will be scheduled. Obtain a KUB to see if there is abdominal component. 2. Severe sepsis Appears to be secondary to underlying pulmonary infectious process. MRSA screen was negative. Patient has completed a full course of antibiotics, so will discontinue. She is no longer requiring pressor therapy, but this was likely secondary to sedation medications. 3. Chronic heart failure with preserved ejection fraction Appears overloaded at this time. We will schedule diuresis during the day as patient has a significant amount of fluid retention throughout the hospitalization and this may be adding to respiratory difficulty. 4. Acute kidney injury Potentially prerenal in etiology. Unclear if patient is off of her Starling curve leading to decreased renal perfusion. Initiate diuretic therapy. May need nephrology evaluation if fails to improve. Renal function slightly worse today despite adequate urine output. Blood pressures have normalized with discontinuation of propofol therapy 5. Hypokalemia Electrolyte repletion as needed. Recheck levels in the morning. 6. History of DVT on Eliquis/diabetes mellitus/hyperlipidemia/obesity Complicates care, management, recovery and prognosis. Hold Eliquis and continue weight based heparin drip. TIME: 42 minutes critical care time spent addressing patient's acute hypoxic respiratory failure, severe sepsis, electrolyte abnormalities, review of all data and collaboration with care team. (5:40 AM to 6:40 AM) 9xxxx: [id number] Critical care first hour
--- NOTE | 2019-05-16 09:02 | PN_ITS ---
Patient Problems: Active and Suspected Problems (Last Reviewed 05/07/19 @ 13:[address] Doni Mccray MD) Respiratory failure with hypoxia (Acute) Bilateral pneumonia (Acute) Sepsis due to pneumonia (Acute) Infectious encephalopathy (Acute) Reason for Visit: resp failure Subjective: Still agitated. Gagging for prolonged periods of time. Still being suctioned via OG. Vitals/I&O's: Vital Signs Temp Pulse Resp BP Pulse Ox 37.3 C 78 18 152/59 H 99 05/16/19 07:00 05/16/19 07:05 05/16/19 07:05 05/16/19 07:00 05/16/19 07:05 Oxygen Flow Rate (L/min) 35 Oxygen Delivery Method Mechanical Ventilator Weight: 89.7 kg Body Mass Index (BMI) 31.8 Intake and Output for Last 24 Hours 05/14/19 05/15/19 05/17/19 23:59 23:59 00:59 Intake Total 2064.48 / 2089.57 985.16 / 1046.29 307.38 / 307.38 Output Total 1000 / 1000 1500 / 1900 675 / 675 Balance 1064.48 / 1089.57 -514.84 / -853.71 -367.62 / -367.62 General: - - intubated and sedated HEENT: Atraumatic, Normocephalic Oral: Moist Mucosa, No Gingival or Mucosal Lesions/ Ulcerations Neck: No Nodes, Trachea Midline Lungs: Normal air movement, - - coarse breath sounds bilaterally. Cardiovascular: Regular rate, Regular Rhythm, Normal S1, Normal S2, No murmurs Abdomen: Bowel Sounds Present, Soft, Non Tender, Non-Distended, No Hepato- splenomegaly Extremities: No Calf Tenderness, Edema - 2+ Skin: No rashes, No breakdown Psych/Mental Status: Normal Affect, Appropriate Microbiology Past 72 Hours 05/08/19 17:45 Blood Culture (Wb) - Venous Blood Culture - Final No growth in 5 days. 05/08/19 17:20 Blood Culture (Wb) - Left Hand Blood Culture - Final No growth in 5 days. 05/11/19 07:50 Sputum, Induced/[place] Gram Stain - Final 05/11/19 07:50 Sputum, Induced/[place] Respiratory Culture - Final Presumptive C albicans Laboratory Results 05/15/19 11:09: POC Glucose 175 H 05/15/19 17:53: POC Glucose 184 H 05/15/19 23:01: POC Glucose 172 H 05/16/19 04:00: WBC 19.9 H, RBC 3.47 L, Hgb 9.7 L, Hct 31.0 L, MCV 89.3, MCH 28.0, MCHC 31.3 L, RDW Std Deviation 51.9 H, RDW Coeff of Kristal 16.1 H, Plt Count 392, MPV 8.9, Immature Gran % (Auto) 1.400 H, Neut % (Auto) 90.1 H, Lymph % (Auto) 4.7 L, [place] % (Auto) 3.6, Eos % (Auto) 0.0, Baso % (Auto) 0.2, Absolute Neuts (auto) 18.0 H, Absolute Lymphs (auto) 0.93, Nucleated RBC % 0 05/16/19 04:00: Sodium 144, Potassium 4.6, Chloride 115 H, Carbon Dioxide 20.0 L , Anion Gap 9, BUN 65 H, Creatinine 2.21 H, Estim Creat Clear Calc 22.53, Est GFR (MDRD) Af Amer 29 L, Est GFR (MDRD) Non-Af 24 L, BUN/Creatinine Ratio 29.4 H , Glucose 191 H, Calcium 8.5 05/16/19 05:01: POC Glucose 178 H Current Medications Acetaminophen (Tylenol Liquid) 650 mg GT Q6H PRN PRN PRN Reason: Pain Score 1-3/Temp > 100.7 F Al Hydroxide/Mg Hydroxide (Mylanta Ii) 30 ml GT Q6H PRN PRN PRN Reason: Gastric Burning Albuterol Sulfate (Ventolin Aerosols) 2.5 mg INHALATION Q2H PRN PRN PRN Reason: Shortness of Breath/Wheezing Last Admin: 05/08/19 04:30 Dose: 2.5 mg Documented by: Albuterol/Ipratropium (Duoneb) 3 ml INHALATION Q4HWA.RT [facility] Last Admin: 05/16/19 07:05 Dose: 3 ml Documented by: Apixaban (Eliquis) 5 mg PO BID [facility] Last Admin: 05/15/19 21:00 Dose: 5 mg Documented by: Ascorbic Acid (Vitamin C) 500 mg GT DAILY@0800 [facility] Last Admin: 05/15/19 10:51 Dose: 500 mg Documented by: Aspirin (Aspirin, Baby) 81 mg GT DAILYCM [facility] Last Admin: 05/15/19 10:51 Dose: 81 mg Documented by: Atorvastatin Calcium (Lipitor) 20 mg GT QHS [facility] Last Admin: 05/15/19 21:00 Dose: 20 mg Documented by: Bupropion HCl (Wellbutrin Tablets) 75 mg GT BID [facility] Last Admin: 05/15/19 21:00 Dose: 75 mg Documented by: Calamine/Phenol (Calmoseptine Ointment) 1 applic TOPICAL BID [facility]; Protocol Last Admin: 05/15/19 21:01 Dose: 1 applicatio Documented by: Chlorhexidine Gluconate () 15 ml PO BID [facility] Last Admin: 05/15/19 21:00 Dose: 15 ml Documented by: Chlorhexidine Gluconate () 1 each TOPICAL DAILY [facility] Last Admin: 05/15/19 11:32 Dose: 1 each Documented by: Famotidine (Pepcid) 20 mg GT DAILY [facility] Last Admin: 05/15/19 10:51 Dose: 20 mg Documented by: Furosemide (Lasix) 20 mg IV BID@1000,1800 [facility] Glucagon () 1 mg IM .X1 PRN PRN Reason: Hypoglycemia Guaifenesin (Robitussin) 20 ml GT Q4H PRN PRN PRN Reason: COUGH Dextrose (Dextrose 10%-Water) 250 mls @ 999 mls/hr IV .Q16M PRN; Protocol PRN Reason: HYPOGLYCEMIA Fentanyl () 100 mls @ 5 mls/hr IV UD [facility]; Protocol Last Titration: 05/16/19 07:00 Dose: 125 mcg/hr, 12.5 mls/hr Documented by: Sodium Chloride () 250 mls @ 15 mls/hr IV .[id number] PRN PRN Reason: Saline Flush Last Infusion: 05/14/19 15:46 Dose: Infused Documented by: Sodium Chloride () 250 mls @ 15 mls/hr IV .[id number] PRN PRN Reason: Additional IVPB Infusion Dexmedetomidine HCl 400 mcg/ (Sodium Chloride) 100 mls @ 11.213 mls/hr CONT INF .Q8H56M [facility]; Protocol Last Admin: 05/16/19 08:45 Dose: 1.1 mcg/kg/hr, 24.7 mls/hr Documented by: Insulin Glargine (Lantus (Bkc)) 10 units SC DAILY [facility] Last Admin: 05/15/19 11:33 Dose: 10 u Documented by: Insulin Human Lispro (Humalog Kwikpen (Bkc)) 0 unit SC Q6 [facility]; Protocol Last Admin: 05/16/19 05:01 Dose: 2 u Documented by: Magnesium Hydroxide (Milk Of Magnesia) 30 ml GT DAILY PRN PRN PRN Reason: Constipation Melatonin (Melatonin) 3 mg GT QHS PRN PRN PRN Reason: INSOMNIA Methylprednisolone (Solu-Medrol) 40 mg IV Q6 [facility] Last Admin: 05/16/19 05:01 Dose: 40 mg Documented by: Multi-Ingredient Cream (Lacrilube) 0 applic OPHTHALMIC BID [facility] Last Admin: 05/15/19 21:00 Dose: 1 applicatio Documented by: Nitroglycerin (Nitrostat) 0.4 mg SUBLINGUAL Q5M PRN PRN Reason: CARDIAC/CHEST PAIN Nystatin (Mycostatin Powder) 1 applic TOPICAL BID [facility]; Protocol Last Admin: 05/15/19 21:03 Dose: 1 applicatio Documented by: Ondansetron HCl (Zofran) 4 mg IV Q8H PRN PRN PRN Reason: NAUSEA/VOMITING Polyethylene Glycol (Miralax) 17 gm PO BID [facility] Last Admin: 05/15/19 21:00 Dose: 17 gm Documented by: Prochlorperazine Edisylate (Compazine Iv) 5 mg IV Q4H PRN PRN PRN Reason: Breakthrough nausea/vomiting Quetiapine Fumarate (Seroquel) 50 mg GT BID [facility] Last Admin: 05/15/19 21:00 Dose: 50 mg Documented by: Senna/Docusate Sodium (Senokot-S, Corrie-Colace) 2 tablet GT DAILY [facility] Last Admin: 05/15/19 10:51 Dose: 2 tablet Documented by: Sodium Chloride () 10 - 40 ml IV UD PRN PRN Reason: SALINE FLUSH Last Admin: 05/15/19 23:03 Dose: 40 ml Documented by: STROKE Vital Signs/Narrative: Vital Signs Temp Pulse Resp BP Pulse Ox 05/16/19 07:05 57 L 14 99 05/16/19 07:00 37.3 C 58 L 14 152/59 H 99 05/16/19 06:00 37.3 C H 88 16 130/91 H 98 05/16/19 05:30 70 18 98 05/16/19 05:15 97 34 H 98 Medical Necessity - Tobacco Use Smoking Status: Never smoker Tobacco Use: Non-smoker Assessment/Plan All Active Problems (Last Reviewed 05/07/19 @ 13:[address] Doni Mccray MD) Respiratory failure with hypoxia (Acute) Bilateral pneumonia (Acute) Sepsis due to pneumonia (Acute) Infectious encephalopathy (Acute) 1. acute hypoxic respiratory failure * ongoing * intubated 05/11/2019 * pneumonia v CHF v ALI * on methylpred, BDs * CCM mgmt appreciated 2. Severe sepsis * POA * due to presumptive pneumonia * supportive mgmt 3. presumed gram negative pneumonia * UCx, Strep Ag, legionella Ag, BCx, resp panel negative * Sputum culture showing presumptive C. albicans, suspect contaminant * cefepime completed 4. HFpEF * EF 65% from echo on 02/17/19 * weight up 6.1kg from admission * on furosemide 5. RYAN * worsening, 0.68 on admission, now up to 2.21 * ATN, FE urea 59% * avoid nephrotoxic agents. 6. DM2 * elevated and uncontrolled * started on glargine 7. VTE back on apixaban Inpatient E&M: [id number] Subs Hosp L2
[2019-05-16] MEDS: fentaNYL drip 100 ML 12.5 MCG IV ×2 (10:16→18:09)
[2019-05-16] MEDS: Chlorhexidine 15 ML PO ×2 (10:30→21:28)
[2019-05-16] MEDS: Menthol/Lanolin/Calamine/Znox 113 GM Tube 1 APPLIC TOPICAL ×2 (10:30→21:29)
[2019-05-16] MEDS: Nystatin Powder 15gm Bottle 1 APPLIC TOPICAL ×2 (10:30→21:29)
[2019-05-16] MEDS: buPROPion 75 MG Tablet GT ×2 (12:01→21:29)
[2019-05-16] MEDS: QUEtiapine 25 MG Tablet 50 MG GT ×2 (12:01→21:30)
[2019-05-16] MEDS: Polyethylene Glycol 3350 17 GM PACKET PO ×2 (12:04→21:29)
[2019-05-16] MEDS: Senna/Docusate Sodium 1 Tablet 2 TABLET GT (12:04)
[2019-05-16] MEDS: Aspirin 81 MG TAB.CHEW GT (12:04)
[2019-05-16] MEDS: Famotidine 20 MG Tablet GT (12:04)
[2019-05-16] MEDS: Furosemide 20 MG/2 ML VIAL IV ×2 (12:04→18:15)
[2019-05-16] MEDS: Ascorbic Acid 500 MG Tablet GT (12:04)
[2019-05-16] MEDS: APIXABAN 5 MG TABLET PO ×2 (12:04→21:30)
[2019-05-16] MEDS: Petrolatum,White 3.75GM OPTH.TUBE OPHTHALMIC ×2 (12:04→21:31)
[2019-05-16] MEDS: 0.9% Saline Lock 10 ML Syringe IV ×3 (12:09→23:23)
[2019-05-16 12:30] LABS: Bedside Glucose 162 mg/dL (70-110)
[2019-05-16] MEDS: Dexmedetomidine 1,000 mcg in 0.9% NS 240 mL 26.9 MCG CONT INF ×2 (12:38→22:24)
[2019-05-16] MEDS: CHLORHEXIDINE GLUC 2% CLOTH 1 EACH TOWELETTE TOPICAL (18:19)
[2019-05-16 18:21] LABS: Bedside Glucose 179 mg/dL (70-110)
--- NOTE | 2019-05-16 18:54 | NURSING ---
Nunez was leaking urine even after trouble shooting. Bladder scanner shower >700ml urine. D/C and new nunez placed
[2019-05-16] MEDS: Atorvastatin Calcium 20 MG Tablet GT (21:30)
[2019-05-16 23:35] LABS: Bedside Glucose 178 mg/dL (70-110)
[2019-05-17] VITALS (40 sets, daily range): BP systolic 103–152; BP diastolic 48–76; PULSE 60–88; RESP 12–28; TEMP 37.3–37.7; O2SAT 94–100
[2019-05-17] MEDS: fentaNYL drip 100 ML 12.5 MCG IV (02:10)
[2019-05-17 03:56] LABS: Absolute Lymphocyte Count 0.69 X10^3/uL (0.83-4.51); Absolute Neutrophil Count 26.7 X10^3/uL (2.0-7.7); Basophil# 0.05 X10^3/uL; Basophil% 0.2 % (0-1); Eosinophil# 0.17 X10^3/uL; Eosinophils% 0.6 % (0-5); Hematocrit 27.9 % (37-47); Lymphocyte # 0.69 X10^3/ul (4.0); Lymphocyte % 2.4 % (19-41); Mean Corp Hgb Conc 32.3 g/dL (32-36); Mean Corpuscular Hgb 28.8 pg (27.0-32.0); Mean Corpuscular Volume 89.4 fL (81-99); Mean Platelet Vol. 8.9 fl (6.2-12.0); Monocyte# 0.56 X10^3/uL; NRBC Flagged by Analyzer 0 % (0-5); Neutrophil # 26.74 X10^3/uL (2.7-7.7); Neutrophil % 93.6 % (47-70); POSITIVE DIFFERENTIAL YES; Platelet Count 330 K/mm3 (150-450); RBC Distribution Width SD 51.4 fl (35.1-43.9); Red Blood Count 3.12 M/mm3 (4.2-5.4); White Blood Count 28.6 K/mm3 (4.4-11.0)
[2019-05-17 03:58] LABS: Differential Indicated SCAN CRITERIA MET
[2019-05-17 04:08] LABS: Anion Gap 9 (5-15); BUN 64 mg/dL (7-18); BUN/Creat Ratio 29.8 RATIO (10-20); Calcium,Total 8.3 mg/dL (8.5-10.1); Chloride 114 mmol/L (98-107); Creatinine, Serum 2.15 mg/dL (0.55-1.02); EST Glomerular Filtration Rate 24 mL/min (>60); Est Glom Filt Rate - Afr Amer 29 mL/min (>60); Estimated Creatinine Clearance 23.16 ml/min; Glucose 197 mg/dL (74-106); Magnesium 2.1 mg/dL (1.6-2.6); Phosphorus 4.2 mg/dL (2.5-4.9); Potassium 4.2 mmol/L (3.5-5.1); Sodium Level 143 mmol/L (136-145)
[2019-05-17 04:38] LABS: Anisocytosis RARE; Differential Comment SCANNED; Microcytosis RARE; Platelet Estimate ADEQUATE (ADEQ); Red Cell Morphology NORM C+C NORMAL (NORM C&C)
[2019-05-17] MEDS: 0.9% Saline Lock 10 ML Syringe IV (05:18)
[2019-05-17] MEDS: Insulin Lispro 100 UNIT/ML INSULN.PEN SC ×2 (05:18→11:45)
[2019-05-17] MEDS: CHLORHEXIDINE GLUC 2% CLOTH 1 EACH TOWELETTE TOPICAL (05:18)
[2019-05-17 05:26] LABS: Bedside Glucose 193 mg/dL (70-110)
[2019-05-17] MEDS: TITRATION PARAMETER CHANGE 1 EACH IV (05:52)
--- NOTE | 2019-05-17 06:26 | PN_ITS ---
Subjective: The patient was seen and examined at the bedside this morning. Events from the last 24 hours have been reviewed. The patient currently has a low-grade fever but remains hemodynamically stable. The patient completed a spontaneous breathing trial this morning on Precedex. However, she was tachypneic throughout the process and was noted to have thick secretions overnight. She is currently documented to be overall net +11.5 L for the hospital admission. Objective: The patient's most recent lab work, culture data and imaging studies have all been personally reviewed. Infectious work-up has been unrevealing to date. General: - - Remains intubated, sedated and mechanically ventilated. HEENT: Atraumatic, PERRLA, Normocephalic Oral: No Gingival or Mucosal Lesions/ Ulcerations, - - Endotracheal and OG tubes remain in place Neck: Supple, No Nodes, Trachea Midline Lungs: Diminished, Rhonchi Cardiovascular: Regular rate, Regular Rhythm, Normal S1, Normal S2, No murmurs Abdomen: Bowel Sounds Present, Soft, Non Tender, Obese Extremities: No clubbing, No cyanosis, Edema Skin: No breakdown Musculoskeletal: No Tenderness to Palpation of Joints or Extremities Lymphatic: No Cervical, Supraclavicular, or Inguinal Adenopathy Neurological: - - No focal neurological deficits. Currently sedated on the vent. Vital Signs Temp Pulse Resp BP Pulse Ox 99.4 F H 81 23 H 143/66 H 99 05/17/19 06:00 05/17/19 06:00 05/17/19 06:00 05/17/19 06:00 05/17/19 06:00 Oxygen Flow Rate (L/min) 35 Oxygen Delivery Method Mechanical Ventilator Weight: 192 lb 0.362 oz Body Mass Index (BMI) 31.8 Intake and Output for Last 24 Hours 05/15/19 05/16/19 05/17/19 22:59 23:59 23:59 Intake Total 310.59 / 310.59 Output Total 950 / 950 Balance -639.41 / -639.41 Labs (Last 48 Hours) 05/15/19 05/15/19 05/15/19 05:35 11:09 17:53 WBC RBC Hgb Hct MCV MCH MCHC RDW Std Deviation RDW Coeff of Kristal Plt Count MPV Immature Gran % (Auto) Neut % (Auto) Lymph % (Auto) [place]eadle % (Auto) Eos % (Auto) Baso % (Auto) Absolute Neuts (auto) Absolute Lymphs (auto) Nucleated RBC % Differential Comment Platelet Estimate RBC Morphology Anisocytosis Microcytosis Sodium Potassium Chloride Carbon Dioxide Anion Gap BUN Creatinine Estim Creat Clear Calc Est GFR (MDRD) Af Amer Est GFR (MDRD) Non-Af BUN/Creatinine Ratio Glucose Calcium Phosphorus Magnesium POC Glucose 185 H 175 H 184 H 05/15/19 05/16/19 05/16/19 23:01 04:00 04:00 WBC 19.9 H RBC 3.47 L Hgb 9.7 L Hct 31.0 L MCV 89.3 MCH 28.0 MCHC 31.3 L RDW Std Deviation 51.9 H RDW Coeff of Kristal 16.1 H Plt Count 392 MPV 8.9 Immature Gran % (Auto) 1.400 H Neut % (Auto) 90.1 H Lymph % (Auto) 4.7 L Beadle % (Auto) 3.6 Eos % (Auto) 0.0 Baso % (Auto) 0.2 Absolute Neuts (auto) 18.0 H Absolute Lymphs (auto) 0.93 Nucleated RBC % 0 Differential Comment Platelet Estimate RBC Morphology Anisocytosis Microcytosis Sodium 144 Potassium 4.6 Chloride 115 H Carbon Dioxide 20.0 L Anion Gap 9 BUN 65 H Creatinine 2.21 H Estim Creat Clear Calc 22.53 Est GFR (MDRD) Af Amer 29 L Est GFR (MDRD) Non-Af 24 L BUN/Creatinine Ratio 29.4 H Glucose 191 H Calcium 8.5 Phosphorus Magnesium POC Glucose 172 H 05/16/19 05/16/19 05/16/19 05:01 12:08 18:14 WBC RBC Hgb Hct MCV MCH MCHC RDW Std Deviation RDW Coeff of Kristal Plt Count MPV Immature Gran % (Auto) Neut % (Auto) Lymph % (Auto) [place]eadle % (Auto) Eos % (Auto) Baso % (Auto) Absolute Neuts (auto) Absolute Lymphs (auto) Nucleated RBC % Differential Comment Platelet Estimate RBC Morphology Anisocytosis Microcytosis Sodium Potassium Chloride Carbon Dioxide Anion Gap BUN Creatinine Estim Creat Clear Calc Est GFR (MDRD) Af Amer Est GFR (MDRD) Non-Af BUN/Creatinine Ratio Glucose Calcium Phosphorus Magnesium POC Glucose 178 H 162 H 179 H 05/16/19 05/17/19 05/17/19 23:23 03:00 03:00 WBC 28.6 H RBC 3.12 L Hgb 9.0 L Hct 27.9 L MCV 89.4 MCH 28.8 MCHC 32.3 RDW Std Deviation 51.4 H RDW Coeff of Kristal 16.0 H Plt Count 330 MPV 8.9 Immature Gran % (Auto) 1.200 H Neut % (Auto) 93.6 H Lymph % (Auto) 2.4 L [place]eadle % (Auto) 2.0 Eos % (Auto) 0.6 Baso % (Auto) 0.2 Absolute Neuts (auto) 26.7 H Absolute Lymphs (auto) 0.69 L Nucleated RBC % 0 Differential Comment SCANNED Platelet Estimate ADEQUATE RBC Morphology NORM C+C Anisocytosis RARE Microcytosis RARE Sodium 143 Potassium 4.2 Chloride 114 H Carbon Dioxide 20.0 L Anion Gap 9 BUN 64 H Creatinine 2.15 H Estim Creat Clear Calc 23.16 Est GFR (MDRD) Af Amer 29 L Est GFR (MDRD) Non-Af 24 L BUN/Creatinine Ratio 29.8 H Glucose 197 H Calcium 8.3 L Phosphorus 4.2 Magnesium 2.1 POC Glucose 178 H 05/17/19 05:16 WBC RBC Hgb Hct MCV MCH MCHC RDW Std Deviation RDW Coeff of Kristal Plt Count MPV Immature Gran % (Auto) Neut % (Auto) Lymph % (Auto) [place]eadle % (Auto) Eos % (Auto) Baso % (Auto) Absolute Neuts (auto) Absolute Lymphs (auto) Nucleated RBC % Differential Comment Platelet Estimate RBC Morphology Anisocytosis Microcytosis Sodium Potassium Chloride Carbon Dioxide Anion Gap BUN Creatinine Estim Creat Clear Calc Est GFR (MDRD) Af Amer Est GFR (MDRD) Non-Af BUN/Creatinine Ratio Glucose Calcium Phosphorus Magnesium POC Glucose 193 H Clinical Impression(s) from Imaging Studies Chest X-Ray 05/07/19 10:05 IMPRESSION: Normal x-ray examination of the chest. Electronically Signed: Terrell Chang MD at 11:14 EST Tel , Service support , Chest X-Ray 05/08/19 05:35 IMPRESSION: Increase in bilateral interstitial infiltrates, possibly edema, infection or other cause of interstitial infiltrate. at 0610 Reported and signed by: Freida Pringle MD Electronically Signed: Freida Pringle MD at 6:10 EST Tel , Service support , Chest X-Ray 05/11/19 06:21 IMPRESSION: Bilateral airspace disease/infiltrates, unchanged since 05/08/2019. Electronically Signed: Amanda Vasquez MD at 6:55 EST , Service support , Chest X-Ray 05/11/19 07:41 IMPRESSION: An endotracheal tube has been placed. The tip is at 4.3 cm proximal to the caesar. An orogastric tube is seen with the tip in the body of the stomach. The remainder of the examination is unchanged. Electronically Signed: Jaun Daly at 12:09 EST , Service support , Chest X-Ray 05/13/19 05:55 IMPRESSION: Tubes are in adequate position. Bilateral pulmonary infiltrates, not significantly changed. Electronically Signed: Bigg Henderson MD at 5:50 EST , Service support , KUB X-Ray 05/16/19 07:24 IMPRESSION: Nonspecific gas pattern. Electronically Signed: Jimenez Villegas MD at 14:01 EDT Tel , Service support , Medical Necessity - Tobacco Use Smoking Status: Never smoker Tobacco Use: Non-smoker Assessment/Plan All Active Problems (Last Reviewed 05/07/19 @ 13:[address] Doni Mccray MD) Respiratory failure with hypoxia (Acute) Bilateral pneumonia (Acute) Sepsis due to pneumonia (Acute) Infectious encephalopathy (Acute) RECOMMENDATIONS: 1. Check BNP and obtain repeat plain film chest x-ray. 2. Increase Lasix dose to 40 mg IV twice daily. 3. If the patient develops worsening renal insufficiency, obtain nephrology consultation. 4. Continue Precedex and fentanyl. 5. Repeat spontaneous awakening and breathing trials tomorrow. 6. Decrease Solu-Medrol to 40 mg daily. 7. Continue Eliquis. 8. Resume tube feeds today. 9. Continue Pepcid for GI prophylaxis. IMPRESSIONS: 1. Acute hypoxemic respiratory failure Differential would include healthcare associated pneumonia versus pulmonary edema. The patient has already completed an appropriate course of antibiotics for underlying pneumonia. Unfortunately, the patient became tachypneic this morning with her spontaneous breathing trial. Therefore, she will be continued on assist control mode of mechanical ventilation today, with plans to repeat her breathing trial tomorrow. In the interim, her Lasix regimen will be increased to 40 mg twice daily. Tube feeds can be resumed from my perspective. 2. Severe sepsis Appears to be secondary to underlying pulmonary infectious process. The patient has already completed a complete treatment course of antibiotics. She remains hemodynamically stable. Nevertheless, her white blood cell count is significantly elevated. There is no readily identifiable alternative source of infection. Her systemic corticosteroids will be weaned today. 3. Chronic heart failure with preserved ejection fraction The patient is significantly volume overloaded for the hospital admission. Therefore, we will plan to start scheduled Lasix today. 4. Acute kidney injury Unclear etiology. Avoid nephrotoxic medications. If creatinine worsens with diuresis, will obtain nephrology consultation. 5. History of DVT on Eliquis/diabetes mellitus/hyperlipidemia/obesity Complicates care, management, recovery and prognosis. Continue Eliquis as ordered. Physical therapy to work with the patient. TIME: 38 minutes of critical care time, independent of procedures, was spent addressing the patient's acute hypoxemic respiratory failure, severe sepsis, chronic heart failure with preserved ejection fraction, acute kidney injury, history of DVT, review of all data and collaboration with the care team. [id number] [phone]) [phone] [id number] Critical care first hour
[2019-05-17] MEDS: Ipratropium/Albuterol Sulfate 3 ML AMPUL.NEB INHALATION ×4 (06:51→18:59)
--- NOTE | 2019-05-17 07:23 | PCM.PN.HOSP ---
Patient Problems: Active and Suspected Problems (Last Reviewed 05/07/19 @ 13:[address] Doni Mccray MD) Respiratory failure with hypoxia (Acute) Bilateral pneumonia (Acute) Sepsis due to pneumonia (Acute) Infectious encephalopathy (Acute) Reason for Visit: Acute respiratory failure Subjective: She was intubated on 05/11/2019 following deterioration in her respiratory status and family changing patient's CODE STATUS to DNR CCA with intubation Objective: GENERAL: Sedated on the vent HEENT: Atraumatic; EYES; Anicteric, Normal Conjunctiva NECK; supple, normal thyroid, RESPIRATORY: Diminished to auscultation CARDIOVASCULAR: Regular S1 S2, GI: soft, normoactive bowel sounds, : No Renal angle tenderness; EXTREMITIES: Bipedal edema involving both lower extremities MUSCULOSKELETAL: no muscle waisting NEURO:Sedated on the vent SKIN: No Rash PSYCH; Flat affect Vitals/I&O's: Vital Signs Temp Pulse Resp BP Pulse Ox 99.4 F H 60 13 137/63 H 98 05/17/19 07:00 05/17/19 07:00 05/17/19 07:00 05/17/19 07:00 05/17/19 07:00 Oxygen Flow Rate (L/min) 35 Oxygen Delivery Method Mechanical Ventilator Weight: 87.1 kg Body Mass Index (BMI) 31.8 Intake and Output for Last 24 Hours 05/15/19 05/16/19 05/17/19 22:59 23:59 23:59 Intake Total 337.94 / 337.94 Output Total 950 / 950 Balance -612.06 / -612.06 Microbiology Past 72 Hours 05/08/19 17:45 Blood Culture (Wb) - Venous Blood Culture - Final No growth in 5 days. 05/08/19 17:20 Blood Culture (Wb) - Left Hand Blood Culture - Final No growth in 5 days. Laboratory Results 05/16/19 12:08: POC Glucose 162 H 05/16/19 18:14: POC Glucose 179 H 05/16/19 23:23: POC Glucose 178 H 05/17/19 03:00: WBC 28.6 H, RBC 3.12 L, Hgb 9.0 L, Hct 27.9 L, MCV 89.4, MCH 28.8, MCHC 32.3, RDW Std Deviation 51.4 H, RDW Coeff of Kristal 16.0 H, Plt Count 330, MPV 8.9, Immature Gran % (Auto) 1.200 H, Neut % (Auto) 93.6 H, Lymph % (Auto) 2.4 L, [place] % (Auto) 2.0, Eos % (Auto) 0.6, Baso % (Auto) 0.2, Absolute Neuts (auto) 26.7 H, Absolute Lymphs (auto) 0.69 L, Nucleated RBC % 0, Differential Comment SCANNED, Platelet Estimate ADEQUATE, RBC Morphology NORM C+C, Anisocytosis RARE, Microcytosis RARE 05/17/19 03:00: Sodium 143, Potassium 4.2, Chloride 114 H, Carbon Dioxide 20.0 L, Anion Gap 9, BUN 64 H, Creatinine 2.15 H, Estim Creat Clear Calc 23.16, Est GFR (MDRD) Af Amer 29 L, Est GFR (MDRD) Non-Af 24 L, BUN/Creatinine Ratio 29.8 H, Glucose 197 H, Calcium 8.3 L, Phosphorus 4.2, Magnesium 2.1 05/17/19 05:16: POC Glucose 193 H Current Medications Acetaminophen (Tylenol Liquid) 650 mg GT Q6H PRN PRN PRN Reason: Pain Score 1-3/Temp > 100.7 F Al Hydroxide/Mg Hydroxide (Mylanta Ii) 30 ml GT Q6H PRN PRN PRN Reason: Gastric Burning Albuterol Sulfate (Ventolin Aerosols) 2.5 mg INHALATION Q2H PRN PRN PRN Reason: Shortness of Breath/Wheezing Last Admin: 05/08/19 04:30 Dose: 2.5 mg Documented by: Albuterol/Ipratropium (Duoneb) 3 ml INHALATION Q4HWA.RT [facility] Last Admin: 05/17/19 06:51 Dose: 3 ml Documented by: Apixaban (Eliquis) 5 mg PO BID [facility] Last Admin: 05/16/19 21:30 Dose: 5 mg Documented by: Ascorbic Acid (Vitamin C) 500 mg GT DAILY@0800 [facility] Last Admin: 05/16/19 12:04 Dose: 500 mg Documented by: Aspirin (Aspirin, Baby) 81 mg GT DAILYCM [facility] Last Admin: 05/16/19 12:04 Dose: 81 mg Documented by: Atorvastatin Calcium (Lipitor) 20 mg GT QHS [facility] Last Admin: 05/16/19 21:30 Dose: 20 mg Documented by: Bupropion HCl (Wellbutrin Tablets) 75 mg GT BID [facility] Last Admin: 05/16/19 21:29 Dose: 75 mg Documented by: Calamine/Phenol (Calmoseptine Ointment) 1 applic TOPICAL BID [facility]; Protocol Last Admin: 05/16/19 21:29 Dose: 1 applicatio Documented by: Chlorhexidine Gluconate () 15 ml PO BID [facility] Last Admin: 05/16/19 21:28 Dose: 15 ml Documented by: Chlorhexidine Gluconate () 1 each TOPICAL DAILY [facility] Last Admin: 05/17/19 05:18 Dose: 1 each Documented by: Famotidine (Pepcid) 20 mg GT DAILY [facility] Last Admin: 05/16/19 12:04 Dose: 20 mg Documented by: Furosemide (Lasix) 20 mg IV BID@1000,1800 [facility] Last Admin: 05/16/19 18:15 Dose: 20 mg Documented by: Glucagon () 1 mg IM .X1 PRN PRN Reason: Hypoglycemia Guaifenesin (Robitussin) 20 ml GT Q4H PRN PRN PRN Reason: COUGH Dextrose (Dextrose 10%-Water) 250 mls @ 999 mls/hr IV .Q16M PRN; Protocol PRN Reason: HYPOGLYCEMIA Fentanyl () 100 mls @ 5 mls/hr IV UD [facility]; Protocol Last Titration: 05/17/19 07:00 Dose: 50 mcg/hr, 5 mls/hr Documented by: Sodium Chloride () 250 mls @ 15 mls/hr IV .[id number] PRN PRN Reason: Saline Flush Last Infusion: 05/14/19 15:46 Dose: Infused Documented by: Sodium Chloride () 250 mls @ 15 mls/hr IV .[id number] PRN PRN Reason: Additional IVPB Infusion Dexmedetomidine HCl 1,000 mcg/ (Sodium Chloride) 250 mls @ 26.13 mls/hr CONT INF .Q9H35M [facility]; Protocol Last Titration: 05/17/19 07:00 Dose: 1.2 mcg/kg/hr, 26.1 mls/hr Documented by: Insulin Glargine (Lantus (Bkc)) 10 units SC DAILY [facility] Last Admin: 05/16/19 12:09 Dose: 10 u Documented by: Insulin Human Lispro (Humalog Kwikpen (Bkc)) 0 unit SC Q6 [facility]; Protocol Last Admin: 05/17/19 05:18 Dose: 2 u Documented by: Magnesium Hydroxide (Milk Of Magnesia) 30 ml GT DAILY PRN PRN PRN Reason: Constipation Melatonin (Melatonin) 3 mg GT QHS PRN PRN PRN Reason: INSOMNIA Methylprednisolone (Solu-Medrol) 40 mg IV Q6 [facility] Last Admin: 05/17/19 05:18 Dose: 40 mg Documented by: Multi-Ingredient Cream (Lacrilube) 0 applic OPHTHALMIC BID [facility] Last Admin: 05/16/19 21:31 Dose: 1 applicatio Documented by: Nitroglycerin (Nitrostat) 0.4 mg SUBLINGUAL Q5M PRN PRN Reason: CARDIAC/CHEST PAIN Nystatin (Mycostatin Powder) 1 applic TOPICAL BID [facility]; Protocol Last Admin: 05/16/19 21:29 Dose: 1 applicatio Documented by: Ondansetron HCl (Zofran) 4 mg IV Q8H PRN PRN PRN Reason: NAUSEA/VOMITING Polyethylene Glycol (Miralax) 17 gm PO BID [facility] Last Admin: 05/16/19 21:29 Dose: 17 gm Documented by: Prochlorperazine Edisylate (Compazine Iv) 5 mg IV Q4H PRN PRN PRN Reason: Breakthrough nausea/vomiting Quetiapine Fumarate (Seroquel) 50 mg GT BID [facility] Last Admin: 05/16/19 21:30 Dose: 50 mg Documented by: Senna/Docusate Sodium (Senokot-S, Corrie-Colace) 2 tablet GT DAILY [facility] Last Admin: 05/16/19 12:04 Dose: 2 tablet Documented by: Sodium Chloride () 10 - 40 ml IV UD PRN PRN Reason: SALINE FLUSH Last Admin: 05/17/19 05:18 Dose: 20 ml Documented by: STROKE Vital Signs/Narrative: Vital Signs Temp Pulse Resp BP Pulse Ox 05/17/19 07:00 99.4 F H 60 13 137/63 H 98 05/17/19 06:00 99.4 F H 81 23 H 143/66 H 99 05/17/19 05:05 76 24 H 99 05/17/19 05:00 99.6 F H 64 14 129/52 H 99 05/17/19 04:00 99.6 F H 62 14 118/48 L 99 Medical Necessity - Tobacco Use Smoking Status: Never smoker Tobacco Use: Non-smoker Assessment/Plan All Active Problems (Last Reviewed 05/07/19 @ 13:[address] Doni Mccary MD) Respiratory failure with hypoxia (Acute) Bilateral pneumonia (Acute) Sepsis due to pneumonia (Acute) Infectious encephalopathy (Acute) Patient is a 68-year-old lady residing at an extended care facility presenting with cough shortness of breath and fever 1. Sepsis ?Secondary to suspected pneumonia with multidrug-resistant organisms. Admitted to monitored bed patient started on broad-spectrum antibiotic therapy again (cefepime, Levaquin, and vancomycin) after cultures have been obtained. Also did obtain MRSA nasal screen with plans to discontinue vancomycin if cultures come back negative -05/09/2019; patient was transferred to the intensive care unit in view of worsening clinical condition placed on noninvasive ventilation. Patient changed her CODE STATUS from DNR CCA with intubation to DNR CCA no intubation -05/17/2019 patient completed appropriate course for her sepsis. Antibiotics since discontinued. Patient however went into acute respiratory failure necessitating patient being intubated on 05/11/2019 2. Acute hypoxic respiratory failure ?Secondary to suspected pneumonia with multidrug-resistant organism. Patient was placed on supplemental oxygen via Ventimask treated to keep oxygen saturation greater than 90 -05/09/2019: Patient was transferred to the intensive care unit started on noninvasive ventilation BiPAP. She still maintains that she does not want to be intubated. -05/17/2019 ;she was intubated on 05/11/2019 following deterioration in her respiratory status and family changing patient's CODE STATUS to DNR CCA with intubation 3. Diabetes mellitus type II ~Uncontrolled with hyperglycemia patient's oral hypoglycemics held. Placed on long acting insulin, Accu-Cheks a.c. every 6 with sliding scale insulin 4. Bilateral lower extremity weakness ?Secondary to DJD involving the lumbar spine patient was undergoing [facility] 5. Systemic use of anticoagulation ?Patient is on therapeutic dose of Eliquis rationale was not clear from the chart however did continue do suspect this is being used for DVT prophylaxis or recent diagnosis of DVT 6. Dyslipidemia ~patient is on statin therapy, continued at home dose 7. Obesity with BMI of 33.7 ?Weight loss advised 8. DVT prophylaxis ?Patient is on Eliquis did continue 9. Acute kidney injury ?-05/17/2019 patient kidney function is worsened and creatinine went up from 0.68 on admission to 2.20 as of 05/17/2019 plan is to consult nephrology. Active Medications Acetaminophen (Tylenol Liquid) 650 mg GT Q6H PRN PRN PRN Reason: Pain Score 1-3/Temp > 100.7 F Al Hydroxide/Mg Hydroxide (Mylanta Ii) 30 ml GT Q6H PRN PRN PRN Reason: Gastric Burning Albuterol Sulfate (Ventolin Aerosols) 2.5 mg INHALATION Q2H PRN PRN PRN Reason: Shortness of Breath/Wheezing Last Admin: 05/08/19 04:30 Dose: 2.5 mg Documented by: Albuterol/Ipratropium (Duoneb) 3 ml INHALATION Q4HWA.RT [facility] Last Admin: 05/17/19 06:51 Dose: 3 ml Documented by: Apixaban (Eliquis) 5 mg PO BID [facility] Last Admin: 05/16/19 21:30 Dose: 5 mg Documented by: Ascorbic Acid (Vitamin C) 500 mg GT DAILY@0800 [facility] Last Admin: 05/16/19 12:04 Dose: 500 mg Documented by: Aspirin (Aspirin, Baby) 81 mg GT DAILYCM [facility] Last Admin: 05/16/19 12:04 Dose: 81 mg Documented by: Atorvastatin Calcium (Lipitor) 20 mg GT QHS [facility] Last Admin: 05/16/19 21:30 Dose: 20 mg Documented by: Bupropion HCl (Wellbutrin Tablets) 75 mg GT BID [facility] Last Admin: 05/16/19 21:29 Dose: 75 mg Documented by: Calamine/Phenol (Calmoseptine Ointment) 1 applic TOPICAL BID [facility]; Protocol Last Admin: 05/16/19 21:29 Dose: 1 applicatio Documented by: Chlorhexidine Gluconate () 15 ml PO BID [facility] Last Admin: 05/16/19 21:28 Dose: 15 ml Documented by: Chlorhexidine Gluconate () 1 each TOPICAL DAILY [facility] Last Admin: 05/17/19 05:18 Dose: 1 each Documented by: Famotidine (Pepcid) 20 mg GT DAILY [facility] Last Admin: 05/16/19 12:04 Dose: 20 mg Documented by: Furosemide (Lasix) 40 mg IV BID@1000,1800 [facility] Glucagon () 1 mg IM .X1 PRN PRN Reason: Hypoglycemia Guaifenesin (Robitussin) 20 ml GT Q4H PRN PRN PRN Reason: COUGH Dextrose (Dextrose 10%-Water) 250 mls @ 999 mls/hr IV .Q16M PRN; Protocol PRN Reason: HYPOGLYCEMIA Fentanyl () 100 mls @ 5 mls/hr IV UD [facility]; Protocol Last Titration: 05/17/19 07:00 Dose: 50 mcg/hr, 5 mls/hr Documented by: Sodium Chloride () 250 mls @ 15 mls/hr IV .[id number] PRN PRN Reason: Saline Flush Last Infusion: 05/14/19 15:46 Dose: Infused Documented by: Sodium Chloride () 250 mls @ 15 mls/hr IV .[id number] PRN PRN Reason: Additional IVPB Infusion Dexmedetomidine HCl 1,000 mcg/ (Sodium Chloride) 250 mls @ 26.13 mls/hr CONT INF .Q9H35M [facility]; Protocol Last Titration: 05/17/19 07:00 Dose: 1.2 mcg/kg/hr, 26.1 mls/hr Documented by: Insulin Glargine (Lantus (Bkc)) 10 units SC DAILY [facility] Last Admin: 05/16/19 12:09 Dose: 10 u Documented by: Insulin Human Lispro (Humalog Kwikpen (Bkc)) 0 unit SC Q6 [facility]; Protocol Last Admin: 05/17/19 05:18 Dose: 2 u Documented by: Magnesium Hydroxide (Milk Of Magnesia) 30 ml GT DAILY PRN PRN PRN Reason: Constipation Melatonin (Melatonin) 3 mg GT QHS PRN PRN PRN Reason: INSOMNIA Methylprednisolone (Solu-Medrol) 40 mg IV Q6 [facility] Last Admin: 05/17/19 05:18 Dose: 40 mg Documented by: Multi-Ingredient Cream (Lacrilube) 0 applic OPHTHALMIC BID [facility] Last Admin: 05/16/19 21:31 Dose: 1 applicatio Documented by: Nitroglycerin (Nitrostat) 0.4 mg SUBLINGUAL Q5M PRN PRN Reason: CARDIAC/CHEST PAIN Nystatin (Mycostatin Powder) 1 applic TOPICAL BID [facility]; Protocol Last Admin: 05/16/19 21:29 Dose: 1 applicatio Documented by: Ondansetron HCl (Zofran) 4 mg IV Q8H PRN PRN PRN Reason: NAUSEA/VOMITING Polyethylene Glycol (Miralax) 17 gm PO BID [facility] Last Admin: 05/16/19 21:29 Dose: 17 gm Documented by: Prochlorperazine Edisylate (Compazine Iv) 5 mg IV Q4H PRN PRN PRN Reason: Breakthrough nausea/vomiting Quetiapine Fumarate (Seroquel) 50 mg GT BID [facility] Last Admin: 05/16/19 21:30 Dose: 50 mg Documented by: Senna/Docusate Sodium (Senokot-S, Corrie-Colace) 2 tablet GT DAILY [facility] Last Admin: 05/16/19 12:04 Dose: 2 tablet Documented by: Sodium Chloride () 10 - 40 ml IV UD PRN PRN Reason: SALINE FLUSH Last Admin: 05/17/19 05:18 Dose: 20 ml Documented by: Chest X-Ray 05/13/19 05:55 IMPRESSION: Tubes are in adequate position. Bilateral pulmonary infiltrates, not significantly changed. Electronically Signed: Bigg Henderson MD at 5:50 EST , Service support , KUB X-Ray 05/16/19 07:24 IMPRESSION: Nonspecific gas pattern. Electronically Signed: Jimenez Villegas MD at 14:01 EDT Tel , Service support , Inpatient E&M: [id number] [facility]
--- NOTE | 2019-05-17 07:42 | RAD_ITS ---
STUDY: X-RAY CHEST REASON FOR EXAM: Female, 68 years old. reps failure TECHNIQUE: Single AP portable view of the chest. COMPARISON: Comparison is made with prior examination of May 13, 2019. FINDINGS: An endotracheal tube is in situ. The tip is at for sinus proximal to caesar. An orogastric tube is seen with the tip below the left hemidiaphragm. A left-sided PICC line catheter is seen with the tip in the midportion of the superior vena cava. EKG electrodes are seen. Since prior study, there has been mild improvement in the bilateral patchy infiltrates. Further follow-up is recommended. There is no demonstrated pleural abnormality. Normal size heart. Normal mediastinum and christian. Normal visualized pulmonary arteries. Normal visualized aortic arch and descending thoracic aorta. Normal visualized thoracic spine. Normal visualized ribs, clavicles, and shoulders. There is no demonstrated abnormality of the visualized soft tissue structures of the upper abdomen. RAD/Chest 1 View (Portable) IMPRESSION: All support tubes are in good position. Improvement in the bilateral pulmonary infiltrates. Further follow-up is recommended. Electronically Signed: Jaun Daly, at 13:47 EDT , Service support ,
[2019-05-17 08:29] LABS: BNP,B-Type NATRIURETIC PEPTIDE 43.7 pg/mL (0-100)
[2019-05-17] MEDS: Dexmedetomidine 1,000 mcg in 0.9% NS 240 mL 26.1 MCG CONT INF ×2 (08:41→18:01)
[2019-05-17] MEDS: Aspirin 81 MG TAB.CHEW GT (10:11)
[2019-05-17] MEDS: Ascorbic Acid 500 MG Tablet GT (10:11)
[2019-05-17] MEDS: Menthol/Lanolin/Calamine/Znox 113 GM Tube 1 APPLIC TOPICAL ×2 (10:11→21:46)
[2019-05-17] MEDS: Chlorhexidine 15 ML PO ×2 (10:11→21:50)
[2019-05-17] MEDS: Petrolatum,White 3.75GM OPTH.TUBE OPHTHALMIC ×2 (10:12→21:46)
[2019-05-17] MEDS: Nystatin Powder 15gm Bottle 1 APPLIC TOPICAL ×2 (10:12→21:46)
[2019-05-17] MEDS: Polyethylene Glycol 3350 17 GM PACKET PO ×2 (10:12→21:46)
[2019-05-17] MEDS: APIXABAN 5 MG TABLET PO ×2 (10:12→21:46)
[2019-05-17] MEDS: Famotidine 20 MG Tablet GT (10:13)
[2019-05-17] MEDS: Senna/Docusate Sodium 1 Tablet 2 TABLET GT (10:13)
[2019-05-17] MEDS: QUEtiapine 25 MG Tablet 50 MG GT ×2 (10:13→21:46)
--- NOTE | 2019-05-17 10:15 | US_ITS ---
STUDY: RENAL ULTRASOUND - COMPLETE REASON FOR EXAM: Female, 68 years old. RYAN TECHNIQUE: Ultrasound evaluation of the kidneys was performed with real-time and static mayers-scale imaging. COMPARISON: None. FINDINGS: RIGHT KIDNEY: Normal location of the right kidney, which is normal in size. The right kidney measures 10.0 x 5.0 x 5.7 cm. There is a normal cortex of the right kidney. The renal cortex measures 2.1 cm. There is no right renal mass or cyst. There are no right renal calculi. There is no right hydronephrosis. DISTAL RIGHT URETER: There is non-visualization of the distal right ureter. There is no demonstrated right ureterovesical junction calculus. There is a visualized right ureteral jet. LEFT KIDNEY: Normal location of the left kidney, which is normal in size. The left kidney measures 9.3 x 5.3 x 4.3 cm. There is a normal cortex of the left kidney. The renal cortex measures 1.5 cm. There is no left renal mass or cyst. There are no left renal calculi. There is no left hydronephrosis. DISTAL LEFT URETER: There is non-visualization of the distal left ureter. There is no demonstrated left ureterovesical junction calculus. There is a visualized left ureteral jet. BLADDER: The distended urinary bladder has a volume of 121 ml. A Yung catheter balloon is seen within the bladder. Bladder wall thickness is 5 mm. There is no evidence of bladder mass or calculus. US/Kidney and Bladder IMPRESSION: The kidneys appear normal. A Yung catheter is present within the urinary bladder. 121 mL of urine is seen in the bladder. Electronically Signed: Evert Calle MD at 18:21 EDT , Service support ,
[2019-05-17] MEDS: Furosemide 40 MG/4 ML Vial IV ×2 (11:45→18:02)
[2019-05-17] MEDS: buPROPion 75 MG Tablet GT ×2 (11:45→21:46)
[2019-05-17 12:00] LABS: Bedside Glucose 186 mg/dL (70-110)
[2019-05-17] MEDS: Vital AF 1.2 Cal Liquid 1,000 ML 50 ML GT (15:30)
[2019-05-17 18:10] LABS: Bedside Glucose 149 mg/dL (70-110)
[2019-05-17] MEDS: Atorvastatin Calcium 20 MG Tablet GT (21:46)
[2019-05-17] MEDS: fentaNYL drip 100 ML 7.5 MCG IV (22:36)
[2019-05-18] VITALS (42 sets, daily range): BP systolic 102–141; BP diastolic 44–98; PULSE 63–106; RESP 12–30; TEMP 36.7–37.4; O2SAT 88–100
[2019-05-18] MEDS: Insulin Lispro 100 UNIT/ML INSULN.PEN SC ×4 (00:25→17:04)
[2019-05-18 00:31] LABS: Bedside Glucose 181 mg/dL (70-110)
[2019-05-18] MEDS: Ipratropium/Albuterol Sulfate 3 ML AMPUL.NEB INHALATION ×5 (02:57→19:15)
[2019-05-18] MEDS: Dexmedetomidine 1,000 mcg in 0.9% NS 240 mL 24 MCG CONT INF (04:46)
[2019-05-18] MEDS: TITRATION PARAMETER CHANGE 1 EACH IV (04:48)
[2019-05-18] MEDS: CHLORHEXIDINE GLUC 2% CLOTH 1 EACH TOWELETTE TOPICAL (05:08)
[2019-05-18 05:16] LABS: Bedside Glucose 182 mg/dL (70-110)
--- NOTE | 2019-05-18 06:44 | NURSING ---
Precedex decreased to 0.8 mcg/kg/hr per Dr. Russell's order.
--- NOTE | 2019-05-18 06:50 | PCM.PN.INT ---
Subjective: The patient was seen and examined at the bedside this morning. Events from the last 24 hours have been reviewed. The patient is currently afebrile, hemodynamically stable and maintaining appropriate oxygen saturations on spontaneous mode of mechanical ventilation with an FiO2 requirement of 30%. The patient is currently on her spontaneous breathing trial. While she does appear to be more comfortable today, her NIF was only noted to be -18 this morning. Per nursing report, the patient secretion output is improving. She did have a bowel movement overnight. The patient is currently documented to be overall net +9.8 L for the hospital admission. Objective: The patient's most recent lab work, culture data and imaging studies have all been personally reviewed. Infectious work-up has been unrevealing to date. General: - - Remains intubated, minimally sedated and mechanically ventilated. Currently tolerating spontaneous mode of mechanical ventilation HEENT: Atraumatic, Normocephalic Oral: No Gingival or Mucosal Lesions/ Ulcerations, - - Endotracheal and OG tubes remain in place Neck: Supple, No Nodes, Trachea Midline Lungs: No rhonchi, No wheeze, No rales, Diminished Cardiovascular: Regular rate, Regular Rhythm, Normal S1, Normal S2, No murmurs Abdomen: Bowel Sounds Present, Soft, Non Tender, Obese Extremities: No clubbing, No cyanosis, Edema Skin: No breakdown Musculoskeletal: No Tenderness to Palpation of Joints or Extremities, No Muscle Wasting Lymphatic: No Cervical, Supraclavicular, or Inguinal Adenopathy Neurological: - - More alert and interactive this morning. Able to follow simple commands. Vital Signs Temp Pulse Resp BP Pulse Ox 98.3 F 70 20 H 118/55 L 99 05/18/19 06:00 05/18/19 06:00 05/18/19 06:00 05/18/19 06:00 05/18/19 06:00 Oxygen Flow Rate (L/min) 30 Oxygen Delivery Method Mechanical Ventilator Weight: 189 lb 13.088 oz Body Mass Index (BMI) 31.8 Intake and Output for Last 24 Hours 05/16/19 05/17/19 05/18/19 23:59 23:59 23:59 Intake Total 869.90 / 933.50 550.02 / 550.02 Output Total 2250 / 2250 1400 / 1400 Balance -1380.10 / -1316.50 -849.98 / -849.98 Labs (Last 48 Hours) 05/16/19 05/16/19 05/16/19 12:08 18:14 23:23 WBC RBC Hgb Hct MCV MCH MCHC RDW Std Deviation RDW Coeff of Kristal Plt Count MPV Immature Gran % (Auto) Neut % (Auto) Lymph % (Auto) Finney % (Auto) Eos % (Auto) Baso % (Auto) Absolute Neuts (auto) Absolute Lymphs (auto) Nucleated RBC % Differential Comment Platelet Estimate RBC Morphology Anisocytosis Microcytosis Sodium Potassium Chloride Carbon Dioxide Anion Gap BUN Creatinine Estim Creat Clear Calc Est GFR (MDRD) Af Amer Est GFR (MDRD) Non-Af BUN/Creatinine Ratio Glucose Calcium Phosphorus Magnesium B-Natriuretic Peptide POC Glucose 162 H 179 H 178 H 05/17/19 05/17/19 05/17/19 03:00 03:00 03:00 WBC 28.6 H RBC 3.12 L Hgb 9.0 L Hct 27.9 L MCV 89.4 MCH 28.8 MCHC 32.3 RDW Std Deviation 51.4 H RDW Coeff of Kristal 16.0 H Plt Count 330 MPV 8.9 Immature Gran % (Auto) 1.200 H Neut % (Auto) 93.6 H Lymph % (Auto) 2.4 L Finney % (Auto) 2.0 Eos % (Auto) 0.6 Baso % (Auto) 0.2 Absolute Neuts (auto) 26.7 H Absolute Lymphs (auto) 0.69 L Nucleated RBC % 0 Differential Comment SCANNED Platelet Estimate ADEQUATE RBC Morphology NORM C+C Anisocytosis RARE Microcytosis RARE Sodium 143 Potassium 4.2 Chloride 114 H Carbon Dioxide 20.0 L Anion Gap 9 BUN 64 H Creatinine 2.15 H Estim Creat Clear Calc 23.16 Est GFR (MDRD) Af Amer 29 L Est GFR (MDRD) Non-Af 24 L BUN/Creatinine Ratio 29.8 H Glucose 197 H Calcium 8.3 L Phosphorus 4.2 Magnesium 2.1 B-Natriuretic Peptide 43.7 POC Glucose 05/17/19 05/17/19 05/17/19 05:16 11:44 18:00 WBC RBC Hgb Hct MCV MCH MCHC RDW Std Deviation RDW Coeff of Kristal Plt Count MPV Immature Gran % (Auto) Neut % (Auto) Lymph % (Auto) Finney % (Auto) Eos % (Auto) Baso % (Auto) Absolute Neuts (auto) Absolute Lymphs (auto) Nucleated RBC % Differential Comment Platelet Estimate RBC Morphology Anisocytosis Microcytosis Sodium Potassium Chloride Carbon Dioxide Anion Gap BUN Creatinine Estim Creat Clear Calc Est GFR (MDRD) Af Amer Est GFR (MDRD) Non-Af BUN/Creatinine Ratio Glucose Calcium Phosphorus Magnesium B-Natriuretic Peptide POC Glucose 193 H 186 H 149 H 05/18/19 05/18/19 00:24 05:06 WBC RBC Hgb Hct MCV MCH MCHC RDW Std Deviation RDW Coeff of Kristal Plt Count MPV Immature Gran % (Auto) Neut % (Auto) Lymph % (Auto) Finney % (Auto) Eos % (Auto) Baso % (Auto) Absolute Neuts (auto) Absolute Lymphs (auto) Nucleated RBC % Differential Comment Platelet Estimate RBC Morphology Anisocytosis Microcytosis Sodium Potassium Chloride Carbon Dioxide Anion Gap BUN Creatinine Estim Creat Clear Calc Est GFR (MDRD) Af Amer Est GFR (MDRD) Non-Af BUN/Creatinine Ratio Glucose Calcium Phosphorus Magnesium B-Natriuretic Peptide POC Glucose 181 H 182 H Clinical Impression(s) from Imaging Studies Chest X-Ray 05/07/19 10:05 IMPRESSION: Normal x-ray examination of the chest. Electronically Signed: Terrell Chang MD at 11:14 EST Tel , Service support , Chest X-Ray 05/08/19 05:35 IMPRESSION: Increase in bilateral interstitial infiltrates, possibly edema, infection or other cause of interstitial infiltrate. at 0610 Reported and signed by: Freida Pringle MD Electronically Signed: Freida Pringle MD at 6:10 EST Tel , Service support , Chest X-Ray 05/11/19 06:21 IMPRESSION: Bilateral airspace disease/infiltrates, unchanged since 05/08/2019. Electronically Signed: Amanda Vasquez MD at 6:55 EST , Service support , Chest X-Ray 05/11/19 07:41 IMPRESSION: An endotracheal tube has been placed. The tip is at 4.3 cm proximal to the caesar. An orogastric tube is seen with the tip in the body of the stomach. The remainder of the examination is unchanged. Electronically Signed: Jaun Daly, at 12:09 EST , Service support , Chest X-Ray 05/13/19 05:55 IMPRESSION: Tubes are in adequate position. Bilateral pulmonary infiltrates, not significantly changed. Electronically Signed: Bigg Henderson MD at 5:50 EST , Service support , KUB X-Ray 05/16/19 07:24 IMPRESSION: Nonspecific gas pattern. Electronically Signed: Jimenez Villegas MD at 14:01 EDT Tel , Service support , Chest X-Ray 05/17/19 07:42 IMPRESSION: All support tubes are in good position. Improvement in the bilateral pulmonary infiltrates. Further follow-up is recommended. Electronically Signed: Jaun Daly at 13:47 EDT , Service support , Renal Ultrasound 05/17/19 10:15 IMPRESSION: The kidneys appear normal. A Yung catheter is present within the urinary bladder. 121 mL of urine is seen in the bladder. Electronically Signed: Evert Calle MD at 18:21 EDT , Service support , Medical Necessity - Tobacco Use Smoking Status: Never smoker Tobacco Use: Non-smoker Assessment/Plan All Active Problems (Last Reviewed 05/07/19 @ 13:[address] Doni Mccray MD) Respiratory failure with hypoxia (Acute) Bilateral pneumonia (Acute) Sepsis due to pneumonia (Acute) Infectious encephalopathy (Acute) RECOMMENDATIONS: 1. Continue patient on spontaneous mode of mechanical ventilation with a pressure support of 10/5. She will be placed back on assist control overnight. 2. Wean Precedex as tolerated. 3. Plan for repeat spontaneous breathing trial in the morning. 4. Continue Lasix as tolerated by renal function. 5. Continue Eliquis. 6. Continue appropriate ICU prophylaxis. IMPRESSIONS: 1. Acute hypoxemic respiratory failure Differential would include healthcare associated pneumonia versus pulmonary edema. The patient has already completed an appropriate course of antibiotics for underlying pneumonia. Her respiratory status is slowly improving. Plan to continue Precedex at a low dose with plans to repeat spontaneous breathing trial in the morning. She will be continued on spontaneous mode of mechanical ventilation throughout today and placed back on assist control tonight. Continue gentle diuresis as tolerated by renal function. 2. Severe sepsis Appears to be secondary to underlying pulmonary infectious process. The patient has already completed a complete treatment course of antibiotics. She remains hemodynamically stable. Nevertheless, her white blood cell count is significantly elevated. There is no readily identifiable alternative source of infection. Her systemic corticosteroids will continue to be weaned. 3. Chronic heart failure with preserved ejection fraction The patient is significantly volume overloaded for the hospital admission. Therefore, we will plan to continue scheduled Lasix today. 4. Acute kidney injury Unclear etiology. Avoid nephrotoxic medications. If creatinine worsens with diuresis, will obtain nephrology consultation. 5. History of DVT on Eliquis/diabetes mellitus/hyperlipidemia/obesity Complicates care, management, recovery and prognosis. Continue Eliquis as ordered. Physical therapy to work with the patient. TIME: 38 minutes of critical care time, independent of procedures, was spent addressing the patient's acute hypoxemic respiratory failure, severe sepsis, chronic heart failure with preserved ejection fraction, acute kidney injury, history of DVT, review of all data and collaboration with the care team. ([id number]) [phone]: [id number] Critical care first hour
[2019-05-18 07:25] LABS: Absolute Lymphocyte Count 1.12 X10^3/uL (0.83-4.51); Absolute Neutrophil Count 21.3 X10^3/uL (2.0-7.7); Basophil# 0.02 X10^3/uL; Basophil% 0.1 % (0-1); Eosinophil# 0.04 X10^3/uL; Eosinophils% 0.2 % (0-5); Hematocrit 27.3 % (37-47); Hemoglobin 8.7 g/dL (12.0-15.0); Lymphocyte # 1.12 X10^3/ul (4.0); Lymphocyte % 4.7 % (19-41); Mean Corp Hgb Conc 31.9 g/dL (32-36); Mean Corpuscular Hgb 28.4 pg (27.0-32.0); Mean Corpuscular Volume 89.2 fL (81-99); Mean Platelet Vol. 9.1 fl (6.2-12.0); Monocyte# 0.92 X10^3/uL; Monocyte% 3.9 % (0-10); NRBC Flagged by Analyzer 0 % (0-5); Neutrophil # 21.25 X10^3/uL (2.7-7.7); Neutrophil % 89.6 % (47-70); POSITIVE DIFFERENTIAL YES; Platelet Count 311 K/mm3 (150-450); RBC Distribution Width CV 16.3 % (11.6-14.6); RBC Distribution Width SD 52.5 fl (35.1-43.9); Red Blood Count 3.06 M/mm3 (4.2-5.4); White Blood Count 23.7 K/mm3 (4.4-11.0)
[2019-05-18 07:27] LABS: Differential Indicated SCAN CRITERIA MET
--- NOTE | 2019-05-18 07:37 | PCM.PN.HOSP ---
Patient Problems: Active and Suspected Problems (Last Reviewed 05/07/19 @ 13:[address] Doni Mccray MD) Respiratory failure with hypoxia (Acute) Bilateral pneumonia (Acute) Sepsis due to pneumonia (Acute) Infectious encephalopathy (Acute) Reason for Visit: Follow-up acute respiratory failure Subjective: Patient seen awake on the vent currently undergoing weaning trial. WBC count still remains elevated. Sputum cultures came back positive for Kristin albicans. Consult placed to infectious disease in view of worsening WBC Objective: GENERAL: Awake on the vent HEENT: Atraumatic; EYES; Anicteric, Normal Conjunctiva NECK; supple, normal thyroid, RESPIRATORY: Diminished to auscultation CARDIOVASCULAR: Regular S1 S2, GI: soft, normoactive bowel sounds, : No Renal angle tenderness; EXTREMITIES: Bipedal edema involving both lower extremities MUSCULOSKELETAL: no muscle waisting NEURO:on the vent SKIN: No Rash Vitals/I&O's: Vital Signs Temp Pulse Resp BP Pulse Ox 98.4 F 79 23 H 121/52 H 98 05/18/19 07:00 05/18/19 07:00 05/18/19 07:00 05/18/19 07:00 05/18/19 07:00 Oxygen Flow Rate (L/min) 30 Oxygen Delivery Method Mechanical Ventilator Weight: 86.1 kg Body Mass Index (BMI) 31.8 Intake and Output for Last 24 Hours 05/16/19 05/17/19 05/18/19 23:59 23:59 23:59 Intake Total 869.90 / 933.50 554.89 / 554.89 Output Total 2250 / 2250 1400 / 1400 Balance -1380.10 / -1316.50 -845.11 / -845.11 Laboratory Results 05/17/19 03:00: B-Natriuretic Peptide 43.7 05/17/19 11:44: POC Glucose 186 H 05/17/19 18:00: POC Glucose 149 H 05/18/19 00:24: POC Glucose 181 H 05/18/19 05:06: POC Glucose 182 H 05/18/19 07:20: WBC 23.7 H, RBC 3.06 L, Hgb 8.7 L, Hct 27.3 L, MCV 89.2, MCH 28.4, MCHC 31.9 L, RDW Std Deviation 52.5 H, RDW Coeff of Kristal 16.3 H, Plt Count 311, MPV 9.1, Immature Gran % (Auto) 1.500 H, Neut % (Auto) 89.6 H, Lymph % (Auto) 4.7 L, Yancey % (Auto) 3.9, Eos % (Auto) 0.2, Baso % (Auto) 0.1, Absolute Neuts (auto) 21.3 H, Absolute Lymphs (auto) 1.12, Nucleated RBC % 0 05/18/19 07:20: Sodium Pending, Potassium Pending, Chloride Pending, Carbon Dioxide Pending, Anion Gap Pending, BUN Pending, Creatinine Pending, Est GFR (MDRD) Af Amer Pending, Est GFR (MDRD) Non-Af Pending, BUN/Creatinine Ratio Pending, Glucose Pending, Calcium Pending, Total Bilirubin Pending, AST Pending, ALT Pending, Alkaline Phosphatase Pending, Total Protein Pending, Albumin Pending Current Medications Acetaminophen (Tylenol Liquid) 650 mg GT Q6H PRN PRN PRN Reason: Pain Score 1-3/Temp > 100.7 F Al Hydroxide/Mg Hydroxide (Mylanta Ii) 30 ml GT Q6H PRN PRN PRN Reason: Gastric Burning Albuterol Sulfate (Ventolin Aerosols) 2.5 mg INHALATION Q2H PRN PRN PRN Reason: Shortness of Breath/Wheezing Last Admin: 05/08/19 04:30 Dose: 2.5 mg Documented by: Albuterol/Ipratropium (Duoneb) 3 ml INHALATION Q4HWA.RT [facility] Last Admin: 05/18/19 06:43 Dose: 3 ml Documented by: Apixaban (Eliquis) 5 mg PO BID [facility] Last Admin: 05/17/19 21:46 Dose: 5 mg Documented by: Ascorbic Acid (Vitamin C) 500 mg GT DAILY@0800 [facility] Last Admin: 05/17/19 10:11 Dose: 500 mg Documented by: Aspirin (Aspirin, Baby) 81 mg GT DAILYCM [facility] Last Admin: 05/17/19 10:11 Dose: 81 mg Documented by: Atorvastatin Calcium (Lipitor) 20 mg GT QHS [facility] Last Admin: 05/17/19 21:46 Dose: 20 mg Documented by: Bupropion HCl (Wellbutrin Tablets) 75 mg GT BID [facility] Last Admin: 05/17/19 21:46 Dose: 75 mg Documented by: Calamine/Phenol (Calmoseptine Ointment) 1 applic TOPICAL BID [facility]; Protocol Last Admin: 05/17/19 21:46 Dose: 1 applicatio Documented by: Chlorhexidine Gluconate () 15 ml PO BID [facility] Last Admin: 05/17/19 21:50 Dose: 15 ml Documented by: Chlorhexidine Gluconate () 1 each TOPICAL DAILY [facility] Last Admin: 05/18/19 05:08 Dose: 1 each Documented by: Famotidine (Pepcid) 20 mg GT DAILY [facility] Last Admin: 05/17/19 10:13 Dose: 20 mg Documented by: Furosemide (Lasix) 40 mg IV BID@1000,1800 [facility] Last Admin: 05/17/19 18:02 Dose: 40 mg Documented by: Glucagon () 1 mg IM .X1 PRN PRN Reason: Hypoglycemia Guaifenesin (Robitussin) 20 ml GT Q4H PRN PRN PRN Reason: COUGH Dextrose (Dextrose 10%-Water) 250 mls @ 999 mls/hr IV .Q16M PRN; Protocol PRN Reason: HYPOGLYCEMIA Fentanyl () 100 mls @ 5 mls/hr IV UD [facility]; Protocol Last Titration: 05/18/19 07:00 Dose: 0 mcg/hr, 0 mls/hr Documented by: Sodium Chloride () 250 mls @ 15 mls/hr IV .[id number] PRN PRN Reason: Saline Flush Last Infusion: 05/14/19 15:46 Dose: Infused Documented by: Sodium Chloride () 250 mls @ 15 mls/hr IV .[id number] PRN PRN Reason: Additional IVPB Infusion Dexmedetomidine HCl 1,000 mcg/ (Sodium Chloride) 250 mls @ 25.83 mls/hr CONT INF .Q9H41M [facility]; Protocol Last Titration: 05/18/19 07:00 Dose: 0.8 mcg/kg/hr, 17.2 mls/hr Documented by: Enteral Nutritional Formula (Vital Af 1.2 Jose Liquid) 1,000 mls @ 50 mls/hr GT .Q20H [facility] Last Admin: 05/17/19 15:30 Dose: 50 mls/hr Documented by: Insulin Glargine (Lantus (Bkc)) 10 units SC DAILY [facility] Last Admin: 05/17/19 10:12 Dose: 10 u Documented by: Insulin Human Lispro (Humalog Kwikpen (Bkc)) 0 unit SC Q6 [facility]; Protocol Last Admin: 05/18/19 05:07 Dose: 2 u Documented by: Magnesium Hydroxide (Milk Of Magnesia) 30 ml GT DAILY PRN PRN PRN Reason: Constipation Melatonin (Melatonin) 3 mg GT QHS PRN PRN PRN Reason: INSOMNIA Methylprednisolone (Solu-Medrol) 40 mg IV DAILY [facility] Multi-Ingredient Cream (Lacrilube) 0 applic OPHTHALMIC BID [facility] Last Admin: 05/17/19 21:46 Dose: 1 applicatio Documented by: Nitroglycerin (Nitrostat) 0.4 mg SUBLINGUAL Q5M PRN PRN Reason: CARDIAC/CHEST PAIN Nystatin (Mycostatin Powder) 1 applic TOPICAL BID [facility]; Protocol Last Admin: 05/17/19 21:46 Dose: 1 applicatio Documented by: Ondansetron HCl (Zofran) 4 mg IV Q8H PRN PRN PRN Reason: NAUSEA/VOMITING Polyethylene Glycol (Miralax) 17 gm PO BID [facility] Last Admin: 05/17/19 21:46 Dose: 17 gm Documented by: Prochlorperazine Edisylate (Compazine Iv) 5 mg IV Q4H PRN PRN PRN Reason: Breakthrough nausea/vomiting Quetiapine Fumarate (Seroquel) 50 mg GT BID [facility] Last Admin: 05/17/19 21:46 Dose: 50 mg Documented by: Senna/Docusate Sodium (Senokot-S, Corrie-Colace) 2 tablet GT DAILY [facility] Last Admin: 05/17/19 10:13 Dose: 2 tablet Documented by: Sodium Chloride () 10 - 40 ml IV UD PRN PRN Reason: SALINE FLUSH Last Admin: 05/17/19 05:18 Dose: 20 ml Documented by: STROKE Vital Signs/Narrative: Vital Signs Temp Pulse Resp BP Pulse Ox 05/18/19 07:00 98.4 F 79 23 H 121/52 H 98 05/18/19 06:00 98.3 F 70 20 H 118/55 L 99 05/18/19 05:12 72 18 99 05/18/19 05:00 98.1 F 71 14 102/44 L 99 05/18/19 04:00 98.1 F 72 13 114/52 L 99 Medical Necessity - Tobacco Use Smoking Status: Never smoker Tobacco Use: Non-smoker Assessment/Plan All Active Problems (Last Reviewed 05/07/19 @ 13:[address] Doni Mccray MD) Respiratory failure with hypoxia (Acute) Bilateral pneumonia (Acute) Sepsis due to pneumonia (Acute) Infectious encephalopathy (Acute) Patient is a 68-year-old lady residing at an extended care facility presenting with cough shortness of breath and fever 1. Sepsis ?Secondary to suspected pneumonia with multidrug-resistant organisms. Admitted to monitored bed patient started on broad-spectrum antibiotic therapy again (cefepime, Levaquin, and vancomycin) after cultures have been obtained. Also did obtain MRSA nasal screen with plans to discontinue vancomycin if cultures come back negative -05/09/2019; patient was transferred to the intensive care unit in view of worsening clinical condition placed on noninvasive ventilation. Patient changed her CODE STATUS from DNR CCA with intubation to DNR CCA no intubation -05/17/2019 patient completed appropriate course for her sepsis. Antibiotics since discontinued. Patient however went into acute respiratory failure necessitating patient being intubated on 05/11/2019 - 05/18/2019; patient elevated WBC count persist. Sputum cultures came back positive for Kristin albicans. Consult subsequently placed infectious disease 2. Acute hypoxic respiratory failure ?Secondary to suspected pneumonia with multidrug-resistant organism. Patient was placed on supplemental oxygen via Ventimask treated to keep oxygen saturation greater than 90 -05/09/2019: Patient was transferred to the intensive care unit started on noninvasive ventilation BiPAP. She still maintains that she does not want to be intubated. -05/17/2019 ;she was intubated on 05/11/2019 following deterioration in her respiratory status and family changing patient's CODE STATUS to DNR CCA with intubation -05/18/2019; patient seen remains on the vent currently undergoing weaning trial 3. Diabetes mellitus type II ~Uncontrolled with hyperglycemia patient's oral hypoglycemics held. Placed on long acting insulin, Accu-Cheks a.c. every 6 with sliding scale insulin 4. Bilateral lower extremity weakness ?Secondary to DJD involving the lumbar spine patient was undergoing therapy at extended care facility 5. Systemic use of anticoagulation ?Patient is on therapeutic dose of Eliquis rationale was not clear from the chart however did continue do suspect this is being used for DVT prophylaxis or recent diagnosis of DVT 6. Dyslipidemia ~patient is on statin therapy, continued at home dose 7. Obesity with BMI of 33.7 ?Weight loss advised 8. DVT prophylaxis ?Patient is on Eliquis did continue 9. Acute kidney injury ?-05/17/2019 patient kidney function is worsened and creatinine went up from 0.68 on admission to 2.20 as of 05/17/2019 plan is to consult nephrology. ?05/18/2019: No improvement in kidney function consult subsequently placed to nephrology Inpatient E&M: [id number] [facility] Hosp L3
[2019-05-18 07:41] LABS: ALB/GLOB Ratio 0.4 RATIO (0.9-2.4); AST(SGOT) 32 U/L (15-37); Alanine Aminotransfer ALT/SGPT 36 U/L (13-56); Albumin, Serum 1.5 g/dL (3.2-5.0); Alkaline Phosphatase 91 U/L (45-117); Anion Gap 7 (5-15); BUN 65 mg/dL (7-18); BUN/Creat Ratio 31.2 RATIO (10-20); Calcium,Total 8.3 mg/dL (8.5-10.1); Chloride 116 mmol/L (98-107); Creatinine, Serum 2.08 mg/dL (0.55-1.02); EST Glomerular Filtration Rate 25 mL/min (>60); Est Glom Filt Rate - Afr Amer 31 mL/min (>60); Estimated Creatinine Clearance 23.94 ml/min; Globulin 3.8 g/dL (2.2-4.2); Glucose 173 mg/dL (74-106); Potassium 3.5 mmol/L (3.5-5.1); Protein, Total 5.3 g/dL (6.4-8.2); Sodium Level 145 mmol/L (136-145)
[2019-05-18 07:54] LABS: Hypochromasia 1+; Platelet Estimate ADEQUATE (ADEQ); Toxic Granulation RARE
--- NOTE | 2019-05-18 09:36 | CASEMGMT ---
Social Work SW participated in interdisciplinary rounds. Pt sister in attendance. Pt continues with the ventilator. Pt is from [facility] and plans to return when medically ready. Phone call to Marly at [facility] and updated her on pt condition and faxed clinicals. Plan: [facility], when medically ready [facility]
--- NOTE | 2019-05-18 10:12 | PCM.HP.ID ---
Problem List (1) Sepsis due to pneumonia Status: Acute Reason for Consult: leukocytosis Consulted by: Dr. Mccray History of Present Illness: The patient is a 68 year old F with BLE weakness related to spine injury, presented 05/07 with several days of fever, cough, SOB. Lives at [facility] BEDS AT [facility]. History obtained from sister at bedside. Sent to ED, started on vanc/zosyn, changed to cefepime. Completed abx 05/14. Fever resolved, still on vent, minimal O2 requirements. Receiving iv steroids. Sputum cx with rare yeast. ROS unobtainable due to ETT - Medical History Past Medical History (Chronic Problems): Chronic Problems (Last Reviewed 05/07/19 @ 13:[address] Doni Mccray MD) Left leg weakness (Chronic) Stroke-like symptoms (Chronic) Debility, unspecified (Chronic) Depression (Chronic) Diabetes (Chronic) HLD (hyperlipidemia) (Chronic) Chronic kidney disease (Chronic) Allergies/Adverse Reactions: Allergies No Known Allergies Allergy (Verified 05/07/19 10:08) Home Medications: Ambulatory Orders Medication Instructions Recorded Metformin HCl 500 mg PO DAILY 02/16/19 Acetaminophen [Tylenol Tablet] 650 mg PO Q6H PRN PRN tab 02/18/19 Albuterol Sulfate 2.5 mg IH TID 05/07/19 Apixaban [Eliquis] 5 mg PO BID 05/07/19 Ascorbic Acid [Vitamin C] 500 mg PO DAILY@0800 05/07/19 Aspirin 81 mg PO DAILY 05/07/19 Atorvastatin Calcium [Lipitor] 20 mg PO DAILY 05/07/19 Bupropion HCl [Wellbutrin Xl] 150 mg PO DAILY 05/07/19 Fluvoxamine Maleate [Luvox] 100 mg PO QHS 05/07/19 Lactobacillus Acidophilus 1 cap PO BID 05/07/19 [Acidophilus] Lorazepam [Ativan] 0.5 mg PO BID PRN PRN 05/07/19 Piperacillin Sodium/Tazobactam 3.375 gm IV [id number] 05/07/19 [Piperacil-Tazobact 3.375 gm Vl] Sennosides/Docusate Sodium [Senna 2 ea PO DAILY 05/07/19 Plus 8.6-50 mg Tablet] Zinc Sulfate 220 mg PO DAILY 05/07/19 - Social History Tobacco Use: non-smoker Vital Signs Temp Pulse Resp BP Pulse Ox 98.3 F 91 23 H 119/51 L 99 05/18/19 08:00 05/18/19 09:15 05/18/19 09:15 05/18/19 08:00 05/18/19 09:15 Oxygen Flow Rate (L/min) 30 Oxygen Delivery Method CPAP Weight: 86.1 kg Body Mass Index (BMI) 31.8 Microbiology Past 72 Hours 05/17/19 22:10 Gram Stain - Final Sputum, Induced/Lukens Laboratory Tests Past 24 Hrs 05/18/19 05/18/19 07:20 07:20 WBC 23.7 H RBC 3.06 L Hgb 8.7 L Hct 27.3 L MCV 89.2 MCH 28.4 MCHC 31.9 L RDW Std Deviation 52.5 H RDW Coeff of Kristal 16.3 H Plt Count 311 MPV 9.1 Immature Gran % (Auto) 1.500 H Neut % (Auto) 89.6 H Lymph % (Auto) 4.7 L Bee % (Auto) 3.9 Eos % (Auto) 0.2 Baso % (Auto) 0.1 Absolute Neuts (auto) 21.3 H Absolute Lymphs (auto) 1.12 Nucleated RBC % 0 Toxic Granulation RARE Platelet Estimate ADEQUATE Hypochromasia 1+ Sodium 145 Potassium 3.5 Chloride 116 H Carbon Dioxide 22.0 Anion Gap 7 BUN 65 H Creatinine 2.08 H Estim Creat Clear Calc 23.94 Est GFR (MDRD) Af Amer 31 L Est GFR (MDRD) Non-Af 25 L BUN/Creatinine Ratio 31.2 H Glucose 173 H Calcium 8.3 L Total Bilirubin 0.20 AST 32 ALT 36 Alkaline Phosphatase 91 Total Protein 5.3 L Albumin 1.5 L Globulin 3.8 Albumin/Globulin Ratio 0.4 L - Other Studies Radiology: [] reviewed Other Studies: [] Route of nutrition/ use of supplements: [] Nutritional Intake: [] IV Site: [] Yung Catheter: [] - Physical Exam General: Alert, Cooperative, No apparent distress HEENT: Atraumatic, PERRLA, EOMI Neck: Supple, No Nodes Lungs: Clear to auscultation, Normal air movement Cardiovascular: Regular rate, Regular Rhythm, No murmurs Abdomen: Soft, Non Tender, Non-Distended Extremities: Edema Skin: No rashes Musculoskeletal: No Tenderness to Palpation of Joints or Extremities Neurological: Cranial nerves II-XII grossly intact - Assessment/Plan Antibiotics: [] Assessment/Plan: [] Active and Suspected Problems (Last Reviewed 05/07/19 @ 13:[address] Doni Mccray MD) Respiratory failure with hypoxia (Acute) Bilateral pneumonia (Acute) Sepsis due to pneumonia (Acute) Infectious encephalopathy (Acute) sepsis due to pneumonia - remains on vent, completed course of abx. Fever resolved, cxr with stable infiltrates, lung exam clear, currently on 30% FiO2. Recent sputum showing only rare yeast, likely colonization. Wbc slowly rising, but may be related to iv steroids. Cont to monitor off of abx. Will follow, thank you, d/w Dr. Russell
[2019-05-18] MEDS: Famotidine 20 MG Tablet GT (10:13)
[2019-05-18] MEDS: Senna/Docusate Sodium 1 Tablet 2 TABLET GT (10:13)
[2019-05-18] MEDS: APIXABAN 5 MG TABLET PO ×2 (10:13→22:08)
[2019-05-18] MEDS: buPROPion 75 MG Tablet GT ×2 (10:13→22:10)
[2019-05-18] MEDS: Ascorbic Acid 500 MG Tablet GT (10:13)
[2019-05-18] MEDS: Aspirin 81 MG TAB.CHEW GT (10:13)
[2019-05-18] MEDS: Polyethylene Glycol 3350 17 GM PACKET PO (10:14)
[2019-05-18] MEDS: Menthol/Lanolin/Calamine/Znox 113 GM Tube 1 APPLIC TOPICAL ×2 (10:14→22:07)
[2019-05-18] MEDS: QUEtiapine 25 MG Tablet 50 MG GT ×2 (10:14→22:06)
[2019-05-18] MEDS: Furosemide 40 MG/4 ML Vial IV ×2 (10:14→17:04)
[2019-05-18] MEDS: Petrolatum,White 3.75GM OPTH.TUBE OPHTHALMIC ×2 (10:14→22:09)
[2019-05-18] MEDS: Chlorhexidine 15 ML PO ×2 (10:15→22:13)
[2019-05-18] MEDS: Nystatin Powder 15gm Bottle 1 APPLIC TOPICAL ×2 (10:15→22:09)
[2019-05-18] MEDS: 0.9% Saline Lock 10 ML Syringe IV ×3 (10:32→17:00)
[2019-05-18] MEDS: Ondansetron 4 MG/2 ML Vial IV (11:08)
[2019-05-18 12:16] LABS: Bedside Glucose 170 mg/dL (70-110)
--- NOTE | 2019-05-18 12:36 | CON.PCM_ITS ---
Consultation - Renal PCP/ Referring MD: Requesting physician: [] Primary care physician: Imtiaz Lee DO - History of Present Illness History of Present Illness: The patient is a 68 year old F PMH who is resident at [facility]. Pt was brought on 05/07 for worsening SOB and cough despite beng on Abx. Pt was admitted for B/L pneumonia . Pt started on Abx Zosyn Vancomycin. Pt's respiratory status worsened and was intubated Renal team was consulted today for RYAN Pt presented with normal SCr and increased next day to 1.8 mg/dL.SCr continue to rise gradually and peaked at 2.3 mg/dl on 05/12. SCr has been slowly improving. Pt is currently on lasix 40 mg IV BID with excellent UOP. Pt remain intubated. Pt opens her eyes and follow commands ROS: cannot be reviewed due to patient being intubated[] - Allergies Allergies: Allergies No Known Allergies Allergy (Verified 05/07/19 10:08) - Current Medications Current Medications: Current Medications Acetaminophen (Tylenol Liquid) 650 mg GT Q6H PRN PRN PRN Reason: Pain Score 1-3/Temp > 100.7 F Al Hydroxide/Mg Hydroxide (Mylanta Ii) 30 ml GT Q6H PRN PRN PRN Reason: Gastric Burning Albuterol Sulfate (Ventolin Aerosols) 2.5 mg INHALATION Q2H PRN PRN PRN Reason: Shortness of Breath/Wheezing Last Admin: 05/08/19 04:30 Dose: 2.5 mg Documented by: Albuterol/Ipratropium (Duoneb) 3 ml INHALATION Q4HWA.RT [facility] Last Admin: 05/18/19 10:50 Dose: 3 ml Documented by: Apixaban (Eliquis) 5 mg PO BID [facility] Last Admin: 05/18/19 10:13 Dose: 5 mg Documented by: Ascorbic Acid (Vitamin C) 500 mg GT DAILY@0800 [facility] Last Admin: 05/18/19 10:13 Dose: 500 mg Documented by: Aspirin (Aspirin, Baby) 81 mg GT DAILYCM [facility] Last Admin: 05/18/19 10:13 Dose: 81 mg Documented by: Atorvastatin Calcium (Lipitor) 20 mg GT QHS [facility] Last Admin: 05/17/19 21:46 Dose: 20 mg Documented by: Bupropion HCl (Wellbutrin Tablets) 75 mg GT BID [facility] Last Admin: 05/18/19 10:13 Dose: 75 mg Documented by: Calamine/Phenol (Calmoseptine Ointment) 1 applic TOPICAL BID [facility]; Protocol Last Admin: 05/18/19 10:14 Dose: 1 applicatio Documented by: Chlorhexidine Gluconate () 15 ml PO BID [facility] Last Admin: 05/18/19 10:15 Dose: 15 ml Documented by: Chlorhexidine Gluconate () 1 each TOPICAL DAILY [facility] Last Admin: 05/18/19 05:08 Dose: 1 each Documented by: Famotidine (Pepcid) 20 mg GT DAILY [facility] Last Admin: 05/18/19 10:13 Dose: 20 mg Documented by: Furosemide (Lasix) 40 mg IV BID@1000,1800 [facility] Last Admin: 05/18/19 10:14 Dose: 40 mg Documented by: Glucagon () 1 mg IM .X1 PRN PRN Reason: Hypoglycemia Guaifenesin (Robitussin) 20 ml GT Q4H PRN PRN PRN Reason: COUGH Heparin Sodium (Beef Lung) () 50 units IV UD PRN PRN Reason: PICC Line Heparin Flush Dextrose (Dextrose 10%-Water) 250 mls @ 999 mls/hr IV .Q16M PRN; Protocol PRN Reason: HYPOGLYCEMIA Fentanyl () 100 mls @ 5 mls/hr IV UD [facility]; Protocol Last Titration: 05/18/19 08:00 Dose: 0 mcg/hr, 0 mls/hr Documented by: Sodium Chloride () 250 mls @ 15 mls/hr IV .[id number] PRN PRN Reason: Saline Flush Last Infusion: 05/14/19 15:46 Dose: Infused Documented by: Sodium Chloride () 250 mls @ 15 mls/hr IV .[id number] PRN PRN Reason: Additional IVPB Infusion Dexmedetomidine HCl 1,000 mcg/ (Sodium Chloride) 250 mls @ 17.22 mls/hr CONT INF .[id number] [facility]; Protocol Last Titration: 05/18/19 10:41 Dose: 0.8 mcg/kg/hr, 17.2 mls/hr Documented by: Enteral Nutritional Formula (Vital Af 1.2 Jose Liquid) 1,000 mls @ 50 mls/hr GT .Q20H [facility] Last Admin: 05/18/19 12:22 Dose: Not Given Documented by: Insulin Glargine (Lantus (Bk)) 10 units SC DAILY [facility] Last Admin: 05/18/19 10:14 Dose: 10 u Documented by: Insulin Human Lispro (Humalog Kwikpen ([facility])) 0 unit SC Q6 [facility]; Protocol Last Admin: 05/18/19 12:31 Dose: 2 u Documented by: Magnesium Hydroxide (Milk Of Magnesia) 30 ml GT DAILY PRN PRN PRN Reason: Constipation Melatonin (Melatonin) 3 mg GT QHS PRN PRN PRN Reason: INSOMNIA Methylprednisolone (Solu-Medrol) 40 mg IV DAILY [facility] Last Admin: 05/18/19 10:13 Dose: 40 mg Documented by: Multi-Ingredient Cream (Lacrilube) 0 applic OPHTHALMIC BID [facility] Last Admin: 05/18/19 10:14 Dose: 1 applicatio Documented by: Nitroglycerin (Nitrostat) 0.4 mg SUBLINGUAL Q5M PRN PRN Reason: CARDIAC/CHEST PAIN Nystatin (Mycostatin Powder) 1 applic TOPICAL BID [facility]; Protocol Last Admin: 05/18/19 10:15 Dose: 1 applicatio Documented by: Ondansetron HCl (Zofran) 4 mg IV Q8H PRN PRN PRN Reason: NAUSEA/VOMITING Last Admin: 05/18/19 11:08 Dose: 4 mg Documented by: Polyethylene Glycol (Miralax) 17 gm PO BID [facility] Last Admin: 05/18/19 10:14 Dose: 17 gm Documented by: Prochlorperazine Edisylate (Compazine Iv) 5 mg IV Q4H PRN PRN PRN Reason: Breakthrough nausea/vomiting Quetiapine Fumarate (Seroquel) 50 mg GT BID [facility] Last Admin: 05/18/19 10:14 Dose: 50 mg Documented by: Senna/Docusate Sodium (Senokot-S, Corrie-Colace) 2 tablet GT DAILY [facility] Last Admin: 05/18/19 10:13 Dose: 2 tablet Documented by: Sodium Chloride () 10 - 40 ml IV UD PRN PRN Reason: SALINE FLUSH Last Admin: 05/18/19 11:08 Dose: 10 ml Documented by: Sodium Chloride () 10 - 40 ml IV UD PRN PRN Reason: Open End PICC Flush Sodium Chloride (0.9% Nacl (Sterile) Posiflush) 10 - 40 ml IV UD PRN PRN Reason: Port access or dressing change - Past Medical History Past Medical History (Chronic Problems): Chronic Problems (Last Reviewed 05/07/19 @ 13:[address] Doni Mccray MD) Left leg weakness (Chronic) Stroke-like symptoms (Chronic) Debility, unspecified (Chronic) Depression (Chronic) Diabetes (Chronic) HLD (hyperlipidemia) (Chronic) Chronic kidney disease (Chronic) - Past Surgical History Surgical History: - - Surgery to remove lesion in her armpit; ; surgery for ingrown toenail. - Social History Smoking Status: Never smoker Alcohol: None Drugs: None - Family History Maternal History Items: Heart Disease Paternal History Items: Heart Disease, - - Arthritis Patient Problems: Active and Suspected Problems (Last Reviewed 05/07/19 @ 13:[address] Doni Mccray MD) Respiratory failure with hypoxia (Acute) Bilateral pneumonia (Acute) Sepsis due to pneumonia (Acute) Infectious encephalopathy (Acute) - Physical Exam Vitals/I&O's: Vital Signs Temp Pulse Resp BP Pulse Ox 98.6 F 92 29 H 118/56 L 100 05/18/19 12:00 05/18/19 12:00 05/18/19 12:00 05/18/19 12:00 05/18/19 12:00 Oxygen Flow Rate (L/min) 30 Oxygen Delivery Method Mechanical Ventilator Weight: 86.1 kg Body Mass Index (BMI) 31.8 Intake and Output for Last 24 Hours 05/16/19 05/17/19 05/18/19 23:59 23:59 23:59 Intake Total 869.90 / 933.50 648.24 / 648.24 Output Total 2250 / 2250 1400 / 1400 Balance -1380.10 / -1316.50 -751.76 / -751.76 General: Cooperative, - - Intubated HEENT: Atraumatic Oral: Moist Mucosa Neck: Supple, No JVD Lungs: Clear to auscultation, Normal air movement, No rhonchi, No wheeze Cardiovascular: Regular rate, Regular Rhythm, Normal S1, Normal S2 Abdomen: Bowel Sounds Present, Soft, Non Tender, Non-Distended Extremities: No clubbing, No cyanosis, No edema Skin: No rashes Musculoskeletal: No Tenderness to Palpation of Joints or Extremities Lymphatic: No Cervical, Supraclavicular, or Inguinal Adenopathy Psych/Mental Status: Appropriate Microbiology Past 72 Hours 05/17/19 22:10 Sputum, Induced/Lukens Gram Stain - Final Laboratory Results 05/17/19 18:00: POC Glucose 149 H 05/18/19 00:24: POC Glucose 181 H 05/18/19 05:06: POC Glucose 182 H 05/18/19 07:20: WBC 23.7 H, RBC 3.06 L, Hgb 8.7 L, Hct 27.3 L, MCV 89.2, MCH 28.4, MCHC 31.9 L, RDW Std Deviation 52.5 H, RDW Coeff of Kristal 16.3 H, Plt Count 311, MPV 9.1, Immature Gran % (Auto) 1.500 H, Neut % (Auto) 89.6 H, Lymph % (Auto) 4.7 L, Foard % (Auto) 3.9, Eos % (Auto) 0.2, Baso % (Auto) 0.1, Absolute Neuts (auto) 21.3 H, Absolute Lymphs (auto) 1.12, Nucleated RBC % 0, Toxic Granulation RARE, Platelet Estimate ADEQUATE, Hypochromasia 1+ 05/18/19 07:20: Sodium 145, Potassium 3.5, Chloride 116 H, Carbon Dioxide 22.0, Anion Gap 7, BUN 65 H, Creatinine 2.08 H, Estim Creat Clear Calc 23.94, Est GFR (MDRD) Af Amer 31 L, Est GFR (MDRD) Non-Af 25 L, BUN/Creatinine Ratio 31.2 H, Glucose 173 H, Calcium 8.3 L, Total Bilirubin 0.20, AST 32, ALT 36, Alkaline Phosphatase 91, Total Protein 5.3 L, Albumin 1.5 L, Globulin 3.8, Albumin/Globulin Ratio 0.4 L 05/18/19 12:12: POC Glucose 170 H Current Medications Acetaminophen (Tylenol Liquid) 650 mg GT Q6H PRN PRN PRN Reason: Pain Score 1-3/Temp > 100.7 F Al Hydroxide/Mg Hydroxide (Mylanta Ii) 30 ml GT Q6H PRN PRN PRN Reason: Gastric Burning Albuterol Sulfate (Ventolin Aerosols) 2.5 mg INHALATION Q2H PRN PRN PRN Reason: Shortness of Breath/Wheezing Last Admin: 05/08/19 04:30 Dose: 2.5 mg Documented by: Albuterol/Ipratropium (Duoneb) 3 ml INHALATION Q4HWA.RT [facility] Last Admin: 05/18/19 10:50 Dose: 3 ml Documented by: Apixaban (Eliquis) 5 mg PO BID [facility] Last Admin: 05/18/19 10:13 Dose: 5 mg Documented by: Ascorbic Acid (Vitamin C) 500 mg GT DAILY@0800 [facility] Last Admin: 05/18/19 10:13 Dose: 500 mg Documented by: Aspirin (Aspirin, Baby) 81 mg GT DAILYCM [facility] Last Admin: 05/18/19 10:13 Dose: 81 mg Documented by: Atorvastatin Calcium (Lipitor) 20 mg GT QHS [facility] Last Admin: 05/17/19 21:46 Dose: 20 mg Documented by: Bupropion HCl (Wellbutrin Tablets) 75 mg GT BID [facility] Last Admin: 05/18/19 10:13 Dose: 75 mg Documented by: Calamine/Phenol (Calmoseptine Ointment) 1 applic TOPICAL BID [facility]; Protocol Last Admin: 05/18/19 10:14 Dose: 1 applicatio Documented by: Chlorhexidine Gluconate () 15 ml PO BID [facility] Last Admin: 05/18/19 10:15 Dose: 15 ml Documented by: Chlorhexidine Gluconate () 1 each TOPICAL DAILY [facility] Last Admin: 05/18/19 05:08 Dose: 1 each Documented by: Famotidine (Pepcid) 20 mg GT DAILY [facility] Last Admin: 05/18/19 10:13 Dose: 20 mg Documented by: Furosemide (Lasix) 40 mg IV BID@1000,1800 [facility] Last Admin: 05/18/19 10:14 Dose: 40 mg Documented by: Glucagon () 1 mg IM .X1 PRN PRN Reason: Hypoglycemia Guaifenesin (Robitussin) 20 ml GT Q4H PRN PRN PRN Reason: COUGH Heparin Sodium (Beef Lung) () 50 units IV UD PRN PRN Reason: PICC Line Heparin Flush Dextrose (Dextrose 10%-Water) 250 mls @ 999 mls/hr IV .Q16M PRN; Protocol PRN Reason: HYPOGLYCEMIA Fentanyl () 100 mls @ 5 mls/hr IV UD [facility]; Protocol Last Titration: 05/18/19 08:00 Dose: 0 mcg/hr, 0 mls/hr Documented by: Sodium Chloride () 250 mls @ 15 mls/hr IV .[id number] PRN PRN Reason: Saline Flush Last Infusion: 05/14/19 15:46 Dose: Infused Documented by: Sodium Chloride () 250 mls @ 15 mls/hr IV .[id number] PRN PRN Reason: Additional IVPB Infusion Dexmedetomidine HCl 1,000 mcg/ (Sodium Chloride) 250 mls @ 17.22 mls/hr CONT INF .[id number] [facility]; Protocol Last Titration: 05/18/19 10:41 Dose: 0.8 mcg/kg/hr, 17.2 mls/hr Documented by: Enteral Nutritional Formula (Vital Af 1.2 Jose Liquid) 1,000 mls @ 50 mls/hr GT .Q20H [facility] Last Admin: 05/18/19 12:22 Dose: Not Given Documented by: Insulin Glargine (Lantus (Bkc)) 10 units SC DAILY [facility] Last Admin: 05/18/19 10:14 Dose: 10 u Documented by: Insulin Human Lispro (Humalog Kwikpen (Bkc)) 0 unit SC Q6 [facility]; Protocol Last Admin: 05/18/19 12:31 Dose: 2 u Documented by: Magnesium Hydroxide (Milk Of Magnesia) 30 ml GT DAILY PRN PRN PRN Reason: Constipation Melatonin (Melatonin) 3 mg GT QHS PRN PRN PRN Reason: INSOMNIA Methylprednisolone (Solu-Medrol) 40 mg IV DAILY [facility] Last Admin: 05/18/19 10:13 Dose: 40 mg Documented by: Multi-Ingredient Cream (Lacrilube) 0 applic OPHTHALMIC BID [facility] Last Admin: 05/18/19 10:14 Dose: 1 applicatio Documented by: Nitroglycerin (Nitrostat) 0.4 mg SUBLINGUAL Q5M PRN PRN Reason: CARDIAC/CHEST PAIN Nystatin (Mycostatin Powder) 1 applic TOPICAL BID [facility]; Protocol Last Admin: 05/18/19 10:15 Dose: 1 applicatio Documented by: Ondansetron HCl (Zofran) 4 mg IV Q8H PRN PRN PRN Reason: NAUSEA/VOMITING Last Admin: 05/18/19 11:08 Dose: 4 mg Documented by: Polyethylene Glycol (Miralax) 17 gm PO BID [facility] Last Admin: 05/18/19 10:14 Dose: 17 gm Documented by: Prochlorperazine Edisylate (Compazine Iv) 5 mg IV Q4H PRN PRN PRN Reason: Breakthrough nausea/vomiting Quetiapine Fumarate (Seroquel) 50 mg GT BID [facility] Last Admin: 05/18/19 10:14 Dose: 50 mg Documented by: Senna/Docusate Sodium (Senokot-S, Corrie-Colace) 2 tablet GT DAILY [facility] Last Admin: 05/18/19 10:13 Dose: 2 tablet Documented by: Sodium Chloride () 10 - 40 ml IV UD PRN PRN Reason: SALINE FLUSH Last Admin: 05/18/19 11:08 Dose: 10 ml Documented by: Sodium Chloride () 10 - 40 ml IV UD PRN PRN Reason: Open End PICC Flush Sodium Chloride (0.9% Nacl (Sterile) Posiflush) 10 - 40 ml IV UD PRN PRN Reason: Port access or dressing change Assessment/Plan All Active Problems (Last Reviewed 05/07/19 @ 13:[address] Doni Mccray MD) Respiratory failure with hypoxia (Acute) Bilateral pneumonia (Acute) Sepsis due to pneumonia (Acute) Infectious encephalopathy (Acute) 1- RYAN. 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 SCr is 2.0 mg/dL Pt is responding well to lasix. Ok to continue the same dose Will repeat UA No need to expand work up unless repeated UA showed persistent proteinuria +/- hematuria Check renal function in am 2- Sepsis related to B/L pneumonia Finished Abx 3- Acute RF from B/L pneumonia/CHF continue lasix vent support as per ICU team Thank you for the consult Renal team will continue to follow Please call if any question at [phone] d/w Dr. Federico Lombardo MD
--- NOTE | 2019-05-18 13:28 | CHAPLAIN ---
Type of Pastoral Visit ___ Initial Visit _x__ Follow-up Visit ___ On-call Visit ___ General Patient Visit ___ Spiritual Assessment ___ Family Conference ___ Bereavement ___ Rapid Response ___ Code Blue ___ Other (describe below) Pastoral Care Referral From _x__ Patient _x__ Family _x__ Nurse ___ Physician ___ Patternmaker Apprentice Metal ___ International Flight Attendant ___ Other (describe below) Sacrament/Intervention ___ Active listening ___ Anointing ___ Congregation ___ Bereavement ___ Communion ___ Farzaneh exploration ___ ___ Life review _x__ Prayer ___ Reconciliation ___ Sacrament of Sick _x__ Supportive presence ___ Wedding ___ Other (describe below) Pastoral Comments patient opens eyes and nods head to my voice and questions; pt welcomes prayer; sister of pt is with her and does her communicating as well
[2019-05-18 16:31] LABS: Bacteria 0 SEEN /hpf (None Seen); Mucous, Urine 0 SEEN /hpf (<or=2+)
[2019-05-18 16:34] LABS: Color, Urine Yellow (Yellow); Glucose, Dipstick Normal (Normal); Ketone-Dipstick Negative (Negative); Leukocyte Esterase-Dipstick 500 /ul (Negative); Nitrite-Dipstick Negative (Negative); Occult Blood-Urine 150 /ul (Negative); Protein-Dipstick 30 mg/dl (Negative); Urine Bilirubin Dipstick Negative (Negative); Urine Clarity Cloudy (Clear); Urine Urobilinogen Normal (Normal)
[2019-05-18 16:56] LABS: White Blood Cells 25-50 SEEN /hpf (0-5)
[2019-05-18 16:57] LABS: Red Blood Cells-Urine 0-5 SEEN /hpf (0-5)
[2019-05-18 16:58] LABS: Squamous Epithelial Cells - UA 0-5 SEEN /hpf (5-10); Yeast-Urine 2+ /hpf (None Seen)
[2019-05-18 17:15] LABS: Bedside Glucose 176 mg/dL (70-110)
[2019-05-18] MEDS: Dexmedetomidine 1,000 mcg in 0.9% NS 240 mL 17.2 MCG CONT INF ×2 (18:37→22:02)
[2019-05-18] MEDS: Atorvastatin Calcium 20 MG Tablet GT (22:09)
[2019-05-19] VITALS (37 sets, daily range): BP systolic 103–150; BP diastolic 48–68; PULSE 57–135; RESP 12–28; TEMP 36.2–36.9; O2SAT 96–100
[2019-05-19] MEDS: fentaNYL drip 100 ML 5 MCG IV (00:58)
[2019-05-19 01:10] LABS: Bedside Glucose 138 mg/dL (70-110)
--- NOTE | 2019-05-19 06:26 | PN_ITS ---
Subjective: The patient was seen and examined at the bedside this morning. Events from the last 24 hours have been reviewed. The patient is currently afebrile, hemodynamically stable and maintaining appropriate oxygen saturations on spontaneous mode of mechanical ventilation with an FiO2 requirement of 30%. Repeat morning labs are currently pending. The patient is currently documented to be overall net +8.2 L for the hospital admission. She remains on twice daily IV Lasix. Although she remains on a low-dose amount of Precedex, she is currently alert and able to follow some simple commands. Objective: The patient's most recent lab work, culture data and imaging studies have all been personally reviewed. Infectious work-up has been unrevealing to date. General: Alert, Cooperative, - - Remains intubated and mechanically ventilated. Currently tolerating spontaneous mode of mechanical ventilation. HEENT: Atraumatic, PERRLA, Normocephalic Oral: No Gingival or Mucosal Lesions/ Ulcerations, - - Endotracheal and OG tubes remain in place. Neck: Supple, No Nodes, Trachea Midline Lungs: - - Clear across anterior lung miles. Cardiovascular: Regular rate, Regular Rhythm, Normal S1, Normal S2 Abdomen: Bowel Sounds Present, Soft, Non Tender, Obese Extremities: No clubbing, No cyanosis, Edema Skin: No breakdown Musculoskeletal: No Tenderness to Palpation of Joints or Extremities Lymphatic: No Cervical, Supraclavicular, or Inguinal Adenopathy Neurological: - - No focal neurological deficits. Able to follow simple commands. Vital Signs Temp Pulse Resp BP Pulse Ox 98.4 F 62 12 104/57 L 100 05/19/19 05:00 05/19/19 05:00 05/19/19 05:00 05/19/19 05:00 05/19/19 05:00 Oxygen Flow Rate (L/min) 30 Oxygen Delivery Method Mechanical Ventilator Weight: 189 lb 13.088 oz Body Mass Index (BMI) 31.8 Intake and Output for Last 24 Hours 05/17/19 05/18/19 05/19/19 23:59 23:59 23:59 Intake Total 869.90 / 933.50 898.26 / 920.46 113.20 / 113.20 Output Total 2250 / 2250 2425 / 2425 725 / 725 Balance -1380.10 / -1316.50 -1526.74 / -1504.54 -611.80 / -611.80 Labs (Last 48 Hours) 05/17/19 05/17/19 05/17/19 03:00 11:44 18:00 WBC RBC Hgb Hct MCV MCH MCHC RDW Std Deviation RDW Coeff of Kristal Plt Count MPV Immature Gran % (Auto) Neut % (Auto) Lymph % (Auto) [place] % (Auto) Eos % (Auto) Baso % (Auto) Absolute Neuts (auto) Absolute Lymphs (auto) Nucleated RBC % Toxic Granulation Platelet Estimate Hypochromasia Sodium Potassium Chloride Carbon Dioxide Anion Gap BUN Creatinine Estim Creat Clear Calc Est GFR (MDRD) Af Amer Est GFR (MDRD) Non-Af BUN/Creatinine Ratio Glucose Calcium Total Bilirubin AST ALT Alkaline Phosphatase B-Natriuretic Peptide 43.7 Total Protein Albumin Globulin Albumin/Globulin Ratio Urine Color Urine Clarity Urine pH Ur Specific [place] Urine Protein Urine Glucose (UA) Urine Ketones Urine Occult Blood Urine Nitrite Urine Bilirubin Urine Urobilinogen Ur Leukocyte Esterase Urine RBC Urine WBC Ur Squamous Epith Cells Urine Bacteria Urine Mucus Urine Yeast POC Glucose 186 H 149 H 05/18/19 05/18/19 05/18/19 00:24 05:06 07:20 WBC 23.7 H RBC 3.06 L Hgb 8.7 L Hct 27.3 L MCV 89.2 MCH 28.4 MCHC 31.9 L RDW Std Deviation 52.5 H RDW Coeff of Kristal 16.3 H Plt Count 311 MPV 9.1 Immature Gran % (Auto) 1.500 H Neut % (Auto) 89.6 H Lymph % (Auto) 4.7 L [place] % (Auto) 3.9 Eos % (Auto) 0.2 Baso % (Auto) 0.1 Absolute Neuts (auto) 21.3 H Absolute Lymphs (auto) 1.12 Nucleated RBC % 0 Toxic Granulation RARE Platelet Estimate ADEQUATE Hypochromasia 1+ Sodium Potassium Chloride Carbon Dioxide Anion Gap BUN Creatinine Estim Creat Clear Calc Est GFR (MDRD) Af Amer Est GFR (MDRD) Non-Af BUN/Creatinine Ratio Glucose Calcium Total Bilirubin AST ALT Alkaline Phosphatase B-Natriuretic Peptide Total Protein Albumin Globulin Albumin/Globulin Ratio Urine Color Urine Clarity Urine pH Ur Specific [place] Urine Protein Urine Glucose (UA) Urine Ketones Urine Occult Blood Urine Nitrite Urine Bilirubin Urine Urobilinogen Ur Leukocyte Esterase Urine RBC Urine WBC Ur Squamous Epith Cells Urine Bacteria Urine Mucus Urine Yeast POC Glucose 181 H 182 H 05/18/19 05/18/19 05/18/19 07:20 12:12 16:15 WBC RBC Hgb Hct MCV MCH MCHC RDW Std Deviation RDW Coeff of Kristal Plt Count MPV Immature Gran % (Auto) Neut % (Auto) Lymph % (Auto) [place] % (Auto) Eos % (Auto) Baso % (Auto) Absolute Neuts (auto) Absolute Lymphs (auto) Nucleated RBC % Toxic Granulation Platelet Estimate Hypochromasia Sodium 145 Potassium 3.5 Chloride 116 H Carbon Dioxide 22.0 Anion Gap 7 BUN 65 H Creatinine 2.08 H Estim Creat Clear Calc 23.94 Est GFR (MDRD) Af Amer 31 L Est GFR (MDRD) Non-Af 25 L BUN/Creatinine Ratio 31.2 H Glucose 173 H Calcium 8.3 L Total Bilirubin 0.20 AST 32 ALT 36 Alkaline Phosphatase 91 B-Natriuretic Peptide Total Protein 5.3 L Albumin 1.5 L Globulin 3.8 Albumin/Globulin Ratio 0.4 L Urine Color Yellow Urine Clarity Cloudy Urine pH 6.0 Ur Specific [place] 1.020 Urine Protein 30 H Urine Glucose (UA) Normal Urine Ketones Negative Urine Occult Blood 150 H Urine Nitrite Negative Urine Bilirubin Negative Urine Urobilinogen Normal Ur Leukocyte Esterase 500 H Urine RBC 0-5 SEEN Urine WBC 25-50 SEEN Ur Squamous Epith Cells 0-5 SEEN Urine Bacteria 0 SEEN Urine Mucus 0 SEEN Urine Yeast 2+ POC Glucose 170 H 05/18/19 05/19/19 17:04 01:02 WBC RBC Hgb Hct MCV MCH MCHC RDW Std Deviation RDW Coeff of Kristal Plt Count MPV Immature Gran % (Auto) Neut % (Auto) Lymph % (Auto) [place] % (Auto) Eos % (Auto) Baso % (Auto) Absolute Neuts (auto) Absolute Lymphs (auto) Nucleated RBC % Toxic Granulation Platelet Estimate Hypochromasia Sodium Potassium Chloride Carbon Dioxide Anion Gap BUN Creatinine Estim Creat Clear Calc Est GFR (MDRD) Af Amer Est GFR (MDRD) Non-Af BUN/Creatinine Ratio Glucose Calcium Total Bilirubin AST ALT Alkaline Phosphatase B-Natriuretic Peptide Total Protein Albumin Globulin Albumin/Globulin Ratio Urine Color Urine Clarity Urine pH Ur Specific [place] Urine Protein Urine Glucose (UA) Urine Ketones Urine Occult Blood Urine Nitrite Urine Bilirubin Urine Urobilinogen Ur Leukocyte Esterase Urine RBC Urine WBC Ur Squamous Epith Cells Urine Bacteria Urine Mucus Urine Yeast POC Glucose 176 H 138 H Microbiology 05/17/19 22:10 Sputum, Induced/Lukens Gram Stain - Final Clinical Impression(s) from Imaging Studies Chest X-Ray 05/07/19 10:05 IMPRESSION: Normal x-ray examination of the chest. Electronically Signed: Terrell Chang MD at 11:14 EST Tel , Service support , Chest X-Ray 05/08/19 05:35 IMPRESSION: Increase in bilateral interstitial infiltrates, possibly edema, infection or other cause of interstitial infiltrate. at 0610 Reported and signed by: Freida Pringle MD Electronically Signed: Freida Pringle MD at 6:10 EST Tel , Service support , Chest X-Ray 05/11/19 06:21 IMPRESSION: Bilateral airspace disease/infiltrates, unchanged since 05/08/2019. Electronically Signed: Amanda Vasquez MD at 6:55 EST , Service support , Chest X-Ray 05/11/19 07:41 IMPRESSION: An endotracheal tube has been placed. The tip is at 4.3 cm proximal to the caesar. An orogastric tube is seen with the tip in the body of the stomach. The remainder of the examination is unchanged. Electronically Signed: Jaun Daly, at 12:09 EST , Service support , Chest X-Ray 05/13/19 05:55 IMPRESSION: Tubes are in adequate position. Bilateral pulmonary infiltrates, not significantly changed. Electronically Signed: Bigg Henderson MD at 5:50 EST , Service support , KUB X-Ray 05/16/19 07:24 IMPRESSION: Nonspecific gas pattern. Electronically Signed: Jimenez Villegas MD at 14:01 EDT Tel , Service support , Chest X-Ray 05/17/19 07:42 IMPRESSION: All support tubes are in good position. Improvement in the bilateral pulmonary infiltrates. Further follow-up is recommended. Electronically Signed: Jaun Daly at 13:47 EDT , Service support , Renal Ultrasound 05/17/19 10:15 IMPRESSION: The kidneys appear normal. A Yung catheter is present within the urinary bladder. 121 mL of urine is seen in the bladder. Electronically Signed: Evert Calle MD at 18:21 EDT , Service support , Medical Necessity - Tobacco Use Smoking Status: Never smoker Tobacco Use: Non-smoker Assessment/Plan All Active Problems (Last Reviewed 05/07/19 @ 13:[address] Doni Mccray MD) Respiratory failure with hypoxia (Acute) Bilateral pneumonia (Acute) Sepsis due to pneumonia (Acute) Infectious encephalopathy (Acute) RECOMMENDATIONS: 1. Proceed with a trial of extubation this morning. 2. Once extubated, wean supplemental oxygen to maintain saturations at or above 90%. 3. BiPAP can be utilized following extubation, if clinically indicated. 4. Recommend speech therapy evaluation prior to advancing diet. 5. Continue diuretics as tolerated by renal function. 6. Continue Eliquis as ordered. 7. Encourage incentive spirometer use and mobilize patient as tolerated. IMPRESSIONS: 1. Acute hypoxemic respiratory failure Improved. Differential would include healthcare associated pneumonia versus pulmonary edema. The patient has already completed an appropriate course of antibiotics for underlying pneumonia. Her respiratory status continues to improve. The patient has passed her SBT this morning and is appropriate for a trial of extubation. Once extubated, supplemental oxygen will be weaned and diet advanced, once swallow evaluation has been completed. Continue gentle diuresis as tolerated by renal function. 2. Severe sepsis Resolved. Appears to be secondary to underlying pulmonary infectious process. The patient has already completed a complete treatment course of antibiotics. She remains hemodynamically stable. There is no readily identifiable alternative source of infection. Her systemic corticosteroids can be discontinued today from my perspective. 3. Chronic heart failure with preserved ejection fraction The patient is significantly volume overloaded for the hospital admission. Therefore, we will plan to continue scheduled Lasix as tolerated by renal function. 4. Acute kidney injury Improving. Unclear etiology. Avoid nephrotoxic medications. Nephrology is currently following. 5. History of DVT on Eliquis/diabetes mellitus/hyperlipidemia/obesity Complicates care, management, recovery and prognosis. Continue Eliquis as ordered. Physical therapy to continue to work with the patient. TIME: 37 minutes of critical care time, independent of procedures, was spent addressing the patient's acute hypoxemic respiratory failure, severe sepsis, chronic heart failure with preserved ejection fraction, acute kidney injury, history of DVT, review of all data and collaboration with the care team. ([id number]) [id number] Critical care first hour
[2019-05-19 06:46] LABS: Bedside Glucose 147 mg/dL (70-110)
[2019-05-19] MEDS: Ipratropium/Albuterol Sulfate 3 ML AMPUL.NEB INHALATION ×4 (07:18→18:55)
--- NOTE | 2019-05-19 07:49 | PN_ITS ---
Patient Problems: Active and Suspected Problems (Last Reviewed 05/07/19 @ 13:[address] Doni Mccray MD) Respiratory failure with hypoxia (Acute) Bilateral pneumonia (Acute) Sepsis due to pneumonia (Acute) Infectious encephalopathy (Acute) Reason for Visit: Respiratory failure Subjective: Patient seen awake on the vent plan is for patient to be extubated this a.m. Potassium is 3.2 repletion initiated. Patient was seen in consultation by both infectious disease as well as nephrology the day prior notes and recommendations reviewed. Objective: GENERAL: Awake on the vent HEENT: Atraumatic; EYES; Anicteric, Normal Conjunctiva NECK; supple, normal thyroid, RESPIRATORY: Diminished to auscultation CARDIOVASCULAR: Regular S1 S2, GI: soft, normoactive bowel sounds, : No Renal angle tenderness; EXTREMITIES: Bipedal edema involving both lower extremities MUSCULOSKELETAL: no muscle waisting NEURO:on the vent SKIN: No Rash Vitals/I&O's: Vital Signs Temp Pulse Resp BP Pulse Ox 98.1 F 60 16 113/57 L 100 05/19/19 06:00 05/19/19 06:00 05/19/19 06:00 05/19/19 06:00 05/19/19 06:00 Oxygen Flow Rate (L/min) 30 Oxygen Delivery Method Mechanical Ventilator Weight: 84.4 kg Body Mass Index (BMI) 31.8 Intake and Output for Last 24 Hours 05/17/19 05/18/19 05/19/19 23:59 23:59 23:59 Intake Total 869.90 / 933.50 898.26 / 920.46 408.50 / 408.50 Output Total 2250 / 2250 2425 / 2425 1375 / 1375 Balance -1380.10 / -1316.50 -1526.74 / -1504.54 -966.50 / -966.50 Microbiology Past 72 Hours 05/17/19 22:10 Sputum, Induced/Lukens Gram Stain - Final Laboratory Results 05/18/19 07:20: Toxic Granulation RARE, Platelet Estimate ADEQUATE, Hypochromasia 1+ 05/18/19 12:12: POC Glucose 170 H 05/18/19 16:15: Urine Color Yellow, Urine Clarity Cloudy, Urine pH 6.0, Ur Specific [place] 1.020, Urine Protein 30 H, Urine Glucose (UA) Normal, Urine Ketones Negative, Urine Occult Blood 150 H, Urine Nitrite Negative, Urine Bilirubin Negative, Urine Urobilinogen Normal, Ur Leukocyte Esterase 500 H, Urine RBC 0-5 SEEN, Urine WBC 25-50 SEEN, Ur Squamous Epith Cells 0-5 SEEN, Urine Bacteria 0 SEEN, Urine Mucus 0 SEEN, Urine Yeast 2+ 05/18/19 17:04: POC Glucose 176 H 05/19/19 01:02: POC Glucose 138 H 05/19/19 06:39: POC Glucose 147 H Current Medications Acetaminophen (Tylenol Liquid) 650 mg GT Q6H PRN PRN PRN Reason: Pain Score 1-3/Temp > 100.7 F Al Hydroxide/Mg Hydroxide (Mylanta Ii) 30 ml GT Q6H PRN PRN PRN Reason: Gastric Burning Albuterol Sulfate (Ventolin Aerosols) 2.5 mg INHALATION Q2H PRN PRN PRN Reason: Shortness of Breath/Wheezing Last Admin: 05/08/19 04:30 Dose: 2.5 mg Documented by: Albuterol/Ipratropium (Duoneb) 3 ml INHALATION Q4HWA.RT [facility] Last Admin: 05/19/19 07:18 Dose: 3 ml Documented by: Apixaban (Eliquis) 5 mg PO BID [facility] Last Admin: 05/18/19 22:08 Dose: 5 mg Documented by: Ascorbic Acid (Vitamin C) 500 mg GT DAILY@0800 [facility] Last Admin: 05/18/19 10:13 Dose: 500 mg Documented by: Aspirin (Aspirin, Baby) 81 mg GT DAILYCM [facility] Last Admin: 05/18/19 10:13 Dose: 81 mg Documented by: Atorvastatin Calcium (Lipitor) 20 mg GT QHS [facility] Last Admin: 05/18/19 22:09 Dose: 20 mg Documented by: Bupropion HCl (Wellbutrin Tablets) 75 mg GT BID [facility] Last Admin: 05/18/19 22:10 Dose: 75 mg Documented by: Calamine/Phenol (Calmoseptine Ointment) 1 applic TOPICAL BID [facility]; Protocol Last Admin: 05/18/19 22:07 Dose: 1 applicatio Documented by: Chlorhexidine Gluconate () 15 ml PO BID [facility] Last Admin: 05/18/19 22:13 Dose: 15 ml Documented by: Chlorhexidine Gluconate () 1 each TOPICAL DAILY [facility] Last Admin: 05/18/19 05:08 Dose: 1 each Documented by: Famotidine (Pepcid) 20 mg GT DAILY [facility] Last Admin: 05/18/19 10:13 Dose: 20 mg Documented by: Furosemide (Lasix) 40 mg IV BID@1000,1800 [facility] Last Admin: 05/18/19 17:04 Dose: 40 mg Documented by: Glucagon () 1 mg IM .X1 PRN PRN Reason: Hypoglycemia Guaifenesin (Robitussin) 20 ml GT Q4H PRN PRN PRN Reason: COUGH Heparin Sodium (Beef Lung) () 50 units IV UD PRN PRN Reason: PICC Line Heparin Flush Last Admin: 05/18/19 17:03 Dose: 50 units Documented by: Dextrose (Dextrose 10%-Water) 250 mls @ 999 mls/hr IV .Q16M PRN; Protocol PRN Reason: HYPOGLYCEMIA Fentanyl () 100 mls @ 5 mls/hr IV UD [facility]; Protocol Last Titration: 05/19/19 06:59 Dose: 0 mcg/hr, 0 mls/hr Documented by: Sodium Chloride () 250 mls @ 15 mls/hr IV .[id number] PRN PRN Reason: Saline Flush Last Infusion: 05/14/19 15:46 Dose: Infused Documented by: Sodium Chloride () 250 mls @ 15 mls/hr IV .[id number] PRN PRN Reason: Additional IVPB Infusion Dexmedetomidine HCl 1,000 mcg/ (Sodium Chloride) 250 mls @ 16.88 mls/hr CONT INF .[id number] [facility]; Protocol Last Titration: 05/19/19 06:59 Dose: 0 mcg/kg/hr, 0 mls/hr Documented by: Enteral Nutritional Formula (Vital Af 1.2 Jose Liquid) 1,000 mls @ 50 mls/hr GT .Q20H [facility] Last Admin: 05/18/19 12:22 Dose: Not Given Documented by: Insulin Glargine (Lantus (Bk)) 10 units SC DAILY [facility] Last Admin: 05/18/19 10:14 Dose: 10 u Documented by: Insulin Human Lispro (Humalog Kwikpen ([facility])) 0 unit SC Q6 [facility]; Protocol Last Admin: 05/19/19 06:44 Dose: Not Given Documented by: Magnesium Hydroxide (Milk Of Magnesia) 30 ml GT DAILY PRN PRN PRN Reason: Constipation Melatonin (Melatonin) 3 mg GT QHS PRN PRN PRN Reason: INSOMNIA Methylprednisolone (Solu-Medrol) 40 mg IV DAILY [facility] Last Admin: 05/18/19 10:13 Dose: 40 mg Documented by: Multi-Ingredient Cream (Lacrilube) 0 applic OPHTHALMIC BID [facility] Last Admin: 05/18/19 22:09 Dose: 1 applicatio Documented by: Nitroglycerin (Nitrostat) 0.4 mg SUBLINGUAL Q5M PRN PRN Reason: CARDIAC/CHEST PAIN Nystatin (Mycostatin Powder) 1 applic TOPICAL BID [facility]; Protocol Last Admin: 05/18/19 22:09 Dose: 1 applicatio Documented by: Ondansetron HCl (Zofran) 4 mg IV Q8H PRN PRN PRN Reason: NAUSEA/VOMITING Last Admin: 05/18/19 11:08 Dose: 4 mg Documented by: Polyethylene Glycol (Miralax) 17 gm PO BID [facility] Last Admin: 05/18/19 22:08 Dose: Not Given Documented by: Prochlorperazine Edisylate (Compazine Iv) 5 mg IV Q4H PRN PRN PRN Reason: Breakthrough nausea/vomiting Quetiapine Fumarate (Seroquel) 50 mg GT BID [facility] Last Admin: 05/18/19 22:06 Dose: 50 mg Documented by: Senna/Docusate Sodium (Senokot-S, Corrie-Colace) 2 tablet GT DAILY [facility] Last Admin: 05/18/19 10:13 Dose: 2 tablet Documented by: Sodium Chloride () 10 - 40 ml IV UD PRN PRN Reason: SALINE FLUSH Last Admin: 05/18/19 17:00 Dose: 40 ml Documented by: Sodium Chloride () 10 - 40 ml IV UD PRN PRN Reason: Open End PICC Flush Sodium Chloride (0.9% Nacl (Sterile) Posiflush) 10 - 40 ml IV UD PRN PRN Reason: Port access or dressing change STROKE Vital Signs/Narrative: Vital Signs Temp Pulse Resp BP Pulse Ox 05/19/19 06:00 98.1 F 60 16 113/57 L 100 05/19/19 05:00 98.4 F 83 26 H 104/57 L 100 05/19/19 04:00 98.3 F 57 L 12 111/52 L 98 Medical Necessity - Tobacco Use Smoking Status: Never smoker Tobacco Use: Non-smoker Assessment/Plan All Active Problems (Last Reviewed 05/07/19 @ 13:[address] Doni Mccray MD) Respiratory failure with hypoxia (Acute) Bilateral pneumonia (Acute) Sepsis due to pneumonia (Acute) Infectious encephalopathy (Acute) Patient is a 68-year-old lady residing at an extended care facility presenting with cough shortness of breath and fever 1. Sepsis ?Secondary to suspected pneumonia with multidrug-resistant organisms. Admitted to monitored bed patient started on broad-spectrum antibiotic therapy again (cefepime, Levaquin, and vancomycin) after cultures have been obtained. Also did obtain MRSA nasal screen with plans to discontinue vancomycin if cultures come back negative -05/09/2019; patient was transferred to the intensive care unit in view of worsening clinical condition placed on noninvasive ventilation. Patient changed her CODE STATUS from DNR CCA with intubation to DNR CCA no intubation -05/17/2019 patient completed appropriate course for her sepsis. Antibiotics since discontinued. Patient however went into acute respiratory failure necessitating patient being intubated on 05/11/2019 - 05/18/2019; patient elevated WBC count persist. Sputum cultures came back positive for Kristin albicans. Consult subsequently placed infectious disease -05/19/2019: Patient was seen in consultation by Dr. Marquez with infectious diseases note and recommendations reviewed. 2. Acute hypoxic respiratory failure ?Secondary to suspected pneumonia with multidrug-resistant organism. Patient was placed on supplemental oxygen via Ventimask treated to keep oxygen saturation greater than 90 -05/09/2019: Patient was transferred to the intensive care unit started on noninvasive ventilation BiPAP. She still maintains that she does not want to be intubated. -05/17/2019 ;she was intubated on 05/11/2019 following deterioration in her respiratory status and family changing patient's CODE STATUS to DNR CCA with intubation -05/18/2019; patient seen remains on the vent currently undergoing weaning trial ?05/19/2019; plan is for patient to be weaned off the vent this a.m. 3. Diabetes mellitus type II ~Uncontrolled with hyperglycemia patient's oral hypoglycemics held. Placed on long acting insulin, Accu-Cheks a.c. every 6 with sliding scale insulin 4. Bilateral lower extremity weakness ?Secondary to DJD involving the lumbar spine patient was undergoing therapy at extended care facility 5. Systemic use of anticoagulation ?Patient is on therapeutic dose of Eliquis rationale was not clear from the chart however did continue do suspect this is being used for DVT prophylaxis or recent diagnosis of DVT 6. Dyslipidemia ~patient is on statin therapy, continued at home dose 7. Obesity with BMI of 33.7 ?Weight loss advised 8. DVT prophylaxis ?Patient is on Eliquis did continue 9. Acute kidney injury ?-05/17/2019 patient kidney function is worsened and creatinine went up from 0.68 on admission to 2.20 as of 05/17/2019 plan is to consult nephrology. ?05/18/2019: No improvement in kidney function consult subsequently placed to nephrology -05/19/2019; patient was seen in consultation by nephrology. Inpatient E&M: [id number] Subs Hosp L2
[2019-05-19] MEDS: Famotidine 20 MG Tablet GT (08:03)
[2019-05-19] MEDS: APIXABAN 5 MG TABLET PO ×2 (08:03→21:31)
[2019-05-19] MEDS: Ascorbic Acid 500 MG Tablet GT (08:04)
[2019-05-19] MEDS: CHLORHEXIDINE GLUC 2% CLOTH 1 EACH TOWELETTE TOPICAL (08:04)
[2019-05-19] MEDS: Aspirin 81 MG TAB.CHEW GT (08:04)
[2019-05-19] MEDS: buPROPion 75 MG Tablet GT (08:04)
[2019-05-19] MEDS: 0.9% Saline Lock 10 ML Syringe IV ×3 (08:05→17:55)
[2019-05-19] MEDS: Senna/Docusate Sodium 1 Tablet 2 TABLET GT (08:05)
[2019-05-19] MEDS: QUEtiapine 25 MG Tablet 50 MG GT (08:05)
[2019-05-19 08:35] LABS: Absolute Lymphocyte Count 1.13 X10^3/uL (0.83-4.51); Absolute Neutrophil Count 18.9 X10^3/uL (2.0-7.7); Basophil# 0.02 X10^3/uL; Basophil% 0.1 % (0-1); Eosinophil# 0.05 X10^3/uL; Eosinophils% 0.2 % (0-5); Hemoglobin 8.7 g/dL (12.0-15.0); Lymphocyte # 1.13 X10^3/ul (4.0); Lymphocyte % 5.3 % (19-41); Mean Corp Hgb Conc 31.1 g/dL (32-36); Mean Corpuscular Hgb 28.1 pg (27.0-32.0); Mean Corpuscular Volume 90.3 fL (81-99); Mean Platelet Vol. 9.6 fl (6.2-12.0); Monocyte# 0.96 X10^3/uL; Monocyte% 4.5 % (0-10); NRBC Flagged by Analyzer 0 % (0-5); Neutrophil # 18.94 X10^3/uL (2.7-7.7); Platelet Count 323 K/mm3 (150-450); RBC Distribution Width CV 16.5 % (11.6-14.6); RBC Distribution Width SD 53.3 fl (35.1-43.9); White Blood Count 21.5 K/mm3 (4.4-11.0)
[2019-05-19 08:54] LABS: Anion Gap 7 (5-15); BUN 61 mg/dL (7-18); BUN/Creat Ratio 32.3 RATIO (10-20); Calcium,Total 8.4 mg/dL (8.5-10.1); Chloride 116 mmol/L (98-107); Creatinine, Serum 1.89 mg/dL (0.55-1.02); EST Glomerular Filtration Rate 28 mL/min (>60); Est Glom Filt Rate - Afr Amer 34 mL/min (>60); Estimated Creatinine Clearance 26.35 ml/min; Glucose 151 mg/dL (74-106); Potassium 3.2 mmol/L (3.5-5.1); Sodium Level 147 mmol/L (136-145)
--- NOTE | 2019-05-19 09:43 | CASEMGMT ---
Addendum entered by Lupis Ace 05/19/19 11:46: SW spoke w/Marly at [facility], pt is there private pay, and the plan is for pt to continue with therapy after back surgery in June. and sister in agreement this morning w/pt returning to [facility] at discharge. ANGELIC Daugherty Original Note: SW participated in ICU rounds this morning, pt's and sister are present. Pt has been extubated. Plan is for pt to return to [facility]. SW called [facility], message left, updates faxed. SW will continue to follow. ANGELIC Daugherty
--- NOTE | 2019-05-19 10:35 | PCM.PN.REN ---
Patient Problems: Active and Suspected Problems (Last Reviewed 05/07/19 @ 13:[address] Doni Mccray MD) Respiratory failure with hypoxia (Acute) Bilateral pneumonia (Acute) Sepsis due to pneumonia (Acute) Infectious encephalopathy (Acute) Subjective: Pt is doing well. extubated this am On NC at 3 l/m asking if she can drink No nausea No vomiting - Physical Exam Vitals/I&O's: Vital Signs Temp Pulse Resp BP Pulse Ox 97.3 F L 98 24 H 112/53 L 98 05/19/19 09:00 05/19/19 09:00 05/19/19 09:00 05/19/19 09:00 05/19/19 09:00 Oxygen Flow Rate (L/min) 3 Oxygen Delivery Method Nasal Cannula Weight: 84.4 kg Body Mass Index (BMI) 31.8 Intake and Output for Last 24 Hours 05/17/19 05/18/19 05/19/19 23:59 23:59 23:59 Intake Total 869.90 / 933.50 898.26 / 920.46 508.50 / 508.50 Output Total 2250 / 2250 2425 / 2425 1375 / 1375 Balance -1380.10 / -1316.50 -1526.74 / -1504.54 -866.50 / -866.50 General: Alert, Oriented x3 HEENT: Atraumatic Oral: Moist Mucosa Neck: Supple, No JVD Lungs: Clear to auscultation Cardiovascular: Regular rate, Regular Rhythm, Normal S1, Normal S2 Abdomen: Bowel Sounds Present, Soft, Non Tender, Non-Distended Extremities: No clubbing, No cyanosis, No edema Musculoskeletal: No Tenderness to Palpation of Joints or Extremities Neurological: Cranial nerves II-XII grossly intact, Neuro grossly intact Psych/Mental Status: Appropriate Microbiology Past 72 Hours 05/17/19 22:10 Sputum, Induced/Lukens Gram Stain - Final Laboratory Results 05/18/19 12:12: POC Glucose 170 H 05/18/19 16:15: Urine Color Yellow, Urine Clarity Cloudy, Urine pH 6.0, Ur Specific [place] 1.020, Urine Protein 30 H, Urine Glucose (UA) Normal, Urine Ketones Negative, Urine Occult Blood 150 H, Urine Nitrite Negative, Urine Bilirubin Negative, Urine Urobilinogen Normal, Ur Leukocyte Esterase 500 H, Urine RBC 0-5 SEEN, Urine WBC 25-50 SEEN, Ur Squamous Epith Cells 0-5 SEEN, Urine Bacteria 0 SEEN, Urine Mucus 0 SEEN, Urine Yeast 2+ 05/18/19 17:04: POC Glucose 176 H 05/19/19 01:02: POC Glucose 138 H 05/19/19 06:39: POC Glucose 147 H 05/19/19 08:00: WBC 21.5 H, RBC 3.10 L, Hgb 8.7 L, Hct 28.0 L, MCV 90.3, MCH 28.1, MCHC 31.1 L, RDW Std Deviation 53.3 H, RDW Coeff of Kristal 16.5 H, Plt Count 323, MPV 9.6, Immature Gran % (Auto) 1.900 H, Neut % (Auto) 88.0 H, Lymph % (Auto) 5.3 L, [place] % (Auto) 4.5, Eos % (Auto) 0.2, Baso % (Auto) 0.1, Absolute Neuts (auto) 18.9 H, Absolute Lymphs (auto) 1.13, Nucleated RBC % 0 05/19/19 08:00: Sodium 147 H, Potassium 3.2 L, Chloride 116 H, Carbon Dioxide 24.0, Anion Gap 7, BUN 61 H, Creatinine 1.89 H, Estim Creat Clear Calc 26.35, Est GFR (MDRD) Af Amer 34 L, Est GFR (MDRD) Non-Af 28 L, BUN/Creatinine Ratio 32.3 H, Glucose 151 H, Calcium 8.4 L Current Medications Acetaminophen (Tylenol Liquid) 650 mg PO Q6H PRN PRN PRN Reason: Pain Score 1-3/Temp > 100.7 F Al Hydroxide/Mg Hydroxide (Mylanta Ii) 30 ml PO Q6H PRN PRN PRN Reason: Gastric Burning Albuterol Sulfate (Ventolin Aerosols) 2.5 mg INHALATION Q2H PRN PRN PRN Reason: Shortness of Breath/Wheezing Last Admin: 05/08/19 04:30 Dose: 2.5 mg Documented by: Albuterol/Ipratropium (Duoneb) 3 ml INHALATION Q4HWA.RT JAROCHO Last Admin: 05/19/19 07:18 Dose: 3 ml Documented by: Apixaban (Eliquis) 5 mg PO BID [facility] Last Admin: 05/19/19 08:03 Dose: 5 mg Documented by: Ascorbic Acid (Vitamin C) 500 mg PO DAILY@0800 [facility] Aspirin (Aspirin, Baby) 81 mg PO DAILYCM [facility] Atorvastatin Calcium (Lipitor) 20 mg PO QHS [facility] Bupropion HCl (Wellbutrin Tablets) 75 mg PO BID [facility] Calamine/Phenol (Calmoseptine Ointment) 1 applic TOPICAL BID [facility]; Protocol Last Admin: 05/18/19 22:07 Dose: 1 applicatio Documented by: Chlorhexidine Gluconate () 1 each TOPICAL DAILY [facility] Last Admin: 05/19/19 08:04 Dose: 1 each Documented by: Famotidine (Pepcid) 20 mg PO DAILY [facility] Furosemide (Lasix) 40 mg IV BID@1000,1800 [facility] Last Admin: 05/18/19 17:04 Dose: 40 mg Documented by: Glucagon () 1 mg IM .X1 PRN PRN Reason: Hypoglycemia Guaifenesin (Robitussin) 20 ml PO Q4H PRN PRN PRN Reason: COUGH Heparin Sodium (Beef Lung) () 50 units IV UD PRN PRN Reason: PICC Line Heparin Flush Last Admin: 05/18/19 17:03 Dose: 50 units Documented by: Dextrose (Dextrose 10%-Water) 250 mls @ 999 mls/hr IV .Q16M PRN; Protocol PRN Reason: HYPOGLYCEMIA Sodium Chloride () 250 mls @ 15 mls/hr IV .[id number] PRN PRN Reason: Saline Flush Last Infusion: 05/14/19 15:46 Dose: Infused Documented by: Sodium Chloride () 250 mls @ 15 mls/hr IV .[id number] PRN PRN Reason: Additional IVPB Infusion Enteral Nutritional Formula (Vital Af 1.2 Jose Liquid) 1,000 mls @ 50 mls/hr GT .Q20H [facility] Last Admin: 05/19/19 08:04 Dose: Not Given Documented by: Potassium Chloride 40 meq/ (Sodium Chloride) 120 mls @ 100 mls/hr IV BOLUS X1 ONE Stop: 05/19/19 11:11 Insulin Glargine (Lantus (Bkc)) 10 units SC DAILY [facility] Last Admin: 05/18/19 10:14 Dose: 10 u Documented by: Insulin Human Lispro (Humalog Ursulapen (Bkc)) 0 unit SC Q6 [facility]; Protocol Last Admin: 05/19/19 06:44 Dose: Not Given Documented by: Magnesium Hydroxide (Milk Of Magnesia) 30 ml PO DAILY PRN PRN PRN Reason: Constipation Melatonin (Melatonin) 3 mg PO QHS PRN PRN PRN Reason: INSOMNIA Multi-Ingredient Cream (Lacrilube) 0 applic OPHTHALMIC BID [facility] Last Admin: 05/18/19 22:09 Dose: 1 applicatio Documented by: Nitroglycerin (Nitrostat) 0.4 mg SUBLINGUAL Q5M PRN PRN Reason: CARDIAC/CHEST PAIN Nystatin (Mycostatin Powder) 1 applic TOPICAL BID [facility]; Protocol Last Admin: 05/18/19 22:09 Dose: 1 applicatio Documented by: Ondansetron HCl (Zofran) 4 mg IV Q8H PRN PRN PRN Reason: NAUSEA/VOMITING Last Admin: 05/18/19 11:08 Dose: 4 mg Documented by: Polyethylene Glycol (Miralax) 17 gm PO BID [facility] Last Admin: 05/19/19 10:20 Dose: Not Given Documented by: Prochlorperazine Edisylate (Compazine Iv) 5 mg IV Q4H PRN PRN PRN Reason: Breakthrough nausea/vomiting Quetiapine Fumarate (Seroquel) 50 mg PO BID [facility] Senna/Docusate Sodium (Senokot-S, Corrie-Colace) 2 tablet PO DAILY [facility] Sodium Chloride () 10 - 40 ml IV UD PRN PRN Reason: SALINE FLUSH Last Admin: 05/19/19 08:05 Dose: 20 ml Documented by: Sodium Chloride () 10 - 40 ml IV UD PRN PRN Reason: Open End PICC Flush Sodium Chloride (0.9% Nacl (Sterile) Posiflush) 10 - 40 ml IV UD PRN PRN Reason: Port access or dressing change Medical Necessity - Tobacco Use Smoking Status: Never smoker Tobacco Use: Non-smoker Assessment/Plan All Active Problems (Last Reviewed 05/07/19 @ 13:[address] Doni Mccray MD) Respiratory failure with hypoxia (Acute) Bilateral pneumonia (Acute) Sepsis due to pneumonia (Acute) Infectious encephalopathy (Acute) 1- RYAN. normal SCr at baseline Repeated UA showed no RBC and protein 30 FeUrea is 57% indicating intrinsic renal etiology of RYAN and is likely from ATN related to sepsis No need for [employer] SCr is improving. SCr is 1.89 mg/dL Pt is responding well to lasix. can decrease the dose to once daily No need to expand RYAN work up Check renal function in am 2- Sepsis related to B/L pneumonia Finished Abx Better 3- Acute RF from B/L pneumonia/CHF continue lasix extubated 05/18 4- Hypernatremia:mildly elevated. might decrease lasix to once daily Water intake if swallow eval is Ok Renal team will continue to follow Please call if any question at [phone] Joni Lombardo MD
[2019-05-19] MEDS: Nystatin Powder 15gm Bottle 1 APPLIC TOPICAL ×2 (11:40→21:30)
[2019-05-19] MEDS: Menthol/Lanolin/Calamine/Znox 113 GM Tube 1 APPLIC TOPICAL ×2 (11:40→21:30)
[2019-05-19] MEDS: Petrolatum,White 3.75GM OPTH.TUBE OPHTHALMIC (11:41)
[2019-05-19] MEDS: Furosemide 40 MG/4 ML Vial IV ×2 (11:41→17:55)
[2019-05-19 12:16] LABS: Bedside Glucose 128 mg/dL (70-110)
--- NOTE | 2019-05-19 14:59 | NURSING ---
wound photo: sacrum
[2019-05-19 15:01] LABS: Potassium 3.7 mmol/L (3.5-5.1)
[2019-05-19] MEDS: LORazepam 2 MG/ML Syringe 0.5 MG IV (16:39)
[2019-05-19] MEDS: fentaNYL 100 MCG/2 ML Ampul 25 MCG IV (17:52)
[2019-05-19 18:00] LABS: Bedside Glucose 119 mg/dL (70-110)
[2019-05-19] MEDS: QUEtiapine 25 MG Tablet 50 MG PO (21:29)
[2019-05-19] MEDS: buPROPion 75 MG Tablet PO (21:31)
[2019-05-19] MEDS: Atorvastatin Calcium 20 MG Tablet PO (21:31)
[2019-05-19 23:21] LABS: Bedside Glucose 118 mg/dL (70-110)
[2019-05-20] VITALS (28 sets, daily range): BP systolic 111–161; BP diastolic 46–101; PULSE 100–153; RESP 12–39; TEMP 36.6–37.1; O2SAT 86–100
[2019-05-20 03:29] LABS: Hematocrit 29.9 % (37-47); Hemoglobin 9.4 g/dL (12.0-15.0); Mean Corp Hgb Conc 31.4 g/dL (32-36); Mean Corpuscular Hgb 28.6 pg (27.0-32.0); Mean Corpuscular Volume 90.9 fL (81-99); Mean Platelet Vol. 9.3 fl (6.2-12.0); Platelet Count 374 K/mm3 (150-450); RBC Distribution Width CV 16.6 % (11.6-14.6); RBC Distribution Width SD 54.2 fl (35.1-43.9); Red Blood Count 3.29 M/mm3 (4.2-5.4); White Blood Count 26.9 K/mm3 (4.4-11.0)
--- NOTE | 2019-05-20 03:50 | CPS ---
Pt.'s FiO2 titrated from 30% - 28%
[2019-05-20 04:47] LABS: Anion Gap 10 (5-15); BUN 55 mg/dL (7-18); BUN/Creat Ratio 28.5 RATIO (10-20); Calcium,Total 8.6 mg/dL (8.5-10.1); Chloride 115 mmol/L (98-107); Creatinine, Serum 1.93 mg/dL (0.55-1.02); EST Glomerular Filtration Rate 28 mL/min (>60); Est Glom Filt Rate - Afr Amer 33 mL/min (>60); Glucose 107 mg/dL (74-106); Magnesium 2.2 mg/dL (1.6-2.6); Sodium Level 148 mmol/L (136-145)
[2019-05-20] MEDS: Menthol/Lanolin/Calamine/Znox 113 GM Tube 1 APPLIC TOPICAL ×3 (05:18→23:08)
[2019-05-20 05:26] LABS: Bedside Glucose 115 mg/dL (70-110)
--- NOTE | 2019-05-20 06:36 | PN_ITS ---
Subjective: The patient was seen and examined at the bedside this morning. Events from the last 24 hours have been reviewed. The patient is currently afebrile, hemodynamically stable and maintaining appropriate oxygen saturations on BiPAP with an FiO2 requirement of 30%. 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 She also reported the presence of pain over her sacrum. The patient became increasingly tachypneic and tachycardic. She was managed symptomatically with opiate pain medications and anxiolytics. She ultimately had to be placed on BiPAP therapy. White count remains elevated at 27,000. Creatinine is stable at 1.93. Objective: The patient's most recent lab work, culture data and imaging studies have all been personally reviewed. Infectious work-up has been unrevealing to date. General: Alert, Cooperative, - - Appears uncomfortable with BiPAP mask in place. HEENT: Atraumatic, PERRLA, Normocephalic Oral: No Gingival or Mucosal Lesions/ Ulcerations Neck: Supple, No Nodes, Trachea Midline Lungs: No rhonchi, No wheeze, No rales, Tachypneic Cardiovascular: Normal S1, Normal S2, No murmurs, Tachycardic Abdomen: Bowel Sounds Present, Soft, Non Tender Extremities: No clubbing, No cyanosis, Edema Skin: No breakdown Musculoskeletal: No Tenderness to Palpation of Joints or Extremities Lymphatic: No Cervical, Supraclavicular, or Inguinal Adenopathy Neurological: Neuro grossly intact Psych/Mental Status: Anxious, Restless Vital Signs Temp Pulse Resp BP Pulse Ox 97.9 F 142 H 35 H 128/81 H 100 05/20/19 00:00 05/20/19 06:00 05/20/19 06:00 05/20/19 06:00 05/20/19 06:00 Oxygen Flow Rate (L/min) 3 Oxygen Delivery Method Bi-pap Weight: 182 lb 15.739 oz Body Mass Index (BMI) 31.8 Intake and Output for Last 24 Hours 05/18/19 05/19/19 05/20/19 23:59 23:59 23:59 Intake Total 898.26 / 920.46 898.75 / 898.75 Output Total 2425 / 2425 2325 / 2325 Balance -1526.74 / -1504.54 -1426.25 / -1426.25 Labs (Last 48 Hours) 05/18/19 05/18/19 05/18/19 07:20 07:20 12:12 WBC 23.7 H RBC 3.06 L Hgb 8.7 L Hct 27.3 L MCV 89.2 MCH 28.4 MCHC 31.9 L RDW Std Deviation 52.5 H RDW Coeff of Kristal 16.3 H Plt Count 311 MPV 9.1 Immature Gran % (Auto) 1.500 H Neut % (Auto) 89.6 H Lymph % (Auto) 4.7 L [place] % (Auto) 3.9 Eos % (Auto) 0.2 Baso % (Auto) 0.1 Absolute Neuts (auto) 21.3 H Absolute Lymphs (auto) 1.12 Nucleated RBC % 0 Toxic Granulation RARE Platelet Estimate ADEQUATE Hypochromasia 1+ Sodium 145 Potassium 3.5 Chloride 116 H Carbon Dioxide 22.0 Anion Gap 7 BUN 65 H Creatinine 2.08 H Estim Creat Clear Calc 23.94 Est GFR (MDRD) Af Amer 31 L Est GFR (MDRD) Non-Af 25 L BUN/Creatinine Ratio 31.2 H Glucose 173 H Calcium 8.3 L Magnesium Total Bilirubin 0.20 AST 32 ALT 36 Alkaline Phosphatase 91 Total Protein 5.3 L Albumin 1.5 L Globulin 3.8 Albumin/Globulin Ratio 0.4 L Urine Color Urine Clarity Urine pH Ur Specific [place] Urine Protein Urine Glucose (UA) Urine Ketones Urine Occult Blood Urine Nitrite Urine Bilirubin Urine Urobilinogen Ur Leukocyte Esterase Urine RBC Urine WBC Ur Squamous Epith Cells Urine Bacteria Urine Mucus Urine Yeast POC Glucose 170 H 05/18/19 05/18/19 05/19/19 16:15 17:04 01:02 WBC RBC Hgb Hct MCV MCH MCHC RDW Std Deviation RDW Coeff of Kristal Plt Count MPV Immature Gran % (Auto) Neut % (Auto) Lymph % (Auto) [place] % (Auto) Eos % (Auto) Baso % (Auto) Absolute Neuts (auto) Absolute Lymphs (auto) Nucleated RBC % Toxic Granulation Platelet Estimate Hypochromasia Sodium Potassium Chloride Carbon Dioxide Anion Gap BUN Creatinine Estim Creat Clear Calc Est GFR (MDRD) Af Amer Est GFR (MDRD) Non-Af BUN/Creatinine Ratio Glucose Calcium Magnesium Total Bilirubin AST ALT Alkaline Phosphatase Total Protein Albumin Globulin Albumin/Globulin Ratio Urine Color Yellow Urine Clarity Cloudy Urine pH 6.0 Ur Specific [place] 1.020 Urine Protein 30 H Urine Glucose (UA) Normal Urine Ketones Negative Urine Occult Blood 150 H Urine Nitrite Negative Urine Bilirubin Negative Urine Urobilinogen Normal Ur Leukocyte Esterase 500 H Urine RBC 0-5 SEEN Urine WBC 25-50 SEEN Ur Squamous Epith Cells 0-5 SEEN Urine Bacteria 0 SEEN Urine Mucus 0 SEEN Urine Yeast 2+ POC Glucose 176 H 138 H 05/19/19 05/19/19 05/19/19 06:39 08:00 08:00 WBC 21.5 H RBC 3.10 L Hgb 8.7 L Hct 28.0 L MCV 90.3 MCH 28.1 MCHC 31.1 L RDW Std Deviation 53.3 H RDW Coeff of Kristal 16.5 H Plt Count 323 MPV 9.6 Immature Gran % (Auto) 1.900 H Neut % (Auto) 88.0 H Lymph % (Auto) 5.3 L [place] % (Auto) 4.5 Eos % (Auto) 0.2 Baso % (Auto) 0.1 Absolute Neuts (auto) 18.9 H Absolute Lymphs (auto) 1.13 Nucleated RBC % 0 Toxic Granulation Platelet Estimate Hypochromasia Sodium 147 H Potassium 3.2 L Chloride 116 H Carbon Dioxide 24.0 Anion Gap 7 BUN 61 H Creatinine 1.89 H Estim Creat Clear Calc 26.35 Est GFR (MDRD) Af Amer 34 L Est GFR (MDRD) Non-Af 28 L BUN/Creatinine Ratio 32.3 H Glucose 151 H Calcium 8.4 L Magnesium Total Bilirubin AST ALT Alkaline Phosphatase Total Protein Albumin Globulin Albumin/Globulin Ratio Urine Color Urine Clarity Urine pH Ur Specific [place] Urine Protein Urine Glucose (UA) Urine Ketones Urine Occult Blood Urine Nitrite Urine Bilirubin Urine Urobilinogen Ur Leukocyte Esterase Urine RBC Urine WBC Ur Squamous Epith Cells Urine Bacteria Urine Mucus Urine Yeast POC Glucose 147 H 05/19/19 05/19/19 05/19/19 11:31 14:45 17:54 WBC RBC Hgb Hct MCV MCH MCHC RDW Std Deviation RDW Coeff of Kristal Plt Count MPV Immature Gran % (Auto) Neut % (Auto) Lymph % (Auto) [place] % (Auto) Eos % (Auto) Baso % (Auto) Absolute Neuts (auto) Absolute Lymphs (auto) Nucleated RBC % Toxic Granulation Platelet Estimate Hypochromasia Sodium Potassium 3.7 Chloride Carbon Dioxide Anion Gap BUN Creatinine Estim Creat Clear Calc Est GFR (MDRD) Af Amer Est GFR (MDRD) Non-Af BUN/Creatinine Ratio Glucose Calcium Magnesium Total Bilirubin AST ALT Alkaline Phosphatase Total Protein Albumin Globulin Albumin/Globulin Ratio Urine Color Urine Clarity Urine pH Ur Specific [place] Urine Protein Urine Glucose (UA) Urine Ketones Urine Occult Blood Urine Nitrite Urine Bilirubin Urine Urobilinogen Ur Leukocyte Esterase Urine RBC Urine WBC Ur Squamous Epith Cells Urine Bacteria Urine Mucus Urine Yeast POC Glucose 128 H 119 H 05/19/19 05/20/19 05/20/19 23:15 03:20 03:20 WBC 26.9 H RBC 3.29 L Hgb 9.4 L Hct 29.9 L MCV 90.9 MCH 28.6 MCHC 31.4 L RDW Std Deviation 54.2 H RDW Coeff of Kristal 16.6 H Plt Count 374 MPV 9.3 Immature Gran % (Auto) Neut % (Auto) Lymph % (Auto) [place] % (Auto) Eos % (Auto) Baso % (Auto) Absolute Neuts (auto) Absolute Lymphs (auto) Nucleated RBC % Toxic Granulation Platelet Estimate Hypochromasia Sodium 148 H Potassium 4.0 Chloride 115 H Carbon Dioxide 23.0 Anion Gap 10 BUN 55 H Creatinine 1.93 H Estim Creat Clear Calc 25.80 Est GFR (MDRD) Af Amer 33 L Est GFR (MDRD) Non-Af 28 L BUN/Creatinine Ratio 28.5 H Glucose 107 H Calcium 8.6 Magnesium 2.2 Total Bilirubin AST ALT Alkaline Phosphatase Total Protein Albumin Globulin Albumin/Globulin Ratio Urine Color Urine Clarity Urine pH Ur Specific [place] Urine Protein Urine Glucose (UA) Urine Ketones Urine Occult Blood Urine Nitrite Urine Bilirubin Urine Urobilinogen Ur Leukocyte Esterase Urine RBC Urine WBC Ur Squamous Epith Cells Urine Bacteria Urine Mucus Urine Yeast POC Glucose 118 H 05/20/19 05:15 WBC RBC Hgb Hct MCV MCH MCHC RDW Std Deviation RDW Coeff of Kristal Plt Count MPV Immature Gran % (Auto) Neut % (Auto) Lymph % (Auto) [place] % (Auto) Eos % (Auto) Baso % (Auto) Absolute Neuts (auto) Absolute Lymphs (auto) Nucleated RBC % Toxic Granulation Platelet Estimate Hypochromasia Sodium Potassium Chloride Carbon Dioxide Anion Gap BUN Creatinine Estim Creat Clear Calc Est GFR (MDRD) Af Amer Est GFR (MDRD) Non-Af BUN/Creatinine Ratio Glucose Calcium Magnesium Total Bilirubin AST ALT Alkaline Phosphatase Total Protein Albumin Globulin Albumin/Globulin Ratio Urine Color Urine Clarity Urine pH Ur Specific [place] Urine Protein Urine Glucose (UA) Urine Ketones Urine Occult Blood Urine Nitrite Urine Bilirubin Urine Urobilinogen Ur Leukocyte Esterase Urine RBC Urine WBC Ur Squamous Epith Cells Urine Bacteria Urine Mucus Urine Yeast POC Glucose 115 H Microbiology 05/17/19 22:10 Sputum, Induced/Lukens Gram Stain - Final 05/17/19 22:10 Sputum, Induced/Lukens Respiratory Culture - Preliminary Presumptive C albicans Clinical Impression(s) from Imaging Studies Chest X-Ray 05/07/19 10:05 IMPRESSION: Normal x-ray examination of the chest. Electronically Signed: Terrell Chang MD at 11:14 EST Tel , Service support , Chest X-Ray 05/08/19 05:35 IMPRESSION: Increase in bilateral interstitial infiltrates, possibly edema, infection or other cause of interstitial infiltrate. at 0610 Reported and signed by: Freida Pringle MD Electronically Signed: Freida Pringle MD at 6:10 EST Tel , Service support , Chest X-Ray 05/11/19 06:21 IMPRESSION: Bilateral airspace disease/infiltrates, unchanged since 05/08/2019. Electronically Signed: Amanda Vasquze MD at 6:55 EST , Service support , Chest X-Ray 05/11/19 07:41 IMPRESSION: An endotracheal tube has been placed. The tip is at 4.3 cm proximal to the caesar. An orogastric tube is seen with the tip in the body of the stomach. The remainder of the examination is unchanged. Electronically Signed: Jaun Daly, at 12:09 EST , Service support , Chest X-Ray 05/13/19 05:55 IMPRESSION: Tubes are in adequate position. Bilateral pulmonary infiltrates, not significantly changed. Electronically Signed: Bigg Henderson MD at 5:50 EST , Service support , KUB X-Ray 05/16/19 07:24 IMPRESSION: Nonspecific gas pattern. Electronically Signed: Jimenez Villegas MD at 14:01 EDT Tel , Service support , Chest X-Ray 05/17/19 07:42 IMPRESSION: All support tubes are in good position. Improvement in the bilateral pulmonary infiltrates. Further follow-up is recommended. Electronically Signed: Jaun Daly, at 13:47 EDT , Service support , Renal Ultrasound 05/17/19 10:15 IMPRESSION: The kidneys appear normal. A Yung catheter is present within the urinary bladder. 121 mL of urine is seen in the bladder. Electronically Signed: Evert Calle MD at 18:21 EDT , Service support , Medical Necessity - Tobacco Use Smoking Status: Never smoker Tobacco Use: Non-smoker Assessment/Plan All Active Problems (Last Reviewed 05/07/19 @ 13:[address] Doni Mccray MD) Respiratory failure with hypoxia (Acute) Bilateral pneumonia (Acute) Sepsis due to pneumonia (Acute) Infectious encephalopathy (Acute) RECOMMENDATIONS: 1. Transition to once daily IV Lasix regimen. 2. Start as needed fentanyl and Ativan. 3. Wean from BiPAP therapy as tolerated. 4. Continue local wound care of sacral ulcer. 5. Encourage incentive spirometer use and mobilize patient as tolerated. 6. Speech therapy reevaluation prior to advancing diet. 7. Continue Eliquis as ordered. IMPRESSIONS: 1. Acute hypoxemic respiratory failure Improved. Differential would include healthcare associated pneumonia versus pulmonary edema. The patient has already completed an appropriate course of antibiotics for underlying pneumonia. Her respiratory status continues to improve. She was able to be successfully extubated on the morning of May 18. She does have a great deal of underlying anxiety and pain related to a sacral ulcer. Therefore, she has been placed on as needed Ativan and fentanyl for pain. Speech therapy reevaluation is pending for today prior to advancing diet. If the patient passes her swallow evaluation, she can be transitioned to oxycodone for pain and p.o. Ativan. For now, we will plan to continue to wean her supplemental oxygen to maintain saturations at or above 90%. Her diuretic regimen will be de-escalated to once daily. 2. Severe sepsis Resolved. Appears to be secondary to underlying pulmonary infectious process. The patient has already completed a complete treatment course of antibiotics. She remains hemodynamically stable. 3. Chronic heart failure with preserved ejection fraction The patient is significantly volume overloaded for the hospital admission. Therefore, we will plan to continue scheduled Lasix as tolerated by renal function. 4. Acute kidney injury Improving. Unclear etiology. Avoid nephrotoxic medications. Nephrology is currently following. 5. History of DVT on Eliquis/diabetes mellitus/hyperlipidemia/obesity Complicates care, management, recovery and prognosis. Continue Eliquis as ordered. Physical therapy to continue to work with the patient. This note was generated with [employer] dictation software. It may contain incorrect words, spelling, and punctuation that were not noted in checking the note before signing. Inpatient E&M: [id number] [facility] [place] [facility] L[facility]
[2019-05-20] MEDS: Ipratropium/Albuterol Sulfate 3 ML AMPUL.NEB INHALATION ×2 (07:15→15:15)
--- NOTE | 2019-05-20 07:24 | PCM.PN.HOSP ---
Patient Problems: Active and Suspected Problems (Last Reviewed 05/07/19 @ 13:[address] Doni Mccray MD) Respiratory failure with hypoxia (Acute) Bilateral pneumonia (Acute) Sepsis due to pneumonia (Acute) Infectious encephalopathy (Acute) Reason for Visit: Follow-up respiratory failure Subjective: Post extubation day 1. Patient to undergo speech and swallow eval prior to initiation of oral diet Objective: GENERAL: HEENT: Atraumatic; EYES; Anicteric, Normal Conjunctiva NECK; supple, normal thyroid, RESPIRATORY: Diminished to auscultation CARDIOVASCULAR: Regular S1 S2, GI: soft, normoactive bowel sounds, : No Renal angle tenderness; EXTREMITIES: Bipedal edema involving both lower extremities MUSCULOSKELETAL: no muscle waisting NEURO: SKIN: No Rash Vitals/I&O's: Vital Signs Temp Pulse Resp BP Pulse Ox 97.9 F 135 H 29 H 111/68 98 05/20/19 00:00 05/20/19 07:00 05/20/19 07:00 05/20/19 07:00 05/20/19 07:00 Oxygen Flow Rate (L/min) 3 Oxygen Delivery Method Bi-pap Weight: 83 kg Body Mass Index (BMI) 31.8 Intake and Output for Last 24 Hours 05/18/19 05/19/19 05/20/19 23:59 23:59 23:59 Intake Total 898.26 / 920.46 898.75 / 898.75 Output Total 2425 / 2425 2325 / 2325 Balance -1526.74 / -1504.54 -1426.25 / -1426.25 Microbiology Past 72 Hours 05/17/19 22:10 Sputum, Induced/Lukens Gram Stain - Final 05/17/19 22:10 Sputum, Induced/Lukens Respiratory Culture - Preliminary Presumptive C albicans Laboratory Results 05/19/19 08:00: WBC 21.5 H, RBC 3.10 L, Hgb 8.7 L, Hct 28.0 L, MCV 90.3, MCH 28.1, MCHC 31.1 L, RDW Std Deviation 53.3 H, RDW Coeff of Kristal 16.5 H, Plt Count 323, MPV 9.6, Immature Gran % (Auto) 1.900 H, Neut % (Auto) 88.0 H, Lymph % (Auto) 5.3 L, Saunders % (Auto) 4.5, Eos % (Auto) 0.2, Baso % (Auto) 0.1, Absolute Neuts (auto) 18.9 H, Absolute Lymphs (auto) 1.13, Nucleated RBC % 0 05/19/19 08:00: Sodium 147 H, Potassium 3.2 L, Chloride 116 H, Carbon Dioxide 24.0, Anion Gap 7, BUN 61 H, Creatinine 1.89 H, Estim Creat Clear Calc 26.35, Est GFR (MDRD) Af Amer 34 L, Est GFR (MDRD) Non-Af 28 L, BUN/Creatinine Ratio 32.3 H, Glucose 151 H, Calcium 8.4 L 05/19/19 11:31: POC Glucose 128 H 05/19/19 14:45: Potassium 3.7 05/19/19 17:54: POC Glucose 119 H 05/19/19 23:15: POC Glucose 118 H 05/20/19 03:20: WBC 26.9 H, RBC 3.29 L, Hgb 9.4 L, Hct 29.9 L, MCV 90.9, MCH 28.6, MCHC 31.4 L, RDW Std Deviation 54.2 H, RDW Coeff of Kristal 16.6 H, Plt Count 374, MPV 9.3 05/20/19 03:20: Sodium 148 H, Potassium 4.0, Chloride 115 H, Carbon Dioxide 23.0, Anion Gap 10, BUN 55 H, Creatinine 1.93 H, Estim Creat Clear Calc 25.80, Est GFR (MDRD) Af Amer 33 L, Est GFR (MDRD) Non-Af 28 L, BUN/Creatinine Ratio 28.5 H, Glucose 107 H, Calcium 8.6, Magnesium 2.2 05/20/19 05:15: POC Glucose 115 H Current Medications Acetaminophen (Tylenol Liquid) 650 mg PO Q6H PRN PRN PRN Reason: Pain Score 1-3/Temp > 100.7 F Al Hydroxide/Mg Hydroxide (Mylanta Ii) 30 ml PO Q6H PRN PRN PRN Reason: Gastric Burning Albuterol Sulfate (Ventolin Aerosols) 2.5 mg INHALATION Q2H PRN PRN PRN Reason: Shortness of Breath/Wheezing Last Admin: 05/08/19 04:30 Dose: 2.5 mg Documented by: Albuterol/Ipratropium (Duoneb) 3 ml INHALATION Q4HWA.RT [facility] Last Admin: 05/20/19 03:16 Dose: Not Given Documented by: Apixaban (Eliquis) 5 mg PO BID [facility] Last Admin: 05/19/19 21:31 Dose: 5 mg Documented by: Ascorbic Acid (Vitamin C) 500 mg PO DAILY@0800 [facility] Aspirin ([facility]in, Baby) [facility] Atorvastatin Calcium (Lipitor) 20 mg PO QHS [facility] Last Admin: 05/19/19 21:31 Dose: 20 mg Documented by: Bupropion HCl (Wellbutrin Tablets) 75 mg PO BID [facility] Last Admin: 05/19/19 21:31 Dose: 75 mg Documented by: Calamine/Phenol (Calmoseptine Ointment) 1 applic TOPICAL TID [facility]; Protocol Last Admin: 05/20/19 05:18 Dose: 1 applicatio Documented by: Chlorhexidine Gluconate () 1 each TOPICAL DAILY [facility] Last Admin: 05/19/19 08:04 Dose: 1 each Documented by: Famotidine (Pepcid) 20 mg PO DAILY [facility] Fentanyl Citrate (Sublimaze (100mcg Ampule)) 25 mcg IV Q4 PRN PRN Reason: Pain Score 4-10/10 Furosemide (Lasix) 40 mg IV DAILY [facility] Glucagon () 1 mg IM .X1 PRN PRN Reason: Hypoglycemia Guaifenesin (Robitussin) 20 ml PO Q4H PRN PRN PRN Reason: COUGH Heparin Sodium (Beef Lung) () 50 units IV UD PRN PRN Reason: PICC Line Heparin Flush Last Admin: 05/18/19 17:03 Dose: 50 units Documented by: Dextrose (Dextrose 10%-Water) 250 mls @ 999 mls/hr IV .Q16M PRN; Protocol PRN Reason: HYPOGLYCEMIA Sodium Chloride () 250 mls @ 15 mls/hr IV .[id number] PRN PRN Reason: Saline Flush Last Infusion: 05/19/19 18:09 Dose: 0 mls/hr Documented by: Sodium Chloride () 250 mls @ 15 mls/hr IV .[id number] PRN PRN Reason: Additional IVPB Infusion Insulin Human Lispro (Humalog Kwikpen (Bkc)) 0 unit SC Q6 [facility]; Protocol Last Admin: 05/20/19 05:18 Dose: Not Given Documented by: Lorazepam (Ativan) 0.5 mg IV Q6H PRN PRN PRN Reason: ANXIETY Magnesium Hydroxide (Milk Of Magnesia) 30 ml PO DAILY PRN PRN PRN Reason: Constipation Melatonin (Melatonin) 3 mg PO QHS PRN PRN PRN Reason: INSOMNIA Multi-Ingredient Cream (Lacrilube) 0 applic OPHTHALMIC BID [facility] Last Admin: 05/19/19 21:32 Dose: Not Given Documented by: Nitroglycerin (Nitrostat) 0.4 mg SUBLINGUAL Q5M PRN PRN Reason: CARDIAC/CHEST PAIN Nystatin (Mycostatin Powder) 1 applic TOPICAL BID [facility]; Protocol Last Admin: 05/19/19 21:30 Dose: 1 applicatio Documented by: Ondansetron HCl (Zofran) 4 mg IV Q8H PRN PRN PRN Reason: NAUSEA/VOMITING Last Admin: 05/18/19 11:08 Dose: 4 mg Documented by: Polyethylene Glycol (Miralax) 17 gm PO BID [facility] Last Admin: 05/19/19 21:32 Dose: Not Given Documented by: Prochlorperazine Edisylate (Compazine Iv) 5 mg IV Q4H PRN PRN PRN Reason: Breakthrough nausea/vomiting Senna/Docusate Sodium (Senokot-S, Corrie-Colace) 2 tablet PO DAILY [facility] Sodium Chloride () 10 - 40 ml IV UD PRN PRN Reason: SALINE FLUSH Last Admin: 05/19/19 17:55 Dose: 20 ml Documented by: Sodium Chloride () 10 - 40 ml IV UD PRN PRN Reason: Open End PICC Flush Sodium Chloride (0.9% Nacl (Sterile) Posiflush) 10 - 40 ml IV UD PRN PRN Reason: Port access or dressing change STROKE Vital Signs/Narrative: Vital Signs Pulse Resp BP Pulse Ox 05/20/19 07:00 135 H 29 H 111/68 98 05/20/19 06:00 142 H 35 H 128/81 H 100 05/20/19 05:00 145 H 39 H 124/101 H 92 05/20/19 04:00 153 H 28 H 161/75 H 97 Medical Necessity - Tobacco Use Smoking Status: Never smoker Tobacco Use: Non-smoker Assessment/Plan All Active Problems (Last Reviewed 05/07/19 @ 13:[address] Doni Mccray MD) Respiratory failure with hypoxia (Acute) Bilateral pneumonia (Acute) Sepsis due to pneumonia (Acute) Infectious encephalopathy (Acute) Patient is a 68-year-old lady residing at an [facility] presenting with cough shortness of breath and fever 1. Sepsis ?Secondary to suspected pneumonia with multidrug-resistant organisms. Admitted to monitored bed patient started on broad-spectrum antibiotic therapy again (cefepime, Levaquin, and vancomycin) after cultures have been obtained. Also did obtain MRSA nasal screen with plans to discontinue vancomycin if cultures come back negative -05/09/2019; patient was transferred to the intensive care unit in view of worsening clinical condition placed on noninvasive ventilation. Patient changed her CODE STATUS from DNR CCA with intubation to DNR CCA no intubation -05/17/2019 patient completed appropriate course for her sepsis. Antibiotics since discontinued. Patient however went into acute respiratory failure necessitating patient being intubated on 05/11/2019 - 05/18/2019; patient elevated WBC count persist. Sputum cultures came back positive for Kristin albicans. Consult subsequently placed infectious disease -05/19/2019: Patient was seen in consultation by Dr. Marquez with infectious diseases note and recommendations reviewed. 2. Acute hypoxic respiratory failure ?Secondary to suspected pneumonia with multidrug-resistant organism. Patient was placed on supplemental oxygen via Ventimask treated to keep oxygen saturation greater than 90 -05/09/2019: Patient was transferred to the intensive care unit started on noninvasive ventilation BiPAP. She still maintains that she does not want to be intubated. -05/17/2019 ;she was intubated on 05/11/2019 following deterioration in her respiratory status and family changing patient's CODE STATUS to DNR CCA with intubation -05/18/2019; patient seen remains on the vent currently undergoing weaning trial ?05/19/2019; plan is for patient to be weaned off the vent this a.m. -05/20/2019; post extubation day 1. Patient to undergo speech and swallow eval prior to initiation of oral diet 3. Diabetes mellitus type II ~Uncontrolled with hyperglycemia patient's oral hypoglycemics held. Placed on long acting insulin, Accu-Cheks a.c. every 6 with sliding scale insulin 4. Bilateral lower extremity weakness ?Secondary to DJD involving the lumbar spine patient was undergoing therapy at extended care facility 5. Systemic use of anticoagulation ?Patient is on therapeutic dose of Eliquis rationale was not clear from the chart however did continue do suspect this is being used for DVT prophylaxis or recent diagnosis of DVT 6. Dyslipidemia ~patient is on statin therapy, continued at home dose 7. Obesity with BMI of 33.7 ?Weight loss advised 8. DVT prophylaxis ?Patient is on Eliquis did continue 9. Acute kidney injury ?-05/17/2019 patient kidney function is worsened and creatinine went up from 0.68 on admission to 2.20 as of 05/17/2019 plan is to consult nephrology. ?05/18/2019: No improvement in kidney function consult subsequently placed to nephrology -05/19/2019; patient was seen in consultation by nephrology. Inpatient E&M: 40323 Subs Hosp L2
[2019-05-20] MEDS: fentaNYL 100 MCG/2 ML Ampul 25 MCG IV (08:32)
[2019-05-20] MEDS: 0.9% Saline Lock 10 ML Syringe IV (08:33)
--- NOTE | 2019-05-20 09:46 | PCM.PN.ID ---
Patient Problems: Active and Suspected Problems (Last Reviewed 05/07/19 @ 13:[address] Doni Mccray MD) Respiratory failure with hypoxia (Acute) Bilateral pneumonia (Acute) Sepsis due to pneumonia (Acute) Infectious encephalopathy (Acute) Subjective: Feeling ok, off vent, off O2. No fever. - Physical Exam Vitals/I&O's: Vital Signs Temp Pulse Resp BP Pulse Ox 97.9 F 132 H 23 H 111/68 99 05/20/19 00:00 05/20/19 07:15 05/20/19 07:15 05/20/19 07:00 05/20/19 07:15 Oxygen Flow Rate (L/min) 3 Oxygen Delivery Method Bi-pap Weight: 83 kg Body Mass Index (BMI) 31.8 Intake and Output for Last 24 Hours 05/18/19 05/19/19 05/20/19 23:59 23:59 23:59 Intake Total 898.26 / 920.46 898.75 / 898.75 Output Total 2425 / 2425 2325 / 2325 Balance -1526.74 / -1504.54 -1426.25 / -1426.25 General: Alert, Cooperative, No apparent distress Lungs: Diminished Cardiovascular: Regular rate, Regular Rhythm Abdomen: Soft, Non Tender, Non-Distended Extremities: Edema Skin: No rashes Microbiology Past 72 Hours 05/17/19 22:10 Sputum, Induced/Lukens Gram Stain - Final 05/17/19 22:10 Sputum, Induced/Lukens Respiratory Culture - Preliminary Presumptive C albicans Laboratory Results 05/19/19 11:31: POC Glucose 128 H 05/19/19 14:45: Potassium 3.7 05/19/19 17:54: POC Glucose 119 H 05/19/19 23:15: POC Glucose 118 H 05/20/19 03:20: WBC 26.9 H, RBC 3.29 L, Hgb 9.4 L, Hct 29.9 L, MCV 90.9, MCH 28.6, MCHC 31.4 L, RDW Std Deviation 54.2 H, RDW Coeff of Kristal 16.6 H, Plt Count 374, MPV 9.3 05/20/19 03:20: Sodium 148 H, Potassium 4.0, Chloride 115 H, Carbon Dioxide 23.0, Anion Gap 10, BUN 55 H, Creatinine 1.93 H, Estim Creat Clear Calc 25.80, Est GFR (MDRD) Af Amer 33 L, Est GFR (MDRD) Non-Af 28 L, BUN/Creatinine Ratio 28.5 H, Glucose 107 H, Calcium 8.6, Magnesium 2.2 05/20/19 05:15: POC Glucose 115 H Current Medications Acetaminophen (Tylenol Liquid) 650 mg PO Q6H PRN PRN PRN Reason: Pain Score 1-3/Temp > 100.7 F Al Hydroxide/Mg Hydroxide (Mylanta Ii) 30 ml PO Q6H PRN PRN PRN Reason: Gastric Burning Albuterol Sulfate (Ventolin Aerosols) 2.5 mg INHALATION Q2H PRN PRN PRN Reason: Shortness of Breath/Wheezing Last Admin: 05/08/19 04:30 Dose: 2.5 mg Documented by: Albuterol/Ipratropium (Duoneb) 3 ml INHALATION Q4HWA.RT [facility] Last Admin: 05/20/19 07:15 Dose: 3 ml Documented by: Apixaban (Eliquis) 5 mg PO BID [facility] Last Admin: 05/19/19 21:31 Dose: 5 mg Documented by: Ascorbic Acid (Vitamin C) 500 mg PO DAILY@0800 [facility] Aspirin (Aspirin, Baby) 81 mg PO DAILYCM [facility] Atorvastatin Calcium (Lipitor) 20 mg PO QHS [facility] Last Admin: 05/19/19 21:31 Dose: 20 mg Documented by: Bupropion HCl (Wellbutrin Tablets) 75 mg PO BID [facility] Last Admin: 05/19/19 21:31 Dose: 75 mg Documented by: Calamine/Phenol (Calmoseptine Ointment) 1 applic TOPICAL TID [facility]; Protocol Last Admin: 05/20/19 05:18 Dose: 1 applicatio Documented by: Chlorhexidine Gluconate () 1 each TOPICAL DAILY [facility] Last Admin: 05/19/19 08:04 Dose: 1 each Documented by: Famotidine (Pepcid) 20 mg PO DAILY [facility] Fentanyl Citrate (Sublimaze (100mcg Ampule)) 25 mcg IV Q4 PRN PRN Reason: Pain Score 4-10/10 Last Admin: 05/20/19 08:32 Dose: 25 mcg Documented by: Furosemide (Lasix) 40 mg IV DAILY [facility] Glucagon () 1 mg IM .X1 PRN PRN Reason: Hypoglycemia Guaifenesin (Robitussin) 20 ml PO Q4H PRN PRN PRN Reason: COUGH Heparin Sodium (Beef Lung) () 50 units IV UD PRN PRN Reason: PICC Line Heparin Flush Last Admin: 05/18/19 17:03 Dose: 50 units Documented by: Dextrose (Dextrose 10%-Water) 250 mls @ 999 mls/hr IV .Q16M PRN; Protocol PRN Reason: HYPOGLYCEMIA Sodium Chloride () 250 mls @ 15 mls/hr IV .[id number] PRN PRN Reason: Saline Flush Last Infusion: 05/19/19 18:09 Dose: 0 mls/hr Documented by: Sodium Chloride () 250 mls @ 15 mls/hr IV .[id number] PRN PRN Reason: Additional IVPB Infusion Insulin Human Lispro (Humalog Kwikpen (Bkc)) 0 unit SC Q6 [facility]; Protocol Last Admin: 05/20/19 05:18 Dose: Not Given Documented by: Lorazepam (Ativan) 0.5 mg IV Q6H PRN PRN PRN Reason: ANXIETY Magnesium Hydroxide (Milk Of Magnesia) 30 ml PO DAILY PRN PRN PRN Reason: Constipation Melatonin (Melatonin) 3 mg PO QHS PRN PRN PRN Reason: INSOMNIA Nitroglycerin (Nitrostat) 0.4 mg SUBLINGUAL Q5M PRN PRN Reason: CARDIAC/CHEST PAIN Nystatin (Mycostatin Powder) 1 applic TOPICAL BID [facility]; Protocol Last Admin: 05/19/19 21:30 Dose: 1 applicatio Documented by: Ondansetron HCl (Zofran) 4 mg IV Q8H PRN PRN PRN Reason: NAUSEA/VOMITING Last Admin: 05/18/19 11:08 Dose: 4 mg Documented by: Polyethylene Glycol (Miralax) 17 gm PO BID [facility] Last Admin: 05/19/19 21:32 Dose: Not Given Documented by: Prochlorperazine Edisylate (Compazine Iv) 5 mg IV Q4H PRN PRN PRN Reason: Breakthrough nausea/vomiting Senna/Docusate Sodium (Senokot-S, Corrie-Colace) 2 tablet PO DAILY [facility] Sodium Chloride () 10 - 40 ml IV UD PRN PRN Reason: SALINE FLUSH Last Admin: 05/20/19 08:33 Dose: 20 ml Documented by: Sodium Chloride () 10 - 40 ml IV UD PRN PRN Reason: Open End PICC Flush Sodium Chloride (0.9% Nacl (Sterile) Posiflush) 10 - 40 ml IV UD PRN PRN Reason: Port access or dressing change Medical Necessity - Tobacco Use Smoking Status: Never smoker Tobacco Use: Non-smoker Route of nutrition/ use of supplements: [] Nutritional Intake: [] IV Site: [] Yung Catheter: [] - Assessment/Plan Antibiotics: [] Assessment/Plan: [] Active and Suspected Problems (Last Reviewed 05/07/19 @ 13:[address] Doni Mccray MD) Respiratory failure with hypoxia (Acute) Bilateral pneumonia (Acute) Sepsis due to pneumonia (Acute) Infectious encephalopathy (Acute) sepsis due to pneumonia - remains on vent, completed course of abx. Fever resolved, cxr with stable infiltrates, lung exam clear, currently off O2. Recent sputum showing only rare yeast, likely colonization. Wbc slowly rising, but may be related to iv steroids. Cont to monitor off of abx. Will follow, d/w Dr. Russell
--- NOTE | 2019-05-20 10:41 | PN.RENAL_ITS ---
Patient Problems: Active and Suspected Problems (Last Reviewed 05/07/19 @ 13:[address] Doni Mccrya MD) Respiratory failure with hypoxia (Acute) Bilateral pneumonia (Acute) Sepsis due to pneumonia (Acute) Infectious encephalopathy (Acute) Subjective: Doing Ok. No nausea No vomiting On Room air remains on CLD - Physical Exam Vitals/I&O's: Vital Signs Temp Pulse Resp BP Pulse Ox 97.9 F 132 H 23 H 111/68 99 05/20/19 00:00 05/20/19 07:15 05/20/19 07:15 05/20/19 07:00 05/20/19 07:15 Oxygen Flow Rate (L/min) 3 Oxygen Delivery Method Room Air Weight: 83 kg Body Mass Index (BMI) 31.8 Intake and Output for Last 24 Hours 05/18/19 05/19/19 05/20/19 23:59 23:59 23:59 Intake Total 898.26 / 920.46 898.75 / 898.75 Output Total 2425 / 2425 2325 / 2325 Balance -1526.74 / -1504.54 -1426.25 / -1426.25 General: Alert, Oriented x3 HEENT: Atraumatic Oral: Moist Mucosa Neck: Supple, No JVD Lungs: Diminished, Rales Cardiovascular: Regular rate, Regular Rhythm, Normal S1, Normal S2 Abdomen: Bowel Sounds Present, Soft, Non Tender, Non-Distended Extremities: No clubbing, No cyanosis, Edema - +1 EDEMA OF LE Skin: No rashes Lymphatic: No Cervical, Supraclavicular, or Inguinal Adenopathy Neurological: Neuro grossly intact Psych/Mental Status: Appropriate Microbiology Past 72 Hours 05/17/19 22:10 Sputum, Induced/Lukens Gram Stain - Final 05/17/19 22:10 Sputum, Induced/Lukens Respiratory Culture - Preliminary Presumptive C albicans Laboratory Results 05/19/19 11:31: POC Glucose 128 H 05/19/19 14:45: Potassium 3.7 05/19/19 17:54: POC Glucose 119 H 05/19/19 23:15: POC Glucose 118 H 05/20/19 03:20: WBC 26.9 H, RBC 3.29 L, Hgb 9.4 L, Hct 29.9 L, MCV 90.9, MCH 28.6, MCHC 31.4 L, RDW Std Deviation 54.2 H, RDW Coeff of Kristal 16.6 H, Plt Count 374, MPV 9.3 05/20/19 03:20: Sodium 148 H, Potassium 4.0, Chloride 115 H, Carbon Dioxide 23.0, Anion Gap 10, BUN 55 H, Creatinine 1.93 H, Estim Creat Clear Calc 25.80, Est GFR (MDRD) Af Amer 33 L, Est GFR (MDRD) Non-Af 28 L, BUN/Creatinine Ratio 28.5 H, Glucose 107 H, Calcium 8.6, Magnesium 2.2 05/20/19 05:15: POC Glucose 115 H Current Medications Acetaminophen (Tylenol Liquid) 650 mg PO Q6H PRN PRN PRN Reason: Pain Score 1-3/Temp > 100.7 F Al Hydroxide/Mg Hydroxide (Mylanta Ii) 30 ml PO Q6H PRN PRN PRN Reason: Gastric Burning Albuterol Sulfate (Ventolin Aerosols) 2.5 mg INHALATION Q2H PRN PRN PRN Reason: Shortness of Breath/Wheezing Last Admin: 05/08/19 04:30 Dose: 2.5 mg Documented by: Albuterol/Ipratropium (Duoneb) 3 ml INHALATION Q4HWA.RT [facility] Last Admin: 05/20/19 07:15 Dose: 3 ml Documented by: Apixaban (Eliquis) 5 mg PO BID [facility] Last Admin: 05/19/19 21:31 Dose: 5 mg Documented by: Ascorbic Acid (Vitamin C) 500 mg PO DAILY@0800 [facility] ([facility], [facility]) [facility] Atorvastatin Calcium (Lipitor) 20 mg PO QHS [facility] Last Admin: 05/19/19 21:31 Dose: 20 mg Documented by: Bupropion HCl (Wellbutrin Tablets) 75 mg PO BID [facility] Last Admin: 05/19/19 21:31 Dose: 75 mg Documented by: Calamine/Phenol (Calmoseptine Ointment) 1 applic TOPICAL TID [facility]; Protocol Last Admin: 05/20/19 05:18 Dose: 1 applicatio Documented by: Chlorhexidine Gluconate () 1 each TOPICAL DAILY [facility] Last Admin: 05/19/19 08:04 Dose: 1 each Documented by: Famotidine (Pepcid) 20 mg PO DAILY [facility] Fentanyl Citrate (Sublimaze (100mcg Ampule)) 25 mcg IV Q4 PRN PRN Reason: Pain Score 4-10/10 Last Admin: 05/20/19 08:32 Dose: 25 mcg Documented by: Furosemide (Lasix) 40 mg IV DAILY [facility] Glucagon () 1 mg IM .X1 PRN PRN Reason: Hypoglycemia Guaifenesin (Robitussin) 20 ml PO Q4H PRN PRN PRN Reason: COUGH Heparin Sodium (Beef Lung) () 50 units IV UD PRN PRN Reason: PICC Line Heparin Flush Last Admin: 05/18/19 17:03 Dose: 50 units Documented by: Dextrose (Dextrose 10%-Water) 250 mls @ 999 mls/hr IV .Q16M PRN; Protocol PRN Reason: HYPOGLYCEMIA Sodium Chloride () 250 mls @ 15 mls/hr IV .[id number] PRN PRN Reason: Saline Flush Last Infusion: 05/19/19 18:09 Dose: 0 mls/hr Documented by: Sodium Chloride () 250 mls @ 15 mls/hr IV .[id number] PRN PRN Reason: Additional IVPB Infusion Insulin Human Lispro (Humalog Kwikpen (Bkc)) 0 unit SC Q6 [facility]; Protocol Last Admin: 05/20/19 05:18 Dose: Not Given Documented by: Lorazepam (Ativan) 0.5 mg IV Q6H PRN PRN PRN Reason: ANXIETY Magnesium Hydroxide (Milk Of Magnesia) 30 ml PO DAILY PRN PRN PRN Reason: Constipation Melatonin (Melatonin) 3 mg PO QHS PRN PRN PRN Reason: INSOMNIA Nitroglycerin (Nitrostat) 0.4 mg SUBLINGUAL Q5M PRN PRN Reason: CARDIAC/CHEST PAIN Nystatin (Mycostatin Powder) 1 applic TOPICAL BID [facility]; Protocol Last Admin: 05/19/19 21:30 Dose: 1 applicatio Documented by: Ondansetron HCl (Zofran) 4 mg IV Q8H PRN PRN PRN Reason: NAUSEA/VOMITING Last Admin: 05/18/19 11:08 Dose: 4 mg Documented by: Polyethylene Glycol (Miralax) 17 gm PO BID [facility] Last Admin: 05/19/19 21:32 Dose: Not Given Documented by: Prochlorperazine Edisylate (Compazine Iv) 5 mg IV Q4H PRN PRN PRN Reason: Breakthrough nausea/vomiting Senna/Docusate Sodium (Senokot-S, Corrie-Colace) 2 tablet PO DAILY [facility] Sodium Chloride () 10 - 40 ml IV UD PRN PRN Reason: SALINE FLUSH Last Admin: 05/20/19 08:33 Dose: 20 ml Documented by: Sodium Chloride () 10 - 40 ml IV UD PRN PRN Reason: Open End PICC Flush Sodium Chloride (0.9% Nacl (Sterile) Posiflush) 10 - 40 ml IV UD PRN PRN Reason: Port access or dressing change Medical Necessity - Tobacco Use Smoking Status: Never smoker Tobacco Use: Non-smoker Assessment/Plan All Active Problems (Last Reviewed 05/07/19 @ 13:[address] Doni Mccray MD) Respiratory failure with hypoxia (Acute) Bilateral pneumonia (Acute) Sepsis due to pneumonia (Acute) Infectious encephalopathy (Acute) 1- RYAN. normal SCr at baseline Repeated UA showed no RBC and protein 30 FeUrea is 57% indicating intrinsic renal etiology of RYAN and is likely from ATN related to sepsis No need for CURATOR OF COLLECTIONS SCr improved. however, SCr is slightly higher today I agree with decrease lasix dose to once dialy No need to expand RYAN work up Check renal function in am 2- Sepsis related to B/L pneumonia Finished Abx Better 3- Acute RF from B/L pneumonia/CHF continue lasix extubated 05/18 4- Hypernatremia:mildly elevated. I agree with decreasing lasix to once daily Renal team will continue to follow Please call if any question at [phone] Joni Lombardo MD
[2019-05-20] MEDS: APIXABAN 5 MG TABLET PO ×2 (11:24→23:07)
[2019-05-20] MEDS: buPROPion 75 MG Tablet PO ×2 (11:33→23:07)
[2019-05-20] MEDS: Ascorbic Acid 500 MG Tablet PO (11:34)
[2019-05-20] MEDS: Aspirin 81 MG TAB.CHEW PO (11:34)
[2019-05-20] MEDS: Famotidine 20 MG Tablet PO (11:34)
[2019-05-20] MEDS: Furosemide 40 MG/4 ML Vial IV (12:23)
[2019-05-20] MEDS: oxyCODONE 5 MG Tablet PO (12:23)
--- NOTE | 2019-05-20 14:03 | CASEMGMT ---
Social Work SW met with pt and sister. They state pt will not be in today but will come tomorrow. Presented Palliative Medicine program to pt and sister. Pt indicates no interest at this time, but as she feels better she may be more interested in hearing about the program again. SW to follow up if pt interested. NIEVES Cox
[2019-05-20] MEDS: Insulin Lispro 100 UNIT/ML INSULN.PEN SC ×3 (14:17→23:11)
[2019-05-20] MEDS: Nystatin Powder 15gm Bottle 1 APPLIC TOPICAL ×2 (14:17→23:07)
[2019-05-20] MEDS: CHLORHEXIDINE GLUC 2% CLOTH 1 EACH TOWELETTE TOPICAL (14:20)
[2019-05-20 14:25] LABS: Bedside Glucose 169 mg/dL (70-110)
[2019-05-20 18:21] LABS: Bedside Glucose 184 mg/dL (70-110)
[2019-05-20] MEDS: LORazepam 0.5 MG Tablet PO (23:07)
[2019-05-20] MEDS: Atorvastatin Calcium 20 MG Tablet PO (23:07)
[2019-05-20 23:26] LABS: Bedside Glucose 182 mg/dL (70-110)
[2019-05-21] VITALS (22 sets, daily range): BP systolic 129–142; BP diastolic 48–72; PULSE 100–131; RESP 17–25; TEMP 36.8–37.1; O2SAT 96–100
[2019-05-21 05:10] LABS: Hematocrit 27.5 % (37-47); Hemoglobin 8.8 g/dL (12.0-15.0); Mean Corpuscular Hgb 28.9 pg (27.0-32.0); Mean Corpuscular Volume 90.5 fL (81-99); Mean Platelet Vol. 9.6 fl (6.2-12.0); Platelet Count 335 K/mm3 (150-450); RBC Distribution Width SD 54.4 fl (35.1-43.9); Red Blood Count 3.04 M/mm3 (4.2-5.4); White Blood Count 23.2 K/mm3 (4.4-11.0)
[2019-05-21 06:02] LABS: Anion Gap 6 (5-15); BUN 55 mg/dL (7-18); BUN/Creat Ratio 28.6 RATIO (10-20); Calcium,Total 8.5 mg/dL (8.5-10.1); Chloride 117 mmol/L (98-107); Creatinine, Serum 1.92 mg/dL (0.55-1.02); EST Glomerular Filtration Rate 28 mL/min (>60); Est Glom Filt Rate - Afr Amer 34 mL/min (>60); Estimated Creatinine Clearance 25.94 ml/min; Glucose 197 mg/dL (74-106); Potassium 3.4 mmol/L (3.5-5.1); Sodium Level 149 mmol/L (136-145)
[2019-05-21] MEDS: Insulin Lispro 100 UNIT/ML INSULN.PEN SC ×2 (06:10→13:42)
[2019-05-21] MEDS: Menthol/Lanolin/Calamine/Znox 113 GM Tube 1 APPLIC TOPICAL ×3 (06:11→21:19)
--- NOTE | 2019-05-21 06:45 | PCM.PN.INT ---
Subjective: The patient was seen and examined at the bedside this morning. Events from the last 24 hours have been reviewed. The patient is currently afebrile, hemodynamically stable and maintaining appropriate oxygen saturations on room air. Potassium is low this morning at 3.4. Creatinine remains stable at 1.92. The patient was cleared by speech therapy yesterday. Objective: The patient's most recent lab work, culture data and imaging studies have all been personally reviewed. Infectious work-up has been unrevealing to date. General: Alert, Cooperative, No apparent distress HEENT: Atraumatic, Normocephalic Oral: No Gingival or Mucosal Lesions/ Ulcerations Neck: Supple, No Nodes, Trachea Midline Lungs: No rhonchi, No wheeze, No rales, Diminished Cardiovascular: Normal S1, Normal S2, No murmurs, Tachycardic Abdomen: Bowel Sounds Present, Soft, Non Tender Extremities: No clubbing, No cyanosis, Edema Skin: Ulcer/ Wound - Sacral Musculoskeletal: No Tenderness to Palpation of Joints or Extremities Lymphatic: No Cervical, Supraclavicular, or Inguinal Adenopathy Neurological: Neuro grossly intact Psych/Mental Status: Normal Affect Vital Signs Temp Pulse Resp BP Pulse Ox 98.7 F 100 17 136/61 H 100 05/21/19 00:00 05/21/19 06:00 05/21/19 06:00 05/21/19 06:00 05/21/19 06:00 Oxygen Flow Rate (L/min) 3 Oxygen Delivery Method Room Air Weight: 177 lb 14.609 oz Body Mass Index (BMI) 31.8 Intake and Output for Last 24 Hours 05/19/19 05/20/19 05/21/19 23:59 23:59 23:59 Intake Total 898.75 / 898.75 150 / 330 180 / 180 Output Total 2325 / 2325 500 / 1000 800 / 800 Balance -1426.25 / -1426.25 -350 / -670 -620 / -620 Labs (Last 48 Hours) 05/19/19 05/19/19 05/19/19 06:39 08:00 08:00 WBC 21.5 H RBC 3.10 L Hgb 8.7 L Hct 28.0 L MCV 90.3 MCH 28.1 MCHC 31.1 L RDW Std Deviation 53.3 H RDW Coeff of Kristal 16.5 H Plt Count 323 MPV 9.6 Immature Gran % (Auto) 1.900 H Neut % (Auto) 88.0 H Lymph % (Auto) 5.3 L [place] % (Auto) 4.5 Eos % (Auto) 0.2 Baso % (Auto) 0.1 Absolute Neuts (auto) 18.9 H Absolute Lymphs (auto) 1.13 Nucleated RBC % 0 Sodium 147 H Potassium 3.2 L Chloride 116 H Carbon Dioxide 24.0 Anion Gap 7 BUN 61 H Creatinine 1.89 H Estim Creat Clear Calc 26.35 Est GFR (MDRD) Af Amer 34 L Est GFR (MDRD) Non-Af 28 L BUN/Creatinine Ratio 32.3 H Glucose 151 H Calcium 8.4 L Magnesium POC Glucose 147 H 05/19/19 05/19/19 05/19/19 11:31 14:45 17:54 WBC RBC Hgb Hct MCV MCH MCHC RDW Std Deviation RDW Coeff of Kristal Plt Count MPV Immature Gran % (Auto) Neut % (Auto) Lymph % (Auto) [place] % (Auto) Eos % (Auto) Baso % (Auto) Absolute Neuts (auto) Absolute Lymphs (auto) Nucleated RBC % Sodium Potassium 3.7 Chloride Carbon Dioxide Anion Gap BUN Creatinine Estim Creat Clear Calc Est GFR (MDRD) Af Amer Est GFR (MDRD) Non-Af BUN/Creatinine Ratio Glucose Calcium Magnesium POC Glucose 128 H 119 H 05/19/19 05/20/19 05/20/19 23:15 03:20 03:20 WBC 26.9 H RBC 3.29 L Hgb 9.4 L Hct 29.9 L MCV 90.9 MCH 28.6 MCHC 31.4 L RDW Std Deviation 54.2 H RDW Coeff of Kristal 16.6 H Plt Count 374 MPV 9.3 Immature Gran % (Auto) Neut % (Auto) Lymph % (Auto) [place] % (Auto) Eos % (Auto) Baso % (Auto) Absolute Neuts (auto) Absolute Lymphs (auto) Nucleated RBC % Sodium 148 H Potassium 4.0 Chloride 115 H Carbon Dioxide 23.0 Anion Gap 10 BUN 55 H Creatinine 1.93 H Estim Creat Clear Calc 25.80 Est GFR (MDRD) Af Amer 33 L Est GFR (MDRD) Non-Af 28 L BUN/Creatinine Ratio 28.5 H Glucose 107 H Calcium 8.6 Magnesium 2.2 POC Glucose 118 H 05/20/19 05/20/19 05/20/19 05:15 14:12 18:15 WBC RBC Hgb Hct MCV MCH MCHC RDW Std Deviation RDW Coeff of Kristal Plt Count MPV Immature Gran % (Auto) Neut % (Auto) Lymph % (Auto) [place] % (Auto) Eos % (Auto) Baso % (Auto) Absolute Neuts (auto) Absolute Lymphs (auto) Nucleated RBC % Sodium Potassium Chloride Carbon Dioxide Anion Gap BUN Creatinine Estim Creat Clear Calc Est GFR (MDRD) Af Amer Est GFR (MDRD) Non-Af BUN/Creatinine Ratio Glucose Calcium Magnesium POC Glucose 115 H 169 H 184 H 05/20/19 05/21/19 05/21/19 23:10 05:00 05:00 WBC 23.2 H RBC 3.04 L Hgb 8.8 L Hct 27.5 L MCV 90.5 MCH 28.9 MCHC 32.0 RDW Std Deviation 54.4 H RDW Coeff of Kristal 17.0 H Plt Count 335 MPV 9.6 Immature Gran % (Auto) Neut % (Auto) Lymph % (Auto) [place] % (Auto) Eos % (Auto) Baso % (Auto) Absolute Neuts (auto) Absolute Lymphs (auto) Nucleated RBC % Sodium 149 H Potassium 3.4 L Chloride 117 H Carbon Dioxide 26.0 Anion Gap 6 BUN 55 H Creatinine 1.92 H Estim Creat Clear Calc 25.94 Est GFR (MDRD) Af Amer 34 L Est GFR (MDRD) Non-Af 28 L BUN/Creatinine Ratio 28.6 H Glucose 197 H Calcium 8.5 Magnesium POC Glucose 182 H Microbiology 05/17/19 22:10 Sputum, Induced/Lukens Gram Stain - Final 05/17/19 22:10 Sputum, Induced/Lukens Respiratory Culture - Final Presumptive C albicans Clinical Impression(s) from Imaging Studies Chest X-Ray 05/07/19 10:05 IMPRESSION: Normal x-ray examination of the chest. Electronically Signed: Terrell Chang MD at 11:14 EST Tel , Service support , Chest X-Ray 05/08/19 05:35 IMPRESSION: Increase in bilateral interstitial infiltrates, possibly edema, infection or other cause of interstitial infiltrate. at 0610 Reported and signed by: Freida Pringle MD Electronically Signed: Freida Pringle MD at 6:10 EST Tel , Service support , Chest X-Ray 05/11/19 06:21 IMPRESSION: Bilateral airspace disease/infiltrates, unchanged since 05/08/2019. Electronically Signed: Amanda Vasquez MD at 6:55 EST , Service support , Chest X-Ray 05/11/19 07:41 IMPRESSION: An endotracheal tube has been placed. The tip is at 4.3 cm proximal to the caesar. An orogastric tube is seen with the tip in the body of the stomach. The remainder of the examination is unchanged. Electronically Signed: Jaun Daly at 12:09 EST , Service support , Chest X-Ray 05/13/19 05:55 IMPRESSION: Tubes are in adequate position. Bilateral pulmonary infiltrates, not significantly changed. Electronically Signed: Bigg Henderson MD at 5:50 EST , Service support , KUB X-Ray 05/16/19 07:24 IMPRESSION: Nonspecific gas pattern. Electronically Signed: Jimenez Villegas MD at 14:01 EDT Tel , Service support , Chest X-Ray 05/17/19 07:42 IMPRESSION: All support tubes are in good position. Improvement in the bilateral pulmonary infiltrates. Further follow-up is recommended. Electronically Signed: Jaun Daly, at 13:47 EDT , Service support , Renal Ultrasound 05/17/19 10:15 IMPRESSION: The kidneys appear normal. A Yung catheter is present within the urinary bladder. 121 mL of urine is seen in the bladder. Electronically Signed: Evert Calle MD at 18:21 EDT , Service support , Medical Necessity - Tobacco Use Smoking Status: Never smoker Tobacco Use: Non-smoker Assessment/Plan All Active Problems (Last Reviewed 05/07/19 @ 13:[address] Doni Mccray MD) Respiratory failure with hypoxia (Acute) Bilateral pneumonia (Acute) Sepsis due to pneumonia (Acute) Infectious encephalopathy (Acute) RECOMMENDATIONS: 1. Continue Lasix regimen per nephrology recommendations. 2. Continue as needed oxycodone and Ativan. 3. Continue local wound care of sacral ulcer. 4. Encourage incentive spirometer use and mobilize patient as tolerated. 5. Continue Eliquis as ordered. 6. The patient is medically stable for transfer out of the intensive care unit. 7. Given the patient's lack of further ICU or pulmonary needs, will sign off. Please call with any additional questions. IMPRESSIONS: 1. Acute hypoxemic respiratory failure Improved. Differential would include healthcare associated pneumonia versus pulmonary edema. The patient has already completed an appropriate course of antibiotics for underlying pneumonia. Her respiratory status continues to improve. She was able to be successfully extubated on the morning of May 18. She does have a great deal of underlying anxiety and pain related to a sacral ulcer. Therefore, she has been placed on as needed Ativan and oxycodone for pain. Continue dietary modification per speech therapy recommendations. Continue to encourage incentive spirometer use and mobilize patient as tolerated. 2. Severe sepsis Resolved. Appears to be secondary to underlying pulmonary infectious process. The patient has already completed a complete treatment course of antibiotics. She remains hemodynamically stable. 3. Chronic heart failure with preserved ejection fraction The patient is significantly volume overloaded for the hospital admission. Therefore, we will plan to continue scheduled Lasix as tolerated by renal function. 4. Acute kidney injury Improving. Unclear etiology. Avoid nephrotoxic medications. Nephrology is currently following. 5. History of DVT on Eliquis/diabetes mellitus/hyperlipidemia/obesity Complicates care, management, recovery and prognosis. Continue Eliquis as ordered. Physical therapy to continue to work with the patient. This note was generated with [employer] dictation software. It may contain incorrect words, spelling, and punctuation that were not noted in checking the note before signing. Inpatient E&M: 31256 Subs Hosp L2
[2019-05-21] MEDS: Ipratropium/Albuterol Sulfate 3 ML AMPUL.NEB INHALATION ×4 (07:07→19:26)
--- NOTE | 2019-05-21 07:52 | PN_ITS ---
Patient Problems: Active and Suspected Problems (Last Reviewed 05/07/19 @ 13:[address] Doni Mccray MD) Respiratory failure with hypoxia (Acute) Bilateral pneumonia (Acute) Sepsis due to pneumonia (Acute) Infectious encephalopathy (Acute) Reason for Visit: Follow-up acute hypoxic respiratory failure status post extubation. Was extubated 2 days ago. Discussed with the nursing staff regarding overnight events. Patient is on room air. Patient failed swallowing test and is on modified dysphagia diet. Afebrile. Hemodynamically stable. Vitals/I&O's: Vital Signs Temp Pulse Resp BP Pulse Ox 98.7 F 100 17 136/61 H 100 05/21/19 00:00 05/21/19 06:00 05/21/19 06:00 05/21/19 06:00 05/21/19 06:00 Oxygen Flow Rate (L/min) 3 Oxygen Delivery Method Room Air Weight: 177 lb 14.609 oz Body Mass Index (BMI) 31.8 Intake and Output for Last 24 Hours 05/19/19 05/20/19 05/21/19 23:59 23:59 23:59 Intake Total 898.75 / 898.75 150 / 330 180 / 180 Output Total 2325 / 2325 500 / 1000 800 / 800 Balance -1426.25 / -1426.25 -350 / -670 -620 / -620 General: Confused - Patient gets intermittently confused and disoriented, Disoriented, Lethargic HEENT: Atraumatic, PERRLA, EOMI, Normocephalic Oral: Dry Mucosa Neck: Supple, No JVD, Negative Carotid Bruits Lungs: Clear to auscultation, No rhonchi, No wheeze, No rales, Diminished Cardiovascular: Regular Rhythm, Normal S1, Normal S2, No murmurs, Tachycardic - Mild tachycardic Abdomen: Bowel Sounds Present, Soft, Non Tender, Non-Distended Extremities: Capillary Refill Less than 3 Seconds, Edema Skin: No rashes, No breakdown Musculoskeletal: No Tenderness to Palpation of Joints or Extremities, Arthritic Changes Neurological: Cranial nerves II-XII grossly intact, Deep Tendon Reflexes 2+/4 and Symmetrical, Neuro grossly intact Microbiology Past 72 Hours 05/17/19 22:10 Sputum, Induced/Lukens Gram Stain - Final 05/17/19 22:10 Sputum, Induced/Lukens Respiratory Culture - Final Presumptive C albicans Laboratory Results 05/20/19 14:12: POC Glucose 169 H 05/20/19 18:15: POC Glucose 184 H 05/20/19 23:10: POC Glucose 182 H 05/21/19 05:00: WBC 23.2 H, RBC 3.04 L, Hgb 8.8 L, Hct 27.5 L, MCV 90.5, MCH 28.9, MCHC 32.0, RDW Std Deviation 54.4 H, RDW Coeff of Kristal 17.0 H, Plt Count 335, MPV 9.6 05/21/19 05:00: Sodium 149 H, Potassium 3.4 L, Chloride 117 H, Carbon Dioxide 26.0, Anion Gap 6, BUN 55 H, Creatinine 1.92 H, Estim Creat Clear Calc 25.94, Est GFR (MDRD) Af Amer 34 L, Est GFR (MDRD) Non-Af 28 L, BUN/Creatinine Ratio 28.6 H, Glucose 197 H, Calcium 8.5 Current Medications Acetaminophen (Tylenol Liquid) 650 mg PO Q6H PRN PRN PRN Reason: Pain Score 1-3/Temp > 100.7 F Al Hydroxide/Mg Hydroxide (Mylanta Ii) 30 ml PO Q6H PRN PRN PRN Reason: Gastric Burning Albuterol Sulfate (Ventolin Aerosols) 2.5 mg INHALATION Q2H PRN PRN PRN Reason: Shortness of Breath/Wheezing Last Admin: 05/08/19 04:30 Dose: 2.5 mg Documented by: Albuterol/Ipratropium (Duoneb) 3 ml INHALATION Q4HWA.RT [facility] Last Admin: 05/21/19 07:07 Dose: 3 ml Documented by: Apixaban (Eliquis) 5 mg PO BID [facility] Last Admin: 05/20/19 23:07 Dose: 5 mg Documented by: Ascorbic Acid (Vitamin C) 500 mg PO DAILY@0800 [facility] Last Admin: 05/20/19 11:34 Dose: 500 mg Documented by: Aspirin (Aspirin, Baby) 81 mg PO DAILYCM [facility] Last Admin: 05/20/19 11:34 Dose: 81 mg Documented by: Atorvastatin Calcium (Lipitor) 20 mg PO QHS [facility] Last Admin: 05/20/19 23:07 Dose: 20 mg Documented by: Bupropion HCl (Wellbutrin Tablets) 75 mg PO BID [facility] Last Admin: 05/20/19 23:07 Dose: 75 mg Documented by: Calamine/Phenol (Calmoseptine Ointment) 1 applic TOPICAL TID [facility]; Protocol Last Admin: 05/21/19 06:11 Dose: 1 applicatio Documented by: Chlorhexidine Gluconate () 1 each TOPICAL DAILY [facility] Last Admin: 05/20/19 14:20 Dose: 1 each Documented by: Famotidine (Pepcid) 20 mg PO DAILY [facility] Last Admin: 05/20/19 11:34 Dose: 20 mg Documented by: Furosemide (Lasix) 40 mg IV DAILY [facility] Last Admin: 05/20/19 12:23 Dose: 40 mg Documented by: Glucagon () 1 mg IM .X1 PRN PRN Reason: Hypoglycemia Guaifenesin (Robitussin) 20 ml PO Q4H PRN PRN PRN Reason: COUGH Heparin Sodium (Beef Lung) () 50 units IV UD PRN PRN Reason: PICC Line Heparin Flush Last Admin: 05/18/19 17:03 Dose: 50 units Documented by: Dextrose (Dextrose 10%-Water) 250 mls @ 999 mls/hr IV .Q16M PRN; Protocol PRN Reason: HYPOGLYCEMIA Sodium Chloride () 250 mls @ 15 mls/hr IV .[id number] PRN PRN Reason: Saline Flush Last Infusion: 05/19/19 18:09 Dose: 0 mls/hr Documented by: Sodium Chloride () 250 mls @ 15 mls/hr IV .[id number] PRN PRN Reason: Additional IVPB Infusion Potassium Chloride () 10 meq in 100 mls @ 100 mls/hr IV BOLUS Q1H [facility] Stop: 05/21/19 10:59 Insulin Human Lispro (Humalog Kwikpen (Bkc)) 0 unit SC Q6 [facility]; Protocol Last Admin: 05/21/19 06:10 Dose: 2 u Documented by: Lorazepam (Ativan) 0.5 mg PO Q6H PRN PRN PRN Reason: ANXIETY Last Admin: 05/20/19 23:07 Dose: 0.5 mg Documented by: Magnesium Hydroxide (Milk Of Magnesia) 30 ml PO DAILY PRN PRN PRN Reason: Constipation Melatonin (Melatonin) 3 mg PO QHS PRN PRN PRN Reason: INSOMNIA Nitroglycerin (Nitrostat) 0.4 mg SUBLINGUAL Q5M PRN PRN Reason: CARDIAC/CHEST PAIN Nystatin (Mycostatin Powder) 1 applic TOPICAL BID [facility]; Protocol Last Admin: 05/20/19 23:07 Dose: 1 applicatio Documented by: Ondansetron HCl (Zofran) 4 mg IV Q8H PRN PRN PRN Reason: NAUSEA/VOMITING Last Admin: 05/18/19 11:08 Dose: 4 mg Documented by: Oxycodone HCl (Oxyir) 5 mg PO Q4H PRN PRN PRN Reason: Pain Score 4-10/10 Last Admin: 05/20/19 12:23 Dose: 5 mg Documented by: Polyethylene Glycol (Miralax) 17 gm PO DAILY PRN PRN Reason: Constipation Prochlorperazine Edisylate (Compazine Iv) 5 mg IV Q4H PRN PRN PRN Reason: Breakthrough nausea/vomiting Senna/Docusate Sodium (Senokot-S, Corrie-Colace) 2 tablet PO DAILY PRN PRN Reason: CONSTIPATION Sodium Chloride () 10 - 40 ml IV UD PRN PRN Reason: SALINE FLUSH Last Admin: 05/20/19 08:33 Dose: 20 ml Documented by: Sodium Chloride () 10 - 40 ml IV UD PRN PRN Reason: Open End PICC Flush Sodium Chloride (0.9% Nacl (Sterile) Posiflush) 10 - 40 ml IV UD PRN PRN Reason: Port access or dressing change STROKE Vital Signs/Narrative: Vital Signs Pulse Resp BP Pulse Ox 05/21/19 06:00 100 17 136/61 H 100 05/21/19 05:00 102 H 20 H 138/58 H 99 05/21/19 04:00 105 H 23 H 130/58 H 99 Medical Necessity - Tobacco Use Smoking Status: Never smoker Tobacco Use: Non-smoker Assessment/Plan All Active Problems (Last Reviewed 05/07/19 @ 13:[address] Doni Mccray MD) Respiratory failure with hypoxia (Acute) Bilateral pneumonia (Acute) Sepsis due to pneumonia (Acute) Infectious encephalopathy (Acute) Patient is a 68-year-old lady residing at an extended care facility presenting with cough cough shortness of breath and fever and acute hypoxic respiratory failure which required intubation. 1. Sepsis ?Secondary to suspected pneumonia with multidrug-resistant organisms. 05/20/2019: Sputum cultures positive for Kristin albicans. ID consult reviewed. Initially patient was started on vancomycin, Levaquin and cefepime. Patient completed course of antibiotic. Sputum culture positive of Kristin albicans likely colonization. Currently off antibiotics. 2. Acute hypoxic respiratory failure most likely secondary to healthcare acid pneumonia, with multidrug-resistant organisms versus pulmonary edema: Resolved currently on room air ?Patient is on modified dysphagia diet as per recommendation of his speech therapist after she failed swallow test and was subsequently evaluated by speech therapist. 3. Diabetes mellitus type II ~Uncontrolled with hyperglycemia patient's oral hypoglycemics held. Placed on long acting insulin, Accu-Cheks a.c. every 6 with sliding scale insulin. Glucose is between 150-180 mg/dL 4. Bilateral lower extremity weakness ?Secondary to DJD involving the lumbar spine patient was undergoing therapy at extended care facility 5. Systemic use of anticoagulation ?Patient is on therapeutic dose of Eliquis rationale was not clear from the chart however did continue do suspect this is being used for DVT prophylaxis or recent diagnosis of DVT 6. Dyslipidemia ~patient is on statin therapy, continued at home dose 7. Obesity with BMI of 33.7 ?Weight loss advised 8. DVT prophylaxis ?Patient is on Eliquis did continue 9. Acute kidney injury with mild hypokalemia, K3.4. RYAN worsened with creatinine went up from 0.68 on admission to 2.20 currently 1.8. BUN 55. Undercollar Baster on board. Patient is hemodynamically stable to be transferred to PCU. Inpatient E&M: [id number] [facility] Hosp L3
--- NOTE | 2019-05-21 09:31 | CASEMGMT ---
It is anticipated pt will be able to return in the next few days to [facility], and should be able to leave ICU today. SW called [facility], spoke w/Marly, let her know pt may be able to return on the weekend. SW also let her know that SW did speak to pt about palliative, and that they should revisit this topic once pt is feeling better. Marly states understanding. SW faxed updates to [facility], and placed green sheet w/transport form on chart, in anticipation of possible weekend discharge. ANGELIC Daugherty
--- NOTE | 2019-05-21 09:58 | PN.RENAL_ITS ---
Patient Problems: Active and Suspected Problems (Last Reviewed 05/07/19 @ 13:[address] Doni Mccray MD) Respiratory failure with hypoxia (Acute) Bilateral pneumonia (Acute) Sepsis due to pneumonia (Acute) Infectious encephalopathy (Acute) Subjective: Pt has no nausea vomiting Breathing is stable On RA has cough - Physical Exam Vitals/I&O's: Vital Signs Temp Pulse Resp BP Pulse Ox 98.7 F 107 H 22 H 136/61 H 100 05/21/19 00:00 05/21/19 07:07 05/21/19 07:07 05/21/19 06:00 05/21/19 07:07 Oxygen Flow Rate (L/min) 3 Oxygen Delivery Method Room Air Weight: 80.7 kg Body Mass Index (BMI) 31.8 Intake and Output for Last 24 Hours 05/19/19 05/20/19 05/21/19 23:59 23:59 23:59 Intake Total 898.75 / 898.75 150 / 330 180 / 180 Output Total 2325 / 2325 500 / 1000 800 / 800 Balance -1426.25 / -1426.25 -350 / -670 -620 / -620 General: Oriented x3 HEENT: Atraumatic Oral: Moist Mucosa Neck: Supple, No JVD Lungs: Clear to auscultation, Normal air movement, No rhonchi, No wheeze Cardiovascular: Regular rate, Regular Rhythm, Normal S1, Normal S2 Abdomen: Bowel Sounds Present, Soft, Non Tender, Non-Distended Extremities: No clubbing, No cyanosis, Edema Skin: No rashes Lymphatic: No Cervical, Supraclavicular, or Inguinal Adenopathy Neurological: Cranial nerves II-XII grossly intact, Neuro grossly intact Psych/Mental Status: Appropriate Microbiology Past 72 Hours 05/17/19 22:10 Sputum, Induced/Lukens Gram Stain - Final 05/17/19 22:10 Sputum, Induced/Lukens Respiratory Culture - Final Presumptive C albicans Laboratory Results 05/20/19 14:12: POC Glucose 169 H 05/20/19 18:15: POC Glucose 184 H 05/20/19 23:10: POC Glucose 182 H 05/21/19 05:00: WBC 23.2 H, RBC 3.04 L, Hgb 8.8 L, Hct 27.5 L, MCV 90.5, MCH 28.9, MCHC 32.0, RDW Std Deviation 54.4 H, RDW Coeff of Kristal 17.0 H, Plt Count 335, MPV 9.6 05/21/19 05:00: Sodium 149 H, Potassium 3.4 L, Chloride 117 H, Carbon Dioxide 26.0, Anion Gap 6, BUN 55 H, Creatinine 1.92 H, Estim Creat Clear Calc 25.94, Est GFR (MDRD) Af Amer 34 L, Est GFR (MDRD) Non-Af 28 L, BUN/Creatinine Ratio 28.6 H, Glucose 197 H, Calcium 8.5 Current Medications Acetaminophen (Tylenol Liquid) 650 mg PO Q6H PRN PRN PRN Reason: Pain Score 1-3/Temp > 100.7 F Al Hydroxide/Mg Hydroxide (Mylanta Ii) 30 ml PO Q6H PRN PRN PRN Reason: Gastric Burning Albuterol Sulfate (Ventolin Aerosols) 2.5 mg INHALATION Q2H PRN PRN PRN Reason: Shortness of Breath/Wheezing Last Admin: 05/08/19 04:30 Dose: 2.5 mg Documented by: Albuterol/Ipratropium (Duoneb) 3 ml INHALATION Q4HWA.RT [facility] Last Admin: 05/21/19 07:07 Dose: 3 ml Documented by: Apixaban (Eliquis) 5 mg PO BID [facility] Last Admin: 05/20/19 23:07 Dose: 5 mg Documented by: Ascorbic Acid (Vitamin C) 500 mg PO DAILY@0800 [facility] Last Admin: 05/20/19 11:34 Dose: 500 mg Documented by: Aspirin (Aspirin, Baby) [facility] Last Admin: 05/20/19 11:34 Dose: 81 mg Documented by: Atorvastatin Calcium (Lipitor) 20 mg PO QHS [facility] Last Admin: 05/20/19 23:07 Dose: 20 mg Documented by: Bupropion HCl (Wellbutrin Tablets) 75 mg PO BID [facility] Last Admin: 05/20/19 23:07 Dose: 75 mg Documented by: Calamine/Phenol (Calmoseptine Ointment) 1 applic TOPICAL TID [facility]; Protocol Last Admin: 05/21/19 06:11 Dose: 1 applicatio Documented by: Chlorhexidine Gluconate () 1 each TOPICAL DAILY [facility] Last Admin: 05/20/19 14:20 Dose: 1 each Documented by: Famotidine (Pepcid) 20 mg PO DAILY [facility] Last Admin: 05/20/19 11:34 Dose: 20 mg Documented by: Furosemide (Lasix) 40 mg IV DAILY [facility] Last Admin: 05/20/19 12:23 Dose: 40 mg Documented by: Glucagon () 1 mg IM .X1 PRN PRN Reason: Hypoglycemia Guaifenesin (Robitussin) 20 ml PO Q4H PRN PRN PRN Reason: COUGH Heparin Sodium (Beef Lung) () 50 units IV UD PRN PRN Reason: PICC Line Heparin Flush Last Admin: 05/18/19 17:03 Dose: 50 units Documented by: Dextrose (Dextrose 10%-Water) 250 mls @ 999 mls/hr IV .Q16M PRN; Protocol PRN Reason: HYPOGLYCEMIA Sodium Chloride () 250 mls @ 15 mls/hr IV .[id number] PRN PRN Reason: Saline Flush Last Infusion: 05/19/19 18:09 Dose: 0 mls/hr Documented by: Sodium Chloride () 250 mls @ 15 mls/hr IV .[id number] PRN PRN Reason: Additional IVPB Infusion Potassium Chloride () 10 meq in 100 mls @ 100 mls/hr IV BOLUS Q1H [facility] Stop: 05/21/19 10:59 Insulin Human Lispro (Humalog Kwikpen (Bkc)) 0 unit SC Q6 [facility]; Protocol Last Admin: 05/21/19 06:10 Dose: 2 u Documented by: Lorazepam (Ativan) 0.5 mg PO Q6H PRN PRN PRN Reason: ANXIETY Last Admin: 05/20/19 23:07 Dose: 0.5 mg Documented by: Magnesium Hydroxide (Milk Of Magnesia) 30 ml PO DAILY PRN PRN PRN Reason: Constipation Melatonin (Melatonin) 3 mg PO QHS PRN PRN PRN Reason: INSOMNIA Nitroglycerin (Nitrostat) 0.4 mg SUBLINGUAL Q5M PRN PRN Reason: CARDIAC/CHEST PAIN Nystatin (Mycostatin Powder) 1 applic TOPICAL BID [facility]; Protocol Last Admin: 05/20/19 23:07 Dose: 1 applicatio Documented by: Ondansetron HCl (Zofran) 4 mg IV Q8H PRN PRN PRN Reason: NAUSEA/VOMITING Last Admin: 05/18/19 11:08 Dose: 4 mg Documented by: Oxycodone HCl (Oxyir) 5 mg PO Q4H PRN PRN PRN Reason: Pain Score 4-12/17 Last Admin: 05/20/19 12:23 Dose: 5 mg Documented by: Polyethylene Glycol (Miralax) 17 gm PO DAILY PRN PRN Reason: Constipation Prochlorperazine Edisylate (Compazine Iv) 5 mg IV Q4H PRN PRN PRN Reason: Breakthrough nausea/vomiting Senna/Docusate Sodium (Senokot-S, Corrie-Colace) 2 tablet PO DAILY PRN PRN Reason: CONSTIPATION Sodium Chloride () 10 - 40 ml IV UD PRN PRN Reason: SALINE FLUSH Last Admin: 05/20/19 08:33 Dose: 20 ml Documented by: Sodium Chloride () 10 - 40 ml IV UD PRN PRN Reason: Open End PICC Flush Sodium Chloride (0.9% Nacl (Sterile) Posiflush) 10 - 40 ml IV UD PRN PRN Reason: Port access or dressing change Medical Necessity - Tobacco Use Smoking Status: Never smoker Tobacco Use: Non-smoker Assessment/Plan All Active Problems (Last Reviewed 05/07/19 @ 13:[address] Doni Mccray MD) Respiratory failure with hypoxia (Acute) Bilateral pneumonia (Acute) Sepsis due to pneumonia (Acute) Infectious encephalopathy (Acute) 1- RYAN. normal SCr at baseline Repeated UA showed no RBC and protein 30 FeUrea is 57% indicating intrinsic renal etiology of RYAN and is likely from ATN related to sepsis Pt did not need ASSET ACCOUNTANT SCr improved. SCr has been stable ~ 1.9 mg/dL for the lat 72 hrs. Non oliguric continue same dose of lasix No need to expand RYAN work up Check renal function in am 2- Sepsis related to B/L pneumonia Finished Abx Better 3- Acute RF from B/L pneumonia/CHF continue lasix extubated 05/18. Now on RA 4- Hypernatremia:mildly elevated. Encouraged PO H20 intake Renal team will continue to follow Please call if any question at [phone] Joni Lombardo MD
[2019-05-21] MEDS: Potassium Chloride 10mEq/100mL 10 MEQ/100 ML IV.SOLN. 100 MEQ IV BOLUS ×4 (11:04→13:38)
[2019-05-21] MEDS: Ascorbic Acid 500 MG Tablet PO (11:05)
[2019-05-21] MEDS: Aspirin 81 MG TAB.CHEW PO (11:05)
[2019-05-21] MEDS: APIXABAN 5 MG TABLET PO ×2 (11:06→21:19)
[2019-05-21] MEDS: Famotidine 20 MG Tablet PO (11:06)
[2019-05-21] MEDS: buPROPion 75 MG Tablet PO ×2 (11:06→21:19)
[2019-05-21] MEDS: LORazepam 0.5 MG Tablet PO (11:14)
[2019-05-21] MEDS: 0.9% Saline Lock 10 ML Syringe IV (12:10)
[2019-05-21] MEDS: Furosemide 40 MG/4 ML Vial IV (13:31)
[2019-05-21 13:56] LABS: Bedside Glucose 205 mg/dL (70-110)
[2019-05-21 17:31] LABS: Bedside Glucose 130 mg/dL (70-110)
[2019-05-21] MEDS: Nystatin Powder 15gm Bottle 1 APPLIC TOPICAL (21:19)
[2019-05-21] MEDS: Atorvastatin Calcium 20 MG Tablet PO (21:19)
[2019-05-22] VITALS (13 sets, daily range): BP systolic 135–153; BP diastolic 47–74; PULSE 83–113; RESP 18–26; TEMP 36.7–37.6; O2SAT 96–98
[2019-05-22] MEDS: Insulin Lispro 100 UNIT/ML INSULN.PEN SC ×4 (00:10→17:33)
[2019-05-22 00:21] LABS: Bedside Glucose 189 mg/dL (70-110)
[2019-05-22] MEDS: Menthol/Lanolin/Calamine/Znox 113 GM Tube 1 APPLIC TOPICAL ×3 (06:08→21:17)
[2019-05-22 06:47] LABS: Hematocrit 29.9 % (37-47); Mean Corp Hgb Conc 30.1 g/dL (32-36); Mean Corpuscular Hgb 28.3 pg (27.0-32.0); Mean Platelet Vol. 9.7 fl (6.2-12.0); Platelet Count 338 K/mm3 (150-450); RBC Distribution Width CV 17.1 % (11.6-14.6); RBC Distribution Width SD 57.3 fl (35.1-43.9); Red Blood Count 3.18 M/mm3 (4.2-5.4); White Blood Count 18.7 K/mm3 (4.4-11.0)
[2019-05-22 06:51] LABS: Bedside Glucose 162 mg/dL (70-110)
[2019-05-22 06:57] LABS: Scan Indicated on CBC? Y/N NO
[2019-05-22 07:04] LABS: Anion Gap 6 (5-15); BUN 48 mg/dL (7-18); BUN/Creat Ratio 24.9 RATIO (10-20); Calcium,Total 8.7 mg/dL (8.5-10.1); Chloride 118 mmol/L (98-107); Creatinine, Serum 1.93 mg/dL (0.55-1.02); EST Glomerular Filtration Rate 28 mL/min (>60); Est Glom Filt Rate - Afr Amer 33 mL/min (>60); Glucose 179 mg/dL (74-106); Potassium 3.6 mmol/L (3.5-5.1); Sodium Level 151 mmol/L (136-145)
[2019-05-22] MEDS: Ipratropium/Albuterol Sulfate 3 ML AMPUL.NEB INHALATION ×3 (07:17→18:47)
[2019-05-22] MEDS: APIXABAN 5 MG TABLET PO ×2 (09:03→21:10)
[2019-05-22] MEDS: buPROPion 75 MG Tablet PO ×2 (09:03→21:10)
[2019-05-22] MEDS: Nystatin Powder 15gm Bottle 1 APPLIC TOPICAL ×2 (09:03→21:17)
[2019-05-22] MEDS: Ascorbic Acid 500 MG Tablet PO (09:03)
[2019-05-22] MEDS: Aspirin 81 MG TAB.CHEW PO (09:03)
[2019-05-22] MEDS: Famotidine 20 MG Tablet PO (09:03)
[2019-05-22] MEDS: Furosemide 40 MG/4 ML Vial IV (09:04)
[2019-05-22 12:55] LABS: Bedside Glucose 179 mg/dL (70-110)
--- NOTE | 2019-05-22 14:47 | PN_ITS ---
Patient Problems: Active and Suspected Problems (Last Reviewed 05/07/19 @ 13:[address] Doni Mccray MD) Respiratory failure with hypoxia (Acute) Bilateral pneumonia (Acute) Sepsis due to pneumonia (Acute) Infectious encephalopathy (Acute) Reason for Visit: Acute hypoxic respiratory failure, sepsis suspected secondary to pneumonia. Generalized weakness Objective: On physical exam General: Awake, alert, oriented x3. Generalized weakness. HEENT: Atraumatic, PERRLA, EOMI, Normocephalic Oral: Dry Mucosa Neck: Supple, No JVD, Negative Carotid Bruits Lungs: Clear to auscultation, No rhonchi, No wheeze, No rales, Diminished Cardiovascular: Regular Rhythm, Normal S1, Normal S2, No murmurs, mild tachycardic heart rate 111/min. Abdomen: Bowel Sounds Present, Soft, Non Tender, Non-Distended Extremities: Capillary Refill Less than 3 Seconds, Edema Skin: No rashes, No breakdown Musculoskeletal: No Tenderness to Palpation of Joints or Extremities, Arthritic Changes Neurological: Cranial nerves II-XII grossly intact, Deep Tendon Reflexes 2+/4 and Symmetrical, Neuro grossly intact Vitals/I&O's: Vital Signs Temp Pulse Resp BP Pulse Ox 98.3 F 111 H 18 139/47 H 98 05/22/19 09:00 05/22/19 11:27 05/22/19 11:27 05/22/19 09:00 05/22/19 09:00 Oxygen Flow Rate (L/min) 3 Oxygen Delivery Method Room Air Weight: 179 lb 7.3 oz Body Mass Index (BMI) 31.8 Intake and Output for Last 24 Hours 05/20/19 05/21/19 05/22/19 23:59 23:59 23:59 Intake Total 150 / 330 1166.66 / 1166.66 Output Total 500 / 1000 1500 / 1500 650 / 650 Balance -350 / -670 -333.34 / -333.34 -650 / -650 Microbiology Past 72 Hours 05/17/19 22:10 Sputum, Induced/Lukens Gram Stain - Final 05/17/19 22:10 Sputum, Induced/Lukens Respiratory Culture - Final Presumptive C albicans Laboratory Results 05/21/19 17:24: POC Glucose 130 H 05/22/19 00:06: POC Glucose 189 H 05/22/19 05:30: WBC 18.7 H, RBC 3.18 L, Hgb 9.0 L, Hct 29.9 L, MCV 94.0, MCH 28.3, MCHC 30.1 L D, RDW Std Deviation 57.3 H, RDW Coeff of Kristal 17.1 H, Plt Count 338, MPV 9.7 05/22/19 05:30: Sodium 151 H, Potassium 3.6, Chloride 118 H, Carbon Dioxide 27.0, Anion Gap 6, BUN 48 H, Creatinine 1.93 H, Estim Creat Clear Calc 25.80, Est GFR (MDRD) Af Amer 33 L, Est GFR (MDRD) Non-Af 28 L, BUN/Creatinine Ratio 24.9 H, Glucose 179 H, Calcium 8.7 05/22/19 06:06: POC Glucose 162 H 05/22/19 12:44: POC Glucose 179 H Current Medications Acetaminophen (Tylenol Liquid) 650 mg PO Q6H PRN PRN PRN Reason: Pain Score 1-3/Temp > 100.7 F Al Hydroxide/Mg Hydroxide (Mylanta Ii) 30 ml PO Q6H PRN PRN PRN Reason: Gastric Burning Albuterol Sulfate (Ventolin Aerosols) 2.5 mg INHALATION Q2H PRN PRN PRN Reason: Shortness of Breath/Wheezing Last Admin: 05/08/19 04:30 Dose: 2.5 mg Documented by: Albuterol/Ipratropium (Duoneb) 3 ml INHALATION Q6HWA.RT [facility] Apixaban (Eliquis) 5 mg PO BID [facility] Last Admin: 05/22/19 09:03 Dose: 5 mg Documented by: Ascorbic Acid (Vitamin C) 500 mg PO DAILY@0800 [facility] Last Admin: 05/22/19 09:03 Dose: 500 mg Documented by: Aspirin (Aspirin, Baby) 81 mg PO DAILYCM [facility] Last Admin: 05/22/19 09:03 Dose: 81 mg Documented by: Atorvastatin Calcium (Lipitor) 20 mg PO QHS [facility] Last Admin: 05/21/19 21:19 Dose: 20 mg Documented by: Bupropion HCl (Wellbutrin Tablets) 75 mg PO BID [facility] Last Admin: 05/22/19 09:03 Dose: 75 mg Documented by: Calamine/Phenol (Calmoseptine Ointment) 1 applic TOPICAL TID [facility]; Protocol Last Admin: 05/22/19 06:08 Dose: 1 applicatio Documented by: Famotidine (Pepcid) 20 mg PO DAILY [facility] Last Admin: 05/22/19 09:03 Dose: 20 mg Documented by: Furosemide (Lasix) 40 mg IV DAILY [facility] Last Admin: 05/22/19 09:04 Dose: 40 mg Documented by: Glucagon () 1 mg IM .X1 PRN PRN Reason: Hypoglycemia Guaifenesin (Robitussin) 20 ml PO Q4H PRN PRN PRN Reason: COUGH Heparin Sodium (Beef Lung) () 50 units IV UD PRN PRN Reason: PICC Line Heparin Flush Last Admin: 05/18/19 17:03 Dose: 50 units Documented by: Dextrose (Dextrose 10%-Water) 250 mls @ 999 mls/hr IV .Q16M PRN; Protocol PRN Reason: HYPOGLYCEMIA Sodium Chloride () 250 mls @ 15 mls/hr IV .[id number] PRN PRN Reason: Saline Flush Last Infusion: 05/19/19 18:09 Dose: 0 mls/hr Documented by: Sodium Chloride () 250 mls @ 15 mls/hr IV .[id number] PRN PRN Reason: Additional IVPB Infusion Insulin Human Lispro (Humalog Kwikpen (Bkc)) 0 unit SC Q6 [facility]; Protocol Last Admin: 05/22/19 12:45 Dose: 2 u Documented by: Lorazepam (Ativan) 0.5 mg PO Q6H PRN PRN PRN Reason: ANXIETY Last Admin: 05/21/19 11:14 Dose: 0.5 mg Documented by: Magnesium Hydroxide (Milk Of Magnesia) 30 ml PO DAILY PRN PRN PRN Reason: Constipation Melatonin (Melatonin) 3 mg PO QHS PRN PRN PRN Reason: INSOMNIA Nitroglycerin (Nitrostat) 0.4 mg SUBLINGUAL Q5M PRN PRN Reason: CARDIAC/CHEST PAIN Nystatin (Mycostatin Powder) 1 applic TOPICAL BID [facility]; Protocol Last Admin: 05/22/19 09:03 Dose: 1 applicatio Documented by: Ondansetron HCl (Zofran) 4 mg IV Q8H PRN PRN PRN Reason: NAUSEA/VOMITING Last Admin: 05/18/19 11:08 Dose: 4 mg Documented by: Oxycodone HCl (Oxyir) 5 mg PO Q4H PRN PRN PRN Reason: Pain Score 4-10/10 Last Admin: 05/20/19 12:23 Dose: 5 mg Documented by: Polyethylene Glycol (Miralax) 17 gm PO DAILY PRN PRN Reason: Constipation Prochlorperazine Edisylate (Compazine Iv) 5 mg IV Q4H PRN PRN PRN Reason: Breakthrough nausea/vomiting Senna/Docusate Sodium (Senokot-S, Corrie-Colace) 2 tablet PO DAILY PRN PRN Reason: CONSTIPATION Sodium Chloride () 10 - 40 ml IV UD PRN PRN Reason: SALINE FLUSH Last Admin: 05/21/19 12:10 Dose: 10 ml Documented by: Sodium Chloride () 10 - 40 ml IV UD PRN PRN Reason: Open End PICC Flush Sodium Chloride (0.9% Nacl (Sterile) Posiflush) 10 - 40 ml IV UD PRN PRN Reason: Port access or dressing change STROKE Vital Signs/Narrative: Vital Signs Pulse Resp 05/22/19 11:27 111 H 18 Medical Necessity - Tobacco Use Smoking Status: Never smoker Tobacco Use: Non-smoker Assessment/Plan All Active Problems (Last Reviewed 05/07/19 @ 13:[address] Doni Mccray MD) Respiratory failure with hypoxia (Acute) Bilateral pneumonia (Acute) Sepsis due to pneumonia (Acute) Infectious encephalopathy (Acute) Patient is a 68-year-old lady residing at an extended care facility presenting with cough cough shortness of breath and fever and acute hypoxic respiratory failure which required intubation. 1. Sepsis ?Secondary to suspected pneumonia with multidrug-resistant organisms. 05/21/2019: Sputum cultures positive for Kristin albicans. ID consult reviewed. Initially patient was started on vancomycin, Levaquin and cefepime. Patient completed course of antibiotic. Sputum culture positive of Kristin albicans likely colonization. Currently off antibiotics. 05/21: No fever. Hemodynamically stable. Mild tachycardic. Metoprolol 12.5 mg twice daily added. 2. Acute hypoxic respiratory failure most likely secondary to healthcare acid pneumonia, with multidrug-resistant organisms versus pulmonary edema: Resolved currently on room air ?Patient is on modified dysphagia diet as per recommendation of his speech therapist after she failed swallow test and was subsequently evaluated by speech therapist. Echo February 2019. Interpretation Summary Mild concentric left ventricular hypertrophy. The estimated ejection fraction is 65 %. Stage 1 diastolic dysfunction. Trivial tricuspid valve insufficiency. Right ventricular systolic pressure estimated to be 25 mmHg. 3. Diabetes mellitus type II ~Uncontrolled with hyperglycemia patient's oral hypoglycemics held. Placed on long acting insulin, Accu-Cheks a.c. every 6 with sliding scale insulin. Glucose is between 150-180 mg/dL 4. Bilateral lower extremity weakness ?Secondary to DJD involving the lumbar spine patient was undergoing therapy at extended care facility 5. Systemic use of anticoagulation ?Patient is on therapeutic dose of Eliquis rationale was not clear from the chart however did continue do suspect this is being used for DVT prophylaxis or recent diagnosis of DVT 6. Dyslipidemia ~patient is on statin therapy, continued at home dose 7. Obesity with BMI of 33.7 ?Weight loss advised 8. DVT prophylaxis ?Patient is on Eliquis did continue 9. Acute kidney injury with mild hypokalemia, K3.4. RYAN worsened with creatinine went up from 0.68 on admission to 2.20 currently 1.8. BUN 55. Reeling Machine Setup Operator on board. Creatinine is stable for last 5 days. Being followed by type casting machine operator. Urine output about 1500 mils daily. Today 650 mL since midnight. Discharge planning: PT and OT and will need SNF for prolonged intubation, ICU stay. Inpatient E&M: [id number] Subs Hosp L2
[2019-05-22] MEDS: Metoprolol Tartrate 25 MG Tablet 12.5 MG PO ×2 (15:48→21:15)
--- NOTE | 2019-05-22 15:58 | PCM.PN.REN ---
Patient Problems: Active and Suspected Problems (Last Reviewed 05/07/19 @ 13:[address] Doni Mccray MD) Respiratory failure with hypoxia (Acute) Bilateral pneumonia (Acute) Sepsis due to pneumonia (Acute) Infectious encephalopathy (Acute) Subjective: Doing Ok. on RA No nausea No vomiting. - Physical Exam Vitals/I&O's: Vital Signs Temp Pulse Resp BP Pulse Ox 98.3 F 113 H 18 139/47 H 98 05/22/19 09:00 05/22/19 15:48 05/22/19 11:27 05/22/19 09:00 05/22/19 09:00 Oxygen Flow Rate (L/min) 3 Oxygen Delivery Method Room Air Weight: 81.4 kg Body Mass Index (BMI) 31.8 Intake and Output for Last 24 Hours 05/20/19 05/21/19 05/22/19 23:59 23:59 23:59 Intake Total 150 / 330 1166.66 / 1166.66 Output Total 500 / 1000 1500 / 1500 650 / 650 Balance -350 / -670 -333.34 / -333.34 -650 / -650 General: Alert, Oriented x3 HEENT: Atraumatic Oral: Moist Mucosa Neck: Supple, No JVD, Negative Carotid Bruits, Negative Hepatojugular Reflux Lungs: Clear to auscultation, Normal air movement, No rhonchi Cardiovascular: Regular rate, Regular Rhythm, Normal S1, Normal S2 Abdomen: Bowel Sounds Present, Soft, Non Tender, Non-Distended Extremities: No clubbing, No cyanosis, No edema Skin: No rashes Musculoskeletal: No Tenderness to Palpation of Joints or Extremities Neurological: Neuro grossly intact Microbiology Past 72 Hours 05/17/19 22:10 Sputum, Induced/Lukens Gram Stain - Final 05/17/19 22:10 Sputum, Induced/Lukens Respiratory Culture - Final Presumptive C albicans Laboratory Results 05/21/19 17:24: POC Glucose 130 H 05/22/19 00:06: POC Glucose 189 H 05/22/19 05:30: WBC 18.7 H, RBC 3.18 L, Hgb 9.0 L, Hct 29.9 L, MCV 94.0, MCH 28.3, MCHC 30.1 L D, RDW Std Deviation 57.3 H, RDW Coeff of Kristal 17.1 H, Plt Count 338, MPV 9.7 05/22/19 05:30: Sodium 151 H, Potassium 3.6, Chloride 118 H, Carbon Dioxide 27.0, Anion Gap 6, BUN 48 H, Creatinine 1.93 H, Estim Creat Clear Calc 25.80, Est GFR (MDRD) Af Amer 33 L, Est GFR (MDRD) Non-Af 28 L, BUN/Creatinine Ratio 24.9 H, Glucose 179 H, Calcium 8.7 05/22/19 06:06: POC Glucose 162 H 05/22/19 12:44: POC Glucose 179 H Current Medications Acetaminophen (Tylenol Liquid) 650 mg PO Q6H PRN PRN PRN Reason: Pain Score 1-3/Temp > 100.7 F Al Hydroxide/Mg Hydroxide (Mylanta Ii) 30 ml PO Q6H PRN PRN PRN Reason: Gastric Burning Albuterol Sulfate (Ventolin Aerosols) 2.5 mg INHALATION Q2H PRN PRN PRN Reason: Shortness of Breath/Wheezing Last Admin: 05/08/19 04:30 Dose: 2.5 mg Documented by: Albuterol/Ipratropium (Duoneb) 3 ml INHALATION Q6HWA.RT [facility] Apixaban (Eliquis) 5 mg PO BID [facility] Last Admin: 05/22/19 09:03 Dose: 5 mg Documented by: Ascorbic Acid (Vitamin C) 500 mg PO DAILY@0800 [facility] Last Admin: 05/22/19 09:03 Dose: 500 mg Documented by: Aspirin (Aspirin, Baby) 81 mg PO DAILYCM [facility] Last Admin: 05/22/19 09:03 Dose: 81 mg Documented by: Atorvastatin Calcium (Lipitor) 20 mg PO QHS [facility] Last Admin: 05/21/19 21:19 Dose: 20 mg Documented by: Bupropion HCl (Wellbutrin Tablets) 75 mg PO BID [facility] Last Admin: 05/22/19 09:03 Dose: 75 mg Documented by: Calamine/Phenol (Calmoseptine Ointment) 1 applic TOPICAL TID [facility]; Protocol Last Admin: 05/22/19 15:19 Dose: 1 applicatio Documented by: Famotidine (Pepcid) 20 mg PO DAILY [facility] Last Admin: 05/22/19 09:03 Dose: 20 mg Documented by: Glucagon () 1 mg IM .X1 PRN PRN Reason: Hypoglycemia Guaifenesin (Robitussin) 20 ml PO Q4H PRN PRN PRN Reason: COUGH Heparin Sodium (Beef Lung) () 50 units IV UD PRN PRN Reason: PICC Line Heparin Flush Last Admin: 05/18/19 17:03 Dose: 50 units Documented by: Dextrose (Dextrose 10%-Water) 250 mls @ 999 mls/hr IV .Q16M PRN; Protocol PRN Reason: HYPOGLYCEMIA Sodium Chloride () 250 mls @ 15 mls/hr IV .[id number] PRN PRN Reason: Saline Flush Last Infusion: 05/19/19 18:09 Dose: 0 mls/hr Documented by: Sodium Chloride () 250 mls @ 15 mls/hr IV .[id number] PRN PRN Reason: Additional IVPB Infusion Insulin Human Lispro (Humalog Kwikpen (Bkc)) 0 unit SC Q6 [facility]; Protocol Last Admin: 05/22/19 12:45 Dose: 2 u Documented by: Lorazepam (Ativan) 0.5 mg PO Q6H PRN PRN PRN Reason: ANXIETY Last Admin: 05/21/19 11:14 Dose: 0.5 mg Documented by: Melatonin (Melatonin) 3 mg PO QHS PRN PRN PRN Reason: INSOMNIA Metoprolol Tartrate (Lopressor (Beta Joseph)) 12.5 mg PO BID [facility] Last Admin: 05/22/19 15:48 Dose: 12.5 mg Documented by: Nitroglycerin (Nitrostat) 0.4 mg SUBLINGUAL Q5M PRN PRN Reason: CARDIAC/CHEST PAIN Nystatin (Mycostatin Powder) 1 applic TOPICAL BID [facility]; Protocol Last Admin: 05/22/19 09:03 Dose: 1 applicatio Documented by: Ondansetron HCl (Zofran) 4 mg IV Q8H PRN PRN PRN Reason: NAUSEA/VOMITING Last Admin: 05/18/19 11:08 Dose: 4 mg Documented by: Oxycodone HCl (Oxyir) 5 mg PO Q4H PRN PRN PRN Reason: Pain Score 4-10/10 Last Admin: 05/20/19 12:23 Dose: 5 mg Documented by: Polyethylene Glycol (Miralax) 17 gm PO DAILY PRN PRN Reason: Constipation Prochlorperazine Edisylate (Compazine Iv) 5 mg IV Q4H PRN PRN PRN Reason: Breakthrough nausea/vomiting Senna/Docusate Sodium (Senokot-S, Corrie-Colace) 2 tablet PO DAILY PRN PRN Reason: CONSTIPATION Sodium Chloride () 10 - 40 ml IV UD PRN PRN Reason: SALINE FLUSH Last Admin: 05/21/19 12:10 Dose: 10 ml Documented by: Sodium Chloride () 10 - 40 ml IV UD PRN PRN Reason: Open End PICC Flush Sodium Chloride (0.9% Nacl (Sterile) Posiflush) 10 - 40 ml IV UD PRN PRN Reason: Port access or dressing change Medical Necessity - Tobacco Use Smoking Status: Never smoker Tobacco Use: Non-smoker Assessment/Plan All Active Problems (Last Reviewed 05/07/19 @ 13:[address] Doni Mccray MD) Respiratory failure with hypoxia (Acute) Bilateral pneumonia (Acute) Sepsis due to pneumonia (Acute) Infectious encephalopathy (Acute) 1- RYAN. normal SCr at baseline Repeated UA showed no RBC and protein 30 FeUrea is 57% indicating intrinsic renal etiology of RYAN and is likely from ATN related to sepsis Pt did not need FOLDER HAND SCr improved. SCr has been stable ~ 1.9 mg/dL for the last 4 days d/c lasix No need to expand RYAN work up Check renal function in am 2- Sepsis related to B/L pneumonia Finished Abx Better 3- Acute RF from B/L pneumonia/CHF continue lasix extubated 05/18. Now on RA 4- Hypernatremia:mildly elevated. Encouraged PO H20 intake d/c IV lasix Renal team will continue to follow Please call if any question at [phone] Joni Lombardo MD
[2019-05-22 17:41] LABS: Bedside Glucose 179 mg/dL (70-110)
[2019-05-22] MEDS: Atorvastatin Calcium 20 MG Tablet PO (21:10)
[2019-05-22 23:50] LABS: Bedside Glucose 150 mg/dL (70-110)
[2019-05-23] VITALS (14 sets, daily range): BP systolic 135–161; BP diastolic 64–73; PULSE 65–108; RESP 16–22; TEMP 36.6–36.9; O2SAT 94–97
[2019-05-23] MEDS: Insulin Lispro 100 UNIT/ML INSULN.PEN SC ×4 (06:05→21:41)
[2019-05-23] MEDS: Menthol/Lanolin/Calamine/Znox 113 GM Tube 1 APPLIC TOPICAL ×3 (06:06→21:37)
[2019-05-23 06:16] LABS: Bedside Glucose 168 mg/dL (70-110)
[2019-05-23] MEDS: Ipratropium/Albuterol Sulfate 3 ML AMPUL.NEB INHALATION ×2 (07:01→19:27)
[2019-05-23] MEDS: Ascorbic Acid 500 MG Tablet PO (08:58)
[2019-05-23] MEDS: Aspirin 81 MG TAB.CHEW PO (08:58)
[2019-05-23] MEDS: Nystatin Powder 15gm Bottle 1 APPLIC TOPICAL ×2 (08:59→21:38)
[2019-05-23] MEDS: Metoprolol Tartrate 25 MG Tablet 12.5 MG PO ×2 (08:59→21:38)
[2019-05-23] MEDS: APIXABAN 5 MG TABLET PO ×2 (08:59→21:37)
[2019-05-23] MEDS: Famotidine 20 MG Tablet PO (09:00)
[2019-05-23] MEDS: buPROPion 75 MG Tablet PO ×2 (09:03→21:38)
--- NOTE | 2019-05-23 11:23 | PN_ITS ---
Patient Problems: Active and Suspected Problems (Last Reviewed 05/07/19 @ 13:[address] Doni Mccray MD) Respiratory failure with hypoxia (Acute) Bilateral pneumonia (Acute) Sepsis due to pneumonia (Acute) Infectious encephalopathy (Acute) Reason for Visit: Status post acute hypoxic respiratory failure with sepsis secondary to suspected pneumonia. Objective: Patient generalized weak. Low level of energy gets a little short of breath on exertion. Low pitched voice. Mild sore throat secondary to prolonged intubation. On physical exam General: Awake, alert, oriented x3. Generalized weakness. HEENT: Atraumatic, PERRLA, EOMI, Normocephalic Oral: Dry Mucosa Neck: Supple, No JVD, Negative Carotid Bruits Lungs: Clear to auscultation, No rhonchi, No wheeze, No rales, Diminished Cardiovascular: Regular Rhythm, Normal S1, Normal S2, No murmurs, heart rate 67/min. Normal sinus rhythm. Abdomen: Bowel Sounds Present, Soft, Non Tender, Non-Distended Extremities: Capillary Refill Less than 3 Seconds, Edema Skin: No rashes, No breakdown Musculoskeletal: No Tenderness to Palpation of Joints or Extremities, Arthritic Changes Neurological: Cranial nerves II-XII grossly intact, Deep Tendon Reflexes 2+/4 and Symmetrical, Neuro grossly intact Vitals/I&O's: Vital Signs Temp Pulse Resp BP Pulse Ox 98.4 F 67 16 135/64 H 96 05/23/19 09:00 05/23/19 09:00 05/23/19 09:00 05/23/19 09:00 05/23/19 09:00 Oxygen Flow Rate (L/min) 3 Oxygen Delivery Method Room Air Weight: 172 lb 6.424 oz Body Mass Index (BMI) 31.8 Intake and Output for Last 24 Hours 05/21/19 05/22/19 05/23/19 23:59 23:59 23:59 Intake Total 1166.66 / 1166.66 240 / 240 Output Total 1500 / 1500 1025 / 1025 225 / 225 Balance -333.34 / -333.34 -785 / -785 -225 / -225 Microbiology Past 72 Hours 05/17/19 22:10 Sputum, Induced/Lukens Gram Stain - Final 05/17/19 22:10 Sputum, Induced/Lukens Respiratory Culture - Final Presumptive C albicans Laboratory Results 05/22/19 12:44: POC Glucose 179 H 05/22/19 17:30: POC Glucose 179 H 05/22/19 23:42: POC Glucose 150 H 05/23/19 06:04: POC Glucose 168 H Current Medications Acetaminophen (Tylenol Liquid) 650 mg PO Q6H PRN PRN PRN Reason: Pain Score 1-3/Temp > 100.7 F Al Hydroxide/Mg Hydroxide (Mylanta Ii) 30 ml PO Q6H PRN PRN PRN Reason: Gastric Burning Albuterol Sulfate (Ventolin Aerosols) 2.5 mg INHALATION Q2H PRN PRN PRN Reason: Shortness of Breath/Wheezing Last Admin: 05/08/19 04:30 Dose: 2.5 mg Documented by: Albuterol/Ipratropium (Duoneb) 3 ml INHALATION Q6HWA.RT [facility] Last Admin: 05/23/19 07:01 Dose: 3 ml Documented by: Apixaban (Eliquis) 5 mg PO BID [facility] Last Admin: 05/23/19 08:59 Dose: 5 mg Documented by: Ascorbic Acid (Vitamin C) 500 mg PO DAILY@0800 [facility] Last Admin: 05/23/19 08:58 Dose: 500 mg Documented by: Aspirin (Aspirin, Baby) 81 mg PO DAILYCM [facility] Last Admin: 05/23/19 08:58 Dose: 81 mg Documented by: Atorvastatin Calcium (Lipitor) 20 mg PO QHS [facility] Last Admin: 05/22/19 21:10 Dose: 20 mg Documented by: Bupropion HCl (Wellbutrin Tablets) 75 mg PO BID [facility] Last Admin: 05/23/19 09:03 Dose: 75 mg Documented by: Calamine/Phenol (Calmoseptine Ointment) 1 applic TOPICAL TID [facility]; Protocol Last Admin: 05/23/19 06:06 Dose: 1 applicatio Documented by: Famotidine (Pepcid) 20 mg PO DAILY [facility] Last Admin: 05/23/19 09:00 Dose: 20 mg Documented by: Glucagon () 1 mg IM .X1 PRN PRN Reason: Hypoglycemia Guaifenesin (Robitussin) 20 ml PO Q4H PRN PRN PRN Reason: COUGH Heparin Sodium (Beef Lung) () 50 units IV UD PRN PRN Reason: PICC Line Heparin Flush Last Admin: 05/18/19 17:03 Dose: 50 units Documented by: Dextrose (Dextrose 10%-Water) 250 mls @ 999 mls/hr IV .Q16M PRN; Protocol PRN Reason: HYPOGLYCEMIA Sodium Chloride () 250 mls @ 15 mls/hr IV .[id number] PRN PRN Reason: Saline Flush Last Infusion: 05/19/19 18:09 Dose: 0 mls/hr Documented by: Sodium Chloride () 250 mls @ 15 mls/hr IV .[id number] PRN PRN Reason: Additional IVPB Infusion Insulin Human Lispro (Humalog Kwikpen (Bkc)) 0 unit SC Q6 [facility]; Protocol Last Admin: 05/23/19 06:05 Dose: 2 u Documented by: Lorazepam (Ativan) 0.5 mg PO Q6H PRN PRN PRN Reason: ANXIETY Last Admin: 05/21/19 11:14 Dose: 0.5 mg Documented by: Melatonin (Melatonin) 3 mg PO QHS PRN PRN PRN Reason: INSOMNIA Metoprolol Tartrate (Lopressor (Beta Joseph)) 12.5 mg PO BID [facility] Last Admin: 05/23/19 08:59 Dose: 12.5 mg Documented by: Nitroglycerin (Nitrostat) 0.4 mg SUBLINGUAL Q5M PRN PRN Reason: CARDIAC/CHEST PAIN Nystatin (Mycostatin Powder) 1 applic TOPICAL BID [facility]; Protocol Last Admin: 05/23/19 08:59 Dose: 1 applicatio Documented by: Ondansetron HCl (Zofran) 4 mg IV Q8H PRN PRN PRN Reason: NAUSEA/VOMITING Last Admin: 05/18/19 11:08 Dose: 4 mg Documented by: Oxycodone HCl (Oxyir) 5 mg PO Q4H PRN PRN PRN Reason: Pain Score 4-10/10 Last Admin: 05/20/19 12:23 Dose: 5 mg Documented by: Polyethylene Glycol (Miralax) 17 gm PO DAILY PRN PRN Reason: Constipation Prochlorperazine Edisylate (Compazine Iv) 5 mg IV Q4H PRN PRN PRN Reason: Breakthrough nausea/vomiting Senna/Docusate Sodium (Senokot-S, Corrie-Colace) 2 tablet PO DAILY PRN PRN Reason: CONSTIPATION Sodium Chloride () 10 - 40 ml IV UD PRN PRN Reason: SALINE FLUSH Last Admin: 05/21/19 12:10 Dose: 10 ml Documented by: Sodium Chloride () 10 - 40 ml IV UD PRN PRN Reason: Open End PICC Flush Sodium Chloride (0.9% Nacl (Sterile) Posiflush) 10 - 40 ml IV UD PRN PRN Reason: Port access or dressing change STROKE Vital Signs/Narrative: Vital Signs Temp Pulse Resp BP Pulse Ox 05/23/19 09:00 98.4 F 67 16 135/64 H 96 05/23/19 08:59 65 05/23/19 07:57 97 Medical Necessity - Tobacco Use Smoking Status: Never smoker Tobacco Use: Non-smoker Assessment/Plan All Active Problems (Last Reviewed 05/07/19 @ 13:[address] Doni Mccray MD) Respiratory failure with hypoxia (Acute) Bilateral pneumonia (Acute) Sepsis due to pneumonia (Acute) Infectious encephalopathy (Acute) Patient is a 68-year-old lady residing at an extended care facility presenting with cough cough shortness of breath and fever and acute hypoxic respiratory failure which required intubation. 1. Sepsis ?Secondary to suspected pneumonia with multidrug-resistant organisms. 05/21/2019: Sputum cultures positive for Kristin albicans. ID consult reviewed. Initially patient was started on vancomycin, Levaquin and cefepime. Patient completed course of antibiotic. Sputum culture positive of Kristin albicans likely colonization. Currently off antibiotics. 05/21: No fever. Hemodynamically stable. Mild tachycardic. Metoprolol 12.5 mg twice daily added. 05/22: No fevers. Hemodynamically stable. Tachycardia is controlled. 2. Acute hypoxic respiratory failure most likely secondary to healthcare acid pneumonia, with multidrug-resistant organisms versus pulmonary edema: Resolved currently on room air ?Patient is on modified dysphagia diet as per recommendation of his speech therapist after she failed swallow test and was subsequently evaluated by speech therapist. Echo February 2019. Interpretation Summary Mild concentric left ventricular hypertrophy. The estimated ejection fraction is 65 %. Stage 1 diastolic dysfunction. Trivial tricuspid valve insufficiency. Right ventricular systolic pressure estimated to be 25 mmHg. 3. Diabetes mellitus type II ~Uncontrolled with hyperglycemia patient's oral hypoglycemics held. Placed on long acting insulin, Accu-Cheks a.c. every 6 with sliding scale insulin. Glucose is between 150-180 mg/dL 4. Bilateral lower extremity weakness ?Secondary to DJD involving the lumbar spine patient was undergoing therapy at extended care facility 5. Systemic use of anticoagulation ?Patient is on therapeutic dose of Eliquis rationale was not clear from the chart however did continue do suspect this is being used for DVT prophylaxis or recent diagnosis of DVT 6. Dyslipidemia ~patient is on statin therapy, continued at home dose 7. Obesity with BMI of 33.7 ?Weight loss advised 8. DVT prophylaxis ?Patient is on Eliquis did continue 9. Acute kidney injury with mild hypokalemia, K3.4. RYAN worsened with creatinine went up from 0.68 on admission to 2.20 currently 1.8. BUN 55. 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 Creatinine is stable for last 5 days. Being followed by space and missile defense operations. Urine output about 1500 mils daily. Today 650 mL since midnight. 05/22: Kidney function is stable for last 4 days. Repeat BMP tomorrow a.m. Discharge planning: PT and OT and will need SNF for prolonged intubation, ICU stay. Inpatient E&M: 96206 Subs Hosp L2
--- NOTE | 2019-05-23 11:45 | TREXTCAR_ITS ---
- Diet 05/20/19 11:55 Diet: Regular Diet Food consistency:: Puree Liquid Consistency:: [place] Thick Is pt able to select menu?: Yes Diet Comments: TOTAL FEED; medications crushed in applesauce - Routine Orders/Code Status Suppository Type: Dulcolax 10mg Suppository Frequency: Daily PRN Routine Lab Work: CBC, BMP - in 1 week and F/U Dr Lombardo, the [place] medical oncologist Code Status: DNRCC-A - With intubation - Wound(s) Coccyx Wound Type: Pressure Injury Dressing Change: Mepilex bilateral inner thigh Wound Type: Abrasion R foot toes Wound Type: Abrasion - Therapies Weight Bearing: Weight bearing as tolerated Extremity Affected:: Bilateral Lower Physical Therapy: Eval and Treat Occupational Therapy: Eval and Treat Speech Therapy: Eval and Treat - Allergies/Procedures Done in Hospital Allergies/Adverse Reactions: Allergies No Known Allergies Allergy (Verified 05/07/19 10:08) - Type of Care/Length of Stay Estimated LOS: Convalescent Care Less Than 30 days Type of Care Needed: Skilled Rehab Potential: Good Prognosis: Good - Additional Orders/Day of Discharge Day of Discharge: 05/23/19 - Dietary and Speech Recommendations Dietitian Recommendations/Changes: Suggest advance diet as tolerated if deemed safe for PO to Carbohydrate-controlled; cardiac/low sodium with fluid restriction as needed - consistency per WARNING COORDINATION METEOROLOGIST. If PO remains contraindicated, consider TF support for nutrition to prevent further energy/pro depletion. - Follow Up Care Primary Care Physician: Imtiaz Lee DO [Primary Care Provider] - Please follow up with your Primary Care Physician in: in 1-2 weeks Please Follow Up With: Joni Lombardo MD When: In 1 week with BMP
[2019-05-23 13:11] LABS: Bedside Glucose 178 mg/dL (70-110)
--- NOTE | 2019-05-23 14:41 | DS.PCM_ITS ---
Discharge Date and Diagnosis - Problem List Patient Problems: Active and Suspected Problems (Last Reviewed 05/07/19 @ 13:[address] Doni Mccray MD) Respiratory failure with hypoxia (Acute) Bilateral pneumonia (Acute) Sepsis due to pneumonia (Acute) Infectious encephalopathy (Acute) Date of Admission: 05/07/19 Date of Discharge: 05/23/19 - Primary Discharge Diagnosis Active and Suspected Problems (Last Reviewed 05/07/19 @ 13:[address] Doni Mccray MD) Respiratory failure with hypoxia (Acute) Bilateral pneumonia (Acute) Sepsis due to pneumonia (Acute) Infectious encephalopathy (Acute) - Secondary Discharge Diagnosis Chronic Problems (Last Reviewed 05/07/19 @ 13:[address] Doni Mccray MD) Left leg weakness (Chronic) Stroke-like symptoms (Chronic) Debility, unspecified (Chronic) Depression (Chronic) Diabetes (Chronic) HLD (hyperlipidemia) (Chronic) Chronic kidney disease (Chronic) Hospital Course and Treatment Consultations 05/19/19 06:23 Consult: Onc/Wound/timber watchman Routine Comment: Operations: None Summary of Care Provided: [] Patient is a 68-year-old lady residing at an extended care facility presenting with cough cough shortness of breath and fever and acute hypoxic respiratory failure which required intubation. 1. Sepsis ?Secondary to suspected pneumonia with multidrug-resistant organisms. Sputum cultures positive for Kristin albicans. ID consult reviewed. Initially patient was started on vancomycin, Levaquin and cefepime. Patient completed course of antibiotic. Sputum culture positive of Kristin albicans likely colonization. Patient did not had fever off antibiotics. 2. Acute hypoxic respiratory failure most likely secondary to healthcare acid pneumonia, with multidrug-resistant organisms versus pulmonary edema: Resolved currently on room air ?Patient is on modified dysphagia diet as per recommendation of his speech therapist after she failed swallow test and was subsequently evaluated by speech therapist. Echo February 2019. Interpretation Summary Mild concentric left ventricular hypertrophy. The estimated ejection fraction is 65 %. Stage 1 diastolic dysfunction. Trivial tricuspid valve insufficiency. Right ventricular systolic pressure estimated to be 25 mmHg. 3. Diabetes mellitus type II ~Uncontrolled with hyperglycemia patient's oral hypoglycemics held. Placed on long acting insulin, Accu-Cheks a.c. every 6 with sliding scale insulin. Glucose is between 150-180 mg/dL 4. Bilateral lower extremity weakness ?Secondary to DJD involving the lumbar spine patient was undergoing therapy at extended care facility 5. Systemic use of anticoagulation ?Patient is on therapeutic dose of Eliquis rationale was not clear from the chart however did continue do suspect this is being used for DVT prophylaxis or recent diagnosis of DVT 6. Dyslipidemia ~patient is on statin therapy, continued at home dose 7. Obesity with BMI of 33.7 ?Weight loss advised 8. DVT prophylaxis ?Patient is on Eliquis did continue 9. Acute kidney injury with mild hypokalemia, K3.4. RYAN worsened with creatinine went up from 0.68 on admission to 2.20 currently 1.8. BUN 55. Aeroplane Pilot on board. Creatinine is stable for last 5 days. Being followed by behavior clinician. Urine output about 1500 mils daily. Discharge medication reconciliation done. Discharge follow-up instructions completed. Discharge process discussed with the patient and all questions were answered to patient's satisfaction. Patient is being discharged to SNF. Follow-up with nephrology in 1 week. Follow-up with pulmonary clinic with Dr. Russell. Total time spent, exact 35 minutes on discharge meds reconciliation, examinatio n, coordination of care with nurses and ancillary staff, review of imaging and blood test and discussion with the patient on follow-up instructions Patient Problems: Active and Suspected Problems (Last Reviewed 05/07/19 @ 13:[address] Doni Mccray MD) Respiratory failure with hypoxia (Acute) Bilateral pneumonia (Acute) Sepsis due to pneumonia (Acute) Infectious encephalopathy (Acute) Subjective: Please see progress note of today. - Physical Exam Vitals/I&O's: Vital Signs Temp Pulse Resp BP Pulse Ox 98.4 F 108 H 17 135/64 H 96 05/23/19 09:00 05/23/19 13:20 05/23/19 13:20 05/23/19 09:00 05/23/19 09:00 Oxygen Flow Rate (L/min) 3 Oxygen Delivery Method Room Air Weight: 172 lb 6.424 oz Body Mass Index (BMI) 31.8 Intake and Output for Last 24 Hours 05/21/19 05/22/19 05/23/19 23:59 23:59 23:59 Intake Total 1166.66 / 1166.66 240 / 240 240 / 240 Output Total 1500 / 1500 1025 / 1025 225 / 225 Balance -333.34 / -333.34 -785 / -785 Microbiology Past 72 Hours 05/17/19 22:10 Sputum, Induced/Lukens Gram Stain - Final 05/17/19 22:10 Sputum, Induced/Lukens Respiratory Culture - Final Presumptive C albicans Laboratory Results 05/22/19 17:30: POC Glucose 179 H 05/22/19 23:42: POC Glucose 150 H 05/23/19 06:04: POC Glucose 168 H 05/23/19 13:03: POC Glucose 178 H Current Medications Acetaminophen (Tylenol Liquid) 650 mg PO Q6H PRN PRN PRN Reason: Pain Score 1-3/Temp > 100.7 F Al Hydroxide/Mg Hydroxide (Mylanta Ii) 30 ml PO Q6H PRN PRN PRN Reason: Gastric Burning Albuterol Sulfate (Ventolin Aerosols) 2.5 mg INHALATION Q2H PRN PRN PRN Reason: Shortness of Breath/Wheezing Last Admin: 05/08/19 04:30 Dose: 2.5 mg Documented by: Albuterol/Ipratropium (Duoneb) 3 ml INHALATION Q6HWA.RT [facility] Last Admin: 05/23/19 07:01 Dose: 3 ml Documented by: Apixaban (Eliquis) 5 mg PO BID [facility] Last Admin: 05/23/19 08:59 Dose: 5 mg Documented by: Ascorbic Acid (Vitamin C) 500 mg PO DAILY@0800 [facility] Last Admin: 05/23/19 08:58 Dose: 500 mg Documented by: Aspirin (Aspirin, Baby) 81 mg PO DAILYCM [facility] Last Admin: 05/23/19 08:58 Dose: 81 mg Documented by: Atorvastatin Calcium (Lipitor) 20 mg PO QHS [facility] Last Admin: 05/22/19 21:10 Dose: 20 mg Documented by: Bupropion HCl (Wellbutrin Tablets) 75 mg PO BID [facility] Last Admin: 05/23/19 09:03 Dose: 75 mg Documented by: Calamine/Phenol (Calmoseptine Ointment) 1 applic TOPICAL TID [facility]; Protocol Last Admin: 05/23/19 13:04 Dose: 1 applicatio Documented by: Famotidine (Pepcid) 20 mg PO DAILY [facility] Last Admin: 05/23/19 09:00 Dose: 20 mg Documented by: Glucagon () 1 mg IM .X1 PRN PRN Reason: Hypoglycemia Guaifenesin (Robitussin) 20 ml PO Q4H PRN PRN PRN Reason: COUGH Heparin Sodium (Beef Lung) () 50 units IV UD PRN PRN Reason: PICC Line Heparin Flush Last Admin: 05/18/19 17:03 Dose: 50 units Documented by: Dextrose (Dextrose 10%-Water) 250 mls @ 999 mls/hr IV .Q16M PRN; Protocol PRN Reason: HYPOGLYCEMIA Sodium Chloride () 250 mls @ 15 mls/hr IV .[id number] PRN PRN Reason: Saline Flush Last Infusion: 05/19/19 18:09 Dose: 0 mls/hr Documented by: Sodium Chloride () 250 mls @ 15 mls/hr IV .[id number] PRN PRN Reason: Additional IVPB Infusion Insulin Human Lispro (Humalog Kwikpen (Bkc)) 0 unit SC Q6 [facility]; Protocol Last Admin: 05/23/19 13:04 Dose: 2 u Documented by: Lorazepam (Ativan) 0.5 mg PO Q6H PRN PRN PRN Reason: ANXIETY Last Admin: 05/21/19 11:14 Dose: 0.5 mg Documented by: Melatonin (Melatonin) 3 mg PO QHS PRN PRN PRN Reason: INSOMNIA Metoprolol Tartrate (Lopressor (Beta Joseph)) 12.5 mg PO BID [facility] Last Admin: 05/23/19 08:59 Dose: 12.5 mg Documented by: Nitroglycerin (Nitrostat) 0.4 mg SUBLINGUAL Q5M PRN PRN Reason: CARDIAC/CHEST PAIN Nystatin (Mycostatin Powder) 1 applic TOPICAL BID [facility]; Protocol Last Admin: 05/23/19 08:59 Dose: 1 applicatio Documented by: Ondansetron HCl (Zofran) 4 mg IV Q8H PRN PRN PRN Reason: NAUSEA/VOMITING Last Admin: 05/18/19 11:08 Dose: 4 mg Documented by: Oxycodone HCl (Oxyir) 5 mg PO Q4H PRN PRN PRN Reason: Pain Score 4-10/10 Last Admin: 05/20/19 12:23 Dose: 5 mg Documented by: Polyethylene Glycol (Miralax) 17 gm PO DAILY PRN PRN Reason: Constipation Prochlorperazine Edisylate (Compazine Iv) 5 mg IV Q4H PRN PRN PRN Reason: Breakthrough nausea/vomiting Senna/Docusate Sodium (Senokot-S, Corrie-Colace) 2 tablet PO DAILY PRN PRN Reason: CONSTIPATION Sodium Chloride () 10 - 40 ml IV UD PRN PRN Reason: SALINE FLUSH Last Admin: 05/21/19 12:10 Dose: 10 ml Documented by: Sodium Chloride () 10 - 40 ml IV UD PRN PRN Reason: Open End PICC Flush Sodium Chloride (0.9% Nacl (Sterile) Posiflush) 10 - 40 ml IV UD PRN PRN Reason: Port access or dressing change Home Medications: Medications to take at Discharge Acetaminophen [Tylenol Tablet] 650 mg PO Q6H PRN PRN tab 02/18/19 Apixaban [Eliquis] 5 mg PO BID 05/07/19 Ascorbic Acid [Vitamin C] 500 mg PO DAILY@0800 05/07/19 Aspirin 81 mg PO DAILY 05/07/19 Atorvastatin Calcium [Lipitor] 20 mg PO DAILY 05/07/19 Lactobacillus Acidophilus [Acidophilus] 1 cap PO BID 05/07/19 Sennosides/Docusate Sodium [Senna Plus 8.6-50 mg Tablet] 2 ea PO DAILY 05/07/19 Zinc Sulfate 220 mg PO DAILY 05/07/19 Albuterol Aerosols [Ventolin Aerosols] 2.5 mg INHALATION Q2H PRN PRN vial.neb. 05/23/19 Apixaban [Eliquis] 5 mg PO BID tab 05/23/19 Famotidine [Pepcid] 20 mg PO DAILY tab 05/23/19 Fluvoxamine Maleate [Luvox] 100 mg PO QHS #0 05/23/19 Guaifenesin [Robitussin] 20 ml PO Q4H PRN PRN udc 05/23/19 Insulin Lispro [Humalog KwikPen] See Protocol SUBCUT Q6 insuln.pen 05/23/19 Ipratropium/Albuterol Sulfate [Duoneb] 3 ml INHALATION Q6HWA.RT ampul.neb 05/23/19 Menthol/Lanolin/Calamine/Znox [Calmoseptine Ointment] 1 applic TOPICAL TID tube 05/23/19 Metoprolol Tartrate [Lopressor (beta joseph)] 12.5 mg PO BID tab 05/23/19 Nystatin Powder [Mycostatin Powder] 1 applic TOPICAL BID bottle 05/23/19 Polyethylene Glycol 3350 [Miralax] 17 gm PO DAILY PRN packet 05/23/19 buPROPion tablets [Wellbutrin tablets] 75 mg PO BID tab 05/23/19 Primary Care Physician: Imtiaz Lee DO [Primary Care Provider] - Please follow up with your Primary Care Physician in: in 1-2 weeks Please Follow Up With: Joni Lombardo MD When: In 1 week with [facility] Medical Necessity - Tobacco Use Smoking Status: Never smoker Tobacco Use: Non-smoker Meaningful Use Info Meaningful Use Diagnoses (Choose all that apply): None applicable Please cancel the billing charge of progress note today. Inpatient E&M: 26113 Disch Hosp
--- NOTE | 2019-05-23 16:17 | NURSING ---
Addendum entered by Manjula Ivy 05/23/19 16:24: If further issues arrise Cayla's direct cell number is Original Note: Cayla [facility]'s director of convention services called requesting to hold discharge to tomorrow morning when her manager social services and other resources are available to manage the patient's arrival. She also had concern that the patient may be a covid candidate. This RN reassured her that all of our patients have been screened and the patient was not a candidate.
--- NOTE | 2019-05-23 17:02 | NURSING ---
called to inform pt will be staying this night then likely DC 05/24/2019
[2019-05-23 17:16] LABS: Bedside Glucose 172 mg/dL (70-110)
[2019-05-23] MEDS: Atorvastatin Calcium 20 MG Tablet PO (21:45)
[2019-05-23 21:46] LABS: Bedside Glucose 227 mg/dL (70-110)
[2019-05-24 03:00] VITALS: BP 142/65; PULSE 69; RESP 20; TEMP 36.3; O2SAT 97
[2019-05-24 03:05] VITALS: PULSE 69
[2019-05-24] MEDS: Menthol/Lanolin/Calamine/Znox 113 GM Tube 1 APPLIC TOPICAL (05:34)
[2019-05-24] MEDS: Insulin Lispro 100 UNIT/ML INSULN.PEN SC (06:32)
[2019-05-24 06:46] LABS: Absolute Neutrophil Count 11.2 X10^3/uL (2.0-7.7); Basophil# 0.01 X10^3/uL; Basophil% 0.1 % (0-1); Eosinophils% 1.5 % (0-5); Hematocrit 28.2 % (37-47); Hemoglobin 8.5 g/dL (12.0-15.0); Lymphocyte % 11.6 % (19-41); Mean Corp Hgb Conc 30.1 g/dL (32-36); Mean Corpuscular Hgb 28.1 pg (27.0-32.0); Mean Corpuscular Volume 93.4 fL (81-99); Mean Platelet Vol. 9.1 fl (6.2-12.0); Monocyte# 0.58 X10^3/uL; Monocyte% 4.2 % (0-10); NRBC Flagged by Analyzer 0 % (0-5); Neutrophil % 81.1 % (47-70); Platelet Count 248 K/mm3 (150-450); RBC Distribution Width CV 16.5 % (11.6-14.6); RBC Distribution Width SD 55.5 fl (35.1-43.9); Red Blood Count 3.02 M/mm3 (4.2-5.4); White Blood Count 13.8 K/mm3 (4.4-11.0)
[2019-05-24 06:50] LABS: Bedside Glucose 152 mg/dL (70-110)
[2019-05-24 06:55] VITALS: PULSE 70
[2019-05-24] MEDS: Ipratropium/Albuterol Sulfate 3 ML AMPUL.NEB INHALATION (06:55)
[2019-05-24 07:10] VITALS: PULSE 66; RESP 20; O2SAT 94
[2019-05-24 07:12] LABS: BUN 37 mg/dL (7-18); BUN/Creat Ratio 21.8 RATIO (10-20); Calcium,Total 8.3 mg/dL (8.5-10.1); Chloride 117 mmol/L (98-107); EST Glomerular Filtration Rate 32 mL/min (>60); Est Glom Filt Rate - Afr Amer 39 mL/min (>60); Estimated Creatinine Clearance 29.29 ml/min; Glucose 168 mg/dL (74-106); Sodium Level 150 mmol/L (136-145)
[2019-05-24 07:13] LABS: Anion Gap 7 (5-15)
[2019-05-24] MEDS: Ascorbic Acid 500 MG Tablet PO (08:48)
[2019-05-24] MEDS: Aspirin 81 MG TAB.CHEW PO (08:48)
[2019-05-24 08:49] VITALS: PULSE 79
[2019-05-24] MEDS: Metoprolol Tartrate 25 MG Tablet 12.5 MG PO (08:49)
[2019-05-24] MEDS: Famotidine 20 MG Tablet PO (08:49)
[2019-05-24 09:00] VITALS: BP 107/51; PULSE 75; RESP 22; TEMP 36.7; O2SAT 96
--- NOTE | 2019-05-24 09:48 | NURSING ---
wound photo: sacrum
[2019-05-24] MEDS: Nystatin Powder 15gm Bottle 1 APPLIC TOPICAL (10:02)
--- NOTE | 2019-05-24 10:03 | CASEMGMT ---
Patient is ready for discharge back to [facility]. KODY faxed orders. KODY called Marly at [facility] and she said they can take patient. They apparently had some problems with their faxes yesterday and there staffing was low. KODY called [facility] and arranged for patient to get picked up at 11a via cot. KODY notified RN, patient's , lead technical writer, and Marly at [facility]. Plan: d/c back to [facility] under skilled level of care. [facility] transported via cot. Brianne ALEXANDER MSW
--- NOTE | 2019-05-24 10:14 | NURSING ---
report called to Teena SCHMITT at [facility]
--- NOTE | 2019-05-24 10:15 | NURSING ---
PICC line dc'd, tip intact. Pressure held to site for 5 minutes, covered with vaseline guaze with 2x2 over top and secured with tegaderm. Instructed patient to lay flat for 30 minutes.
== END 2019-05-24 11:03 | disposition skilled nursing facility (03) | DRG 870 ==
LOC: ED 12:45 → ICU 05-10 07:12 → PCU 05-10 08:40 → ICU 05-10 08:42 → PCU 05-21 14:47
PROVIDERS: Family Medicine; Internal Medicine; Internal Medicine Critical Care Medicine; Internal Medicine Nephrology; Nurse Practitioner Family; Admitting Provider Internal Medicine; Emergency Provider Emergency Medicine; PCP Student in an Organized Health Care Education/Training Program; Visit Provider Hospitalist
DX: A41.9 Sepsis, unspecified organism (principal); J96.01 Acute respiratory failure with hypoxia; J18.9 Pneumonia, unspecified organism; G93.49 Other encephalopathy; Z16.30 Resistance to unspecified antimicrobial drugs; I50.32 Chronic diastolic (congestive) heart failure; E87.0 Hyperosmolality and hypernatremia; R65.20 Severe sepsis without septic shock; E87.6 Hypokalemia; E11.65 Type 2 diabetes mellitus with hyperglycemia; Z66 Do not resuscitate; E66.9 Obesity, unspecified; E78.5 Hyperlipidemia, unspecified; Z68.29 Body mass index [BMI] 29.0-29.9, adult; Z79.84 Long term (current) use of oral hypoglycemic drugs; I11.0 Hypertensive heart disease with heart failure; Z79.01 Long term (current) use of anticoagulants; Z86.718 Personal history of other venous thrombosis and embolism; R53.1 Weakness; L89.156 Pressure-induced deep tissue damage of sacral region
CPT/HCPCS: 31500; 31720; 36415; 36569; 36600; 51702; 71045; 71046; 74018; 76770; 80048; 80053; 81001; 82550; 82570; 82803; 82962; 83605; 83735; 83880; 84100; 84132; 84300; 84478; 84484; 84540; 85025; 85027; 85610; 85730; 87040; 87070; 87086; 87205; 87449; 87633; 87641; 92526; 92610; 93005; 94002; 94003; 94640; 94660; 94762; 97110; 97162; 97167; 97530; 97535; 97802; 99251; 99285; J7030; J7040; J7050; A4216; G0463; J1940; J2405

== ENCOUNTER → 2019-06-07 05:00 | Outpatient (REF) | payer SELFPAY ==
[2019-05-11 11:09] VITALS: BMI 31.8
[2019-06-07 07:12] LABS: Hematocrit 29.5 % (37-47); Hemoglobin 9.4 g/dL (12.0-15.0); Mean Corp Hgb Conc 31.9 g/dL (32-36); Mean Corpuscular Hgb 29.1 pg (27.0-32.0); Mean Corpuscular Volume 91.3 fL (81-99); Mean Platelet Vol. 8.3 fl (6.2-12.0); Platelet Count 294 K/mm3 (150-450); RBC Distribution Width CV 15.6 % (11.6-14.6); RBC Distribution Width SD 51.5 fl (35.1-43.9); Red Blood Count 3.23 M/mm3 (4.2-5.4); White Blood Count 7.1 K/mm3 (4.4-11.0)
[2019-06-07 07:21] LABS: Anion Gap 7 (5-15); BUN 23 mg/dL (7-18); BUN/Creat Ratio 16.4 RATIO (10-20); Calcium,Total 8.9 mg/dL (8.5-10.1); Chloride 107 mmol/L (98-107); EST Glomerular Filtration Rate 40 mL/min (>60); Est Glom Filt Rate - Afr Amer 48 mL/min (>60); Glucose 107 mg/dL (74-106); Potassium 4.1 mmol/L (3.5-5.1); Sodium Level 140 mmol/L (136-145)
== END ==
LOC: OLS.WCC 05:00
PROVIDERS: PCP Student in an Organized Health Care Education/Training Program; Referring Provider Family Medicine; Visit Provider Family Medicine
DX: I10 Essential (primary) hypertension (principal); E11.9 Type 2 diabetes mellitus without complications; Z86.73 Personal history of transient ischemic attack (TIA), and cerebral infarction without residual deficits
CPT/HCPCS: 36415; 80048; 85027

== ENCOUNTER → 2019-08-19 09:15 | Outpatient (REF) | payer MEDICARE, OTHER, SELFPAY ==
[2019-05-11 11:09] VITALS: BMI 31.8
[2019-08-19 10:58] LABS: Red Blood Cells-Urine 0 SEEN /hpf (0-5); Squamous Epithelial Cells - UA 0 SEEN /hpf (5-10)
[2019-08-19 11:04] LABS: Color, Urine Straw (Yellow); Glucose, Dipstick Normal (Normal); Ketone-Dipstick Negative (Negative); Leukocyte Esterase-Dipstick 500 /ul (Negative); Nitrite-Dipstick Positive (Negative); Occult Blood-Urine 25 /ul (Negative); Protein-Dipstick 100 mg/dl (Negative); Urine Bilirubin Dipstick Negative (Negative); Urine Clarity Turbid (Clear); Urine Urobilinogen Normal (Normal)
[2019-08-19 11:12] LABS: Triple Phosphate Crystals Ur 2+ /hpf (<or=1+)
[2019-08-19 11:16] LABS: Bacteria 3+ /hpf (None Seen)
[2019-08-19 11:18] LABS: Mucous, Urine 1+ /hpf (<or=2+)
[2019-08-19 11:19] LABS: Amorphous Sediment 4+
== END ==
LOC: OLS.WCC 09:15
PROVIDERS: Referring Provider Family Medicine; Visit Provider Family Medicine
DX: N39.0 Urinary tract infection, site not specified (principal)
CPT/HCPCS: 81001; 87077; 87086; 87088; 87186

== ENCOUNTER → 2019-08-30 04:00 | Outpatient (REF) | payer MEDICARE, OTHER, SELFPAY ==
[2019-05-11 11:09] VITALS: BMI 31.8
[2019-08-30 07:50] LABS: Hematocrit 34.2 % (37-47); Hemoglobin 10.3 g/dL (12.0-15.0); Mean Corp Hgb Conc 30.1 g/dL (32-36); Mean Corpuscular Hgb 28.1 pg (27.0-32.0); Mean Corpuscular Volume 93.4 fL (81-99); Mean Platelet Vol. 8.2 fl (6.2-12.0); Platelet Count 260 K/mm3 (150-450); RBC Distribution Width CV 13.2 % (11.6-14.6); RBC Distribution Width SD 44.5 fl (35.1-43.9); Red Blood Count 3.66 M/mm3 (4.2-5.4); White Blood Count 9.3 K/mm3 (4.4-11.0)
[2019-08-30 08:07] LABS: Hemoglobin A1c 5.7 % (3.8-5.6)
[2019-08-30 08:14] LABS: Anion Gap 7 (5-15); BUN 37 mg/dL (7-18); BUN/Creat Ratio 25.2 RATIO (10-20); Calcium,Total 9.4 mg/dL (8.5-10.1); Chloride 108 mmol/L (98-107); Cholesterol 95 mg/dL (200); Creatinine, Serum 1.47 mg/dL (0.55-1.02); EST Glomerular Filtration Rate 38 mL/min (>60); Est Glom Filt Rate - Afr Amer 46 mL/min (>60); Glucose 94 mg/dL (74-106); High Density Lipoprotein 39 mg/dL; Potassium 4.1 mmol/L (3.5-5.1); Sodium Level 139 mmol/L (136-145); Triglycerides 92 mg/dL; Very Low Density Lipoprotein 18 mg/dL (5-40)
== END ==
LOC: OLS.WCC 04:00
PROVIDERS: Referring Provider Family Medicine; Visit Provider Family Medicine
DX: E11.9 Type 2 diabetes mellitus without complications (principal); I10 Essential (primary) hypertension; E78.5 Hyperlipidemia, unspecified; Z79.899 Other long term (current) drug therapy
CPT/HCPCS: 36415; 80048; 80061; 83036; 85027

== ENCOUNTER → 2019-09-17 05:00 | Outpatient (REF) | payer MEDICARE, OTHER, SELFPAY ==
[2019-05-11 11:09] VITALS: BMI 31.8
[2019-09-17 09:18] LABS: BUN 31 mg/dL (7-18); Creatinine, Serum 1.41 mg/dL (0.55-1.02); EST Glomerular Filtration Rate 40 mL/min (>60); Est Glom Filt Rate - Afr Amer 48 mL/min (>60); T4 Total, Thyroxin 7.1 ug/dL (4.8-13.9); Thyroid Stim Hormone (TSH) 4.59 uIU/mL (0.358-3.74)
== END ==
LOC: OLS.WCC 05:00
PROVIDERS: Referring Provider Family Medicine; Visit Provider Family Medicine
DX: E03.9 Hypothyroidism, unspecified (principal)
CPT/HCPCS: 36415; 82565; 84436; 84443; 84520

== ENCOUNTER → 2019-09-29 05:00 | Outpatient (REF) | payer MEDICARE, OTHER, SELFPAY ==
[2019-05-11 11:09] VITALS: BMI 31.8
[2019-09-29 08:30] LABS: Hemoglobin 11.2 g/dL (12.0-15.0); Mean Corp Hgb Conc 31.1 g/dL (32-36); Mean Corpuscular Hgb 28.6 pg (27.0-32.0); Mean Corpuscular Volume 92.1 fL (81-99); Mean Platelet Vol. 8.6 fl (6.2-12.0); Platelet Count 245 K/mm3 (150-450); RBC Distribution Width SD 43.8 fl (35.1-43.9); Red Blood Count 3.91 M/mm3 (4.2-5.4); White Blood Count 7.3 K/mm3 (4.4-11.0)
[2019-09-29 08:42] LABS: ALB/GLOB Ratio 0.8 RATIO (0.9-2.4); AST(SGOT) 18 U/L (15-37); Alanine Aminotransfer ALT/SGPT 15 U/L (13-56); Albumin, Serum 2.9 g/dL (3.2-5.0); Alkaline Phosphatase 99 U/L (45-117); Anion Gap 5 (5-15); BUN 40 mg/dL (7-18); BUN/Creat Ratio 25.3 RATIO (10-20); Calcium,Total 9.2 mg/dL (8.5-10.1); Chloride 109 mmol/L (98-107); Creatinine, Serum 1.58 mg/dL (0.55-1.02); EST Glomerular Filtration Rate 35 mL/min (>60); Est Glom Filt Rate - Afr Amer 42 mL/min (>60); Globulin 3.6 g/dL (2.2-4.2); Glucose 89 mg/dL (74-106); Potassium 3.8 mmol/L (3.5-5.1); Protein, Total 6.5 g/dL (6.4-8.2); Sodium Level 140 mmol/L (136-145)
[2019-09-29 08:52] LABS: International Normalized Ratio 1.3; Prothrombin Time (Protime)PT. 15.6 SECONDS (11.7-14.9)
[2019-09-29 08:53] LABS: Partial Thromboplast Time 29.1 Seconds (24.1-36.2)
[2019-09-29 15:24] LABS: Bacteria 0 SEEN /hpf (None Seen); Mucous, Urine 0 SEEN /hpf (<or=2+); Red Blood Cells-Urine 0 SEEN /hpf (0-5); Squamous Epithelial Cells - UA 0 SEEN /hpf (5-10)
[2019-09-29 15:34] LABS: Color, Urine Yellow (Yellow); Glucose, Dipstick Normal (Normal); Ketone-Dipstick Negative (Negative); Leukocyte Esterase-Dipstick 500 /ul (Negative); Nitrite-Dipstick Negative (Negative); Occult Blood-Urine 250 /ul (Negative); Protein-Dipstick 100 mg/dl (Negative); Urine Bilirubin Dipstick Negative (Negative); Urine Clarity Cloudy (Clear); Urine Urobilinogen Normal (Normal)
[2019-09-29 15:42] LABS: White Blood Cells >100 SEEN /hpf (0-5)
== END ==
LOC: OLS.WCC 05:00
PROVIDERS: Referring Provider Family Medicine; Visit Provider Family Medicine
DX: M48.061 Spinal stenosis, lumbar region without neurogenic claudication (principal); N18.9 Chronic kidney disease, unspecified; Z79.899 Other long term (current) drug therapy
CPT/HCPCS: 36415; 80053; 81001; 85027; 85610; 85730

== ENCOUNTER → 2019-10-01 06:28 | Outpatient (CLI) | payer MEDICARE, OTHER, SELFPAY ==
[2019-05-11 11:09] VITALS: BMI 31.8
--- NOTE | 2019-10-01 07:00 | MRI_ITS ---
STUDY: MRI LUMBAR SPINE WITHOUT CONTRAST REASON FOR EXAM: Female, 69 years old. Stenosis left lower exterminates weakness, inability to ambulate TECHNIQUE: Standardized fat and water weighted pulse sequences were obtained in the sagittal and axial planes. COMPARISON: 02-17-19 FINDINGS: There is stable grade 1 degenerative anterolisthesis of L4 on L5, less than 4 mm and unchanged since prior imaging. The rest of the spine is aligned. Marrow and paraspinous soft tissues and SI joints are normal. Conus medullaris terminates at L1-L2. Cauda equina is restricted at L4-L5. L4-L5 has moderate to severe spondylotic sac stenosis. Remainder of the levels have patent thecal sac. There are moderate right and mild to moderate left foraminal stenoses. Appearance is stable since prior MRI/Spine Lumbar (Routine) IMPRESSION: 1. L4-L5 moderate to severe spondylotic thecal sac stenosis. Neurosurgical referral is advised. Electronically Signed: Cally Harley, at 15:43 EDT Tel , Service support ,
== END ==
PROVIDERS: PCP Family Medicine
DX: M48.061 Spinal stenosis, lumbar region without neurogenic claudication (principal)
CPT/HCPCS: 72148

== ENCOUNTER → 2019-10-13 05:00 | Outpatient (REF) | payer SELFPAY ==
[2019-05-11 11:09] VITALS: BMI 31.8
[2019-10-13 07:47] LABS: Hematocrit 28.4 % (37-47); Hemoglobin 8.8 g/dL (12.0-15.0); Mean Corpuscular Hgb 27.8 pg (27.0-32.0); Mean Corpuscular Volume 89.9 fL (81-99); Mean Platelet Vol. 8.2 fl (6.2-12.0); Platelet Count 312 K/mm3 (150-450); RBC Distribution Width CV 12.7 % (11.6-14.6); RBC Distribution Width SD 41.1 fl (35.1-43.9); Red Blood Count 3.16 M/mm3 (4.2-5.4); White Blood Count 9.7 K/mm3 (4.4-11.0)
[2019-10-13 07:57] LABS: Anion Gap 4 (5-15); BUN 27 mg/dL (7-18); BUN/Creat Ratio 21.8 RATIO (10-20); Chloride 104 mmol/L (98-107); Creatinine, Serum 1.24 mg/dL (0.55-1.02); EST Glomerular Filtration Rate 46 mL/min (>60); Est Glom Filt Rate - Afr Amer 56 mL/min (>60); Glucose 110 mg/dL (74-106); Sodium Level 136 mmol/L (136-145)
== END ==
LOC: OLS.WCC 05:00
PROVIDERS: PCP Family Medicine; Referring Provider Family Medicine; Visit Provider Family Medicine
DX: E78.5 Hyperlipidemia, unspecified (principal); E11.9 Type 2 diabetes mellitus without complications; I67.9 Cerebrovascular disease, unspecified; F41.1 Generalized anxiety disorder
CPT/HCPCS: 36415; 80048; 85027

== ENCOUNTER → 2019-10-29 05:00 | Outpatient (REF) | payer SELFPAY ==
[2019-05-11 11:09] VITALS: BMI 31.8
[2019-10-29 08:21] LABS: Thyroid Stim Hormone (TSH) 2.81 uIU/mL (0.358-3.74)
== END ==
LOC: OLS.WCC 05:00
PROVIDERS: PCP Family Medicine; Referring Provider Family Medicine; Visit Provider Family Medicine
DX: R53.83 Other fatigue (principal); L65.9 Nonscarring hair loss, unspecified
CPT/HCPCS: 36415; 84443

== ENCOUNTER → 2019-11-03 06:00 | Outpatient (REF) | payer SELFPAY ==
[2019-05-11 11:09] VITALS: BMI 31.8
[2019-11-03 08:24] LABS: Hematocrit 32.9 % (37-47); Hemoglobin 10.2 g/dL (12.0-15.0); Mean Corpuscular Hgb 27.4 pg (27.0-32.0); Mean Corpuscular Volume 88.4 fL (81-99); Mean Platelet Vol. 8.9 fl (6.2-12.0); Platelet Count 194 K/mm3 (150-450); RBC Distribution Width CV 13.2 % (11.6-14.6); RBC Distribution Width SD 42.7 fl (35.1-43.9); Red Blood Count 3.72 M/mm3 (4.2-5.4); White Blood Count 4.1 K/mm3 (4.4-11.0)
[2019-11-03 08:43] LABS: Anion Gap 7 (5-15); BUN 27 mg/dL (7-18); BUN/Creat Ratio 19.1 RATIO (10-20); Calcium,Total 8.9 mg/dL (8.5-10.1); Chloride 110 mmol/L (98-107); Creatinine, Serum 1.41 mg/dL (0.55-1.02); EST Glomerular Filtration Rate 40 mL/min (>60); Est Glom Filt Rate - Afr Amer 48 mL/min (>60); Glucose 84 mg/dL (74-106); Sodium Level 141 mmol/L (136-145)
== END ==
LOC: OLS.WCC 06:00
PROVIDERS: PCP Family Medicine; Referring Provider Family Medicine; Visit Provider Family Medicine
DX: E11.9 Type 2 diabetes mellitus without complications (principal); I10 Essential (primary) hypertension
CPT/HCPCS: 36415; 80048; 85027

== ENCOUNTER → 2019-12-10 06:00 | Outpatient (REF) | payer SELFPAY ==
[2019-05-11 11:09] VITALS: BMI 31.8
[2019-12-10 07:13] LABS: Hematocrit 34.6 % (37-47); Hemoglobin 10.6 g/dL (12.0-15.0); Mean Corp Hgb Conc 30.6 g/dL (32-36); Mean Corpuscular Hgb 27.2 pg (27.0-32.0); Mean Corpuscular Volume 88.7 fL (81-99); Mean Platelet Vol. 8.4 fl (6.2-12.0); Platelet Count 229 K/mm3 (150-450); RBC Distribution Width CV 13.4 % (11.6-14.6); RBC Distribution Width SD 43.3 fl (35.1-43.9); White Blood Count 6.1 K/mm3 (4.4-11.0)
[2019-12-10 07:26] LABS: Anion Gap 5 (5-15); BUN 25 mg/dL (7-18); BUN/Creat Ratio 15.6 RATIO (10-20); Calcium,Total 9.1 mg/dL (8.5-10.1); Chloride 110 mmol/L (98-107); EST Glomerular Filtration Rate 34 mL/min (>60); Est Glom Filt Rate - Afr Amer 41 mL/min (>60); Glucose 101 mg/dL (74-106); Sodium Level 141 mmol/L (136-145)
== END ==
LOC: OLS.WCC 06:00
PROVIDERS: PCP Family Medicine; Referring Provider Family Medicine; Visit Provider Family Medicine
DX: E11.9 Type 2 diabetes mellitus without complications (principal); I10 Essential (primary) hypertension; E78.5 Hyperlipidemia, unspecified
CPT/HCPCS: 36415; 80048; 85027

== ENCOUNTER → 2023-05-08 | Outpatient (CLI) | payer MEDICARE, OTHER, SELFPAY ==
[2023-05-08 10:38] LABS: Hematocrit 39.6 % (37-47); Hemoglobin 12.2 g/dL (12.0-15.0); Mean Corp Hgb Conc 30.8 g/dL (32-36); Mean Corpuscular Hgb 25.7 pg (27.0-32.0); Mean Corpuscular Volume 83.4 fL (81-99); Mean Platelet Vol. 8.3 fl (6.2-12.0); Platelet Count 310 K/mm3 (150-450); RBC Distribution Width CV 14.4 % (11.6-14.6); RBC Distribution Width SD 43.6 fl (35.1-43.9); Red Blood Count 4.75 M/mm3 (4.2-5.4); White Blood Count 8.7 K/mm3 (4.4-11.0)
[2023-05-08 10:47] LABS: Protein, Urine (Random) 15.5 mg/dL (<11.9); Protein:Creat Ratio 142 mg/g CRE (0-200)
[2023-05-08 11:19] LABS: Albumin, Serum 3.5 g/dL (3.2-5.0); BUN 24 mg/dL (7-18); BUN/Creat Ratio 15.1 RATIO (10-20); Chloride 107 mmol/L (98-107); Creatinine, Serum 1.59 mg/dL (0.55-1.02); EST Glomerular Filtration Rate 34 mL/min (>60); Est Glom Filt Rate - Afr Amer 41 mL/min (>60); Glucose 130 mg/dL (74-106); PTHIN 68.6 pg/mL (18.4-80.1); Phosphorus 4.1 mg/dL (2.5-4.9); Potassium 4.3 mmol/L (3.5-5.1); Sodium Level 139 mmol/L (136-145)
[2023-05-08 11:22] LABS: Vitamin D,25 Hydroxy 31.2 ng/mL
== END | disposition home or self-care (01) ==
LOC: LAB 09:50
PROVIDERS: PCP Family Medicine; Referring Provider Internal Medicine Nephrology; Visit Provider Internal Medicine Nephrology
DX: N18.4 Chronic kidney disease, stage 4 (severe) (principal)
CPT/HCPCS: 36415; 80069; 82306; 82570; 83970; 84156; 85027

== ENCOUNTER → 2024-05-07 | Outpatient (CLI) | payer MEDICARE, OTHER, SELFPAY ==
[2024-05-07 14:17] LABS: Hematocrit 38.8 % (37-47); Mean Corp Hgb Conc 30.9 g/dL (32-36); Mean Corpuscular Hgb 25.8 pg (27.0-32.0); Mean Corpuscular Volume 83.4 fL (81-99); Mean Platelet Vol. 8.2 fl (6.2-12.0); Platelet Count 317 K/mm3 (150-450); RBC Distribution Width CV 14.1 % (11.6-14.6); RBC Distribution Width SD 42.8 fl (35.1-43.9); Red Blood Count 4.65 M/mm3 (4.2-5.4)
[2024-05-07 15:39] LABS: PTHIN 76 pg/mL (11-61)
[2024-05-07 15:43] LABS: Protein, Urine (Random) 23.4 mg/dL (0.0-12.0); Protein:Creat Ratio 211 mg/g CRE (0-200)
[2024-05-07 15:57] LABS: BUN 25 mg/dL (4-19); BUN/Creat Ratio 18.3 RATIO (10-20); Calcium 9.9 mg/dL (7.6-11.0); Carbon Dioxide 21.9 mmol/L (22.0-29.0); Chloride 105 mmol/L (96-108); Creatinine, Serum 1.35 mg/dL (0.70-1.20); EST Glomerular Filtration Rate 42 (>60); Glucose 88 mg/dL (70-99); Phosphorus 3.7 mg/dL (2.7-4.5); Potassium 4.6 mmol/L (3.3-5.1); Sodium Level 139 mmol/L (133-145); Vitamin D,25 Hydroxy 35.1 ng/mL (30-100)
== END | disposition home or self-care (01) ==
LOC: LAB 13:25
PROVIDERS: PCP Student in an Organized Health Care Education/Training Program; Referring Provider Internal Medicine Nephrology; Visit Provider Internal Medicine Nephrology
DX: N18.4 Chronic kidney disease, stage 4 (severe) (principal)
CPT/HCPCS: 36415; 80069; 82306; 82570; 83970; 84156; 85027